=== PATIENT | female | born 1945 | race Caucasian/White ===

== ENCOUNTER 2017-01-08 16:20 | Emergency (ER) | payer OTHER ==
[~2017-01-08 16:20] MED LIST: ASPEC81 PO; ATOR-22 PO; CLOTLOT2 TD; LISI-461 PO; MECL1TAB40 PO; PANT1TAB48 PO; RGL5 PO; SERT-234 PO
[2017-01-08 16:23] VITALS: TEMP 37.3; Ht 162.6 cm
[2017-01-08] MEDS ORDERED: MoRPHine SULFATE 2 MG/ML CARP IV STA (17:30)
[2017-01-08] MEDS ORDERED: SODIUM CHLORIDE 0.9% 1000ML 1,000 ML IV STA (17:30)
[2017-01-08] MEDS ORDERED: ONDANSETRON INJ 2 MG/ML 2 ML VIAL IV STA (17:30)
[2017-01-08] MEDS ORDERED: SODIUM CHLORIDE 0.9% 500ML 500 ML IV STA (17:30)
--- NOTE | 2017-01-08 17:34 | EMERGENCY ROOM VISIT NOTE ---
History Report prepared by [place]: Mindy Rios Under the Supervision of: Dr. Loren Gomez M.D. First contact with patient: 17:26 Chief Complaint: FLU LIKE SX Stated Complaint: FLU, SENT BY DR PONCE History of Present Illness The patient is a 71 year old female who presents to the Emergency Room with complaints of persistent flu-like symptoms that began a couple days ago. The patient complains of a fever, body aches, cough, nausea, and vomiting. She had one episode of diarrhea yesterday. She has not eaten or drank much since then due to her nausea and vomiting. Per patient's family, the patient is weak compared to baseline. She had some tremors upon arrival to the ED. The patient was initially seen by her PCP earlier today and tested positive for influenza. Denies abdominal pain or other complaints. Source of History: patient Onset: a couple days ago Position: other (global) Quality: other (flu-like symptoms) Timing: other (persistent) Associated Symptoms: + cough, + diarrhea, + fevers, + nausea, + vomiting, + weakness, No abdominal pain Review of Systems See HPI for pertinent positives & negatives. A total of 10 systems reviewed and were otherwise negative. Past Medical & Surgical Medical Problems: (1) Asthma (2) Chronic peptic ulcer (3) Hyperlipidemia Family History No pertinent family history stated. Social History Smoking Status: Never Smoker Drug Use: none Marital Status: Occupation Status: employed Current/Historical Medications Scheduled Aspirin (Aspir-Low), 81 MG PO QAM Atorvastatin (Lipitor), 20 MG PO DAILY Bupropion (Wellbutrin Sr), 150 MG PO BID Lisinopril (Zestril), 10 MG PO DAILY Metoclopramide HCl (Metoclopramide HCl), 5 MG PO ACHS Ondasetron Odt (Zofran Odt), 4 MG SL Q6H Pantoprazole (Protonix), 40 MG PO DAILY Sertraline (Zoloft), 100 MG PO DAILY Scheduled PRN Hydrocodone W/ Homatropine (Hycodan 5/1.5MG 5 Ml), 5-10 ML PO Q4H PRN for Cough Allergies Coded Allergies: Simvastatin (Verified Allergy, Unknown, MUSCLE WEAKNESS, 01/08/17) Latex1 -Allergic Contact Dermititis (Verified Adverse Reaction, Intermediate, HIVES, 01/08/17) Physical Exam Vital Signs Date Time Temp Pulse Resp B/P Pulse Ox O2 Delivery O2 Flow Rate FiO2 01/08/17 19:18 81 18 138/69 95 Room Air 01/08/17 18:49 84 16 118/75 96 Room Air 01/08/17 17:57 85 20 132/52 96 Room Air 01/08/17 17:56 96 Room Air 01/08/17 17:52 85 01/08/17 16:23 37.3 98 16 109/74 94 Room Air Physical Exam Vital signs reviewed. General: Elderly, somewhat ill-appearing 71 year old female, obese, in no significant distress. HEENT: No scleral icterus, PERRLA, neck supple. Atraumatic. Dry mucous membranes. Cardiovascular: Regular rate and rhythm, no extra sounds. Pulmonary: Clear to auscultation bilaterally, normal work of breathing. Abdomen: Soft, nontender, nondistended, positive bowel sounds. Musculoskeletal: Atraumatic, no peripheral edema. Neurologic: Patient awake alert and oriented x 3, full strength in all 4 extremities. Cranial nerves 2 through 12 grossly intact. Skin: Warm, dry, no rash Medical Decision & Procedures ER Provider Diagnostic Interpretation: Radiology results as stated below per my review and radiologist interpretation: CHEST ONE VIEW PORTABLE CLINICAL HISTORY: Vomiting. Weakness. Flu. Fever. COMPARISON STUDY: Chest radiograph June 08, 2016. FINDINGS: Lung volumes are normal. There is no consolidation or evidence of pulmonary edema. No pneumothorax or pleural effusion is present. Mild to moderate cardiomegaly is unchanged. There is mild S-shaped scoliosis of the thoracolumbar spine. IMPRESSION: 1. No acute cardiopulmonary findings. 2. Stable cardiomegaly. 2. Mild bibasilar opacities which likely reflect atelectasis. Electronically signed by: Williams Izquierdo M.D. 01/08/2017 6:06 PM Dictated Date/Time: 01/08/2017 6:05 PM Laboratory Results 01/08/17 17:50 Red Blood Count 4.90, Mean Corpuscular Volume 93.3, Mean Corpuscular Hemoglobin 31.6, Mean Corpuscular Hemoglobin Concent 33.9, Mean Platelet Volume 10.3, Neutrophils (%) (Auto) 80.6, Lymphocytes (%) (Auto) 14.0, Monocytes (%) (Auto) 4.9, Eosinophils (%) (Auto) 0.0, Basophils (%) (Auto) 0.4, Neutrophils # (Auto) 6.28, Lymphocytes # (Auto) 1.09, Monocytes # (Auto) 0.38, Eosinophils # (Auto) 0.00, Basophils # (Auto) 0.03 01/08/17 17:50 Test 01/08/17 17:50 White Blood Count 7.79 K/uL (4.8-10.8) Red Blood Count 4.90 M/uL (4.2-5.4) Hemoglobin 15.5 g/dL (12.0-16.0) Hematocrit 45.7 % (37-47) Mean Corpuscular Volume 93.3 fL (80-100) Mean Corpuscular Hemoglobin 31.6 pg (25-34) Mean Corpuscular Hemoglobin Concent 33.9 g/dl (32-36) Platelet Count 179 K/uL (130-400) Mean Platelet Volume 10.3 fL (7.4-10.4) Neutrophils (%) (Auto) 80.6 % Lymphocytes (%) (Auto) 14.0 % Monocytes (%) (Auto) 4.9 % Eosinophils (%) (Auto) 0.0 % Basophils (%) (Auto) 0.4 % Neutrophils # (Auto) 6.28 K/uL (1.4-6.5) Lymphocytes # (Auto) 1.09 K/uL (1.2-3.4) Monocytes # (Auto) 0.38 K/uL (0.11-0.59) Eosinophils # (Auto) 0.00 K/uL (0-0.5) Basophils # (Auto) 0.03 K/uL (0-0.2) RDW Standard Deviation 47.7 fL (36.4-46.3) RDW Coefficient of Variation 13.9 % (11.5-14.5) Immature Granulocyte % (Auto) 0.1 % Immature Granulocyte # (Auto) 0.01 K/uL (0.00-0.02) Anion Gap 11.0 mmol/L (3-11) Estimated GFR () 66.6 Estimated GFR (Non- 57.4 BUN/Creatinine Ratio 12.6 (10-20) Calcium Level 9.4 mg/dl (8.5-10.1) Magnesium Level 2.0 mg/dl (1.8-2.4) Total Bilirubin 0.7 mg/dl (0.2-1) Direct Bilirubin 0.2 mg/dl (0-0.2) Aspartate Amino Transf (AST/SGOT) 23 U/L (15-37) Alanine Aminotransferase (ALT/SGPT) 27 U/L (12-78) Alkaline Phosphatase 67 U/L (45-117) Total Protein 8.0 gm/dl (6.4-8.2) Albumin 3.8 gm/dl (3.4-5.0) Lipase 73 U/L (73-393) Laboratory results per my review. Medications Administered Medications (Trade) Dose Ordered Sig/Felisha Route Start Time Stop Time Status Last Admin Dose Admin Sodium Chloride 1,000 ml @ 200 mls/hr Q5H STAT IV 01/08/17 17:30 01/08/17 19:48 DC 01/08/17 18:00 200 MLS/HR Sodium Chloride (Nss 500ml) 500 ml @ 999 mls/hr Q31M STAT IV 01/08/17 17:30 01/08/17 18:01 DC 01/08/17 18:00 999 MLS/HR Ondansetron HCl (Zofran Inj) 4 mg NOW STAT IV 01/08/17 17:30 01/08/17 17:32 DC 01/08/17 17:59 4 MG Morphine Sulfate (MoRPHine SULFATE INJ) 2 mg NOW STAT IV 01/08/17 17:30 01/08/17 17:32 DC 01/08/17 17:59 2 MG ED Course 1729: Past medical records reviewed. The patient was evaluated in room A2. A complete history and physical examination was performed. Ordered Morphine Sulfate 2 mg IV, Ondansetron HCl 4 mg IV, NSS 500 ml @ 999 mls/hr IV, NSS 1000 ml @ 200 mls/hr IV. 1846: Upon reevaluation, the patient appeared to have improvement of her symptoms. I discussed findings with the patient. She verbalized agreement of the treatment plan. The patient was discharged home. Medical Decision Differentials: Influenza, other viral illness, pneumonia, urinary tract infection, metabolic abnormality, medication effect, cellulitis, meningitis, intra-abdominal source. This patient was evaluated and appeared to be in no significant distress. IV access was obtained and laboratory work was drawn. The patient was hydrated with normal saline solution, given IV Zofran and morphine for her discomforts. Patient's laboratory work is fairly unrevealing. She is not profoundly dehydrated. Per the patient she tested positive for influenza earlier today. Patient's chest x-ray is clear. She was discharged to follow-up with her physician later this week for reevaluation. She will continue Tylenol as needed for pain or fever. Patient will return to the ER for worsening of symptoms or any medical concerns. Impression Primary Impression: Influenza Scribe Attestation The scribe's documentation has been prepared under my direction and personally reviewed by me in its entirety. I confirm that the note above accurately reflects all work, treatment, procedures, and medical decision making performed by me. Departure Information Dispostion Home / Self-Care Prescriptions Ondasetron Odt (ZOFRAN ODT) 4 Mg Tab 4 MG SL Q6H for Nausea, #15 TAB Prov: Loren Gomez M.D. 01/08/17 Hydrocodone W/ Homatropine (HYCODAN 5/1.5MG 5 ML) 1 Syp Syp 5-10 ML PO Q4H Y for Cough, #100 ML Prov: Loren Gomez M.D. 01/08/17 Referrals Kareem Ponce M.D. (PCP) Patient Instructions [facility] Additional Instructions Diagnosis: Influenza Drink plenty of clear fluids. Zofran 4 mg ODT every 6 hours as needed for nausea. Hycodan syrup 5-10 mL every 4 hours as needed for cough. Do not drive after taking this medication. Follow-up with your physician this week for reevaluation. Return to the ER for worsening of symptoms or any medical concerns.
[2017-01-08 17:56] VITALS: O2SAT 96
[2017-01-08 18:00] LABS: BASO % 0.4 %; BASO ABS # 0.03 K/uL (0-0.2); COMPLETE YES; HEMATOCRIT 45.7 % (37-47); IG% 0.1 %; LYMPH ABS # 1.09 K/uL (1.2-3.4); MEAN CELL VOLUME 93.3 fL (80-100); MEAN CORPUSCULAR HEMOGLOBIN 31.6 pg (25-34); MEAN CORPUSCULAR HGB CONC 33.9 g/dl (32-36); MEAN PLATELET VOLUME 10.3 fL (7.4-10.4); MONO % 4.9 %; NEUT % 80.6 %; PLATELET COUNT 179 K/uL (130-400); WHITE BLOOD COUNT 7.79 K/uL (4.8-10.8)
--- NOTE | 2017-01-08 18:08 | DIAGNOSTIC IMAGING REPORT ---
CHEST ONE VIEW PORTABLE CLINICAL HISTORY: Vomiting. Weakness. Flu. Fever. COMPARISON STUDY: Chest radiograph June 08, 2016. FINDINGS: Lung volumes are normal. There is no consolidation or evidence of pulmonary edema. No pneumothorax or pleural effusion is present. Mild to moderate cardiomegaly is unchanged. There is mild S-shaped scoliosis of the thoracolumbar spine. IMPRESSION: 1. No acute cardiopulmonary findings. 2. Stable cardiomegaly. 2. Mild bibasilar opacities which likely reflect atelectasis. Electronically signed by: Williams Izquierdo M.D. 01/08/2017 6:06 PM Dictated Date/Time: 01/08/2017 6:05 PM
[2017-01-08] MEDS ORDERED: BUPR-79 PO (18:16)
[2017-01-08 18:20] LABS: ALT/SGPT 27 U/L (12-78); BLOOD UREA NITROGEN 13 mg/dl (7-18); BUN/CREATININE RATIO 12.6 (10-20); CALCIUM 9.4 mg/dl (8.5-10.1); CARBON DIOXIDE 26 mmol/L (21-32); CHLORIDE 100 mmol/L (98-107); GLUCOSE 121 mg/dl (70-99); POTASSIUM 3.9 mmol/L (3.5-5.1); SODIUM 137 mmol/L (136-145)
[2017-01-08 18:22] LABS: ALKALINE PHOSPHATASE 67 U/L (45-117); AST/SGOT 23 U/L (15-37)
[2017-01-08] MEDS ORDERED: HYDR5SYP11 PO (19:13)
[2017-01-08] MEDS ORDERED: ONDA4TAB10 SL (19:15)
[2017-01-08 19:18] VITALS: BP 138/69; PULSE 81; O2SAT 95
[2017-03-22] MEDS ORDERED: LOSA1TAB PO (10:08)
[2017-03-22] MEDS ORDERED: METO5TAB2 PO (10:08)
[2017-03-22] MEDS ORDERED: SYMIN160 INH (10:08)
[2017-03-22] MEDS ORDERED: SENNTAB23 PO (10:08)
[2017-03-22] MEDS ORDERED: ACET-1256 PO (10:08)
[2017-03-22] MEDS ORDERED: ASPI81TA28 PO (10:08)
[2017-04-04] MEDS ORDERED: PROP10TA7 PO (14:32)
== END 2017-01-08 19:26 | disposition home or self-care (01) ==
LOC: C.EDB 16:22 → C.EDA 19:26
DX: J11.1 Influenza due to unidentified influenza virus with other respiratory manifestations (principal); J45.909 Unspecified asthma, uncomplicated; E78.5 Hyperlipidemia, unspecified; Z79.82 Long term (current) use of aspirin; Z79.899 Other long term (current) drug therapy

== ENCOUNTER → 2017-01-31 | Outpatient (CLI) | payer OTHER ==
[~2017-01-31] MED LIST changes: +ACET-1256 PO; +ASPI81TA28 PO; +BUPR-79 PO; -CLOTLOT2 TD; +LOSA1TAB PO; -MECL1TAB40 PO; +METO5TAB2 PO; +ONDA4TAB10 SL; +PROP10TA7 PO; +SENNTAB23 PO; +SYMIN160 INH
--- NOTE | 2017-01-31 17:54 | DIAGNOSTIC IMAGING REPORT ---
CHEST 2 VIEWS ROUTINE CLINICAL HISTORY: J45.901 Asthma with acute [id number] COMPARISON STUDY: 01/08/2017 FINDINGS: The heart is the upper limits of normal in size. There is persistent left basilar atelectasis/scarring. There is scoliosis. There is no failure. There is no lobar consolidation.[ IMPRESSION: No active disease in the chest. Electronically signed by: Jamison Murillo M.D. 01/31/2017 5:53 PM Dictated Date/Time: 01/31/2017 5:52 PM
== END | disposition home or self-care (01) ==
LOC: C.RAD 17:09
PROVIDERS: ATTEND Internal Medicine Geriatric Medicine
DX: J45.901 Unspecified asthma with (acute) exacerbation (principal)

== ENCOUNTER → 2017-03-28 | Outpatient (CLI) | payer OTHER ==
[~2017-03-28] MED LIST changes: -ASPEC81 PO; -LISI-461 PO; -ONDA4TAB10 SL; -RGL5 PO
--- NOTE | 2017-03-28 13:45 | DIAGNOSTIC IMAGING REPORT ---
CT OF THE CHEST WITHOUT IV CONTRAST CLINICAL HISTORY: J98.11 Atelectasis IS A BREATH, COUGH. COMPARISON STUDY: Chest x-ray dated 01/31/2017 CT DOSE: 496.63 mGycm TECHNIQUE: CT of the thorax was performed from the thoracic inlet to the lung bases. Images are reviewed in the axial, sagittal, and coronal planes. IV contrast was not administered for this examination. FINDINGS: Thyroid: Imaged portions of the thyroid gland are normal in appearance. Thoracic aorta: There is minimal ectasia of the adjacent thoracic aorta which measures 38 mm. Heart: The heart is normal in size and configuration, without pericardial effusion. Lungs and pleural spaces: No pleural effusions are visualized. There are bibasilar parenchymal opacities, most consistent with atelectasis. There are no suspicious pulmonary masses. Mediastinum: There is no mediastinal lymphadenopathy. Giovana: There is no evidence of pathologic hilar adenopathy given the limitations of a noncontrast study Axilla: Clear. Upper abdomen: There is a hiatal hernia. The gallbladder is surgically absent. Skeletal structures: There are no lytic or blastic osseous lesions. IMPRESSION: 1. Bilateral lower lobe parenchymal opacities, having a configuration most consistent with atelectasis 2. No suspicious pulmonary masses 3. No evidence of pathologic adenopathy 4. No pleural effusions. Electronically signed by: Jamison Murillo M.D. 03/28/2017 1:43 PM Dictated Date/Time: 03/28/2017 1:39 PM
== END | disposition home or self-care (01) ==
LOC: C.CTS 13:03
PROVIDERS: ATTEND Internal Medicine Pulmonary Disease
DX: G47.33 Obstructive sleep apnea (adult) (pediatric) (principal); J98.11 Atelectasis

== ENCOUNTER → 2017-03-29 | Outpatient (CLI) | payer OTHER ==
[2017-03-29 15:39] LABS: BASO % 0.9 %; BASO ABS # 0.05 K/uL (0-0.2); COMPLETE YES; EOS % 2.3 %; HEMATOCRIT 43.9 % (37-47); IG% 0.2 %; LYMPH % 35.5 %; LYMPH ABS # 2.01 K/uL (1.2-3.4); MEAN CELL VOLUME 95.9 fL (80-100); MEAN CORPUSCULAR HEMOGLOBIN 31.4 pg (25-34); MEAN CORPUSCULAR HGB CONC 32.8 g/dl (32-36); MEAN PLATELET VOLUME 10.4 fL (7.4-10.4); MONO % 8.1 %; PLATELET COUNT 261 K/uL (130-400); RED BLOOD COUNT 4.58 M/uL (4.2-5.4); WHITE BLOOD COUNT 5.66 K/uL (4.8-10.8)
[2017-03-29 16:01] LABS: ALT/SGPT 41 U/L (12-78); AST/SGOT 19 U/L (15-37); BLOOD UREA NITROGEN 10 mg/dl (7-18); BUN/CREATININE RATIO 11.3 (10-20); CALCIUM 8.8 mg/dl (8.5-10.1); CARBON DIOXIDE 28 mmol/L (21-32); CHLORIDE 108 mmol/L (98-107); CREATININE 0.88 mg/dl (0.60-1.20); GLUCOSE 82 mg/dl (70-99); POTASSIUM 4.1 mmol/L (3.5-5.1); SODIUM 142 mmol/L (136-145)
[2017-03-29 16:12] LABS: ALKALINE PHOSPHATASE 59 U/L (45-117); CHOLESTEROL 160 mg/dl (0-200); CHOLESTEROL/HDL RATIO 3.1; HDL CHOLESTEROL 52 mg/dl; LDL CHOLESTEROL CALCULATED 87 mg/dl; TRIGLYCERIDES 106 mg/dl (0-150); VERY LOW DENSITY LIPOPROT CALC 21 mg/dl
[2017-03-29 17:42] LABS: LYME DISEASE AB IGG NEG (NEG); LYME DISEASE AB IGM NEG (NEG)
[2017-03-30 07:35] LABS: ESTIMATED AVERAGE GLUCOSE 103 mg/dl; HA1C FLAG Normal (Normal)
[2017-04-01 15:51] LABS: ALBUMIN 3.7 G/DL (3.8-4.8); GAMMA GLOBULIN 0.8 G/DL (0.8-1.7); TOTAL PROTEIN 6.3 G/DL (6.2-8.3)
== END | disposition home or self-care (01) ==
LOC: C.LAB 14:16
PROVIDERS: ATTEND Internal Medicine
DX: J45.901 Unspecified asthma with (acute) exacerbation (principal); R51 Headache; G62.9 Polyneuropathy, unspecified; R41.3 Other amnesia; R73.9 Hyperglycemia, unspecified

== ENCOUNTER → 2017-04-04 | Day surgery (SDC) | payer OTHER ==
[2017-03-22 10:09] VITALS: BMI 34.0
[~2017-04-04] VITALS: Ht 162.6 cm; Wt 90.9 kg
[~2017-04-04] MED LIST changes: +LIDOCAINE HCL 2% 2 ML VIAL (20MG/ML) ONE; +MIDAZOLAM HCL 1 MG/ML 2ML VIAL ONE; +ONDANSETRON INJ 2 MG/ML 2 ML VIAL ONE; +PROPOFOL IV EMULSION 10 MG/ML 20 ML VIAL IV ONE
--- NOTE | 2017-04-04 13:54 | Endo History and Physical ---
History & Physical Date of Service: April 04, 2017. 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 Past Surgical History Hx Cardiac Surgery: Yes (HEART CATH, NO STENTS) Hx Internal Defibrillator: No Hx Pacemaker: No Hx Abdominal Surgery: Yes (CHLOE, ANDRY BSO) Hx of Implantable Prosthesis: No Hx Post-Op Nausea and Vomiting: No Hx Cancer Surgery: No Hx Thoracic Surgery: No Hx Orthopedic: Yes (LT/RT TKA) Hx Urinary Tract Surgery: No Family History None Social History Smoking Status: Never Smoker Hx Substance Use: No Hx Alcohol Use: No Allergies Coded Allergies: Simvastatin (Verified Allergy, Unknown, MUSCLE WEAKNESS, 03/22/17) Latex1 -Allergic Contact Dermititis (Verified Adverse Reaction, Intermediate, HIVES, 03/22/17) Current Medications Reported Home Medications Medications Dose Route/Sig Max Daily Dose Days Date Category Tylenol (Acetaminophen) 500 Mg Tab 1-2 Tabs PO Q6H PRN 03/22/17 Reported Stool Softener (Sennosides-Docusate Sodium) 1 Tab Tab 1 Tab PO DAILY PRN 03/22/17 Reported Symbicort 160/4.5 Inhaler (Budesonide/Formoterol Fumarate) Aero 2 Puffs INH BID PRN 03/22/17 Reported Aspirin Ec (Aspirin) 81 Mg Tab 81 Mg PO HS 03/22/17 Reported Cozaar (Losartan Potassium) 25 Mg Tab 25 Mg PO HS 03/22/17 Reported Metoclopramide Hcl 5 Mg Tab 1 Tab PO ACHS 03/22/17 Reported Wellbutrin Sr (Bupropion HCl) 150 Mg Ertab 150 Mg PO BID 01/08/17 Reported Protonix (Pantoprazole) 40 Mg Tab 40 Mg PO HS 02/13/14 Reported Lipitor (Atorvastatin Calcium) 20 Mg Tab 20 Mg PO HS 02/13/14 Reported Zoloft (Sertraline HCl) 100 Mg Tab 100 Mg PO HS 02/13/14 Reported Vital Signs Weight (Kilograms): 90.91 Height (Feet): 5 Height (Inches): 4 Physical Exam General Appearance: WD/WN, no apparent distress Respiratory/Chest: Auscultation: breath sounds normal Cardiovascular: Heart Auscultation: RRR Abdomen: Bowel Sounds: normal Inspection & Palpation: soft, non-distended, no tenderness, guarding & rebound Assessment and Plan Assessment: 71 yo CF who presents for EGD secondary to GERD and Nausea. Plan: Proceed with EGD.
[2017-04-04 13:56] VITALS: Ht 162.6 cm; Wt 90.9 kg
--- NOTE | 2017-04-04 15:25 | Discharge Instructions ---
Endoscopy Patient Instructions Date / Procedure(s) Performed April 04, 2017. EGD Allergy Information Coded Allergies: Simvastatin (Verified Allergy, Unknown, MUSCLE WEAKNESS, 03/22/17) Latex1 -Allergic Contact Dermititis (Verified Adverse Reaction, Intermediate, HIVES, 03/22/17) Discharge Date / Findings April 04, 2017. Gastritis s/p biopsies Hiatal hernia Retained gastric contents Medication Instructions OK to resume all medications today as prescribed Reported Home Medications Medications Dose Route/Sig Max Daily Dose Days Date Category Inderal (Propranolol HCl) 10 Mg Tab 10 Mg PO BID 04/04/17 Reported Tylenol (Acetaminophen) 500 Mg Tab 1-2 Tabs PO Q6H PRN 03/22/17 Reported Stool Softener (Sennosides-Docusate Sodium) 1 Tab Tab 1 Tab PO DAILY PRN 03/22/17 Reported Symbicort 160/4.5 Inhaler (Budesonide/Formoterol Fumarate) Aero 2 Puffs INH BID PRN 03/22/17 Reported Aspirin Ec (Aspirin) 81 Mg Tab 81 Mg PO HS 03/22/17 Reported Cozaar (Losartan Potassium) 25 Mg Tab 25 Mg PO HS 03/22/17 Reported Metoclopramide Hcl 5 Mg Tab 1 Tab PO ACHS 03/22/17 Reported Wellbutrin Sr (Bupropion HCl) 150 Mg Ertab 150 Mg PO BID 01/08/17 Reported Protonix (Pantoprazole) 40 Mg Tab 40 Mg PO HS 02/13/14 Reported Lipitor (Atorvastatin Calcium) 20 Mg Tab 20 Mg PO HS 02/13/14 Reported Zoloft (Sertraline HCl) 100 Mg Tab 100 Mg PO HS 02/13/14 Reported Provider Instructions Activity Restrictions - No exercising or heavy lifting for 24 hours. - Do not drink alcohol the day of the procedure. - Do not drive a car or operate machinery until the day after the procedure. - Do not make any important decisions or sign important papers in 24 hours after the procedure. Following Day: - Return to full activity which may include returning to work/school. Diet Start your diet with liquids and light foods (jello, soup, juice, toast). Then eat your usual diet if not nauseated. Treatment For Common After Affects For mild abdominal pain, bloating, or excessive gas: - Rest - Eat lightly - Lie on right side Follow-Up Information Follow-up with Dr Ponce as scheduled Anesthesia Information What You Should Know You have had a procedure that required some medicine to reduce anxiety and discomfort. This treatment is called moderate sedation. After receiving the treatment, you may be sleepy, but you will be able to breathe on your own. The effects of the treatment may last for several hours. Follow these instructions along with Activity/Diet recommendations noted above: * Do NOT do anything where dizziness or clumsiness would be dangerous. * Rest quietly at home today, then you can be up and about tomorrow. * Have a responsible person stay with you the rest of today. * You may have had an I.V. today. If so, you may take the dressing off later today. Recommendations Call your doctor if: * Trouble breathing * Continuous vomiting for more than 24 hours * Temperature above 101 degrees * Severe abdominal pain or bloating * Pain not relieved by pain medicine ordered * There is increased drainage or redness from any incision * A large amount of rectal bleeding greater than 2-3 tablespoons. (If you had a polyp/s removed or have hemorrhoids, a small amount of blood - from the rectum is to be expected.) * You have any unanswered questions or concerns. IN THE EVENT OF A SERIOUS EMERGENCY, GO TO THE NEAREST EMERGENCY ROOM Your discharge instructions were prepared by provider Baljinder Talamantes. Patient Instructions Signature Page Donita Kathleen Patient (or Guardian) Signature/Date: I have read and understand the instructions given to me by my caregivers. Caregiver/RN/Doctor Signature/Date: The above-named patient and/or guardian has received patient instructions on this date. + Original Patient Signature Page (only) stays with chart. Please make copy for patient.
--- NOTE | 2017-04-04 15:29 | GI REPORT ---
Procedure Date: 04/04/2017 2:54 PM Procedure: Upper GI endoscopy Indications: Gastro-esophageal reflux disease, Nausea Medicines: Monitored Anesthesia Care Complications: No immediate complications. Estimated Blood Loss: Estimated blood loss: none. Procedure: Pre-Anesthesia Assessment: - Prior to the procedure, a History and Physical was performed, and patient medications and allergies were reviewed. The patient's tolerance of previous anesthesia was also reviewed. The risks and benefits of the procedure and the sedation options and risks were discussed with the patient. All questions were answered, and informed consent was obtained. Prior Anticoagulants: The patient has taken aspirin, last dose was 10 days prior to procedure. ASA Grade Assessment: III - A patient with severe systemic disease. After reviewing the risks and benefits, the patient was deemed in satisfactory condition to undergo the procedure. After obtaining informed consent, the endoscope was passed under direct vision. Throughout the procedure, the patient's blood pressure, pulse, and oxygen saturations were monitored continuously. The Scope was introduced through the mouth, and advanced to the second part of duodenum. The upper GI endoscopy was accomplished without difficulty. The patient tolerated the procedure well. Findings: The esophagus was normal. A medium-sized hiatus hernia was present. A medium amount of food (residue) was found on the greater curvature of the stomach. Localized mild inflammation characterized by erythema was found in the gastric antrum. Biopsies were taken with a cold forceps for histology. Impression: - Normal esophagus. - Medium-sized hiatus hernia. - A medium amount of food (residue) in the stomach. - Gastritis. Biopsied. Recommendation: - Resume previous diet. - Continue present medications. - Await pathology results. - Return to GI clinic as previously scheduled. Baljinder Talamantes, 04/04/2017 3:28:54 PM This report has been signed electronically. Note Initiated On: 04/04/2017 2:54 PM I attest to the content of the Intraoperative Record and orders documented therein, exceptions below
--- NOTE | 2017-04-04 15:31 | Anesthesiology Progress Note ---
Anesthesia Post Op Note Date & Time April 04, 2017 at 15:31 Vital Signs Pain Intensity: 0 Vital Signs Past 12 Hours Date Time Temp Pulse Resp B/P Pulse Ox O2 Delivery O2 Flow Rate FiO2 04/04/17 15:18 62 16 125/68 97 Room Air 04/04/17 14:03 36.9 70 18 127/68 95 Room Air Notes Mental Status: alert / awake / arousable, participated in evaluation Pt Amnestic to Procedure: Yes Nausea / Vomiting: adequately controlled Pain: adequately controlled Airway Patency, RR, SpO2: stable & adequate BP & HR: stable & adequate Hydration State: stable & adequate Anesthetic Complications: no major complications apparent Pt doing well.
[2017-04-04 15:40] VITALS: BP 110/87; PULSE 61; O2SAT 95
== END | disposition home or self-care (01) ==
LOC: C.GI 13:15
PROVIDERS: ATTEND Internal Medicine
DX: K21.9 Gastro-esophageal reflux disease without esophagitis (principal); K44.9 Diaphragmatic hernia without obstruction or gangrene; K29.50 Unspecified chronic gastritis without bleeding; Z79.82 Long term (current) use of aspirin; Z79.899 Other long term (current) drug therapy

== ENCOUNTER → 2017-04-10 | Outpatient (CLI) | payer OTHER ==
[~2017-04-10] MED LIST changes: -LIDOCAINE HCL 2% 2 ML VIAL (20MG/ML) ONE; -MIDAZOLAM HCL 1 MG/ML 2ML VIAL ONE; -ONDANSETRON INJ 2 MG/ML 2 ML VIAL ONE; -PROPOFOL IV EMULSION 10 MG/ML 20 ML VIAL IV ONE
--- NOTE | 2017-04-10 09:09 | DIAGNOSTIC IMAGING REPORT ---
Brain MRI WITHOUT CONTRAST HISTORY: Headache NEW ONSET OF WEAVER AFTER AGE 52 TECHNIQUE: Multiplanar multisequence MRI of the brain was performed without the use of contrast. COMPARISON STUDY: None. FINDINGS: Diffusion-weighted images are negative for an acute ischemic insult. FLAIR images demonstrate several foci of increased signal including 1 within the left optic radiations. This suggestive chronic small vessel change of aging and/or history of chronic headache. A demyelinating disorder is considered a less likely possibility given this appearance. Ventricular system is midline. Structures the sella and parasellar region are unremarkable. IMPRESSION: Several small foci of increased signal throughout both cerebral hemispheres. This disc is most consistent with that of mild chronic small vessel change of aging. Otherwise negative study. Electronically signed by: Miguel Hills M.D. 04/10/2017 9:08 AM Dictated Date/Time: 04/10/2017 8:53 AM
== END | disposition home or self-care (01) ==
LOC: C.OPENMRI 07:37
PROVIDERS: ATTEND Psychiatry & Neurology Neurology
DX: R51 Headache (principal)

== ENCOUNTER → 2017-05-22 | Outpatient (CLI) | payer OTHER ==
--- NOTE | 2017-05-23 06:19 | PAP/PSG TECHNICIAN REPORT ---
[facility] Corporate Relations Director Polysomnogram Report Study name: None Report date: 05/23/2017 Study date: 05/22/2017 Referring Physician: MARQUES COELHO DO, DO Name: KEAGAN VILLASEÑOR Interpreting Physician: Marques Coelho D.O. Date of : 1945 Corporate Relations Director: Amie Ramires [facility]. Sex: Female Age: 71 Study Type: PSG Weight: 201 lbs Height: 71 years, Height 5' 5" BMI: 33.44 Medications: PANTOPRAZOLE 40 MG, BUPROPION 150 MG, SERTRALINE 100 MG, PROPRANOLOL 10 MG, ATORVASTATIN 20 MG, LOSARTAN 25 MG, ONDANSETRON 4 MG, SYMBICORT, ASPIRIN 81 MG, CETIRIZINE 10 MG, VIT B-12 1000 MCG, CLOTRIMAZOLE-BETAMETHASONE 1-0.05% EX CREAM Patient History 71 yr-old female here for a baseline/split study. She has had previous sleep testing. She was found to be positive for RISHI but discontinued CPAP use. She is back to assess her RISHI and start CPAP again. The test was started on room air. ETCO2 testing was not utilized during this study. Room 1 Parameters Monitored NPSG: E1-M2, E2-M1, Fp1-M2, Fp2-M1, F3-M2, F4-M2, F4-M1, C3-M2, C4-M2, C4-M1, O1-M2, O2-M2, O2-M1, T3-M2, T4-M1, P3-M2, P4-M1, CHIN1, CHIN2, HR, EKG, Legs, PFLOW, SNOR, FLOW, CFLOW, Tidal Volume, THOR, ABDO, SpO2, PLTH, CPRESS, ETCO2 Wave, ETCO2, pH Sleep Architecture Sleep Stages Time at Lights Off 10:38:03 PM STAGES Time (min.) TST (%) Time at Lights On 5:15:33 AM Wake 118.5 -- Total Recording Time (TRT) 397.50 min. N1 80.5 29 Total Sleep Period (TSP) 356.0 min. N2 198.5 71 Total Sleep Time (TST) 279.0min. N3 0.0 0 Awake Time 118.5 min. REM 0.0 0 Wake after Sleep Onset 77.0 min. Sleep Efficiency (SE) 70 % Sleep Onset Latency (DOROTHY) 41.5 min. Number of Stage 1 Shifts None Awakenings 37 Stage Changes 122 Number of REM periods N/A REM 0.0 0 REM Latency NONE min. NREM 279.0 100 Body Position Analysis Supine Right Left Side Prone Vertical Total Sleep Time (min.) 119.8 146.0 88.5 234.50 0.0 0.0 Total Sleep Time (%) 16% 52% 32% 84 0% N/A% Total Sleep Time REM (min.) 0.0 0.0 0.0 None 0.0 0.0 Total Sleep Time NREM (min.) 44.5 146.0 88.5 None 0.0 0.0 Intermittent Wake (min.) 75.3 27.4 15.8 None 0.0 0.0 Total Sleep Period (%) 22% None None None None None Arousals Myoclonus (PLM) * Events Count Index Events Count Index Spontaneous 42 9 Events Awake (PLMW) 53 26.8 Respiratory 32 7.5 Events Asleep w/ Arousal (PLMA) 9 1.9 PLM 9 2 Events Asleep w/o Arousal (PLMS) 152 32.7 Snoring 6 1 Total Asleep 161 34.6 Total 89 19 Total 214 32 Respiratory Analysis * CA OA MA CH H RERA Total Count 7 54 4 0 122 2 187 Index 1.5 11.6 0.9 0 26.2 0 40.6 Mean Duration 14.7 18.6 19.0 0.00 20.6 16.6 19.7 Longest Duration 19.2 29.5 24.1 0.00 24.1 16.9 45.3 Respiratory Event Summary Total Supine ~Supine Right Left Prone REM NREM Apneas Count 65 4 61 20 41 N/A N/A 65 Index 14.0 5 16 8.2 27.8 N/A N/A 14 Hypopneas (4% Desat) Count 122 32 90 38 52 N/A N/A 122 Index 26.2 43.1 23 15.6 35.3 N/A N/A 26.2 Apneas & All Hypopneas Count 187 36 151 58 93 N/A N/A 187 Index 40.2 49 39 24 63 N/A N/A 40.2 Respiratory Events (Door Repairer Bus+All Hyp+RERA) Count 187 38 151 58 93 N/A N/A 187 Index 40.6 51 39 23.8 63.1 N/A N/A 40.6 Respiratory Related Arousal Count 32 38 22 9 13 N/A N/A 35 Index 7.5 18 6 4 9 N/A N/A 8 Snoring Analysis Supine Right Left Prone REM NREM Total Snore duration 3.5 min Snores count 22 31 37 N/A N/A 90 90 Snore mean duration 2.3 Sec Snores index 30 13 25 N/A N/A 19.4 19.4 TST with snoring (%) 1.2% Desaturation Event Summary: Minimum %SpO2 Event Count Mean/Min/Max Duration(sec.) Desaturation Index % Time In Bed > 90 211 28.3 / 9.5 / 59.8 68.8 46.4 86 - 90 85 26.4 / 10.5 / 59.8 25.0 51.4 81 - 85 0 N/A 0.0 2.2 76 - 80 0 N/A 0.0 0.0 71 - 75 0 N/A 0.0 0.0 66 - 70 0 N/A 0.0 0.0 61 - 65 0 N/A 0.0 0.0 56 - 60 0 N/A 0.0 0.0 51 - 55 0 N/A 0.0 0.0 < 50 0 N/A 0.0 0.0 Total REM NREM Awake <50% 0.0 min. 0.0 min. 0.0 min. 0.0 min. 51 - 60% 0.0 min. 0.0 min. 0.0 min. 0.0 min. 61 - 70% 0.0 min. 0.0 min. 0.0 min. 0.0 min. 71 - 80% 0.0 min. 0.0 min. 0.0 min. 0.0 min. 81 - 90% 212.8 min. 0.0 min. 182.8 min. 30.1 min. 91 - 100% 183.9 min. 0.0 min. 96.2 min. 87.7 min. Average 90 0 90 92 Minimum SpO2 81 N/A 81 82 Desaturation Event Index 34.0 0.0 42.8 13.7 # Desat. Events below 89% 176 N/A 160 16 Time(%) with Saturation below 89% 22.8 0.0 20.2 2.6 Time(min.) with Saturation below 89% 90.6 0.0 80.1 10.4 Time (mins) REM (mins) NREM (mins) % of TST SpO2 Below 90% 195 N/A N195 46.8 SpO2 Below 88% 73 0 0 12 Heart Rate Analysis Min (bpm) Max (bpm) Average (bpm) Awake 54 127 62 NREM 54 67 61 REM N/A N/A N/A Overall 54 67 61 Supplemental O2 Values Minimum O2 level: None Value Start Time End Time Corporate Relations Director Comments Ms. Villaseñor slept in the right, left, and supine positions. No cardiac arrhythmias were noted. PLMs were noted. No bruxism noted. Snoring was noted and scored as a 2 on a scale of 1 through 5. (0=no snoring, 5=snoring loud enough to be heard through a closed door or down the hassan way) She did not meet specific Split-Night criteria during the diagnostic portion of this study in enough time to start CPAP. She did not wake up to use the restroom during the night. Ms. Villaseñor stated that she slept about the same as usual. The final report will be interpreted and signed by a sleep physician. The completed physician report will then be placed in the patient medical record. Therapy (cm H2O) 0 TIB (min.) 397.5 TST (min.) 279.0 Sleep Onset (min.) 41.5 REM Onset From Sleep (min.) NONE Sleep Efficiency % 70 Wakefulness (%) 30 Wakefulness (min.) 118.5 NREM 1 (%) 29 NREM 1 (min.) 80.5 NREM 2 (%) 71 NREM 2 (min.) 198.5 NREM 3 (%) 0 NREM 3 (min.) 0.0 REM (%) 0 REM (min.) 0.0 # Arousals 89 Arousal Index 19 # Snore 90 Snore Index 19.4 AHI 40.2 AHI Supine 49 AHI Non-Supine 39 NREM AHI 40.2 REM AHI N/A RDI 40.6 # Obstructive Apnea 54 # Central Apnea 7 # Mixed Apnea 4 # Hypopneas 122 RERAs 2 Total Respiratory Events 192 Time Below SpO2 89% (min.) 80.1 Mean NREM SpO2 (%) 90 Mean REM SpO2 (%) N/A Mean Sleep SpO2 (%) 90 Min NREM SpO2 (%) 81 Min REM SpO2 (%) N/A Position Supine (min.) 119.8 Position Non-supine (min.) 234.5 LM Index Sleep 34.6 LM Index NREM 34.6 LM Index REM N/A Mean Heart Rate (bpm) 61 Min Heart Rate (bpm) 54
--- NOTE | 2017-05-28 13:14 | Sleep Study ---
Sleep Study Report Date of Service: 05/22/2017 Sleep Study Report Clinical data: The patient is a 71-year-old female who has a BMI of 33.44. She was diagnosed with obstructive sleep apnea in 2006 and it was severe. She only wore CPAP for 2 months and never got comfortable. She has symptoms of snoring, disturbed nocturnal sleep, and excessive daytime somnolence. The patient comes for an in- lab sleep study. Sleep architecture: The total sleep period 356.0 minutes. The total sleep time was 279.0 minutes. The sleep efficiency was moderately reduced to 70 percent. The sleep onset latency was prolonged to 41.5 minutes. Wake after sleep onset was increased at 77.0 minutes. Sleep consisted of stage N1 29 percent and stage N2 71 percent. Arousal data: The patient had a total of 89 arousals including 42 spontaneous arousals, 32 respiratory arousals, 9 PLM arousals, and 6 snoring arousals. The arousal index was 19. PLM data: The patient had a total of 161 periodic limb movements of sleep for an index of 34.6. There were 9 arousals for a PLM arousal index of 1.9. Respiratory data: There were a total of 187 respiratory events including 7 central apneas, 54 obstructive apneas, 4 mixed apneas, and 122 hypopneas. Hypopneas were scored by the 4 percent desaturation rule. The longest apnea was 29.5 seconds. Mean duration of the hypopneas was 20.6 seconds. The apnea-hypopnea index was severely elevated at 40.2 events per hour. This would be compatible with severe obstructive sleep apnea. It is worthwhile knowing that the majority of the events occurred in the 2nd half of the night and thus a split study could not be done. Oximetry data: The oxygen saturation average was 90 percent. The minimum saturation was 81 percent. There was a total of 90.6 minutes with saturations less than 89 percent. EKG data: The patient had an underlying normal sinus rhythm. The cardiac rate ranged from 54 to 67 beats per minute. The average rate was 61 beats per minute. No significant cardiac arrhythmias noted. Clinical Aide comments: The patient slept on the right, left, and supine positions. PLMS were noted. No bruxism noted. Snoring was scored as a 2 on a scale of 1 through 5. Impressions: 1. Obstructive sleep apnea-severe 2. Periodic limb movement disorder Comments: The patient has severe sleep apnea with a severe elevation of body mass index. The sleep efficiency was reduced. His sleep was poorly consolidated. No REM sleep was present. The majority of respiratory events occurred in the 2nd half of the night and a split study could not be done. Oxygenation was somewhat lower than normal. The patient had a modest number of limb movements but with few arousals. There is no treatment necessary at present for the underlying limb movement disorder. Sleep disordered breathing should be treated 1st. Recommendations: 1. It is advised that the patient be given a trial of nasal CPAP. This could either be from a referral to the Sleep Lab or with auto CPAP. 2. No treatment is necessary for the limb movements 3. Weight loss is advised in light of the elevation of body mass index at 33.44 4. The patient should be advised the appropriate principles of sleep hygiene including having a regular sleep-wake schedule and allowing approximately 7.5 hours of sleep time per night. 5. Following nasal CPAP therapy she should be evaluated between day 31 day 90. Copies To 1: Marques Javed DO; Kareem Ponce M.D.
== END | disposition home or self-care (01) ==
LOC: C.NEUR 21:00
PROVIDERS: ATTEND Internal Medicine Pulmonary Disease
DX: G47.33 Obstructive sleep apnea (adult) (pediatric) (principal); G47.61 Periodic limb movement disorder

== ENCOUNTER → 2018-01-22 | Outpatient (CLI) | payer OTHER ==
[~2018-01-22] MED LIST changes: +PANT1TAB3 PO; -PANT1TAB48 PO
[2018-01-22 16:53] LABS: HEMATOCRIT 45.1 % (37-47); HEMOGLOBIN 14.8 g/dL (12.0-16.0); MEAN CELL VOLUME 93.8 fL (80-100); MEAN CORPUSCULAR HEMOGLOBIN 30.8 pg (25-34); MEAN CORPUSCULAR HGB CONC 32.8 g/dl (32-36); MEAN PLATELET VOLUME 10.2 fL (7.4-10.4); PLATELET COUNT 281 K/uL (130-400); RED CELL DISTRIBUTION WIDTH SD 48.1 fL (36.4-46.3); WHITE BLOOD COUNT 6.51 K/uL (4.8-10.8)
[2018-01-22 17:20] LABS: BASO % 0.9 %; BASO ABS # 0.06 K/uL (0-0.2); EOS % 2.6 %; EOS ABS # 0.17 K/uL (0-0.5); IG# 0.01 K/uL (0.00-0.02); LYMPH ABS # 3.45 K/uL (1.2-3.4); MONO % 6.1 %; NEUT % 37.2 %; NEUT ABS # 2.42 K/uL (1.4-6.5)
[2018-01-22 17:23] LABS: ALBUMIN 3.5 gm/dl (3.4-5.0); ALKALINE PHOSPHATASE 69 U/L (45-117); ALT/SGPT 26 U/L (12-78); AST/SGOT 22 U/L (15-37); BLOOD UREA NITROGEN 12 mg/dl (7-18); CALCIUM 9.1 mg/dl (8.5-10.1); CARBON DIOXIDE 25 mmol/L (21-32); CREATININE 1.08 mg/dl (0.60-1.20); GLUCOSE 97 mg/dl (70-99); POTASSIUM 3.8 mmol/L (3.5-5.1); SODIUM 137 mmol/L (136-145)
[2018-01-22 17:29] LABS: CHOLESTEROL 331 mg/dl (0-200); LDL CHOLESTEROL CALCULATED 244 mg/dl; TOTAL PROTEIN 7.4 gm/dl (6.4-8.2)
[2018-01-23 06:50] LABS: HEMOGLOBIN A1C 5.4 % (4.5-5.6)
== END | disposition home or self-care (01) ==
LOC: C.LABBC 12:22
PROVIDERS: ATTEND Internal Medicine
DX: I10 Essential (primary) hypertension (principal)

== ENCOUNTER → 2018-04-11 | Outpatient (CLI) | payer OTHER | END | disposition home or self-care (01) | LOC: C.LABBC 14:37 | PROVIDERS: ATTEND Physician Assistant Medical | DX: E78.5 Hyperlipidemia, unspecified (principal) ==

== ENCOUNTER 2018-07-09 19:32 | Observation (INO) | payer OTHER ==
[~2018-07-09] VITALS: Ht 160 cm; Wt 87.4 kg
[2018-07-09] MEDS ORDERED: ONDANSETRON INJ 2 MG/ML 2 ML VIAL IV STA (19:39)
[2018-07-09] MEDS ORDERED: PROMETHAZINE HCL INJ 12.5 MG in SODIUM CHLORIDE 0.9% 50ML 50 ML IV STA (19:59)
[2018-07-09 20:01] LABS: BASO % 0.4 %; BASO ABS # 0.03 K/uL (0-0.2); EOS % 0.7 %; EOS ABS # 0.05 K/uL (0-0.5); HEMATOCRIT 47.6 % (37-47); HEMOGLOBIN 16.1 g/dL (12.0-16.0); IG# 0.01 K/uL (0.00-0.02); LYMPH % 42.8 %; LYMPH ABS # 2.99 K/uL (1.2-3.4); MEAN CELL VOLUME 92.8 fL (80-100); MEAN CORPUSCULAR HEMOGLOBIN 31.4 pg (25-34); MEAN CORPUSCULAR HGB CONC 33.8 g/dl (32-36); MEAN PLATELET VOLUME 10.9 fL (7.4-10.4); MONO % 6.3 %; MONO ABS # 0.44 K/uL (0.11-0.59); NEUT % 49.7 %; NEUT ABS # 3.47 K/uL (1.4-6.5); PLATELET COUNT 263 K/uL (130-400); RED CELL DISTRIBUTION WIDTH CV 14.5 % (11.5-14.5); RED CELL DISTRIBUTION WIDTH SD 49.5 fL (36.4-46.3); WHITE BLOOD COUNT 6.99 K/uL (4.8-10.8)
[2018-07-09 20:30] LABS: ALKALINE PHOSPHATASE 66 U/L (45-117); ALT/SGPT 32 U/L (12-78); AST/SGOT 26 U/L (15-37); BLOOD UREA NITROGEN 12 mg/dl (7-18); CALCIUM 9.9 mg/dl (8.5-10.1); CARBON DIOXIDE 22 mmol/L (21-32); CREATININE 1.03 mg/dl (0.60-1.20); GLUCOSE 116 mg/dl (70-99); LIPASE 59 U/L (73-393); POTASSIUM 3.4 mmol/L (3.5-5.1); SODIUM 137 mmol/L (136-145); TOTAL PROTEIN 7.8 gm/dl (6.4-8.2)
--- NOTE | 2018-07-09 21:33 | DIAGNOSTIC IMAGING REPORT ---
CT OF THE ABDOMEN AND PELVIS WITHOUT CONTRAST CLINICAL HISTORY: Vomiting. Evaluate for bowel obstruction. COMPARISON STUDY: CT of the abdomen and pelvis June 10, 2009. TECHNIQUE: Axial images of the abdomen and pelvis were obtained without IV contrast. Images were reviewed in the axial, sagittal, and coronal planes. A dose lowering technique was utilized adhering to the principles of ALARA. FINDINGS: Visualized portions of the lower chest demonstrate a moderate sized hiatal hernia. A suspected ingested tablet is noted within the intrathoracic portion of the stomach. There is no biliary ductal dilatation status post cholecystectomy. No pneumatosis, free air or portal venous gas is present. A splenule is noted. The spleen, adrenal glands, kidneys and pancreas are unremarkable. There is no peripancreatic infiltration. No hydronephrosis or hydroureter is present. No enlarged abdominal or pelvic lymph nodes are noted. Tiny fat-containing umbilical hernia is present. There is no evidence for a bowel obstruction. There is colonic diverticulosis without evidence for acute diverticulitis. Submucosal fat deposition within the colon is noted. The appendix is normal. There is mild colonic wall thickening which appears diffuse. There is no significant pericolonic infiltration. There is no free air or abscess. No suspicious osseous lesion is present. There is no ascites. IMPRESSION: 1. No evidence for a bowel obstruction. Normal appendix. 2. Submucosal fat deposition within the colon which is chronic. Apparent mild colonic wall thickening which is likely due to underdistention however a nonspecific colitis could appear similar. No free air or abscess. 3. Colonic diverticulosis without evidence for acute diverticulitis. 4. Moderate sized hiatal hernia with suspected ingested tablet within the intrathoracic portion of the stomach. Electronically signed by: Williams Izquierdo M.D. 07/09/2018 9:32 PM Dictated Date/Time: 07/09/2018 9:22 PM
[2018-07-09] MEDS ORDERED: SODIUM CHLORIDE 0.9% 500ML 500 ML IV STA (21:50)
--- NOTE | 2018-07-09 22:31 | EMERGENCY ROOM VISIT NOTE ---
History Report prepared by Glenibtaz: Cici Salomon Under the Supervision of: Dr. Eyal Vo M.D. First contact with patient: 19:34 Chief Complaint: NAUSEA Stated Complaint: Nausea History of Present Illness The patient is a 72 year old female who presents to the Emergency Room with complaints of worsening nausea. She was brought to the ED via EMS. EMS states the patient has been nauseous and constipated for the past 5 days. Her nausea has worsened and she is vomiting on arrival to the ED. Zofran given in the field has provided minimal relief. She has also complained of chest pain or abdominal pain. Her BSG was 107 in the field and she was hypertensive in the 160 's. HPI is limited secondary to the patients condition. She is actively vomiting. Source of History: patient History Limited By: other (Condition of the patient; vomiting) Onset: 5 days CYTOGENETICIST Position: abdomen Quality: other (vomiting) Timing: worsening Modifying Factors (Relieving): anti-emetics (Zofran) Associated Symptoms: + chest pain, + vomiting Review of Systems Limited due to the patient's condition. She is actively vomiting. Past Medical & Surgical Medical Problems: (1) Asthma (2) Chronic peptic ulcer (3) Hyperlipidemia Social History Smoking Status: Never Smoker Alcohol Use: none Drug Use: none Marital Status: Housing Status: lives with family Occupation Status: employed Current/Historical Medications Scheduled Aspirin (Aspirin Ec), 81 MG PO HS Atorvastatin (Lipitor), 20 MG PO HS Bupropion (Wellbutrin Sr), 150 MG PO BID Losartan Potassium (Cozaar), 25 MG PO HS Metoclopramide Hcl (Metoclopramide Hcl), 1 TAB PO ACHS Pantoprazole (Protonix), 40 MG PO HS Propranolol (Inderal), 10 MG PO BID Sertraline (Zoloft), 100 MG PO HS Scheduled PRN Acetaminophen (Tylenol), 1-2 TABS PO Q6H PRN for Pain Budesonide/Formoterol Fumarate (Symbicort 160/4.5 Inhaler ), 2 PUFFS INH BID PRN for Shortness of Breath Sennosides-Docusate Sodium (Stool Softener), 1 TAB PO DAILY PRN for Constipation Allergies Coded Allergies: Simvastatin (Verified Allergy, Unknown, MUSCLE WEAKNESS, 03/22/17) Latex1 -Allergic Contact Dermititis (Verified Adverse Reaction, Intermediate, HIVES, 4/28/17) Physical Exam Vital Signs Date Time Temp Pulse Resp B/P (MAP) Pulse Ox O2 Delivery O2 Flow Rate FiO2 07/09/18 20:59 134/68 07/09/18 20:32 73 14 100 07/09/18 19:39 134/93 07/09/18 19:39 36.6 75 20 134/93 100 Room Air Physical Exam Constitutional: Vital signs reviewed. Patient is actively vomiting on exam. Eyes: Pupils are equal round reactive to light. Conjunctiva are noninjected. ENT: Pharynx is clear without erythema or exudate. Mucous membranes are moist. Neck supple without meningeal signs. Respiratory: Clear to auscultation bilaterally. Breath sounds are equal bilaterally. Cardiovascular: Regular rate and rhythm. No rubs or gallops. GI: Soft, nondistended and nontender. Bowel sounds are present. Musculoskeletal: No peripheral edema. No lower extremity tenderness. Integumentary: No cyanosis. Neurological: The patient is awake and alert. No focal deficits. Psychiatric: Unable to assess. Medical Decision & Procedures ER Provider Diagnostic Interpretation: Radiology results as stated below per my review and the radiologist's interpretation: CT OF THE ABDOMEN AND PELVIS WITHOUT CONTRAST CLINICAL HISTORY: Vomiting. Evaluate for bowel obstruction. COMPARISON STUDY: CT of the abdomen and pelvis June 10, 2009. TECHNIQUE: Axial images of the abdomen and pelvis were obtained without IV contrast. Images were reviewed in the axial, sagittal, and coronal planes. A dose lowering technique was utilized adhering to the principles of ALARA. FINDINGS: Visualized portions of the lower chest demonstrate a moderate sized hiatal hernia. A suspected ingested tablet is noted within the intrathoracic portion of the stomach. There is no biliary ductal dilatation status post cholecystectomy. No pneumatosis, free air or portal venous gas is present. A splenule is noted. The spleen, adrenal glands, kidneys and pancreas are unremarkable. There is no peripancreatic infiltration. No hydronephrosis or hydroureter is present. No enlarged abdominal or pelvic lymph nodes are noted. Tiny fat-containing umbilical hernia is present. There is no evidence for a bowel obstruction. There is colonic diverticulosis without evidence for acute diverticulitis. Submucosal fat deposition within the colon is noted. The appendix is normal. There is mild colonic wall thickening which appears diffuse. There is no significant pericolonic infiltration. There is no free air or abscess. No suspicious osseous lesion is present. There is no ascites. IMPRESSION: 1. No evidence for a bowel obstruction. Normal appendix. 2. Submucosal fat deposition within the colon which is chronic. Apparent mild colonic wall thickening which is likely due to underdistention however a nonspecific colitis could appear similar. No free air or abscess. 3. Colonic diverticulosis without evidence for acute diverticulitis. 4. Moderate sized hiatal hernia with suspected ingested tablet within the intrathoracic portion of the stomach. Electronically signed by: Williams Izquierdo M.D. 07/09/2018 9:32 PM Laboratory Results 07/09/18 19:25 Red Blood Count 5.13, Mean Corpuscular Volume 92.8, Mean Corpuscular Hemoglobin 31.4, Mean Corpuscular Hemoglobin Concent 33.8, Mean Platelet Volume 10.9, Neutrophils (%) (Auto) 49.7, Lymphocytes (%) (Auto) 42.8, Monocytes (%) (Auto) 6.3, Eosinophils (%) (Auto) 0.7, Basophils (%) (Auto) 0.4, Neutrophils # (Auto) 3.47, Lymphocytes # (Auto) 2.99, Monocytes # (Auto) 0.44, Eosinophils # (Auto) 0.05, Basophils # (Auto) 0.03 07/09/18 19:25 Test 07/09/18 19:25 White Blood Count 6.99 K/uL (4.8-10.8) Red Blood Count 5.13 M/uL (4.2-5.4) Hemoglobin 16.1 g/dL (12.0-16.0) Hematocrit 47.6 % (37-47) Mean Corpuscular Volume 92.8 fL (80-100) Mean Corpuscular Hemoglobin 31.4 pg (25-34) Mean Corpuscular Hemoglobin Concent 33.8 g/dl (32-36) Platelet Count 263 K/uL (130-400) Mean Platelet Volume 10.9 fL (7.4-10.4) Neutrophils (%) (Auto) 49.7 % Lymphocytes (%) (Auto) 42.8 % Monocytes (%) (Auto) 6.3 % Eosinophils (%) (Auto) 0.7 % Basophils (%) (Auto) 0.4 % Neutrophils # (Auto) 3.47 K/uL (1.4-6.5) Lymphocytes # (Auto) 2.99 K/uL (1.2-3.4) Monocytes # (Auto) 0.44 K/uL (0.11-0.59) Eosinophils # (Auto) 0.05 K/uL (0-0.5) Basophils # (Auto) 0.03 K/uL (0-0.2) RDW Standard Deviation 49.5 fL (36.4-46.3) RDW Coefficient of Variation 14.5 % (11.5-14.5) Immature Granulocyte % (Auto) 0.1 % Immature Granulocyte # (Auto) 0.01 K/uL (0.00-0.02) Anion Gap 14.0 mmol/L (3-11) Estimated GFR () 63.8 Estimated GFR (Non- 55.0 BUN/Creatinine Ratio 11.4 (10-20) Calcium Level 9.9 mg/dl (8.5-10.1) Total Bilirubin 1.3 mg/dl (0.2-1) Direct Bilirubin 0.3 mg/dl (0-0.2) Aspartate Amino Transf (AST/SGOT) 26 U/L (15-37) Alanine Aminotransferase (ALT/SGPT) 32 U/L (12-78) Alkaline Phosphatase 66 U/L (45-117) Troponin I < 0.015 ng/ml (0-0.045) Total Protein 7.8 gm/dl (6.4-8.2) Albumin 4.0 gm/dl (3.4-5.0) Lipase 59 U/L (73-393) Laboratory results as reviewed by me. Medications Administered Medications (Trade) Dose Ordered Sig/Felisha Route Start Time Stop Time Status Last Admin Dose Admin Ondansetron HCl (Zofran Inj) 4 mg NOW STAT IV 07/09/18 19:39 07/09/18 19:41 DC 07/09/18 19:53 4 MG Promethazine HCl 12.5 mg/Sodium Chloride 50.5 ml @ 204 mls/hr NOW STAT IV 07/09/18 19:59 07/09/18 20:13 DC 07/09/18 20:41 204 MLS/HR Sodium Chloride 500 ml @ 999 mls/hr Q31M STAT IV 07/09/18 21:50 07/09/18 22:20 DC 07/09/18 22:17 999 MLS/HR ECG Per My Interpretation Indication: chest pain Rate (beats per minute): 73 Rhythm: normal sinus Findings: other (Baseline artifact limiting interpretation, no ST elevations) Change: no significant change (No change from January 2014) ED Course 1935: The patient was evaluated in room A12. A complete history and physical exam was performed. 1938: Zofran 4 mg IV. 1958: Promethazine HCl 12.5 mg/Sodium Chloride 50.5 ml @ 204 mls/hr IV. 1999: Nursing informed me the patient is refusing CT scan until she feels less nauseated. 2039: I reevaluated the patient. She is still nauseous and states she cannot lay down for CT scan. She complains of pain from her belly all the way up to her throat. 2139: I discussed the patient with Dr. Garland, [facility] Hospitalist. The patient will be further evaluated. 2144: I reevaluated the patient. She is still nauseated but no longer vomiting. I discussed her test results with her and my recommendation she remain in the hospital for further evaluation and management and she verbalized complete understanding and agreement. 2149: NSS 500 ml @ 999 mls/hr IV. Medical Decision This is a 72-year-old female presents with vomiting. Differential diagnosis includes gastroenteritis, bowel obstruction, partial obstruction, mass, infection, cardiac, metabolic derangement. I did perform a limited focused review of portions of the patient's old chart on the electronic medical record. The patient has had no recent pertinent visits to this hospital. I did evaluate the patient as noted above. History is difficult to obtain as the patient was vomiting and unable to speak very much. The patient was placed on a continuous cancer center director. I did treat her with Zofran IV. She did receive Zofran prior to arrival from the paramedics. She had persistent vomiting was given Phenergan IV. She was also given normal saline IV. I did order and personally review the patient's 12-lead EKG as described above. I did order and review the patient's blood work as noted in the electronic medical record. I did order a CT of the abdomen and pelvis. I did review the images myself as well as the radiology report as described above. There is no evidence of obstruction. I did reassess the patient. She continues to be extremely nauseated. The cause of her symptoms is unclear. The patient is still symptomatic and will be hospitalized for further evaluation. I did discuss the case with the hospitalist service and the child welfare caseworker. Medication Reconcilliation Current Medication List: was personally reviewed by me Blood Pressure Screening Patient's blood pressure: Elevated blood pressure Blood pressure disposition: Referred to PCP Consults Time Called: 2134 [facility] Call: 2139 I discussed the patient with Dr[facility] The patient will be further evaluated. Impression Primary Impression: Intractable vomiting Additional Impressions: Dehydration Hypokalemia Scribe Attestation The scribe's documentation has been prepared under my direct and personally reviewed by me in its entirety. I confirm that the note above accurately reflects all work, treatment, procedures, and medical decision making performed by me. Departure Information Dispostion Being Evaluated By Hospitalist Referrals Kareem Ponce M.D. (PCP) Patient Instructions My [facility] Health Problem Qualifiers Primary Impression: Intractable vomiting Vomiting type: unspecified Nausea presence: with nausea Qualified Codes: R11.2 - Nausea with vomiting, unspecified
[2018-07-09] MEDS ORDERED: METOCLOPRAMIDE HCL INJ 5 MG/ML 2 ML VIAL IV STA (22:54)
[2018-07-09] MEDS ORDERED: ATOR-24 PO (22:57)
[2018-07-09] MEDS ORDERED: CYAN100020 PO (22:57)
[2018-07-09] MEDS ORDERED: RANI150T85 PO (22:57)
[2018-07-09] MEDS ORDERED: CLOTCRE33 TOP (22:57)
[2018-07-09] MEDS ORDERED: ADVIN25/60 INH (22:57)
[2018-07-09] MEDS ORDERED: ONDA4TAB46 PO (22:57)
[2018-07-09] MEDS ORDERED: PROP1TAB PO (22:57)
[2018-07-09] MEDS ORDERED: RANITIDINE HCL 150 MG TAB PO PRN (23:15)
[2018-07-09] MEDS ORDERED: SODIUM CHLORIDE 0.9% 1000ML 1,000 ML IV SCH (23:15)
[2018-07-09] MEDS ORDERED: DOCUSATE SODIUM/SENNA 50/8.6MG TAB PO PRN (23:15)
[2018-07-09] MEDS ORDERED: CLOTRIMAZOLE/BETAMETHASONE CR 15 GM TUBE EXT PRN (23:15)
--- NOTE | 2018-07-09 23:45 | History and Physical ---
History & Physical Date & Time of Service: Jul 09, 2018 at 23:24 Chief Complaint: Nausea Primary Care Physician: Kareem Ponce M.D. History of Present Illness Source: patient Patient is a 72 year old female with a history of chronic nausea, HTN, asthma, Severe RISHI not tolerating CPAP, Hiatal hernia with history of pyloric stenosis, gastroparesis, essential tremor, HLD, and depression that presents with nausea and vomiting. The patient began to have severe nausea suddenly with eating and subsequently vomited multiple times over the ensuing hour prompting her to come to the emergency department. She states she normally experiencing nausea on a regular basis (baseline severity of 5-6/10) but states that on this occasion the severity of her nausea was 10/10. She states that her nausea was associated with the sensation of the room spinning and lightheadedness. She also appreciates that she had a headache earlier in the day that resolved shortly thereafter. She denies any headache, vision changes, photophobia, weakness, shortness of breath, chest pain, imbalance, or any other acute complaints. Past Medical/Surgical History Medical Problems: (1) Acute urinary tract infection (2) Angina (3) Asthma (4) Chest pain (5) Chest pain (6) Chronic peptic ulcer (7) Hyperlipidemia (8) Influenza (9) Influenza (10) Weakness (11) Weakness Social History Smoking Status: Never Smoker Drug Use: none Marital Status: Occupational Status: employed Immunizations History of Influenza Vaccine: No Influenza Vaccine Date: Sep 05, 2010 History of Tetanus Vaccine?: Unknown History of Pneumococcal: Unknown History of Hepatitis B Vaccine: Yes Hepatitis Immunization Date: Jun 05, 1996 Allergies Coded Allergies: Simvastatin (Verified Allergy, Unknown, MUSCLE WEAKNESS, 03/22/17) Latex1 -Allergic Contact Dermititis (Verified Adverse Reaction, Intermediate, HIVES, 03/22/17) Home Medications Scheduled Aspirin (Aspirin Ec), 81 MG PO DAILY Atorvastatin (Lipitor), 40 MG PO DAILY Bupropion (Wellbutrin Sr), 150 MG PO BID Cyanocobalamin (Vitamin B12), 1 TAB PO DAILY Fluticasone Prop/Salmeterol (Advair Diskus 250/50 60 Dose), 1 PUFF INH BID Pantoprazole (Protonix), 40 MG PO HS Propranolol (Inderal), 60 MG PO DAILY Sertraline (Zoloft), 150 MG PO DAILY Scheduled PRN Clotrimazole W/ Betamethasone (Lotrisone), 1 APPLN TOP TID PRN for AFFECTED AREA Ondansetron Hcl (Zofran), 4 MG PO Q8 PRN for Nausea Ranitidine (Zantac), 150 MG PO BID PRN for REFLUX Sennosides-Docusate Sodium (Stool Softener), 1 TAB PO DAILY PRN for Constipation Review of Systems Constitutional: + fatigue, No fever, No chills Respiratory: No cough, No sputum, No wheezing, No shortness of breath Cardiovascular: No chest pain, No palpitations Abdomen: + nausea, + vomiting, No pain, No diarrhea, No constipation, No GI bleeding Musculoskeletal: No joint pain, No swelling Genitourinary - Female: No dysuria Neurologic: No paralysis, No numbness/tingling, No vertigo, No balance problems Physical Exam Vital Signs Date Time Temp Pulse Resp B/P (MAP) Pulse Ox O2 Delivery O2 Flow Rate FiO2 07/09/18 22:55 66 07/09/18 22:33 68 20 134/68 98 Room Air 07/09/18 20:59 134/68 07/09/18 20:32 73 14 100 07/09/18 19:39 134/93 07/09/18 19:39 36.6 75 20 134/93 100 Room Air General Appearance: WD/WN, no apparent distress, + obese Head: normocephalic, atraumatic Eyes: normal inspection, PERRL, EOMI, sclerae normal Neck: supple, no carotid bruits Respiratory/Chest: chest non-tender, lungs clear, normal breath sounds, no respiratory distress, no accessory muscle use Cardiovascular: regular rate, rhythm, no edema, no gallop, no murmur Abdomen/GI: normal bowel sounds, non tender, soft Back: normal inspection, no CVA tenderness Extremities/Musculoskelatal: no calf tenderness, no pedal edema Neurologic/Psych: entrance guard II-XII nml as tested, no motor/sensory deficits, alert, oriented x 3, + depressed affect Diagnostics Laboratory Results Results Past 24 Hours Test 07/09/18 19:25 Range/Units White Blood Count 6.99 4.8-10.8 K/uL Red Blood Count 5.13 4.2-5.4 M/uL Hemoglobin 16.1 12.0-16.0 g/dL Hematocrit 47.6 37-47 % Mean Corpuscular Volume 92.8 80-100 fL Mean Corpuscular Hemoglobin 31.4 25-34 pg Mean Corpuscular Hemoglobin Concent 33.8 32-36 g/dl Platelet Count 263 130-400 K/uL Mean Platelet Volume 10.9 7.4-10.4 fL Neutrophils (%) (Auto) 49.7 % Lymphocytes (%) (Auto) 42.8 % Monocytes (%) (Auto) 6.3 % Eosinophils (%) (Auto) 0.7 % Basophils (%) (Auto) 0.4 % Neutrophils # (Auto) 3.47 1.4-6.5 K/uL Lymphocytes # (Auto) 2.99 1.2-3.4 K/uL Monocytes # (Auto) 0.44 0.11-0.59 K/uL Eosinophils # (Auto) 0.05 0-0.5 K/uL Basophils # (Auto) 0.03 0-0.2 K/uL RDW Standard Deviation 49.5 36.4-46.3 fL RDW Coefficient of Variation 14.5 11.5-14.5 % Immature Granulocyte % (Auto) 0.1 % Immature Granulocyte # (Auto) 0.01 0.00-0.02 K/uL Sodium Level 137 136-145 mmol/L Potassium Level 3.4 3.5-5.1 mmol/L Chloride Level 101 98-107 mmol/L Carbon Dioxide Level 22 21-32 mmol/L Anion Gap 14.0 3-11 mmol/L Blood Urea Nitrogen 12 7-18 mg/dl Creatinine 1.03 0.60-1.20 mg/dl Estimated GFR () 63.8 Estimated GFR (Non- 55.0 BUN/Creatinine Ratio 11.4 10-20 Random Glucose 116 70-99 mg/dl Calcium Level 9.9 8.5-10.1 mg/dl Total Bilirubin 1.3 0.2-1 mg/dl Direct Bilirubin 0.3 0-0.2 mg/dl Aspartate Amino Transf (AST/SGOT) 26 15-37 U/L Alanine Aminotransferase (ALT/SGPT) 32 12-78 U/L Alkaline Phosphatase 66 45-117 U/L Troponin I < 0.015 0-0.045 ng/ml Total Protein 7.8 6.4-8.2 gm/dl Albumin 4.0 3.4-5.0 gm/dl Lipase 59 73-393 U/L Impression Assessment and Plan Patient is a 72 year old female with a history of chronic nausea, HTN, asthma, Severe RISHI not tolerating CPAP, Hiatal hernia with history of pyloric stenosis, gastroparesis, essential tremor, HLD, and depression that presents with nausea and vomiting Intractable Vomiting - history of chronic nausea, gastroparesis - CT Abdomen: 1. No evidence for a bowel obstruction. Normal appendix. 2. Submucosal fat deposition within the colon which is chronic. Apparent mild colonic wall thickening which is likely due to underdistention however a nonspecific colitis could appear similar. No free air or abscess. 3. Colonic diverticulosis without evidence for acute diverticulitis. 4. Moderate sized hiatal hernia with suspected ingested tablet within the intrathoracic portion of the stomach. - Mildly elevated bilirubin --> History of cholecystectomy, no evident liver pathology on CT - Zofran, Phenergan, and 1L NS given in the ED - Reglan 10mg IV ordered now - Zofran 4mg IV q4h - CT Head ordered - IV LR @ 125mls/hr - Admit to Med/Surg Hypokalemia - 3.4 - 20 meq PO Potassium Chloride - CMP tomorrow AM HTN - Continue home Antihypertensives Asthma - Continue home Advair Essential Tremor - Continue home Propranolol HLD - Continue home Lipitor Depression - Continue home antidepressants DVT - SCDs Code Status - Full Resuscitation Resuscitation Status Full Code VTE Prophylaxis Will order VTE Prophylaxis: Yes Resident Tracking Resident Involvement: Resident Care Provided Care Provided: Adult Hospital Medicine History Patient seen and examined, chart reviewed, case discussed with and I agree with the assessment and plan as documented above. Briefly, patient is a 72yo female with history of HTN, Asthma, HLP, Depression, chronic nausea, hiatal hernia/pyloric stenosis and gastroparesis presenting with acute worsening of her chronic nausea. Patient is a poor historian and was frustrated by repeating her history. Presently rates her nausea discomfort at a 10/10, poor po intake and constipation as well. On physical exam she is afebrile, hemodynamically stable NAD, resting comfortably in bed Skin - intact, no rashes/lesions HEENT - NC/AT, PERRL, dry mucus membranes, neck supple Heart - +S1/S2, regular, no m/r/g Lungs - CTA Abd - +BS diminished, soft, NT/ND, no masses/organomegaly Ext - warm, 2+ pulses Labs and images reviewed. Mildly elevated T-bili at 1.3, Dbili at 0.3. Troponin <0.015, K-3.4 Assessment/Plan - -Observation to med-surge -Nausea control with Zofran, Phenergan, Reglan -May consider use of compazine and haldol as well if additional medications are needed -CT Head -IVF with LR at 125mL/hr -K repletion -Remainder of plan as above
[2018-07-10 00:28] LABS: PHOSPHORUS 2.8 mg/dl (2.5-4.9)
[2018-07-10 01:11] VITALS: BP 142/71; PULSE 117; TEMP 36.7; O2SAT 97; Ht 160 cm; Wt 87.4 kg
[2018-07-10] MEDS: LACTATED RINGER'S 1000ML 1,000 ML IV SCH ×3 (01:39→20:28)
[2018-07-10] MEDS ORDERED: PROMETHAZINE HCL INJ 12.5 MG in SODIUM CHLORIDE 0.9% 50ML 50 ML IV PRN (02:30)
[2018-07-10] MEDS ORDERED: IV FLUIDS COMPLETED PRN (04:00)
--- NOTE | 2018-07-10 06:43 | Family Medicine Progress Note ---
Progress Note Date of Service Jul 10, 2018. Subjective Pain: Mild PO Intake: NPO Lillie Harmon is a 72yo F with a PMHx of HTN, RISHI, asthma, hiatal hernia, essential tremor, HLD, depression, gastroparesis, pyloric stenosis, and persisent nausea who presented with increase nausea and vomiting. She reports she normally has 5-6/10 nausea nearly daily for several years but the day of her admission she had 10/10 nausea and several episodes of non-bilious, non- bloody vomiting after eating. Her emesis was not preceded by cough. She experienced some vertigo and room spinning, mild lightheadedness. She had a headache earlier in the day but not at the time of emesis. On admission she received several anti-emetics, she reports the '3rd one, the stronger one' helped a little bit, but the first two did not. She endorses ~10lb weight loss over a few weeks due to increased nausea and decrease PO intake. She is followed by Eva Shine PA-C and Kareem Ponce her PCP. [facility] She has had several endoscopes to look at her hiatal hernia. EGD in 2012 showed dilated pyloric stenosis. EGD in 2017 showed gastroparesis. She is very tired today. She tried to eat some breakfast but was too nauseas to eat any. She is having a hard time sipping water without increasing her nausea. She was able to take her pills this morning with difficulty. She has not vomited this morning. She denies fever, chills, shortness of breath, abdominal pain, diarrhea, melena, and BRBPR. SHe has no reflux at time of exam. She is unsure of what to do, but has no questions at this time. Constitutional: + weight loss, + weakness, + fatigue, No fever, No chills, No sweats Eyes: + worsening of vision ENT: + trouble swallowing, No unusual epistaxis, No nasal symptoms, No sore throat Respiratory: No cough, No sputum, No wheezing, No shortness of breath, No dyspnea at rest Cardiovascular: No chest pain Abdomen: + nausea, + vomiting, No pain, No diarrhea, No constipation, No GI bleeding Female : No dysuria Skin: No rash Medications Current Inpatient Medications Medications (Trade) Dose Ordered Sig/Felisha Route Start Time Stop Time Status Last Admin Dose Admin Ondansetron HCl (Zofran Inj) 4 mg Q6H PRN IV 07/09/18 23:15 08/08/18 23:14 07/10/18 08:01 4 MG Aspirin (Ecotrin Tab) 81 mg DAILY PO 07/10/18 09:00 08/09/18 08:59 07/10/18 08:00 81 MG Atorvastatin Calcium (Lipitor Tab) 40 mg DAILY PO 07/10/18 09:00 08/09/18 08:59 07/10/18 08:01 40 MG Bupropion HCl (Wellbutrin-Sr Tab) 150 mg BID PO 07/10/18 09:00 08/09/18 08:59 07/10/18 08:01 150 MG Betamethasone/ Clotrimazole (Lotrisone Crm) 1 appln TID PRN EXT 07/09/18 23:15 08/08/18 23:14 Salmeterol Xinafoate/ Fluticasone (Advair Diskus 250/50 Inh) 1 puff BID INH 07/10/18 09:00 08/09/18 08:59 07/10/18 08:00 1 PUFF Pantoprazole Sodium (Protonix Tab) 40 mg HS PO 07/10/18 21:00 08/09/18 20:59 Propranolol HCl (Inderal Tab) 60 mg DAILY PO 07/10/18 09:00 08/09/18 08:59 07/10/18 08:01 60 MG Ranitidine HCl (zANTac TAB) 150 mg BID PRN PO 07/09/18 23:15 08/08/18 23:14 Senna/Docusate Sodium (Senokot S Tab) 1 tab DAILY PRN PO 07/09/18 23:15 08/08/18 23:14 Sertraline HCl (Zoloft Tab) 150 mg DAILY PO 07/10/18 09:00 08/09/18 08:59 07/10/18 08:01 150 MG Lactated Ringer's 1,000 ml @ 125 mls/hr Q8H IV 07/09/18 23:45 08/08/18 23:44 07/10/18 08:00 125 MLS/HR Promethazine HCl 12.5 mg/Sodium Chloride 50.5 ml @ 204 mls/hr Q6H PRN IV 07/10/18 02:30 08/09/18 02:29 07/10/18 03:22 204 MLS/HR Miscellaneous (Iv Fluids Completed) 1 ea PRN PRN N/A 07/10/18 04:00 07/10/19 03:59 Objective Vital Signs Date Time Temp Pulse Resp B/P (MAP) Pulse Ox O2 Delivery O2 Flow Rate FiO2 07/10/18 15:04 36.9 60 20 120/62 (81) 98 Room Air 07/10/18 14:52 36.9 60 18 119/76 (90) 94 Room Air 07/10/18 08:00 Room Air 07/10/18 07:18 37.0 67 18 134/84 (101) 95 Room Air 07/10/18 01:11 36.7 117 20 142/71 97 Room Air 07/10/18 00:11 75 18 116/79 98 07/09/18 22:55 66 07/09/18 22:33 68 20 134/68 98 Room Air 07/09/18 20:59 134/68 07/09/18 20:32 73 14 100 07/09/18 19:39 134/93 07/09/18 19:39 36.6 75 20 134/93 100 Room Air Physical Exam General Appearance: + mild distress Eyes: normal inspection, PERRL, EOMI (she becomes nauseus with EoM exam), sclerae normal ENT: hearing grossly normal Neck: supple, no adenopathy, no carotid bruits, trachea midline Respiratory/Chest: chest non-tender, lungs clear, normal breath sounds Cardiovascular: regular rate, rhythm, no edema, no gallop, no JVD, no murmur Abdomen: normal bowel sounds, non tender (Light and deep palpation does not increase her nausea), soft, no organomegaly, no pulsatile mass, + abnormal bowel sounds Extremities: non-tender, normal inspection Neurologic/Psychiatric: alert, oriented x 3 Skin: normal color, warm/dry, no rash Lymphatic: no adenopathy Laboratory Results 07/09/18 19:25 Red Blood Count 5.13, Mean Corpuscular Volume 92.8, Mean Corpuscular Hemoglobin 31.4, Mean Corpuscular Hemoglobin Concent 33.8, Mean Platelet Volume 10.9, Neutrophils (%) (Auto) 49.7, Lymphocytes (%) (Auto) 42.8, Monocytes (%) (Auto) 6.3, Eosinophils (%) (Auto) 0.7, Basophils (%) (Auto) 0.4, Neutrophils # (Auto) 3.47, Lymphocytes # (Auto) 2.99, Monocytes # (Auto) 0.44, Eosinophils # (Auto) 0.05, Basophils # (Auto) 0.03 07/10/18 06:13 Test 07/09/18 19:25 07/10/18 01:14 07/10/18 06:13 White Blood Count 6.99 K/uL (4.8-10.8) Red Blood Count 5.13 M/uL (4.2-5.4) Hemoglobin 16.1 g/dL (12.0-16.0) Hematocrit 47.6 % (37-47) Mean Corpuscular Volume 92.8 fL (80-100) Mean Corpuscular Hemoglobin 31.4 pg (25-34) Mean Corpuscular Hemoglobin Concent 33.8 g/dl (32-36) Platelet Count 263 K/uL (130-400) Mean Platelet Volume 10.9 fL (7.4-10.4) Neutrophils (%) (Auto) 49.7 % Lymphocytes (%) (Auto) 42.8 % Monocytes (%) (Auto) 6.3 % Eosinophils (%) (Auto) 0.7 % Basophils (%) (Auto) 0.4 % Neutrophils # (Auto) 3.47 K/uL (1.4-6.5) Lymphocytes # (Auto) 2.99 K/uL (1.2-3.4) Monocytes # (Auto) 0.44 K/uL (0.11-0.59) Eosinophils # (Auto) 0.05 K/uL (0-0.5) Basophils # (Auto) 0.03 K/uL (0-0.2) RDW Standard Deviation 49.5 fL (36.4-46.3) RDW Coefficient of Variation 14.5 % (11.5-14.5) Immature Granulocyte % (Auto) 0.1 % Immature Granulocyte # (Auto) 0.01 K/uL (0.00-0.02) Phosphorus Level 2.8 mg/dl (2.5-4.9) Magnesium Level 2.1 mg/dl (1.8-2.4) Direct Bilirubin 0.3 mg/dl (0-0.2) Lipase 59 U/L (73-393) Troponin I < 0.015 ng/ml (0-0.045) Anion Gap 12.0 mmol/L (3-11) Est Creatinine Clear Calc Drug Dose 56.6 ml/min Estimated GFR () 68.6 Estimated GFR (Non- 59.2 BUN/Creatinine Ratio 14.3 (10-20) Calcium Level 8.9 mg/dl (8.5-10.1) Total Bilirubin 1.2 mg/dl (0.2-1) Aspartate Amino Transf (AST/SGOT) 26 U/L (15-37) Alanine Aminotransferase (ALT/SGPT) 31 U/L (12-78) Alkaline Phosphatase 54 U/L (45-117) Total Protein 6.8 gm/dl (6.4-8.2) Albumin 3.4 gm/dl (3.4-5.0) Globulin 3.4 gm/dl (2.5-4.0) Albumin/Globulin Ratio 1.0 (0.9-2) Assessment and Plan Intractable Nausea - No evidence of SBO. Some colonic wall thickening seen on CT-A. No free air/ abscess. Colonic diverticulosis without acute pathology. - Hx of longstanding Hiatal hernia - EGD today per GI. Metoclopramide 10mg IV prior to procedure. Appreciate recs - NPO pending EGD. - Futher workup pending results. - IVFM, LR 125ml/hr - Metoclopramide 10mg IV PRN Q4-6HPRN for nausea. - Further recs EGD results and GI consult. Appreciate consult/recs. Hypokalemia - 3.4 on admit - 3.5 today. - +20mEQ KCl in IVF as needed if drifts low - CMP qAM Prophylaxis - Pantoprazole 40mg BID HTN - [employer] propanolol 60mg daily Asthma - [employer] Advair 250/50 1 puff BID Essential Tremor - [employer] Propanolol 60mg daily HLD - [employer] Atorvastatin 40mg daily Depression - [employer] sertraline 150mg daily - [employer] bupropion 150mg BID DVT - SCDs Code Status - Full Resuscitation Resident Physician Supervision Note: I was present with the resident during the history and exam. I discussed the case with the resident and agree with the findings and plan as documented in the note. Given the patient's acute on chronic presentation - although today's presentation of greater severity than her usual - agree with GI consultation for consideration for EGD. Will keep NPO until seen by GI. Documented By: Patricio Mackenzie Continued [facility] stay due to: inadequate po fluid intake Discharge planning: uncertain Resident Tracking Resident Involvement: Resident Care Provided Care Provided: Adult Hospital Medicine
--- NOTE | 2018-07-10 07:01 | DIAGNOSTIC IMAGING REPORT ---
HEAD WITHOUT CONTRAST (CT) CLINICAL HISTORY: 72 years-old Female presenting with Nausea, vomiting. TECHNIQUE: Multidetector CT imaging of the head was performed without the use of intravenous contrast. IV contrast: None. A dose lowering technique was used consistent with the principles of ALARA (as low as reasonably achievable). COMPARISON: 10/19/2012 and brain MR from 04/10/2017. CT DOSE (mGy.cm): The estimated cumulative dose is 691.05 mGy.cm. FINDINGS: [employer] topogram: Unremarkable. Ventricles and sulci normal in size. Brain parenchyma normal in appearance with preserved terrell-white differentiation. No mass effect or midline shift. No hemorrhage or acute territorial infarct. No extra-axial fluid collection. Paranasal sinuses and mastoid air cells clear. Calvarium intact. IMPRESSION: 1. No acute intracranial abnormality. Electronically signed by: Kareem Marquez M.D. 07/10/2018 7:00 AM Dictated Date/Time: 07/10/2018 6:56 AM
[2018-07-10 07:18] VITALS: BP 134/84; PULSE 67; TEMP 37; O2SAT 95
[2018-07-10 07:19] LABS: ALBUMIN 3.4 gm/dl (3.4-5.0); CALCIUM 8.9 mg/dl (8.5-10.1); CREATININE 0.97 mg/dl (0.60-1.20); POTASSIUM 3.5 mmol/L (3.5-5.1); TOTAL PROTEIN 6.8 gm/dl (6.4-8.2)
[2018-07-10] MEDS: FLUTICASONE/SALMETEROL 250/50 (ADVAIR) 14 PUFF/1 INHALER INH SCH ×2 (08:00→20:29)
[2018-07-10] MEDS: ASPIRIN 81 MG ECTAB PO SCH (08:00)
[2018-07-10] MEDS: ATORVASTATIN 40 MG TAB PO SCH (08:01)
[2018-07-10] MEDS: SERTRALINE HCL 100 MG TAB PO SCH (08:01)
[2018-07-10] MEDS: BuPROPion SR 150 MG TABCR PO SCH ×2 (08:01→20:28)
[2018-07-10] MEDS: PROPRANOLOL HCL 20 MG TAB PO SCH (08:01)
[2018-07-10] MEDS: ONDANSETRON INJ 2 MG/ML 2 ML VIAL IV PRN (08:01)
[2018-07-10] MEDS ORDERED: METOCLOPRAMIDE HCL INJ 5 MG/ML 2 ML VIAL IV. STA (12:38)
--- NOTE | 2018-07-10 14:44 | Gastrointestinal Consultation ---
Gastrointestinal Consultation Date of Consultation: Jul 10, 2018 Attending Physician: Dr. Paz Consulting Physician: Kira Patel PA-C Reason for Consultation: Intractable nausea & vomiting History of Present Illness Patient is a 72 year old female with a past medical history of HTN, asthma, RISHI , hiatal hernia, essential tremor, HLD, depression, gastroparesis & pyloric stenosis who presented to the emergency department with nausea and vomiting. She reports that she occasionally struggles with vomiting and acid reflux, but noted that her symptoms worsened abruptly. She reports that her nausea has not improved with the Zofran & Phenergan she has been given here, but the vomiting has subsided. She underwent an EGD in 2011 that indicated pyloric stenosis that was dilated. In 2013, she underwent another EGD for similar symptoms. She was found to have a large amount of food in the stomach and the procedure was aborted. She had another EGD in 2016 that indicated retained food in the stomach after a 2 day clear liquid diet. She denies constipation, heartburn, diarrhea, melena, or hematochezia at present. She reports she takes daily acid reflux medications at home. She denies a significant family history of GI malignancy. Her K was slightly decreased at 3.4 on admission. Her labs were fairly unremarkable otherwise. She had a CT scan that was not enhanced with oral contrast that indicated a possibility of mild colon wall thickening which was thought to be a result of underdistention. The patient has no lower GI symptoms at present. Past Medical/Surgical History Medical Problems: (1) Dehydration Status: Acute (2) Hypokalemia Status: Acute (3) Influenza Status: Acute (4) Intractable vomiting Status: Acute Past Medical History: HTN, asthma, RISHI, hiatal hernia, essential tremor, HLD, depression, gastroparesis, & pyloric stenosis Past Surgical History: EGD & colonoscopy Social History Smoking Status: Never Smoker Alcohol Use: none Drug Use: none Marital Status: Housing Status: lives with family Occupation Status: employed Allergies Coded Allergies: Simvastatin (Verified Allergy, Unknown, MUSCLE WEAKNESS, 03/22/17) Latex1 -Allergic Contact Dermititis (Verified Adverse Reaction, Intermediate, HIVES, 03/22/17) Current Medications Home Meds and Scripts Medications Dose Route/Sig Max Daily Dose Days Date Category Dose Instructions Zantac (Ranitidine HCl) 150 Mg Tab 150 Mg PO BID PRN 8/15/18 Reported Inderal (Propranolol HCl) 60 Mg Tab 60 Mg PO DAILY 07/09/18 Reported EXTENDED RELEASED Zofran (Ondansetron HCl) 4 Mg Tab 4 Mg PO Q8 PRN 07/09/18 Reported Vitamin B12 (Cyanocobalamin) 1,000 Mcg Tab 1 Tab PO DAILY 07/09/18 Reported Lotrisone (Clotrimazole W/ Betamethasone) 1 Cre Cre 1 Appln TOP TID PRN 7 07/09/18 Reported Lipitor (Atorvastatin Calcium) 40 Mg Tab 40 Mg PO DAILY 07/09/18 Reported Advair Diskus 250/50 60 Dose (Fluticasone Prop/Salmeterol) 1 Ea Aerp 1 Puff INH BID 07/09/18 Reported Stool Softener (Sennosides-Docusate Sodium) 1 Tab Tab 1 Tab PO DAILY PRN 03/22/17 Reported Aspirin Ec (Aspirin) 81 Mg Tab 81 Mg PO DAILY 03/22/17 Reported Wellbutrin Sr (Bupropion HCl) 150 Mg Ertab 150 Mg PO BID 01/08/17 Reported Protonix (Pantoprazole) 40 Mg Tab 40 Mg PO HS 02/13/14 Reported Zoloft (Sertraline HCl) 100 Mg Tab 150 Mg PO DAILY 02/13/14 Reported Review of Systems Constitutional: No fever, No chills Eyes: No problem reported Respiratory: No cough, No shortness of breath Cardiac: No chest pain Abdomen: + nausea, + vomiting, No pain, No diarrhea Musculoskeletal: No problem reported Neuro: No problem reported Endo: No problem reported Skin: No problem reported Physical Exam Date Time Temp Pulse Resp B/P (MAP) Pulse Ox O2 Delivery O2 Flow Rate FiO2 07/10/18 08:00 Room Air 07/10/18 07:18 37.0 67 18 134/84 (101) 95 Room Air 07/10/18 01:11 36.7 117 20 142/71 97 Room Air 07/10/18 00:11 75 18 116/79 98 07/09/18 22:55 66 07/09/18 22:33 68 20 134/68 98 Room Air 07/09/18 20:59 134/68 07/09/18 20:32 73 14 100 07/09/18 19:39 134/93 07/09/18 19:39 36.6 75 20 134/93 100 Room Air General Appearance: WD/WN, no apparent distress Eyes: normal inspection, PERRL Respiratory/Chest: lungs clear Cardiovascular: regular rate, rhythm Abdomen: normal bowel sounds, non tender, soft Extremities: non-tender Neurologic/Psych: alert, oriented x 3 Skin: normal color Laboratory Results Last 24 Hours Test 07/09/18 19:25 07/10/18 01:14 07/10/18 06:13 White Blood Count 6.99 K/uL Red Blood Count 5.13 M/uL Hemoglobin 16.1 g/dL Hematocrit 47.6 % Mean Corpuscular Volume 92.8 fL Mean Corpuscular Hemoglobin 31.4 pg Mean Corpuscular Hemoglobin Concent 33.8 g/dl Platelet Count 263 K/uL Mean Platelet Volume 10.9 fL Neutrophils (%) (Auto) 49.7 % Lymphocytes (%) (Auto) 42.8 % Monocytes (%) (Auto) 6.3 % Eosinophils (%) (Auto) 0.7 % Basophils (%) (Auto) 0.4 % Neutrophils # (Auto) 3.47 K/uL Lymphocytes # (Auto) 2.99 K/uL Monocytes # (Auto) 0.44 K/uL Eosinophils # (Auto) 0.05 K/uL Basophils # (Auto) 0.03 K/uL RDW Standard Deviation 49.5 fL RDW Coefficient of Variation 14.5 % Immature Granulocyte % (Auto) 0.1 % Immature Granulocyte # (Auto) 0.01 K/uL Sodium Level 137 mmol/L 137 mmol/L Potassium Level 3.4 mmol/L 3.5 mmol/L Chloride Level 101 mmol/L 103 mmol/L Carbon Dioxide Level 22 mmol/L 22 mmol/L Anion Gap 14.0 mmol/L 12.0 mmol/L Blood Urea Nitrogen 12 mg/dl 14 mg/dl Creatinine 1.03 mg/dl 0.97 mg/dl Estimated GFR () 63.8 68.6 Estimated GFR (Non- 55.0 59.2 BUN/Creatinine Ratio 11.4 14.3 Random Glucose 116 mg/dl 134 mg/dl Calcium Level 9.9 mg/dl 8.9 mg/dl Phosphorus Level 2.8 mg/dl Magnesium Level 2.1 mg/dl Total Bilirubin 1.3 mg/dl 1.2 mg/dl Direct Bilirubin 0.3 mg/dl Aspartate Amino Transf (AST/SGOT) 26 U/L 26 U/L Alanine Aminotransferase (ALT/SGPT) 32 U/L 31 U/L Alkaline Phosphatase 66 U/L 54 U/L Troponin I < 0.015 ng/ml < 0.015 ng/ml Total Protein 7.8 gm/dl 6.8 gm/dl Albumin 4.0 gm/dl 3.4 gm/dl Lipase 59 U/L Est Creatinine Clear Calc Drug Dose 56.6 ml/min Globulin 3.4 gm/dl Albumin/Globulin Ratio 1.0 Impression Patient is a 72 year old female with nausea & vomiting and a history of pyloric stenosis. Plan 1) Keep NPO. 2) Protonix 40 mg BID while admitted. 3) EGD today for further evaluation. 4) Given 10 mg IV Reglan prior to procedure. 5) Further recommendations pending results of EGD. Thank you for allowing us to participate in the care of this patient. If you should have any further questions or concerns, do not hesitate to contact us. Agree with JOANNE Cisse as above Abd: Soft, NT, ND, +BS EGD today for further evaluation Continue current therapy
[2018-07-10 14:52] VITALS: BP 119/76; PULSE 60; TEMP 36.9; O2SAT 94
[2018-07-10] MEDS ORDERED: ONDANSETRON INJ 2 MG/ML 2 ML VIAL ONE (16:01)
[2018-07-10] MEDS ORDERED: PROPOFOL IV EMULSION 10 MG/ML 20 ML VIAL ONE (16:01)
[2018-07-10] MEDS ORDERED: LIDOCAINE HCL 2% 2 ML VIAL (20MG/ML) ONE (16:01)
--- NOTE | 2018-07-10 16:48 | GI REPORT ---
Patient Name: Donita Kathleen Procedure Date: 07/10/2018 4:09 PM Date of : 1945 Admit Type: Inpatient Age: 72 Gender: Female Attending MD: Baljinder Talamantes DO Procedure: Upper GI endoscopy Providers: Baljinder Talamantes DO Referring MD: Cinthia Hanna Indications: Follow-up of pyloric stenosis, Nausea with vomiting Medicines: Monitored Anesthesia Care Complications: No immediate complications. Estimated Blood Loss: Estimated blood loss: none. Procedure: Pre-Anesthesia Assessment: - Prior to the procedure, a History and Physical was performed, and patient medications and allergies were reviewed. The patient's tolerance of previous anesthesia was also reviewed. The risks and benefits of the procedure and the sedation options and risks were discussed with the patient. All questions were answered, and informed consent was obtained. Prior Anticoagulants: The patient has taken aspirin, last dose was 1 day prior to procedure. ASA Grade Assessment: III - A patient with severe systemic disease. After reviewing the risks and benefits, the patient was deemed in satisfactory condition to undergo the procedure. After obtaining informed consent, the endoscope was passed under direct vision. Throughout the procedure, the patient's blood pressure, pulse, and oxygen saturations were monitored continuously. The Scope was introduced through the mouth, and advanced to the second part of duodenum. The upper GI endoscopy was accomplished without difficulty. The patient tolerated the procedure well. Findings: The esophagus was normal. A medium-sized hiatal hernia was present. There were retained pills and a small amount of food in the hernia sac. Localized moderate inflammation characterized by erythema was found in the gastric antrum. Biopsies were taken with a cold forceps for histology. There was no evidence of pyloric stenosis. The examined duodenum was normal. Impression: - Normal esophagus. - Medium-sized hiatal hernia. - Gastritis. Biopsied. - Normal examined duodenum. Recommendation: - Return patient to [facility] for [facility] care. - Advance diet as tolerated. - Continue present medications. - Await pathology results. Baljinder Talamantes DO 07/10/2018 4:47:20 PM This report has been signed electronically. Note Initiated On: 07/10/2018 4:09 PM Number of Addenda: 0 I attest to the content of the Intraoperative Record and orders documented therein, exceptions below {[id number]}
--- NOTE | 2018-07-10 17:09 | Anesthesiology Progress Note ---
Anesthesia Post Op Note Date & Time Jul 10, 2018 at 17:08 Vital Signs Pain Intensity: 0.0 Vital Signs Past 12 Hours Date Time Temp Pulse Resp B/P (MAP) Pulse Ox O2 Delivery O2 Flow Rate FiO2 07/10/18 15:04 36.9 60 20 120/62 (81) 98 Room Air 07/10/18 14:52 36.9 60 18 119/76 (90) 94 Room Air 07/10/18 08:00 Room Air 07/10/18 07:18 37.0 67 18 134/84 (101) 95 Room Air Notes Mental Status: alert / awake / arousable, participated in evaluation Pt Amnestic to Procedure: Yes Nausea / Vomiting: adequately controlled Pain: adequately controlled Airway Patency, RR, SpO2: stable & adequate BP & HR: stable & adequate Hydration State: stable & adequate Anesthetic Complications: no major complications apparent
[2018-07-10 17:49] VITALS: BP 127/81; PULSE 58; TEMP 36.9; O2SAT 98
[2018-07-10] MEDS: PANTOprazole SOD 40 MG TAB PO SCH (20:28)
[2018-07-10] MEDS ORDERED: NURSING VERBAL MED ORDER ONE (20:45)
[2018-07-10 23:10] VITALS: BP 110/71; PULSE 64; TEMP 36.6; O2SAT 97
[2018-07-11] MEDS: LACTATED RINGER'S 1000ML 1,000 ML IV SCH ×3 (04:46→20:22)
[2018-07-11 06:48] VITALS: BP 156/80; PULSE 61; TEMP 36.6; O2SAT 95
[2018-07-11] MEDS: ATORVASTATIN 40 MG TAB PO SCH (07:51)
[2018-07-11] MEDS: FLUTICASONE/SALMETEROL 250/50 (ADVAIR) 14 PUFF/1 INHALER INH SCH ×2 (07:51→20:22)
[2018-07-11] MEDS: SERTRALINE HCL 100 MG TAB PO SCH (07:52)
[2018-07-11] MEDS: PROPRANOLOL HCL 20 MG TAB PO SCH (07:52)
[2018-07-11] MEDS: BuPROPion SR 150 MG TABCR PO SCH ×2 (07:52→20:22)
[2018-07-11] MEDS: ASPIRIN 81 MG ECTAB PO SCH (07:53)
[2018-07-11 07:55] VITALS: BP 144/88; PULSE 60
[2018-07-11 08:11] LABS: HEMATOCRIT 42.9 % (37-47); HEMOGLOBIN 14.3 g/dL (12.0-16.0); MEAN CELL VOLUME 94.3 fL (80-100); MEAN CORPUSCULAR HEMOGLOBIN 31.4 pg (25-34); MEAN CORPUSCULAR HGB CONC 33.3 g/dl (32-36); MEAN PLATELET VOLUME 10.6 fL (7.4-10.4); PLATELET COUNT 230 K/uL (130-400); RED CELL DISTRIBUTION WIDTH CV 15.1 % (11.5-14.5); RED CELL DISTRIBUTION WIDTH SD 51.9 fL (36.4-46.3); WHITE BLOOD COUNT 6.67 K/uL (4.8-10.8)
[2018-07-11 08:28] LABS: CALCIUM 8.7 mg/dl (8.5-10.1); CREATININE 0.92 mg/dl (0.60-1.20); POTASSIUM 3.4 mmol/L (3.5-5.1)
--- NOTE | 2018-07-11 09:35 | Gastroenterology Progress Note ---
Progress Note Date of Service: Jul 11, 2018 Subjective Pt evaluation today including: conversation w/ patient, physical exam, chart review, lab review, review of studies, review of inpatient medication list Patient reports improved symptoms from admission. She did tolerate a solid food breakfast with only minimal nausea. No further vomiting. EGD yesterday with findings of medium-sized hiatus hernia and gastritis. She continues Protonix 40 mg daily as well as Ranitidine 150 mg BID and antiemetics PRN. No melena, hematochezia, abdominal pain or other GI complaints. H&H is stable. Review of Systems Constitutional: No fever, No chills Respiratory: No shortness of breath Cardiac: No chest pain Abdomen: + see HPI Medications Current Inpatient Medications Medications (Trade) Dose Ordered Sig/Felisha Route Start Time Stop Time Status Last Admin Dose Admin Ondansetron HCl (Zofran Inj) 4 mg Q6H PRN IV 07/09/18 23:15 08/08/18 23:14 07/10/18 08:01 4 MG Aspirin (Ecotrin Tab) 81 mg DAILY PO 07/10/18 09:00 08/09/18 08:59 07/11/18 07:53 81 MG Atorvastatin Calcium (Lipitor Tab) 40 mg DAILY PO 07/10/18 09:00 08/09/18 08:59 07/11/18 07:51 40 MG Bupropion HCl (Wellbutrin-Sr Tab) 150 mg BID PO 07/10/18 09:00 08/09/18 08:59 07/11/18 07:52 150 MG Betamethasone/ Clotrimazole (Lotrisone Crm) 1 appln TID PRN EXT 07/09/18 23:15 08/08/18 23:14 Salmeterol Xinafoate/ Fluticasone (Advair Diskus 250/50 Inh) 1 puff BID INH 07/10/18 09:00 08/09/18 08:59 07/11/18 07:51 1 PUFF Pantoprazole Sodium (Protonix Tab) 40 mg HS PO 07/10/18 21:00 08/09/18 20:59 07/10/18 20:28 40 MG Propranolol HCl (Inderal Tab) 60 mg DAILY PO 07/10/18 09:00 08/09/18 08:59 8/17/18 07:52 60 MG Ranitidine HCl (zANTac TAB) 150 mg BID PRN PO 07/09/18 23:15 08/08/18 23:14 07/11/18 09:05 150 MG Senna/Docusate Sodium (Senokot S Tab) 1 tab DAILY PRN PO 07/09/18 23:15 08/08/18 23:14 Sertraline HCl (Zoloft Tab) 150 mg DAILY PO 07/10/18 09:00 08/09/18 08:59 07/11/18 07:52 150 MG Lactated Ringer's 1,000 ml @ 125 mls/hr Q8H IV 07/09/18 23:45 08/08/18 23:44 07/11/18 04:46 125 MLS/HR Promethazine HCl 12.5 mg/Sodium Chloride 50.5 ml @ 204 mls/hr Q6H PRN IV 07/10/18 02:30 08/09/18 02:29 07/10/18 03:22 204 MLS/HR Miscellaneous (Iv Fluids Completed) 1 ea PRN PRN N/A 07/10/18 04:00 07/10/19 03:59 Objective Vital Signs Date Time Temp Pulse Resp B/P (MAP) Pulse Ox O2 Delivery O2 Flow Rate FiO2 07/11/18 07:55 60 144/88 (106) 07/11/18 06:48 36.6 61 18 156/80 (105) 95 Room Air 07/11/18 00:00 Room Air 07/10/18 23:10 36.6 64 16 110/71 (84) 97 Room Air 07/10/18 18:00 Room Air 07/10/18 17:49 36.9 58 18 127/81 (96) 98 Room Air 07/10/18 17:17 56 18 129/72 (91) 96 Room Air 07/10/18 17:02 56 18 120/85 (97) 97 Room Air 07/10/18 16:47 36.7 50 16 120/65 (83) 98 Room Air 07/10/18 15:04 36.9 60 20 120/62 (81) 98 Room Air 07/10/18 14:52 36.9 60 18 119/76 (90) 94 Room Air Physical Exam General Appearance: no apparent distress Respiratory/Chest: lungs clear, normal breath sounds, no respiratory distress Cardiovascular: regular rate, rhythm Abdomen: normal bowel sounds, non tender, soft Extremities: no pedal edema Neurologic/Psych: alert, normal mood/affect, oriented x 3 Laboratory Results Last 24 Hours Test 07/11/18 07:46 White Blood Count 6.67 K/uL Red Blood Count 4.55 M/uL Hemoglobin 14.3 g/dL Hematocrit 42.9 % Mean Corpuscular Volume 94.3 fL Mean Corpuscular Hemoglobin 31.4 pg Mean Corpuscular Hemoglobin Concent 33.3 g/dl RDW Standard Deviation 51.9 fL RDW Coefficient of Variation 15.1 % Platelet Count 230 K/uL Mean Platelet Volume 10.6 fL Sodium Level 137 mmol/L Potassium Level 3.4 mmol/L Chloride Level 102 mmol/L Carbon Dioxide Level 27 mmol/L Anion Gap 8.0 mmol/L Blood Urea Nitrogen 11 mg/dl Creatinine 0.92 mg/dl Est Creatinine Clear Calc Drug Dose 59.6 ml/min Estimated GFR () 73.1 Estimated GFR (Non- 63.1 BUN/Creatinine Ratio 12.3 Random Glucose 67 mg/dl Calcium Level 8.7 mg/dl Assessment and Plan Patient is a 72 year old female with nausea & vomiting and a history of pyloric stenosis, hiatus hernia and gastroparesis with findings of gastritis on EGD. 1. Recommend diet content to be low fat and low fiber due to known gastroparesis. 2. Continue PPI and H2RA therapy as prescribed. 3. Supportive measures with antiemetics as prescribed. 4. Would not use Reglan for maintenance therapy due to previous side effect of tremors with use. Agree with JENNA Dias as above Abd: Soft, NT, ND, +BS Continue current therapy
[2018-07-11] MEDS: ONDANSETRON INJ 2 MG/ML 2 ML VIAL IV PRN ×2 (12:16→18:30)
[2018-07-11 15:04] VITALS: BP 121/73; PULSE 65; TEMP 36.7; O2SAT 96
--- NOTE | 2018-07-11 16:31 | Family Medicine Progress Note ---
Progress Note Date of Service Jul 11, 2018. Subjective Lillie Harmon is a 72yo F with a PMHx of HTN, RISHI, asthma, hiatal hernia, essential tremor, HLD, depression, gastroparesis, pyloric stenosis, and persisent nausea who presented with increase nausea and vomiting. She reports she normally has 5-6/10 nausea nearly daily for several years but the day of her admission she had 10/10 nausea and several episodes of non-bilious, non- bloody vomiting after eating. Her emesis was not preceded by cough. She experienced some vertigo and room spinning, mild lightheadedness. She had a headache earlier in the day but not at the time of emesis. On admission she received several anti-emetics, she reports the '3rd one, the stronger one' helped a little bit, but the first two did not. She endorses ~10lb weight loss over a few weeks due to increased nausea and decrease PO intake. She is followed by Eva Shine PA-C and Kareem Ponce her PCP. She is also seen by [facility]. She has had several endoscopes to look at her hiatal hernia. EGD in 2011 showed dilated pyloric stenosis. EGD in 2017 showed gastroparesis. She feels better today. She was able to eat breakfast without emesis. She feels the reglan is helping and she is closer to her baseline nausea. She is able to sip water comfortably this morning. She has a bowel movement today after being backed up for 3 days, no blood/melena. She denies fever, chills, SoB, and abdominal pain. She is having some reflux after breakfast this morning. Her EGD went well, she is aware that it shows some gastritis and that a biopsy was taken. No other questions or concerns today. Addendum: She became nauseus with lunch and vomited shortly after. Constitutional: + fatigue, No fever, No chills, No sweats ENT: No nasal symptoms, No sore throat Respiratory: No cough, No wheezing, No shortness of breath, No dyspnea at rest Cardiovascular: No chest pain, No palpitations Abdomen: + nausea, + vomiting, + constipation, No pain, No diarrhea, No GI bleeding Musculoskeletal: No joint pain, No muscle pain Neurologic: + weakness, No numbness/tingling, No vertigo Endo: + fatigue Skin: No rash Medications Current Inpatient Medications Medications (Trade) Dose Ordered Sig/Felisha Route Start Time Stop Time Status Last Admin Dose Admin Ondansetron HCl (Zofran Inj) 4 mg Q6H PRN IV 07/09/18 23:15 08/08/18 23:14 07/11/18 18:30 4 MG Aspirin (Ecotrin Tab) 81 mg DAILY PO 07/10/18 09:00 08/09/18 08:59 07/11/18 07:53 81 MG Atorvastatin Calcium (Lipitor Tab) 40 mg DAILY PO 07/10/18 09:00 08/09/18 08:59 07/11/18 07:51 40 MG Bupropion HCl (Wellbutrin-Sr Tab) 150 mg BID PO 07/10/18 09:00 08/09/18 08:59 07/11/18 07:52 150 MG Betamethasone/ Clotrimazole (Lotrisone Crm) 1 appln TID PRN EXT 07/09/18 23:15 08/08/18 23:14 Salmeterol Xinafoate/ Fluticasone (Advair Diskus 250/50 Inh) 1 puff BID INH 07/10/18 09:00 08/09/18 08:59 07/11/18 07:51 1 PUFF Pantoprazole Sodium (Protonix Tab) 40 mg HS PO 07/10/18 21:00 08/09/18 20:59 07/10/18 20:28 40 MG Propranolol HCl (Inderal Tab) 60 mg DAILY PO 07/10/18 09:00 08/09/18 08:59 07/11/18 07:52 60 MG Ranitidine HCl (zANTac TAB) 150 mg BID PRN PO 07/09/18 23:15 08/08/18 23:14 07/11/18 09:05 150 MG Senna/Docusate Sodium (Senokot S Tab) 1 tab DAILY PRN PO 07/09/18 23:15 08/08/18 23:14 Sertraline HCl (Zoloft Tab) 150 mg DAILY PO 07/10/18 09:00 08/09/18 08:59 07/11/18 07:52 150 MG Lactated Ringer's 1,000 ml @ 125 mls/hr Q8H IV 07/09/18 23:45 08/08/18 23:44 07/11/18 12:24 125 MLS/HR Promethazine HCl 12.5 mg/Sodium Chloride 50.5 ml @ 204 mls/hr Q6H PRN IV 07/10/18 02:30 08/09/18 02:29 07/10/18 03:22 204 MLS/HR Miscellaneous (Iv Fluids Completed) 1 ea PRN PRN N/A 07/10/18 04:00 07/10/19 03:59 Objective Vital Signs Date Time Temp Pulse Resp B/P (MAP) Pulse Ox O2 Delivery O2 Flow Rate FiO2 07/11/18 16:00 Room Air 07/11/18 15:04 36.7 65 20 121/73 (89) 96 Room Air 07/11/18 07:55 60 144/88 (106) 07/11/18 07:45 Room Air 07/11/18 06:48 36.6 61 18 156/80 (105) 95 Room Air 07/11/18 00:00 Room Air 07/10/18 23:10 36.6 64 16 110/71 (84) 97 Room Air Physical Exam General Appearance: WD/WN, no apparent distress Eyes: EOMI, sclerae normal ENT: hearing grossly normal Neck: supple, trachea midline Respiratory/Chest: chest non-tender, lungs clear, normal breath sounds, no respiratory distress, no accessory muscle use Cardiovascular: regular rate, rhythm, no JVD, no murmur Abdomen: normal bowel sounds, non tender, soft, no organomegaly, no pulsatile mass Extremities: non-tender Neurologic/Psychiatric: alert, normal mood/affect, oriented x 3 Skin: normal color, warm/dry, no rash Lymphatic: no adenopathy Laboratory Results 07/11/18 07:46 07/11/18 07:46 Test 07/11/18 07:46 Red Blood Count 4.55 M/uL (4.2-5.4) Mean Corpuscular Volume 94.3 fL (80-100) Mean Corpuscular Hemoglobin 31.4 pg (25-34) Mean Corpuscular Hemoglobin Concent 33.3 g/dl (32-36) RDW Standard Deviation 51.9 fL (36.4-46.3) RDW Coefficient of Variation 15.1 % (11.5-14.5) Mean Platelet Volume 10.6 fL (7.4-10.4) Anion Gap 8.0 mmol/L (3-11) Est Creatinine Clear Calc Drug Dose 59.6 ml/min Estimated GFR () 73.1 Estimated GFR (Non- 63.1 BUN/Creatinine Ratio 12.3 (10-20) Calcium Level 8.7 mg/dl (8.5-10.1) Assessment and Plan Intractable Nausea - No evidence of SBO. Some colonic wall thickening seen on CT-A. No free air/ abscess. Colonic diverticulosis without acute pathology. - Hx of longstanding Hiatal hernia - EGD showed gastritis and some fundal inflammation. Biopsy taken, results pending. - Tolerated breakfast, vomited with lunch. Normal diet for now. - Futher workup pending biopsy results. - IVFM, LR 125ml/hr - Ondansetron 4mg PRN for nausea for now. She seemed to have better relief with Reglan, but concerns over its affect given her tremor. - Further recs EGD results and GI consult. Appreciate consult/recs. Hypokalemia - 3.4 on admit - 3.4 today. 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 Emanuel during the history and exam. I discussed the case with the resident and agree with the findings and plan as documented in the note. Any exceptions or clarifications are listed here: Pt seen and examined at bedside. Nausea controlled with Reglan but with minor tremor which has been a previous HEIDI for her. Minimal epigastric discomfort and some fullness/belching. Tolerating POI (breakfast) without complaint. On examination, S1/S2 nl RRR no MCG. CTAB. Abd minimally TTP epigastrium w/ good BS. Intractable nausea/vomiting in the setting of moderate hiatal hernia - GI consultation appreciated - transition to non Reglan antiemetic, continue H2/PPI and monitor dietary tolerance. Pathology from EGD pending HTN - continue propranolol F/E/N - continue LR, likely d/c in AM. Monitor BMP, repleted K+ today
[2018-07-11] MEDS: PANTOprazole SOD 40 MG TAB PO SCH (20:22)
[2018-07-11 22:31] VITALS: BP 121/66; PULSE 61; TEMP 37; O2SAT 94
[2018-07-12] MEDS: LACTATED RINGER'S 1000ML 1,000 ML IV SCH ×2 (04:36→12:35)
[2018-07-12 07:41] VITALS: BP 117/63; PULSE 77; TEMP 36.8; O2SAT 97
[2018-07-12] MEDS: PROPRANOLOL HCL 20 MG TAB PO SCH (07:53)
[2018-07-12] MEDS: SERTRALINE HCL 100 MG TAB PO SCH (07:53)
[2018-07-12] MEDS: BuPROPion SR 150 MG TABCR PO SCH (07:53)
[2018-07-12] MEDS: ASPIRIN 81 MG ECTAB PO SCH (07:53)
[2018-07-12] MEDS: ATORVASTATIN 40 MG TAB PO SCH (07:53)
[2018-07-12] MEDS: FLUTICASONE/SALMETEROL 250/50 (ADVAIR) 14 PUFF/1 INHALER INH SCH (07:54)
[2018-07-12 08:25] LABS: CALCIUM 8.3 mg/dl (8.5-10.1); CREATININE 0.82 mg/dl (0.60-1.20); POTASSIUM 3.4 mmol/L (3.5-5.1)
[2018-07-12] MEDS ORDERED: PROM12.57 PO (14:37)
--- NOTE | 2018-07-12 14:44 | Discharge Instructions ---
Discharge Instructions Date of Service Jul 12, 2018. Admission Reason for Admission: Intractable Vomiting Discharge Discharge Diagnosis / Problem: Vomiting Discharge Goals Goal(s): Decrease discomfort, Improve function, Improve disease control Activity Recommendations Activity Limitations: resume your previous activity . Instructions / Follow-Up Instructions / Follow-Up Ms Kathleen, Sunny are being discharged from your hospital stay for intractable nausea and vomiting. You received an upper endoscopy which showed evidence of gastritis, or inflammation of your stomach lining, but no other major abnormalities. Information on gastritis and the upper endoscopy procedure will be provided. You are going to be discharged on your previous zofran dose and also a new prescription of phenergan. Information on this new medication will be provided to you on discharge. Take the zofran as you did before, but feel free to also take Phenergan for nausea 12.5 mg every six hours when needed for nausea. We advise you to follow up with your primary care physician within the next week to follow up from your hospital stay. It was a pleasure to contribute to your care. Current Hospital Diet Patient's current hospital diet: AHA Diet (Heart Healthy) Discharge Diet Recommended Diet: Regular Diet Procedures Procedures Performed: EGD with biopsy Pending Studies Studies pending at discharge: no Laboratory Results Lipid Panel Test 04/11/18 14:57 Range/Units Triglycerides Level 121 0-150 mg/dl Cholesterol Level 179 0-200 mg/dl HDL Cholesterol 43 mg/dl Cholesterol/HDL Ratio 4.2 LDL Cholesterol, Calculated 112 mg/dl Medical Emergencies . Who to Call and When: Medical Emergencies: If at any time you feel your situation is an emergency, please call 911 immediately. . Non-Emergent Contact Non-Emergency issues call your: Primary Care Provider . . "Provider Documentation" section prepared by Ephraim Rivera. . Resident Tracking Resident Involvement: Resident Care Provided Care Provided: Adult Hospital Medicine
--- NOTE | 2018-07-12 15:10 | Discharge Summary ---
Discharge Summary Date of Service Jul 12, 2018. Discharge Summary Admission Date: Jul 09, 2018 at 23:41 Discharge Date: Jul 12, 2018 Discharge Disposition: Home Principal Diagnosis: intractable Vomiting Immunizations: Have You Had Influenza Vaccine: No Influenza Vaccine Date: Sep 05, 2010 History of Tetanus Vaccine?: Unknown History of Pneumococcal: Unknown History of Hepatitis B Vaccine: Yes Hepatitis Immunization Date: Jun 05, 1996 Procedures: EGD: Evidence of gastritis Consultations: GI consulted: Patient is a 72 year old female with nausea & vomiting and a history of pyloric stenosis, hiatus hernia and gastroparesis with findings of gastritis on EGD. 1. Recommend diet content to be low fat and low fiber due to known gastroparesis. 2. Continue PPI and H2RA therapy as prescribed. 3. Supportive measures with antiemetics as prescribed. 4. Would not use Reglan for maintenance therapy due to previous side effect of tremors with use. Medication Reconciliation New Medications: Promethazine (Phenergan ) 12.5 Mg Tab 12.5 MG PO Q6H PRN for Nausea or Vomiting for 30 Days, #120 TAB Continued Medications: Aspirin (Aspirin Ec) 81 Mg Tab 81 MG PO DAILY Atorvastatin (Lipitor) 40 Mg Tab 40 MG PO DAILY, TAB Bupropion (Wellbutrin Sr) 150 Mg Ertab 150 MG PO BID, TAB Clotrimazole W/ Betamethasone (Lotrisone) 1 Cre Cre 1 APPLN TOP TID PRN for AFFECTED AREA for 7 Days, #15 GM Cyanocobalamin (Vitamin B12) 1,000 Mcg Tab 1 TAB PO DAILY Fluticasone Prop/Salmeterol (Advair Diskus 250/50 60 Dose) 1 Ea Aerp 1 PUFF INH BID, INHALER Ondansetron Hcl (Zofran) 4 Mg Tab 4 MG PO Q8 PRN for Nausea, TAB Pantoprazole (Protonix) 40 Mg Tab 40 MG PO HS Propranolol (Inderal) 60 Mg Tab 60 MG PO DAILY, TAB EXTENDED RELEASED Ranitidine (Zantac) 150 Mg Tab 150 MG PO BID PRN for REFLUX, TAB Sennosides-Docusate Sodium (Stool Softener) 1 Tab Tab 1 TAB PO DAILY PRN for Constipation Sertraline (Zoloft) 100 Mg Tab 150 MG PO DAILY Discharge Exam Constitutional: + fatigue, No fever, No chills, No sweats ENT: No nasal symptoms, No sore throat Respiratory: No cough, No wheezing, No shortness of breath, No dyspnea at rest Cardiovascular: No chest pain, No palpitations Abdomen: + nausea, + vomiting, + constipation, No pain, No diarrhea, No GI bleeding Musculoskeletal: No joint pain, No muscle pain Neurologic: + weakness, No numbness/tingling, No vertigo Endo: + fatigue Skin: No rash General Appearance: WD/WN, no apparent distress Eyes: EOMI, sclerae normal ENT: hearing grossly normal Neck: supple, trachea midline Respiratory/Chest: chest non-tender, lungs clear, normal breath sounds, no respiratory distress, no accessory muscle use Cardiovascular: regular rate, rhythm, no JVD, no murmur Abdomen: normal bowel sounds, non tender, soft, no organomegaly, no pulsatile mass Extremities: non-tender Neurologic/Psychiatric: alert, normal mood/affect, oriented x 3 Tremulous Skin: normal color, warm/dry, no rash Lymphatic: no adenopathy Hospital Course Intractable Nausea - No evidence of SBO. Some colonic wall thickening seen on CT-A. No free air/ abscess. Colonic diverticulosis without acute pathology. - Hx of longstanding Hiatal hernia - EGD showed gastritis and some fundal inflammation. Biopsy taken, results pending. - Home with 12.5 mg Phenergan Prophylaxis - Pantoprazole 40mg BID HTN - Continued propanolol 60mg daily Asthma - Continued Advair 250/50 1 puff BID Essential Tremor - Continued Propanolol 60mg daily HLD - Continued Atorvastatin 40mg daily Depression - Continued sertraline 150mg daily - Continued bupropion 150mg BID Total Time Spent: Greater than 30 minutes This includes examination of the patient, discharge planning, medication reconciliation, and communication with other providers. Discharge Instructions Please refer to the electronic Patient Visit Report (Discharge Instructions) for additional information. Additional Copies To Kareem Ponce M.D. Resident Tracking Resident Involvement: Resident Care Provided Care Provided: Adult Hospital Medicine Assessment/Plan Resident Physician Supervision Note: I was present with Dr. Rivera during the history and exam. I discussed the case with the resident and agree with the findings and plan as documented in the note. Any exceptions or clarifications are listed here: Pt seen and examined at bedside. Reports some bloating of the abdomen following lunch which she states is normal for her. Nausea controlled with present regimen and tolerating baseline POI. On examination, S1/S2 nl RRR no MCG. CTAB. Abd minimally TTP w/ +ve BS. Gastritis with intractable nausea/vomiting in the setting of moderate hiatal hernia - GI consultation - transition to outpt PO antiemetic regimen and H2/ PPI. Pathology from EGD pending HTN - resume home regimen
[2018-07-12 15:17] VITALS: BP 117/63; PULSE 77; TEMP 36.8; O2SAT 97
== END 2018-07-12 16:15 | disposition home or self-care (01) ==
LOC: EDBD 19:32 → C.EDA 19:33 → C.MS2W 23:41 → ENRESERV 23:41
PROVIDERS: ADMIT Student in an Organized Health Care Education/Training Program; ATTEND Family Medicine
DX: R11.2 Nausea with vomiting, unspecified (principal); E87.6 Hypokalemia; K29.70 Gastritis, unspecified, without bleeding; K31.84 Gastroparesis; E86.0 Dehydration; K44.9 Diaphragmatic hernia without obstruction or gangrene; I10 Essential (primary) hypertension; J45.909 Unspecified asthma, uncomplicated; G25.0 Essential tremor; E78.5 Hyperlipidemia, unspecified; F32.9 Major depressive disorder, single episode, unspecified; G47.33 Obstructive sleep apnea (adult) (pediatric); K31.1 Adult hypertrophic pyloric stenosis; E66.9 Obesity, unspecified; Z68.34 Body mass index [BMI] 34.0-34.9, adult; Z88.8 Allergy status to other drugs, medicaments and biological substances; Z91.040 Latex allergy status; Z79.82 Long term (current) use of aspirin

== ENCOUNTER 2018-12-19 22:58 | Inpatient (IN) ==
[2018-12-20] MEDS ORDERED: ONDANSETRON INJ 2 MG/ML 2 ML VIAL IV STA (00:23)
[2018-12-20] MEDS ORDERED: SODIUM CHLORIDE 0.9% 1000ML 1,000 ML IV SCH (00:30)
[2018-12-20 00:41] LABS: Basophils # (auto) 0.03 K/uL (0-0.2); Basophils % (auto) 0.5 %; Eosinophils # (auto) 0.05 K/uL (0-0.5); Eosinophils % (auto) 0.8 %; Hematocrit (blood only) 47.1 % (37-47); Hemoglobin 15.7 g/dL (12.0-16.0); Immature Granulocytes # (auto) 0.01 K/uL (0.00-0.02); Immature Granulocytes % (auto) 0.2 %; Lymphocytes # (auto) 2.43 K/uL (1.2-3.4); Lymphocytes % (auto) 40.9 %; Mean Corpuscular Hgb Conc 33.3 g/dL (32-36); Mean Corpuscular Volume 95.5 fL (80-100); Mean Platelet Volume 11.6 fL (7.4-10.4); Monocytes # (auto) 0.41 K/uL (0.11-0.59); Monocytes % (auto) 6.9 %; Neutrophils # (auto) 3.01 K/uL (1.4-6.5); Neutrophils % (auto) 50.7 %; Platelet Count 271 K/uL (130-400); RDW Coefficient of Variation 13.4 % (11.5-14.5); RDW Standard Deviation 47.3 fL (36.4-46.3); Red Blood Count 4.93 M/uL (4.2-5.4); White Blood Count 5.94 K/uL (4.8-10.8)
[2018-12-20 00:47] LABS: Alanine Aminotransferase 39 U/L (12-78); Albumin Level 3.5 gm/dl (3.4-5.0); Aspartate Aminotransferase 25 U/L (15-37); BUN Creatinine Ratio 13.5 (10-20); Blood Urea Nitrogen 17 mg/dl (7-18); Calcium 9.3 mg/dl (8.5-10.1); Carbon Dioxide 25 mmol/L (21-32); Chloride 103 mmol/L (98-107); Creatinine Clr Calc Pharmacy 42.4 ml/min; Est GFR (African American) 50.6; Est GFR (Non-African American) 43.7; Glucose 111 mg/dl (70-99); Potassium 3.5 mmol/L (3.5-5.1); Sodium 137 mmol/L (136-145)
[2018-12-20 00:50] LABS: Albumin Globulin Ratio 0.9 (0.9-2); Alkaline Phosphatase 73 U/L (45-117); Bilirubin,Total 0.8 mg/dl (0.2-1); Globulin 3.9 gm/dl (2.5-4.0); Total Protein 7.4 gm/dl (6.4-8.2)
[2018-12-20 02:24] LABS: Troponin I < 0.015 ng/ml (0-0.045)
--- NOTE | 2018-12-20 03:40 | History & Physical Report ---
Date of Service December 20, 2018 Assessment & Plan (1) Abnormal EKG: The patient had noted intermittent precordial substernal chest discomfort , and EKG upon arrival noted with ST depressions in V2 through V6, with follow- up EKG showing improvement. The patient will be admitted to telemetry for serial cardiac enzymes, serial EKG's, cardiac rhythm monitoring and a 2-D echocardiogram with Dopplers. Aspirin 81 mg daily. Present on Admission?: Yes (2) Substernal precordial chest pain: As above. Present on Admission?: Yes (3) Anxiety and depression: Continue bupropion, and fluoxetine. She had been going to counseling but her insurance did not cover the co-pay and became too expensive. We will consult psychiatry to see this admission. Present on Admission?: Yes (4) Hyperlipidemia: Continue atorvastatin 40 mg daily. Check a fasting lipid panel Present on Admission?: Yes (5) Asthma: Continue Advair Diskus Present on Admission?: Yes (6) GERD (gastroesophageal reflux disease): Continue pantoprazole Present on Admission?: Yes (7) Vitamin B12 deficiency: Continue vitamin B12 1000 mcg p.o. daily supplement Present on Admission?: Yes (8) Constipation: Continue MiraLAX as needed Present on Admission?: Yes History of Present Illness Chief Complaint: The patient presents to the emergency department with complaints of progressively worsening generalized fatigue, and intermittent shortness of breath with midsternal chest tightness sensation. Primary Care Provider: Kareem Ponce MD The patient is a 73-year-old female who presents to the emergency department with generalized fatigue, intermittent shortness of breath with substernal chest discomfort that is self-limited, and decreased physical activity associated with depressed mood. Allergies Allergy/AdvReac Type Severity Reaction Status Date / Time simvastatin Allergy Unknown MUSCLE Verified 12/20/18 02:55 WEAKNESS latex AdvReac Intermediate HIVES Verified 12/20/18 02:55 Home Medications Home Medications Medication Instructions Recorded Confirmed Type acetaminophen 325 - 650 mg PO Q6H PRN 12/20/18 12/20/18 History aspirin [Aspir-81] 81 mg PO DAILY 12/20/18 12/20/18 History atorvastatin 40 mg PO DAILY 12/20/18 12/20/18 History bupropion HCl 150 mg PO BID 12/20/18 12/20/18 History cyanocobalamin (vitamin B-12) 1,000 mcg PO DAILY 12/20/18 12/20/18 History [Vitamin B-12] docusate sodium [Stool Softener] 100 mg PO DAILY PRN 12/20/18 12/20/18 History fluoxetine 40 mg PO DAILY 12/20/18 12/20/18 History fluticasone-salmeterol [Advair 1 inh INHALATION Q12H 12/20/18 12/20/18 History Diskus] metoclopramide HCl 5 mg PO ACHS 12/20/18 12/20/18 History pantoprazole 40 mg PO DAILY 12/20/18 12/20/18 History polyethylene glycol 3350 [Miralax] 17 g PO DAILY PRN 12/20/18 12/20/18 History promethazine 12.5 mg PO Q6H PRN 12/20/18 12/20/18 History propranolol 60 mg PO DAILY 12/20/18 12/20/18 History ranitidine HCl 150 mg PO Q12 PRN 12/20/18 12/20/18 History Past Med/Surg History Medical History Constipation Depression Nausea & vomiting Family History Other Family history non-contributory Social History Feels Safe at Home: Yes Smoking Status: Never smoker Review of Systems The patient denies palpitations, cough, lower extremity swelling, sore throat, fevers, chills, sweats, weight change, nausea, vomiting, diarrhea , constipation , abdominal pain, pelvic pain, blood in urine or stool, dysuria, urinary frequency or urgency, lightheadedness, dizziness, headache, memory loss, loss of consciousness, rash, abnormal bruising or bleeding, imbalance, focal weakness, numbness or tingling in arms or legs, generalized arthralgias or myalgias, back or neck pain, or night sweats. The review of systems is otherwise negative other than for that already noted above, and at least 10 systems have been reviewed. Physical Exam 2 Vital Signs (Past 24 Hours): Last Vital Signs Temp 36.7 C 12/19/18 22:51 Pulse 71 12/20/18 02:15 Resp 18 12/20/18 02:15 BP 128/74 12/20/18 02:15 Pulse Ox 97 12/20/18 02:15 Physical Exam: The patient is awake, alert and oriented 3, well developed and well nourished, normocephalic and atraumatic, lying in bed and in no acute distress. HEENT--PERRL, EOMI, mucous membranes and oropharynx dry. Neck--supple. No JVD. No bruits. Thyroid normal, trachea midline, no adenopathy. Heart--normal S1 and S2. No murmurs, rubs or gallops. Lungs--clear bilaterally, no respiratory distress, no accessory muscle use. Abdomen--normal bowel sounds and soft. Nontender. Nondistended, no hernias or masses, no organomegaly. Extremities--no cyanosis or clubbing. No edema. There are good distal pulses b/ l. Dermatologic--normal skin turgor, normal color, no abnormal lymph nodes, no rash. Neurologic--cranial nerves II through XII grossly intact. Rheumatologic--normal range of motion. Psychiatric--normal affect. Results & Data Laboratory Results Laboratory Results WBC 5.94 K/uL (4.8-10.8) 12/19/18 22:40 RBC 4.93 M/uL (4.2-5.4) 12/19/18 22:40 Hgb 15.7 g/dL (12.0-16.0) 12/19/18 22:40 Hct 47.1 % (37-47) H 12/19/18 22:40 MCV 95.5 fL (80-100) 12/19/18 22:40 MCH 31.8 pg (25-34) 12/19/18 22:40 MCHC 33.3 g/dL (32-36) 12/19/18 22:40 RDW Std Deviation 47.3 fL (36.4-46.3) H 12/19/18 22:40 RDW Coeff of Yani 13.4 % (11.5-14.5) 12/19/18 22:40 Plt Count 271 K/uL (130-400) 12/19/18 22:40 MPV 11.6 fL (7.4-10.4) H 12/19/18 22:40 Immature Gran % (Auto) 0.2 % 12/19/18 22:40 Neut % (Auto) 50.7 % 12/19/18 22:40 Lymph % (Auto) 40.9 % 12/19/18 22:40 Mccracken % (Auto) 6.9 % 01/25/19 22:40 Eos % (Auto) 0.8 % 12/19/18 22:40 Baso % (Auto) 0.5 % 12/19/18 22:40 Immature Gran # (Auto) 0.01 K/uL (0.00-0.02) 12/19/18 22:40 Neut # (Auto) 3.01 K/uL (1.4-6.5) 12/19/18 22:40 Lymph # (Auto) 2.43 K/uL (1.2-3.4) 12/19/18 22:40 Mccracken # (Auto) 0.41 K/uL (0.11-0.59) 12/19/18 22:40 Eos # (Auto) 0.05 K/uL (0-0.5) 12/19/18 22:40 Baso # (Auto) 0.03 K/uL (0-0.2) 12/19/18 22:40 Sodium 137 mmol/L (136-145) 12/19/18 22:40 Potassium 3.5 mmol/L (3.5-5.1) 12/19/18 22:40 Chloride 103 mmol/L (98-107) 12/19/18 22:40 Carbon Dioxide 25 mmol/L (21-32) 12/19/18 22:40 Anion Gap 9.0 (3-11) 12/19/18 22:40 BUN 17 mg/dl (7-18) 12/19/18 22:40 Creatinine 1.24 mg/dl (0.6-1.2) H 12/19/18 22:40 Est Cr Clr Drug Dosing 42.4 ml/min 12/19/18 22:40 Est GFR ( Amer) 50.6 12/19/18 22:40 Est GFR (Non-Af Amer) 43.7 12/19/18 22:40 BUN/Creatinine Ratio 13.5 (10-20) 12/19/18 22:40 Glucose 111 mg/dl (70-99) H 12/19/18 22:40 Calcium 9.3 mg/dl (8.5-10.1) 12/19/18 22:40 Total Bilirubin 0.8 mg/dl (0.2-1) 12/19/18 22:40 AST 25 U/L (15-37) 12/19/18 22:40 ALT 39 U/L (12-78) 12/19/18 22:40 Alkaline Phosphatase 73 U/L (45-117) 12/19/18 22:40 Troponin I < 0.015 ng/ml (0-0.045) 12/19/18 22:40 Total Protein 7.4 gm/dl (6.4-8.2) 12/19/18 22:40 Albumin 3.5 gm/dl (3.4-5.0) 12/19/18 22:40 Globulin 3.9 gm/dl (2.5-4.0) 12/19/18 22:40 Albumin/Globulin Ratio 0.9 (0.9-2) 12/19/18 22:40 Lipase 70 U/L (73-393) L 12/19/18 22:40 Medications Administered Home Medications Medication Instructions Recorded Confirmed acetaminophen 325 - 650 mg PO Q6H PRN 12/20/18 12/20/18 aspirin [Aspir-81] 81 mg PO DAILY 12/20/18 12/20/18 atorvastatin 40 mg PO DAILY 12/20/18 12/20/18 bupropion HCl 150 mg PO BID 12/20/18 12/20/18 cyanocobalamin (vitamin B-12) 1,000 mcg PO DAILY 12/20/18 12/20/18 [Vitamin B-12] docusate sodium [Stool Softener] 100 mg PO DAILY PRN 12/20/18 12/20/18 fluoxetine 40 mg PO DAILY 12/20/18 12/20/18 fluticasone-salmeterol [Advair 1 inh INHALATION Q12H 12/20/18 12/20/18 Diskus] metoclopramide HCl 5 mg PO ACHS 12/20/18 12/20/18 pantoprazole 40 mg PO DAILY 12/20/18 12/20/18 polyethylene glycol 3350 [Miralax] 17 g PO DAILY PRN 12/20/18 12/20/18 promethazine 12.5 mg PO Q6H PRN 12/20/18 12/20/18 propranolol 60 mg PO DAILY 12/20/18 12/20/18 ranitidine HCl 150 mg PO Q12 PRN 12/20/18 12/20/18 Code Status & VTE Plan Code Status Full code VTE Prophylaxis Plan VTE Prophylaxis will be ordered: Yes _ (1) Constipation Constipation type: unspecified constipation type Qualified Code(s): K59.00 - Constipation, unspecified
[2018-12-20] MEDS ORDERED: ACETAMINOPHEN 325 MG TAB PO PRN (05:17)
[2018-12-20] MEDS ORDERED: POLYETHYLENE (MIRALAX) 17 GM PACK PO PRN (05:17)
[2018-12-20] MEDS ORDERED: MAGNESIUM HYDROXIDE SUSP 30 ML UDC PO PRN (05:17)
[2018-12-20] MEDS ORDERED: ALBUT/IPRATROP 3MG/0.5MG NEB 3 ML VIAL NEB PRN (05:17)
[2018-12-20] MEDS ORDERED: ACETAMINOPHEN 1000 MG/100 ML IV IV PRN (05:17)
[2018-12-20] MEDS ORDERED: ONDANSETRON INJ 2 MG/ML 2 ML VIAL IV PRN (05:17)
[2018-12-20] MEDS ORDERED: DOCUSATE SODIUM 100 MG CAP PO PRN (05:17)
[2018-12-20] MEDS ORDERED: NITROGLYCERIN SL 0.4 MG/TAB TAB SL PRN (05:17)
[2018-12-20] MEDS ORDERED: PROMETHAZINE HCL 25 MG TAB PO PRN (05:17)
[2018-12-20] MEDS ORDERED: ALUMINUM/MAGNESIUM SUSP 30 ML UDC PO PRN (05:17)
--- NOTE | 2018-12-20 05:55 | XRay Report ---
XR abdomen 2V w PA chest HISTORY: 73 years-old Female eval for sbo acute generalized abdominal pain with nausea, vomiting and weakness COMPARISON: CT abdomen and pelvis 07/09/2018, CT chest 03/28/2017. TECHNIQUE: PA view of the chest with left lateral decubitus and supine views of the abdomen FINDINGS: Cardiac silhouette is mildly enlarged, unchanged. Linear subsegmental left greater than right bibasil ar opacities redemonstrated suggestive of atelectasis/scarring. Calcification the thoracic aortic arc h. Mild right hemidiaphragmatic elevation. No pneumothorax, pleural effusion or overt pulmonary edema . Healed remote appearing fracture of the lateral left sixth rib. Degenerative changes of the shoulde rs and spine. Small hiatal hernia. Cholecystectomy. No pneumatosis or pneumoperitoneum identified. Bowel gas pattern appears nonobstruct madhav. Calcifications project of the left lower quadrant abdomen and pelvis suggestive of vascular calc ifications. No definite urolith identified. Degenerative changes of the spine, pelvis and hips. Moder ate volume of formed stool noted about the distal sigmoid and rectum. IMPRESSION: 1. No acute process of the chest. 2. Cardiomegaly. 3. Small hiatal hernia. 4. Nonobstructive bowel gas pattern without pneumoperitoneum. 5. Moderate formed stool about the rectosigmoid. The above report was generated using voice recognition software. It may contain grammatical, syntax o r spelling errors. Electronically signed by: Daniel Saenz M.D. 12/20/2018 5:54 AM
[2018-12-20] MEDS ORDERED: PERFLUTREN LIPID MICROSPHERE (DEFINITY) IV ONE (06:41)
[2018-12-20] MEDS: METOCLOPRAMIDE HCL 5 MG TABLET PO SCH ×4 (07:40→20:40)
[2018-12-20] MEDS ORDERED: ASPIRIN 81 MG ECTAB PO SCH (09:00)
[2018-12-20] MEDS ORDERED: FLUOXETINE HCL 20 MG CAP PO SCH (09:00)
[2018-12-20] MEDS: BuPROPion SR 150 MG TABCR PO SCH ×2 (10:37→20:40)
[2018-12-20] MEDS: FLUTICASONE/SALMETEROL 250/50 (ADVAIR) 14 PUFF/1 INHALER INH SCH ×2 (10:37→20:39)
[2018-12-20] MEDS: ATORVASTATIN 40 MG TAB PO SCH (10:38)
[2018-12-20] MEDS: PANTOprazole 40 MG TAB PO SCH (10:38)
[2018-12-20] MEDS: ASPIRIN 81 MG ECTAB PO SCH (10:38)
[2018-12-20] MEDS: CYANOCOBALAMIN 500 MCG TABLET (VITAMIN B-12) PO SCH (10:38)
[2018-12-20] MEDS: PROPRANOLOL HCL 60 MG LA CAP PO SCH (10:38)
[2018-12-20 11:03] LABS: INR 1.1 (0.9-1.1); Prothrombin Time 10.9 Seconds (9.0-12.0)
[2018-12-20 11:27] LABS: BUN Creatinine Ratio 15.3 (10-20); Calcium 8.6 mg/dl (8.5-10.1); Est GFR (African American) 76.6; Est GFR (Non-African American) 66.1; Potassium 3.3 mmol/L (3.5-5.1)
[2018-12-20] MEDS: HEPARIN SOD 5,000 UNIT/0.5 ML VIAL SQ SCH ×2 (12:06→20:39)
--- NOTE | 2018-12-20 13:27 | Psychiatric Consultation ---
Date of Consultation December 20, 2018 Impression / Recommendations Impression 73-year-old white female who lives alone in [place], has a history of depression and anxiety, and is admitted medically for cardiac workup. She endorses depressive and anxiety symptoms, and is agreeable to a trial of a different antidepressant. She would also benefit from return to individual psychotherapy. She is not at acute risk of harm to herself and does not meet criteria for inpatient psychiatric hospitalization. (1) Depression: 12/20 -reviewed outpatient records; patient was switched to fluoxetine 6 months ago, and continues to have moderate depressive and anxiety symptoms. She is agreeable to a trial of an SNRI antidepressant, so will switch from fluoxetine to venlafaxine XR. -Recommend return to individual therapy with Jessica Anguiano at [facility]. Patient is concerned about finances, but encouraged her to resume therapy, even if it is less frequent than weekly. -Patient missed her last appointment with ROSA Michael, at [facility], and this will need to be rescheduled on Saturday. Care coordinated with her PA regarding medication changes. Active/Remission status: Depression Type: unspecified Major depression episode severity: Major depression recurrence: Psychotic features : Trimester: Qualified Code(s): F32.9 - Major depressive disorder, single episode, unspecified Present on Admission?: Yes Risk Factors Assessment Male: No : Yes Do You Have Access To A Gun?: No Health Problems: Yes Mental Health Diagnoses: Yes Substance Use Disorders: No Previous Attempt: No Family History of Suicide: No Previous Psychiatric Hospitalization: No Hopelessness: No Smoker: No Protective Factors Assessment : No Responsible for Young Children: No Employed: No Stable Relationships: Yes Supportive Family: Yes Psych History Identifying Data 73-year-old white female with recurrent depression and generalized anxiety disorder who was admitted medically for fatigue. Psychiatry is consulted for depression. Chief Complaint "I don't have any motivation". History of Present Illness The patient is a 73-year-old female who presented to the emergency department with fatigue, shortness of breath, chest discomfort, decreased physical activity , and depressed mood. She had an abnormal EKG, so was admitted to telemetry. She was continued on her home doses of fluoxetine 40 mg daily and bupropion SR 150 mg twice daily. On my assessment, she reports worsening mood over the past couple of months, with poor energy and motivation, just regulated sleep, and social isolation. She reports sitting all day in a recliner, not even getting up to eat or drink, and often stays up late and sleeps through the day. Appetite varies between poor and eating junk food, and she denies weight changes. She wishes her daughters would check on her more, and admits she has not been going to spiritism as she has been sleeping during the day. She endorses fleeting, passive suicidal thoughts but denies plan or intent. She endorses generalized worry, which is excessive and difficult to control, and interferes with sleep. She denies symptoms of gisela and psychosis. She states she stopped therapy several months ago as she is on a fixed income and there is a $ 25 co-pay. She sees ROSA Michael, at [facility] for medication management, but missed her last appointment. When she was last seen in September , she reported mood was slightly improved on fluoxetine 40 mg daily and her medications were continued. Past Psychiatric History Previous Psych History: PCP had been prescribing psychiatric medications, until she initiated care at [facility] in March 2018. She saw Deborah Anguiano for therapy from March through August, but then discontinued care due to financial concerns. She reported low mood for the past 10 years, worsened after her second was placed in a usp in 2011, and again after he in 2016. She began treatment for antidepressant with medications 4-5 years ago. When she initiated care at [facility], she was on sertraline 200 mg daily and bupropion SR 150 mg twice daily from her PCP. Current Psychiatric Diagnosis: Recurrent depression, generalized anxiety disorder Outpatient Services: ROSA Michael at [facility] Not in therapy currently Previous Psych Admissions: None Do You Have Access To A Gun?: No History of Previous Suicide Attempt: No Past Medication Trials: Sertraline -prescribed for years by PCP Allergies Allergy/AdvReac Type Severity Reaction Status Date / Time simvastatin Allergy Unknown MUSCLE Verified 12/20/18 02:55 WEAKNESS latex AdvReac Intermediate HIVES Verified 12/20/18 02:55 Home Medications Home Medications Medication Instructions Recorded Confirmed Type acetaminophen 325 - 650 mg PO Q6H PRN 12/20/18 12/20/18 History aspirin [Aspir-81] 81 mg PO DAILY 12/20/18 12/20/18 History atorvastatin 40 mg PO DAILY 12/20/18 12/20/18 History bupropion HCl 150 mg PO BID 12/20/18 12/20/18 History cyanocobalamin (vitamin B-12) 1,000 mcg PO DAILY 12/20/18 12/20/18 History [Vitamin B-12] docusate sodium [Stool Softener] 100 mg PO DAILY PRN 12/20/18 12/20/18 History fluoxetine 40 mg PO DAILY 12/20/18 12/20/18 History fluticasone-salmeterol [Advair 1 inh INHALATION Q12H 12/20/18 12/20/18 History Diskus] metoclopramide HCl 5 mg PO ACHS 12/20/18 12/20/18 History pantoprazole 40 mg PO DAILY 12/20/18 12/20/18 History polyethylene glycol 3350 [Miralax] 17 g PO DAILY PRN 12/20/18 12/20/18 History promethazine 12.5 mg PO Q6H PRN 12/20/18 12/20/18 History propranolol 60 mg PO DAILY 12/20/18 12/20/18 History ranitidine HCl 150 mg PO Q12 PRN 12/20/18 12/20/18 History Family History Mother with depression and anxiety, daughter with bipolar disorder. Substance Abuse History 1 alcoholic beverage every few months. Rare caffeine use. No drug use. 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) Marital Status: (Patient was twice; first in a motor vehicle accident, to second for 33 years until his .) Number Of Children: 2 daughters from first marriage who live locally, and 3 stepchildren Beliefs That Will Affect Care: None History of Legal Problems: Denies Psychological Trauma History Comment: Denies Patient History Medical History Constipation Depression Nausea & vomiting Family History Other Family history non-contributory Social History Current Living Situation: Alone Other Information That Helps Us Care for You: No Feels Safe at Home: No Is there a partner from a previous relationship who is making you feel unsafe now?: No Any Concerns about Your Family Situation: No Would You Like to Speak to Someone About Your Situation: No Smoking Status: Never smoker Do You Dip or Chew Tobacco: No Second Hand Exposure: No Tobacco Cessation Education Requested by Patient: No Hx Alcohol Use: No Hx Substance Use: No Beliefs That Will Affect Care: None Preferred Language: Azeri Communication Ability: Effective Railroad Baggage 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 Lying in bed in no acute distress , dozing. Dressed in a hospital gown, with multiple rings on her fingers. Calm and cooperative with the assessment. Limited eye contact, no abnormal movements. Mood is "okay," affect is restricted to sleepy. Speech is minimal, slightly slowed. Thoughts are goal-directed. Denies SI, HI, hallucinations, and paranoia. Intelligence estimated to be average. Insight and judgment are fair. Vital Signs (Past 24 Hours) Last Vital Signs Temp 36.7 C 12/20/18 11:30 Pulse 67 12/20/18 11:30 Resp 14 12/20/18 11:30 BP 110/61 12/20/18 11:30 Pulse Ox 95 12/20/18 11:30 Results & Data Medications Administered Aspirin (Ecotrin Ectab) 81 mg PO QAM RODRIGO Stop: 01/19/19 08:59 Last Admin: 12/20/18 10:38 Dose: 81 mg Atorvastatin Calcium (Lipitor) 40 mg PO DAILY RODRIGO Stop: 01/19/19 08:59 Last Admin: 12/20/18 10:38 Dose: 40 mg Bupropion HCl (Wellbutrin-Sr) 150 mg PO BID RODRIGO Stop: 01/19/19 08:59 Last Admin: 12/20/18 10:37 Dose: 150 mg Cyanocobalamin (Vitamin B-12) 1,000 mcg PO DAILY RODRIGO Stop: 01/19/19 08:59 Last Admin: 12/20/18 10:38 Dose: 1,000 mcg Fluoxetine HCl (Prozac) 40 mg PO DAILY RODRIGO Stop: 01/19/19 08:59 Last Admin: 12/20/18 10:37 Dose: 40 mg Heparin Sodium (Porcine) (Heparin Sodium (Porcine)) 5,000 units SQ Q12 RODRIGO Stop: 01/19/19 11:29 Last Admin: 12/20/18 12:06 Dose: 5,000 units Metoclopramide HCl (Reglan) 5 mg PO ACHS RODRIGO Stop: 01/19/19 07:29 Last Admin: 12/20/18 12:04 Dose: 5 mg Admin: 12/20/18 07:40 Dose: 5 mg Pantoprazole Sodium (Protonix) 40 mg PO DAILY RODRIGO Stop: 01/19/19 08:59 Last Admin: 12/20/18 10:38 Dose: 40 mg Promethazine HCl (Phenergan) 12.5 mg PO Q6H PRN PRN Reason: Nausea Stop: 01/19/19 05:16 Last Admin: 12/20/18 07:35 Dose: 12.5 mg Propranolol HCl (Inderal La) 60 mg PO DAILY RODRIGO Stop: 01/19/19 08:59 Last Admin: 12/20/18 10:38 Dose: 60 mg Ranitidine HCl (Zantac) 150 mg PO Q12 PRN PRN Reason: reflux Stop: 01/19/19 05:16 Last Admin: 12/20/18 10:38 Dose: 150 mg Fluticasone/Salmeterol (Advair Diskus 250/50) 1 puffs INH Q12H RODRIGO Stop: 01/19/19 08:59 Last Admin: 12/20/18 10:37 Dose: 1 puffs
--- NOTE | 2018-12-20 16:05 | Family Medicine Progress Note ---
Date of Service December 20, 2018 Assessment & Plan (1) Substernal precordial chest pain: Chest discomfort + EKG changes EKG unchanged from 06/2018, serial troponin negative. Cardiology input appreciated. Symptoms likely non cardiac, and attributable to other etiologies (see below) - Transfer from telemetry to med/surg - EKG + nitro PRN chest pain Anxiety & depression Psych input appreciated. - Continue buproprion and propranolol. Switch fluoxetine to venlafaxine. - For outpatient follow up at [facility] Weakness Related to deconditioning vs depression - PT/OT evals ordered and case management consulted Constipation - Continue docusate. Miralax PRN. GERD, h/o hiatal hernia - Continue home regimen: pantoprazole, ranitidine, promethazine, metaclopramide Asthma No evidence of acute exacerbation - Continue albuterol and Advair CAD - Continue aspirin, atorvastatin VTE ppx: Heparin SC Diet: Heart Healthy Code: FULL Anticipate d/c home in am (2) Abnormal EKG: (3) Anxiety and depression: (4) Weakness: (5) Constipation: (6) GERD (gastroesophageal reflux disease): (7) Asthma: (8) Hyperlipidemia: (9) Vitamin B12 deficiency: Supervising Physician Co-Signing Physician Notes Resident Physician Supervision Note: I independently interviewed and examined the patient and verified the baxter history and physical, reviewed labs and image studies, discussed the case with the resident Dr. Bonilla and agree with the findings and care plan. Subjective Patient states she feels the same this morning, she still has ongoing feelings of chest tightness as well as some abdominal discomfort from being constipated over the last few days. She states her chest tightness does not feel the same as her acid reflux symptoms. She admits that she lives at home alone and is afraid to go home, especially as she does not feel motivated to do anything. She agrees she needs help at home. She also understands that her depression has worsened over the last 2 years since her , although she denies symptoms of anxiety. She otherwise denies fevers/chills/night sweats, headaches , dizziness/lightheadedness, URI sx, palpitations, dyspnea, N/V, or urinary sx. He denies ambulatory dysfunction, but admits to generalized weakness, especially as she does not get around to eating much at home. She denies any recent falls. Review of Systems All systems reviewed & are unremarkable except as noted in HPI & below Physical Exam 2 Vital Signs (Past 24 Hours): Last Vital Signs Temp 36.7 C 12/20/18 15:32 Pulse 57 L 12/20/18 15:32 Resp 28 H 12/20/18 15:32 BP 102/62 12/20/18 15:32 Pulse Ox 97 12/20/18 15:32 Constitutional: WD/WN, vitals as above well developed and + obese; no acute distress Eyes: + anicteric sclerae; no scleral abnormality ENMT: external ear and nose normal, oropharynx normal Mouth: no oral mucosal abnormality Neck: normal visual inspection Respiratory: normal respiratory effort, lungs clear to auscultation Cardiovascular: Rate/Rhythm: regular rate and regular rhythm Extremities: no calf tenderness and no edema Gastrointestinal (Abdomen): normal bowel sounds, soft, nontender, no hepatosplenomegaly Inspection/Auscultation: abdomen not distended Percussion/Palpation: no guarding Musculoskeletal: Head/Neck/Chest: normocephalic, head atraumatic and neck supple Skin: no rashes, warm and dry Neurologic: normal touch/pain/proprioception and moves all extremities; no focal motor deficits Motor/Sensory: + tremor (Intermittent resting tremors in hands bilaterally) Psychiatric: Orientation: alert and oriented x 3 Affect: + anxious affect Results & Data Laboratory Results Laboratory Results - last 24 hr 12/19/18 12/19/18 12/20/18 22:40 22:40 06:13 WBC 5.94 RBC 4.93 Hgb 15.7 Hct 47.1 H MCV 95.5 MCH 31.8 MCHC 33.3 RDW Std Deviation 47.3 H RDW Coeff of Yani 13.4 Plt Count 271 MPV 11.6 H Immature Gran % (Auto) 0.2 Neut % (Auto) 50.7 Lymph % (Auto) 40.9 [place] % (Auto) 6.9 Eos % (Auto) 0.8 Baso % (Auto) 0.5 Immature Gran # (Auto) 0.01 Neut # (Auto) 3.01 Lymph # (Auto) 2.43 [place] # (Auto) 0.41 Eos # (Auto) 0.05 Baso # (Auto) 0.03 PT INR Sodium 137 Potassium 3.5 Chloride 103 Carbon Dioxide 25 Anion Gap 9.0 BUN 17 Creatinine 1.24 H Est Cr Clr Drug Dosing 42.4 Est GFR ( Amer) 50.6 Est GFR (Non-Af Amer) 43.7 BUN/Creatinine Ratio 13.5 Glucose 111 H Calcium 9.3 Total Bilirubin 0.8 AST 25 ALT 39 Alkaline Phosphatase 73 Troponin I < 0.015 < 0.015 Total Protein 7.4 Albumin 3.5 Globulin 3.9 Albumin/Globulin Ratio 0.9 Lipase 70 L Hepatitis C Ab Screen 12/20/18 12/20/18 12/20/18 06:13 10:01 10:01 WBC RBC Hgb Hct MCV MCH MCHC RDW Std Deviation RDW Coeff of Yani Plt Count MPV Immature Gran % (Auto) Neut % (Auto) Lymph % (Auto) [place] % (Auto) Eos % (Auto) Baso % (Auto) Immature Gran # (Auto) Neut # (Auto) Lymph # (Auto) [place] # (Auto) Eos # (Auto) Baso # (Auto) PT 10.9 INR 1.1 Sodium 137 Potassium 3.3 L Chloride 108 H Carbon Dioxide 23 Anion Gap 6.0 BUN 13 Creatinine 0.88 D Est Cr Clr Drug Dosing 62.0 Est GFR ( Amer) 76.6 Est GFR (Non-Af Amer) 66.1 BUN/Creatinine Ratio 15.3 Glucose 110 H Calcium 8.6 Total Bilirubin AST ALT Alkaline Phosphatase Troponin I Total Protein Albumin Globulin Albumin/Globulin Ratio Lipase Hepatitis C Ab Screen Neg Resident Activity Tracking Resident Involvement: Resident Care Provided Care Provided: [facility] Medicine _ (1) Constipation Constipation type: unspecified constipation type Qualified Code(s): K59.00 - Constipation, unspecified
--- NOTE | 2018-12-20 16:43 | Emergency Department Note ---
Entered by Edgar Rust acting as a scribe for Zina French DO History of Present Illness General Chief complaint: GI Assessment Time Seen by Provider: 12/19/18 23:43 Source: patient Limitations: no limitations History of Present Illness Onset (ago): day(s) (couple of days) Location: abdomen Pain Consistency: + constant Maximum Pain Intensity: 4 Quality: + other (tightness in chest) Associated symptoms: + headaches, + nausea/vomiting and + other (shaking, lightheadedness) The patient is a 73 year old female who presents to the Emergency Room with complaints of constant constipation for the past couple of days. The patient states she has tried to produce a bowel movement for the past couple of days but when she tries she pushes on her abdominal muscles and feels tightness in her chest. The patient states she has a hiatal hernia. She notes she is afraid she is going to get more sick. She states she has been vomiting, shaking, feeling dizzy and lightheaded. The patient notes she has been taking medication for her digestion, but missed a dose earlier this week because she was unable to get the medicine because of the weather. She states she was in the ED a month ago and was given 3 shots for nausea. She states her last visit was not related to constipation. She notes she has never had a bowel obstruction but states she has had enemas here before. She notes she is depressed and has been worse than usual. The patient states she thinks she should get up and do things but does not have the motivation. Her daughter states the patient's has 2 years ago and the patient does not really taking care for herself. She has been much more depressed and has had therapy but can no longer afford it. Home Medications Home Medications Medication Instructions Recorded Confirmed Type acetaminophen 325 - 650 mg PO Q6H PRN 12/20/18 12/20/18 History aspirin [Aspir-81] 81 mg PO DAILY 12/20/18 12/20/18 History atorvastatin 40 mg PO DAILY 12/20/18 12/20/18 History bupropion HCl 150 mg PO BID 12/20/18 12/20/18 History cyanocobalamin (vitamin B-12) 1,000 mcg PO DAILY 12/20/18 12/20/18 History [Vitamin B-12] docusate sodium [Stool Softener] 100 mg PO DAILY PRN 12/20/18 12/20/18 History fluoxetine 40 mg PO DAILY 12/20/18 12/20/18 History fluticasone-salmeterol [Advair 1 inh INHALATION Q12H 12/20/18 12/20/18 History Diskus] metoclopramide HCl 5 mg PO ACHS 12/20/18 12/20/18 History pantoprazole 40 mg PO DAILY 12/20/18 12/20/18 History polyethylene glycol 3350 [Miralax] 17 g PO DAILY PRN 12/20/18 12/20/18 History promethazine 12.5 mg PO Q6H PRN 12/20/18 12/20/18 History propranolol 60 mg PO DAILY 12/20/18 12/20/18 History ranitidine HCl 150 mg PO Q12 PRN 12/20/18 12/20/18 History Allergies Allergy/AdvReac Type Severity Reaction Status Date / Time simvastatin Allergy Unknown MUSCLE Verified 12/20/18 02:55 WEAKNESS latex AdvReac Intermediate HIVES Verified 12/20/18 02:55 Past Med/Surg History Medical History Constipation Depression Nausea & vomiting Family History Other Family history non-contributory Social History Current Living Situation: Alone Other Information That Helps Us Care for You: No Feels Safe at Home: No Is there a partner from a previous relationship who is making you feel unsafe now?: No Any Concerns about Your Family Situation: No Would You Like to Speak to Someone About Your Situation: No Smoking Status: Never smoker Do You Dip or Chew Tobacco: No Second Hand Exposure: No Tobacco Cessation Education Requested by Patient: No Hx Alcohol Use: No Hx Substance Use: No Beliefs That Will Affect Care: None Communication Ability: Effective Physical Exam Vital Signs Vital Signs - 24 hr 12/19/18 22:51 12/20/18 00:39 12/20/18 02:15 Temperature 36.7 C Temperature Source Oral Sepsis Recent Fever Within 48 Hours No Sepsis Action Taken by Nursing No Action Required Pulse Rate 75 Pulse Rate [Apical] 68 71 Pulse Rate [Finger] Pulse Rhythm [Finger] Pulse Strength [Finger] Respiratory Rate 18 18 18 Respiratory Effort / Characteristics Non-Labored Non-Labored Respiratory Depth Normal Normal Normal Respiratory Pattern Blood Pressure 116/64 Blood Pressure [Left Arm] Blood Pressure [Right Arm] 128/74 Blood Pressure Mean 81 Blood Pressure Mean [Left Arm] Blood Pressure Mean [Right Arm] 92 Blood Pressure Position [Left Arm] Blood Pressure Position [Right Arm] Pulse Oximetry 97 99 97 Oxygen Delivery Method Room Air Room Air 12/20/18 04:27 12/20/18 04:45 12/20/18 06:59 Temperature 36.3 C L 36.8 C Temperature Source Oral Oral Sepsis Recent Fever Within 48 Hours Sepsis Action Taken by Nursing Pulse Rate 71 Pulse Rate [Apical] 88 63 Pulse Rate [Finger] Pulse Rhythm [Finger] Pulse Strength [Finger] Respiratory Rate 18 22 15 Respiratory Effort / Characteristics Non-Labored Spontaneous Respiratory Depth Normal Respiratory Pattern Regular Blood Pressure 117/71 Blood Pressure [Left Arm] 123/64 Blood Pressure [Right Arm] 125/67 Blood Pressure Mean Blood Pressure Mean [Left Arm] 83 Blood Pressure Mean [Right Arm] 86 Blood Pressure Position [Left Arm] Lying Blood Pressure Position [Right Arm] Lying Pulse Oximetry 97 95 97 Oxygen Delivery Method Room Air Room Air Room Air 12/20/18 08:00 12/20/18 11:30 12/20/18 15:32 Temperature 36.7 C 36.7 C Temperature Source Oral Oral Sepsis Recent Fever Within 48 Hours Sepsis Action Taken by Nursing Pulse Rate 62 Pulse Rate [Apical] 67 Pulse Rate [Finger] 57 L Pulse Rhythm [Finger] Regular Pulse Strength [Finger] Normal Respiratory Rate 14 28 H Respiratory Effort / Characteristics Non-Labored Spontaneous Non-Labored Respiratory Depth Normal Normal Respiratory Pattern Regular Blood Pressure Blood Pressure [Left Arm] 110/61 102/62 Blood Pressure [Right Arm] Blood Pressure Mean Blood Pressure Mean [Left Arm] 77 75 Blood Pressure Mean [Right Arm] Blood Pressure Position [Left Arm] Lying Lying Blood Pressure Position [Right Arm] Pulse Oximetry 95 97 Oxygen Delivery Method Room Air Room Air Room Air HEENT: Head - normocephalic and atraumatic Pupils are equal, round, and reactive to light. Extraocular eye muscles are intact, and sclera are anicteric. Nose - moist nasal mucosa without discharge. Mouth - moist buccal mucosa. Oropharynx is nonerythematous and there is no tonsillar exudate or edema noted. Dry mucous membranes. Neck: Supple; no JVD, nuchal rigidity, cervical lymphadenopathy. Heart: Regular rate and rhythm. There is a normal S1 and S2 with no murmurs, clicks, or gallops appreciated. Lungs: Clear to auscultation bilaterally with no wheezes, rales, or rhonchi. Abdomen: Soft with good bowel sounds. There are no palpable pulsatile masses or hepatosplenomegaly. There is no guarding or rebound noted. Moderate abdomen fullness with diffuse tenderness. Extremities: No evidence of cyanosis, clubbing, or edema. There are easily palpable peripheral pulses. Skin: warm and dry with poor turgor and no rashes. Course 0014: Past medical records reviewed. The patient was evaluated in room B5, and a complete history and physical examination were performed. Laboratory studies were drawn as above. A 12-lead EKG was obtained. 0024: Zofran 4 mg IV NOW STA 0130: Sodium Chloride 1000 ml @ 999 mls/hr IV 0156: I reevaluated the patient and discussed her lab results with her. I told the patient about the soap suds enema. She states she was so weak before getting the X-Ray that she was unable to sit up to get the X-Ray. I reviewed the patient's case with Dr. Carter - [place] [facility]. He will evaluate the patient for further management. Administered Medications Aspirin (Ecotrin Ectab) 81 mg PO QAM RODRIGO Stop: 01/19/19 08:59 Last Admin: 12/20/18 10:38 Dose: 81 mg Atorvastatin Calcium (Lipitor) 40 mg PO DAILY RODRIGO Stop: 01/19/19 08:59 Last Admin: 12/20/18 10:38 Dose: 40 mg Bupropion HCl (Wellbutrin-Sr) 150 mg PO BID RODRIGO Stop: 01/19/19 08:59 Last Admin: 12/20/18 10:37 Dose: 150 mg Cyanocobalamin (Vitamin B-12) 1,000 mcg PO DAILY RODRIGO Stop: 01/19/19 08:59 Last Admin: 12/20/18 10:38 Dose: 1,000 mcg Heparin Sodium (Porcine) (Heparin Sodium (Porcine)) 5,000 units SQ Q12 RODRIGO Stop: 01/19/19 11:29 Last Admin: 12/20/18 12:06 Dose: 5,000 units Metoclopramide HCl (Reglan) 5 mg PO ACHS RODRIGO Stop: 01/19/19 07:29 Last Admin: 12/20/18 12:04 Dose: 5 mg Admin: 12/20/18 07:40 Dose: 5 mg Pantoprazole Sodium (Protonix) 40 mg PO DAILY RODRIGO Stop: 01/19/19 08:59 Last Admin: 12/20/18 10:38 Dose: 40 mg Promethazine HCl (Phenergan) 12.5 mg PO Q6H PRN PRN Reason: Nausea Stop: 01/19/19 05:16 Last Admin: 12/20/18 07:35 Dose: 12.5 mg Propranolol HCl (Inderal La) 60 mg PO DAILY RODRIGO Stop: 01/19/19 08:59 Last Admin: 12/20/18 10:38 Dose: 60 mg Ranitidine HCl (Zantac) 150 mg PO Q12 PRN PRN Reason: reflux Stop: 01/19/19 05:16 Last Admin: 12/20/18 10:38 Dose: 150 mg Fluticasone/Salmeterol (Advair Diskus 250/50) 1 puffs INH Q12H RODRIGO Stop: 01/19/19 08:59 Last Admin: 12/20/18 10:37 Dose: 1 puffs Discontinued Medications Fluoxetine HCl (Prozac) 40 mg PO DAILY RODRIGO Stop: 01/19/19 08:59 Last Admin: 12/20/18 10:37 Dose: 40 mg Sodium Chloride (Nss 1000ml) 1,000 mls @ 999 mls/hr IV .Q1H1M RODRIGO Stop: 12/20/18 01:30 Last Infusion: 12/20/18 01:21 Dose: 0 mls/hr Admin: 12/20/18 00:29 Dose: 999 mls/hr Ondansetron HCl (Zofran) 4 mg IV NOW STA Stop: 12/20/18 00:24 Last Admin: 12/20/18 00:29 Dose: 4 mg Perflutren Lipid Microsphere (Definity) 2 ml IV ONCE ONE Stop: 12/20/18 06:42 Last Admin: 12/20/18 06:42 Dose: 2 ml Medical Decision Making Differential Diagnosis The patient is a 73 year old female who presents to the Emergency Room with complaints of constant constipation for the past couple of days. Differential Diagnosis includes: dehydration, constipation, depression, stool impaction, and bowel obstruction. Medical Records Attestation: I reviewed the patient's medical records. Home Medications Current Medication List: was personally reviewed by me Laboratory Data Attestation: I reviewed the patient's lab results. Result diagrams: 12/19/18 22:40 12/20/18 10:01 Lab Results 12/19/18 12/19/18 12/20/18 Range/Units 22:40 22:40 06:13 WBC 5.94 (4.8-10.8) K/uL RBC 4.93 (4.2-5.4) M/uL Hgb 15.7 (12.0-16.0) g/dL Hct 47.1 H (37-47) % MCV 95.5 (80-100) fL MCH 31.8 (25-34) pg MCHC 33.3 (32-36) g/dL RDW Std Deviation 47.3 H (36.4-46.3) fL RDW Coeff of Yani 13.4 (11.5-14.5) % Plt Count 271 (130-400) K/uL MPV 11.6 H (7.4-10.4) fL Immature Gran % (Auto) 0.2 % Neut % (Auto) 50.7 % Lymph % (Auto) 40.9 % [place] % (Auto) 6.9 % Eos % (Auto) 0.8 % Baso % (Auto) 0.5 % Immature Gran # (Auto) 0.01 (0.00-0.02) K/uL Neut # (Auto) 3.01 (1.4-6.5) K/uL Lymph # (Auto) 2.43 (1.2-3.4) K/uL [place] # (Auto) 0.41 (0.11-0.59) K/uL Eos # (Auto) 0.05 (0-0.5) K/uL Baso # (Auto) 0.03 (0-0.2) K/uL PT (9.0-12.0) Seconds INR (0.9-1.1) Sodium 137 (136-145) mmol/L Potassium 3.5 (3.5-5.1) mmol/L Chloride 103 (98-107) mmol/L Carbon Dioxide 25 (21-32) mmol/L Anion Gap 9.0 (3-11) BUN 17 (7-18) mg/dl Creatinine 1.24 H (0.6-1.2) mg/dl Est Cr Clr Drug Dosing 42.4 ml/min Est GFR ( Amer) 50.6 Est GFR (Non-Af Amer) 43.7 BUN/Creatinine Ratio 13.5 (10-20) Glucose 111 H (70-99) mg/dl Calcium 9.3 (8.5-10.1) mg/dl Total Bilirubin 0.8 (0.2-1) mg/dl AST 25 (15-37) U/L ALT 39 (12-78) U/L Alkaline Phosphatase 73 (45-117) U/L Troponin I < 0.015 < 0.015 (0-0.045) ng/ml Total Protein 7.4 (6.4-8.2) gm/dl Albumin 3.5 (3.4-5.0) gm/dl Globulin 3.9 (2.5-4.0) gm/dl Albumin/Globulin Ratio 0.9 (0.9-2) Lipase 70 L (73-393) U/L Hepatitis C Ab Screen (Neg) 12/20/18 12/20/18 12/20/18 Range/Units 06:13 10:01 10:01 WBC (4.8-10.8) K/uL RBC (4.2-5.4) M/uL Hgb (12.0-16.0) g/dL Hct (37-47) % MCV (80-100) fL MCH (25-34) pg MCHC (32-36) g/dL RDW Std Deviation (36.4-46.3) fL RDW Coeff of Yani (11.5-14.5) % Plt Count (130-400) K/uL MPV (7.4-10.4) fL Immature Gran % (Auto) % Neut % (Auto) % Lymph % (Auto) % [place] % (Auto) % Eos % (Auto) % Baso % (Auto) % Immature Gran # (Auto) (0.00-0.02) K/uL Neut # (Auto) (1.4-6.5) K/uL Lymph # (Auto) (1.2-3.4) K/uL [place] # (Auto) (0.11-0.59) K/uL Eos # (Auto) (0-0.5) K/uL Baso # (Auto) (0-0.2) K/uL PT 10.9 (9.0-12.0) Seconds INR 1.1 (0.9-1.1) Sodium 137 (136-145) mmol/L Potassium 3.3 L (3.5-5.1) mmol/L Chloride 108 H (98-107) mmol/L Carbon Dioxide 23 (21-32) mmol/L Anion Gap 6.0 (3-11) BUN 13 (7-18) mg/dl Creatinine 0.88 D (0.6-1.2) mg/dl Est Cr Clr Drug Dosing 62.0 ml/min Est GFR ( Amer) 76.6 Est GFR (Non-Af Amer) 66.1 BUN/Creatinine Ratio 15.3 (10-20) Glucose 110 H (70-99) mg/dl Calcium 8.6 (8.5-10.1) mg/dl Total Bilirubin (0.2-1) mg/dl AST (15-37) U/L ALT (12-78) U/L Alkaline Phosphatase (45-117) U/L Troponin I (0-0.045) ng/ml Total Protein (6.4-8.2) gm/dl Albumin (3.4-5.0) gm/dl Globulin (2.5-4.0) gm/dl Albumin/Globulin Ratio (0.9-2) Lipase (73-393) U/L Hepatitis C Ab Screen Neg (Neg) Imaging Data Radiologist's Impression: Radiology results as stated below per my review and the radiologist's interpretation: XR abdomen 2V w PA chest HISTORY: 73 years-old Female eval for sbo acute generalized abdominal pain with nausea, vomiting and weakness COMPARISON: CT abdomen and pelvis 07/09/2018, CT chest 03/28/2017. TECHNIQUE: PA view of the chest with left lateral decubitus and supine views of the abdomen FINDINGS: Cardiac silhouette is mildly enlarged, unchanged. Linear subsegmental left greater than right bibasilar opacities redemonstrated suggestive of atelectasis/ scarring. Calcification the thoracic aortic arch. Mild right hemidiaphragmatic elevation. No pneumothorax, pleural effusion or overt pulmonary edema. Healed remote appearing fracture of the lateral left sixth rib. Degenerative changes of the shoulders and spine. Small hiatal hernia. Cholecystectomy. No pneumatosis or pneumoperitoneum identified. Bowel gas pattern appears nonobstructive. Calcifications project of the left lower quadrant abdomen and pelvis suggestive of vascular calcifications. No definite urolith identified. Degenerative changes of the spine, pelvis and hips. Moderate volume of formed stool noted about the distal sigmoid and rectum. IMPRESSION: 1. No acute process of the chest. 2. Cardiomegaly. 3. Small hiatal hernia. 4. Nonobstructive bowel gas pattern without pneumoperitoneum. 5. Moderate formed stool about the rectosigmoid. The above report was generated using voice recognition software. It may contain grammatical, syntax or spelling errors. Electronically signed by: Daniel Saenz M.D. 12/20/2018 5:54 AM ECG Data Attestation: I personally reviewed and interpreted this ECG as follows: Indication: chest pain (tightness) Rate (beats per minute): 68 Rhythm: sinus rhythm Findings: + ST depression (in lateral leads) Comparison ECG Date: from (02/13/14) Change: the following changes noted (st segment depression in lateral leads now present) Blood Pressure Blood Pressure Findings: Normal blood pressure Blood Pressure Disposition: did not require urgent referral MDM Narrative The patient is a 73 year old female who presents to the Emergency Room with complaints of constant constipation for the past couple of days. The patient describes a history of this. She usually takes medication for digestion but has unable to get the prescription filled. The patient describes increasing weakness while here in the emergency department. She had a twelve-lead EKG which showed some evidence of ST segment depression in the lateral leads. Cardiac enzymes were performed and were negative. The patient denies any chest discomfort. This is a new EKG finding compared to an EKG from June 2017. X- ray shows evidence of moderate colonic fecal retention. The patient had a soapsuds enema. Because of the EKG changes and generalized weakness, I felt the patient will require inpatient care. I was also quite concerned about the patient's increasing depression. She will require evaluation by psychiatry. Impression & Plan Weakness, Depression, Constipation Discharge Plan Visit Data *Final* Discharge Date/Time: 12/20/18 04:27 Chief Complaint: GI Assessment ED Provider: Zina French Discharge Problem: Weakness, Depression, Constipation Patient Disposition: Admitted As Inpatient Discharge Instructions Interventions: ED Discharge Assessment Last Done: 12/20/18 04:27 The scribe's documentation has been prepared under my direction and personally reviewed by me in its entirety. I confirm that the note above accurately reflects all work, treatment, procedures, and medical decision making performed by me.
--- NOTE | 2018-12-20 17:19 | Cardiology Consultation ---
Date of Consultation December 20, 2018 Assessment & Plan (1) Abnormal EKG: The patient's EKG is abnormal. The ST segment changes are concerning for ischemic heart disease. However, the EKG does not appear to differ from those obtained in June 2018. Her presentation did involve a sense of chest discomfort at times. However, her main concern was constipation and abdominal complaints. This is in association with nausea and vomiting. I think these complaints are quite similar to those she experienced in June of last year. She has previously undergone dobutamine echocardiography without evidence of inducible ischemia. I do not think her symptoms are that characteristic for ischemic pain. Despite extended episodes by report she has normal biomarkers. I think this most likely represents a gastrointestinal complaint. In the absence of more characteristic cardiac symptoms I do not think she requires an additional evaluation as an inpatient. Present on Admission?: Yes History of Present Illness Reason for Consultation: CHest pain, abnormal EKG Requesting Physician: Bernie Attending Physician: Sonia Maya History of Present Illness The patient is a 73-year-old woman without a known history of coronary disease who was admitted to [facility] last evening when she presented to the emergency room for symptoms of constipation. The patient lives independently and recently has been having some abdominal complaints. She describes these episodes as pain in the abdomen which later generalizes to include the epigastric area and precordium. These episodes appear to happen fairly randomly but can occur with activity. She has had similar symptoms in the past and was actually admitted to [facility] in June 2018 with a similar presentation. In addition to the symptoms she does report significant nausea and vomiting. The patient's symptoms can last for 30 minutes or all day. She has had some extended episodes over the past few weeks. She did not report any melena or bright red blood per rectum. The patient appears to be very sedentary. There was some difficulty assessing her overall activity level. She states that she spends a great deal of time in bed. She is tired most of the time and sleeps for a good portion of the day. She does apparently have some arthritis in her knees which limits her to some degree. She did not appear to limit her activity due to significant dyspnea on exertion. She does not reliably have exertional chest discomfort. She did not report orthopnea or paroxysmal nocturnal dyspnea. Is not been aware of any palpitations. Allergies Allergy/AdvReac Type Severity Reaction Status Date / Time simvastatin Allergy Unknown MUSCLE Verified 12/20/18 02:55 WEAKNESS latex AdvReac Intermediate HIVES Verified 12/20/18 02:55 Home Medications Home Medications Medication Instructions Recorded Confirmed Type acetaminophen 325 - 650 mg PO Q6H PRN 12/20/18 12/20/18 History aspirin [Aspir-81] 81 mg PO DAILY 12/20/18 12/20/18 History atorvastatin 40 mg PO DAILY 12/20/18 12/20/18 History bupropion HCl 150 mg PO BID 12/20/18 12/20/18 History cyanocobalamin (vitamin B-12) 1,000 mcg PO DAILY 12/20/18 12/20/18 History [Vitamin B-12] docusate sodium [Stool Softener] 100 mg PO DAILY PRN 12/20/18 12/20/18 History fluoxetine 40 mg PO DAILY 12/20/18 12/20/18 History fluticasone-salmeterol [Advair 1 inh INHALATION Q12H 12/20/18 12/20/18 History Diskus] metoclopramide HCl 5 mg PO ACHS 12/20/18 12/20/18 History pantoprazole 40 mg PO DAILY 12/20/18 12/20/18 History polyethylene glycol 3350 [Miralax] 17 g PO DAILY PRN 12/20/18 12/20/18 History promethazine 12.5 mg PO Q6H PRN 12/20/18 12/20/18 History propranolol 60 mg PO DAILY 12/20/18 12/20/18 History ranitidine HCl 150 mg PO Q12 PRN 12/20/18 12/20/18 History Patient History Medical History Constipation Depression Nausea & vomiting Family History Other Family history non-contributory Social History Current Living Situation: Alone Other Information That Helps Us Care for You: No Feels Safe at Home: No Is there a partner from a previous relationship who is making you feel unsafe now?: No Any Concerns about Your Family Situation: No Would You Like to Speak to Someone About Your Situation: No Smoking Status: Never smoker Do You Dip or Chew Tobacco: No Second Hand Exposure: No Tobacco Cessation Education Requested by Patient: No Hx Alcohol Use: No Hx Substance Use: No Beliefs That Will Affect Care: None Communication Ability: Effective Review of Systems Compete. Pertinent positives noted in the HPI. Physical Exam 2 Vital Signs (Past 24 Hours): Last Vital Signs Temp 36.7 C 12/20/18 15:32 Pulse 57 L 12/20/18 15:32 Resp 28 H 12/20/18 15:32 BP 102/62 12/20/18 15:32 Pulse Ox 97 12/20/18 15:32 Physical Exam: She is alert and oriented x3. Mood affect appear normal. She answered all questions appropriately. HEENT: Sclerae are anicteric. Pupils are equal and reactive to light and accommodation. Extraocular movements were intact. Neuro: Cranial nerves intact Neck: Examination of the submandibular region did not reveal any significant lymphadenopathy. Carotids are palpable bilaterally and free of bruits on auscultation. There was no evidence of jugular venous distention. The thyroid was not enlarged. Lungs: Lungs are clear to auscultation bilaterally. There are no rales wheezes or rhonchi. She has normal respiratory effort without use of accessory muscles. There is normal pulmonary excursion. Cardiac: The rhythm was regular. S1 and S2 were normal. There are no murmurs on examination. The PMI was not markedly displaced on palpation. Abdomen: The abdomen was soft and mildly tender to palpation Extremities: Patient has bilateral radial pulses that are equal in intensity. There is no evidence cyanosis or clubbing. There was no evidence of significant peripheral edema bilaterally. Skin: There are no rashes noted on examination today. Results & Data Laboratory Results Abnormal Lab Results 12/19/18 12/19/18 12/20/18 22:40 22:40 06:13 WBC 5.94 RBC 4.93 Hgb 15.7 Hct 47.1 H MCV 95.5 MCH 31.8 MCHC 33.3 RDW Std Deviation 47.3 H RDW Coeff of Yani 13.4 Plt Count 271 MPV 11.6 H Immature Gran % (Auto) 0.2 Neut % (Auto) 50.7 Lymph % (Auto) 40.9 [place]ell % (Auto) 6.9 Eos % (Auto) 0.8 Baso % (Auto) 0.5 Immature Gran # (Auto) 0.01 Neut # (Auto) 3.01 Lymph # (Auto) 2.43 Cabell # (Auto) 0.41 Eos # (Auto) 0.05 Baso # (Auto) 0.03 PT INR Sodium 137 Potassium 3.5 Chloride 103 Carbon Dioxide 25 Anion Gap 9.0 BUN 17 Creatinine 1.24 H Est Cr Clr Drug Dosing 42.4 Est GFR ( Amer) 50.6 Est GFR (Non-Af Amer) 43.7 BUN/Creatinine Ratio 13.5 Glucose 111 H Calcium 9.3 Total Bilirubin 0.8 AST 25 ALT 39 Alkaline Phosphatase 73 Troponin I < 0.015 < 0.015 Total Protein 7.4 Albumin 3.5 Globulin 3.9 Albumin/Globulin Ratio 0.9 Lipase 70 L Hepatitis C Ab Screen 12/20/18 12/20/18 12/20/18 06:13 10:01 10:01 WBC RBC Hgb Hct MCV MCH MCHC RDW Std Deviation RDW Coeff of Yani Plt Count MPV Immature Gran % (Auto) Neut % (Auto) Lymph % (Auto) Cabell % (Auto) Eos % (Auto) Baso % (Auto) Immature Gran # (Auto) Neut # (Auto) Lymph # (Auto) Cabell # (Auto) Eos # (Auto) Baso # (Auto) PT 10.9 INR 1.1 Sodium 137 Potassium 3.3 L Chloride 108 H Carbon Dioxide 23 Anion Gap 6.0 BUN 13 Creatinine 0.88 D Est Cr Clr Drug Dosing 62.0 Est GFR ( Amer) 76.6 Est GFR (Non-Af Amer) 66.1 BUN/Creatinine Ratio 15.3 Glucose 110 H Calcium 8.6 Total Bilirubin AST ALT Alkaline Phosphatase Troponin I Total Protein Albumin Globulin Albumin/Globulin Ratio Lipase Hepatitis C Ab Screen Neg Diagnostic Findings Echocardiogram performed today revealed preserved LV systolic function with age- appropriate diastolic dysfunction. No significant valvular heart disease. Enlargement of the right ventricle was noted. Patient did undergo dobutamine echocardiography in May 2018. While she did not achieve target heart rate there was no evidence of inducible ischemia. ECG Additional Comments: Serial EKGs were obtained at the time of admission. These revealed normal sinus rhythm with ST and T wave changes concerning for ischemia. No change from EKG obtained in June 2018.
[2018-12-20] MEDS ORDERED: MICONAZOLE NITRATE POWDER 43 GM EXT PRN (20:36)
[2018-12-21] MEDS: ATORVASTATIN 40 MG TAB PO SCH (07:51)
[2018-12-21] MEDS: FLUTICASONE/SALMETEROL 250/50 (ADVAIR) 14 PUFF/1 INHALER INH SCH (07:51)
[2018-12-21] MEDS: CYANOCOBALAMIN 500 MCG TABLET (VITAMIN B-12) PO SCH (07:51)
[2018-12-21] MEDS: PROPRANOLOL HCL 60 MG LA CAP PO SCH (07:51)
[2018-12-21] MEDS: METOCLOPRAMIDE HCL 5 MG TABLET PO SCH ×2 (07:52→11:16)
[2018-12-21] MEDS: HEPARIN SOD 5,000 UNIT/0.5 ML VIAL SQ SCH (07:52)
[2018-12-21] MEDS: BuPROPion SR 150 MG TABCR PO SCH (07:52)
[2018-12-21] MEDS: PANTOprazole 40 MG TAB PO SCH (07:52)
[2018-12-21] MEDS: ASPIRIN 81 MG ECTAB PO SCH (07:52)
--- NOTE | 2018-12-21 07:52 | Discharge Summary ---
Date of Service December 21, 2018 Admission HPI Per Admitting Provider The patient is a 73-year-old female who presented to the emergency department with fatigue, shortness of breath, chest discomfort, decreased physical activity , and depressed mood. She had an abnormal EKG, so was admitted to telemetry. She was continued on her home doses of fluoxetine 40 mg daily and bupropion SR 150 mg twice daily. On my assessment, she reports worsening mood over the past couple of months, with poor energy and motivation, just regulated sleep, and social isolation. She reports sitting all day in a recliner, not even getting up to eat or drink, and often stays up late and sleeps through the day. Appetite varies between poor and eating junk food, and she denies weight changes. She wishes her daughters would check on her more, and admits she has not been going to druze as she has been sleeping during the day. She endorses fleeting, passive suicidal thoughts but denies plan or intent. She endorses generalized worry, which is excessive and difficult to control, and interferes with sleep. She denies symptoms of gisela and psychosis. She states she stopped therapy several months ago as she is on a fixed income and there is a $ 25 co-pay. She sees ROSA Michael, at [facility] for medication management, but missed her last appointment. When she was last seen in September , she reported mood was slightly improved on fluoxetine 40 mg daily and her medications were continued. Principal Diagnosis Anxiety Discharge Exam Constitutional WD/WN, vitals as above well developed and + obese; no acute distress Eyes + anicteric sclerae; no scleral abnormality ENMT external ear and nose normal, oropharynx normal Mouth: no oral mucosal abnormality Neck normal visual inspection Respiratory normal respiratory effort, lungs clear to auscultation Cardiovascular Rate/Rhythm: regular rate and regular rhythm Extremities: no calf tenderness and no edema Gastrointestinal (Abdomen) normal bowel sounds, soft, nontender, no hepatosplenomegaly Inspection/Auscultation: abdomen not distended Percussion/Palpation: no guarding Musculoskeletal Head/Neck/Chest: normocephalic, head atraumatic and neck supple Skin no rashes, warm and dry Neurologic normal touch/pain/proprioception and moves all extremities; no focal motor deficits Motor/Sensory: + tremor (Intermittent resting tremors in hands bilaterally) Psychiatric Orientation: alert and oriented x 3 Affect: + anxious affect Discharge Data Allergies Allergy/AdvReac Type Severity Reaction Status Date / Time simvastatin Allergy Unknown MUSCLE Verified 12/20/18 02:55 WEAKNESS latex AdvReac Intermediate HIVES Verified 12/20/18 02:55 Consultations 12/20/18 02:31 ED Decision to Admit Stat 12/20/18 05:17 Consult Cardiology Routine Consult Case Management - Discharge Planning Routine Consult Psychiatry Routine 12/20/18 11:01 Consult Case Management - Discharge Planning Routine Hospital Course (1) Substernal precordial chest pain: Chest discomfort + EKG changes EKG unchanged from 06/2018, serial troponin negative. Stress echo in 2018 was also within normal limits. Cardiology input appreciated. Symptoms likely non cardiac, and attributable to other etiologies. Anxiety & depression Psych input apprecieted. -On discharge patient will continue bupropion and propanolol. Fluoxetine has been being discontinued and venlafaxine was started on 12/21. -Patient is advised for outpatient follow up at [facility] Weakness Likely related to deconditioning vs depression -Case management has set up home health. -Case management has also started the paperwork for caregiver help. Patient will follow up with [facility] further in this regard. Intertrigo -Patient discharged with prescription for miconazole powder to be applied under the breast folds BID x 4 weeks, and in the groin region BID x 2 weeks. -Recommend follow-up with PCP for ongoing skin irritation as warranted Constipation - Continue home regimen: docusate GERD, h/o hiatal hernia - Continue home regimen: pantoprazole, ranitidine, promethazine, metaclopramide Asthma No evidence of acute exacerbation - Continue albuterol and Advair CAD - Continue aspirin, atorvastatin Code: FULL (2) Abnormal EKG: (3) Anxiety and depression: (4) Weakness: (5) Constipation: (6) GERD (gastroesophageal reflux disease): (7) Asthma: (8) Hyperlipidemia: (9) Vitamin B12 deficiency: Total Time Total Time Spent Total Time Spent (In Minutes): 20 Total Time Includes: Examination of the Patient, Discharge Planning and Medication Reconciliation Discharge Plan Discharge Items Patient Disposition: Home - Home Health Services Reason For Visit: ABNORMAL EKG, FATIGUE Discharge Diagnosis: Anxiety Condition: Good Discharge Goals: Improve function, Increase independence and Therapeutic intervention Activity: Resume your previous activity Non-emergency contact: Primary Care Provider and Psychiatrist Call non-emergency contact if: your symptoms worsen Diet: Heart Healthy Addtl Provider Instructions: You were admitted with chest tightness, however, the lab work up and cardiology evaluation reveal that these symptoms were not cardiac in nature, which is reassuring. On discharge: 1) Stop fluoxetine, and start taking venlafaxine (Effexor) once daily. Follow up at [facility] is highly recommended. 2) Miconazole powder has been prescribed to apply twice daily to the irritated skin under your breast (x 4 weeks) and groin area (x2 weeks). If the irritation persists, please follow up with your PCP 3) Case management is helping you to arrange home services, please be in touch with them if you have other needs or concerns 4) Continue all medication as previous. 5) Follow up with your PCP is recommended in 1-2 weeks. Please call their office to make an appointment for a hospital follow up visit. Prescriptions: New venlafaxine 37.5 mg Capsule,Extended Release 24hr 37.5 mg PO QAM Qty: 30 RF: 0 miconazole nitrate [Desenex] 2 % Powder 1 applic EXT BID 28 Days Qty: 1 RF: 0 Continue atorvastatin 40 mg Tablet 40 mg PO DAILY RF: 0 bupropion HCl 150 mg Tablet Sustained-Release 12 Hr 150 mg PO BID RF: 0 fluticasone-salmeterol [Advair Diskus] 250-50 mcg/dose Blister With Device 1 inh INHALATION Q12H RF: 0 acetaminophen 325 mg Tablet 325 - 650 mg PO Q6H PRN (Reason: Fever Or Pain) RF: 0 promethazine 12.5 mg Tablet 12.5 mg PO Q6H PRN (Reason: Nausea) RF: 0 propranolol 60 mg Capsule,Extended Release 24 Hr 60 mg PO DAILY RF: 0 cyanocobalamin (vitamin B-12) [Vitamin B-12] 1,000 mcg Tablet 1,000 mcg PO DAILY RF: 0 aspirin [Aspir-81] 81 mg Tablet,Delayed Release (Dr/Ec) 81 mg PO DAILY RF: 0 metoclopramide HCl 5 mg Tablet 5 mg PO ACHS RF: 0 pantoprazole 40 mg Tablet,Delayed Release (Dr/Ec) 40 mg PO DAILY RF: 0 ranitidine HCl 150 mg Tablet 150 mg PO Q12 PRN (Reason: reflux) RF: 0 polyethylene glycol 3350 [Miralax] 17 gram/dose Powder 17 g PO DAILY PRN (Reason: Constipation) RF: 0 docusate sodium [Stool Softener] 100 mg Tablet 100 mg PO DAILY PRN (Reason: Constipation) RF: 0 Discontinued fluoxetine 20 mg Tablet 40 mg PO DAILY RF: 0 Stand-Alone Forms: [facility] Discharge Orders: Discharge Order (Routine); Ordered 12/21/18 Ordered By: Jessenia Bonilla Admission Data Admit Date/Time: 12/20/18 03:39 Attending Provider: Sonia Maya Admit Provider: Leoncio Carter Primary Care Provider: Kareem Ponce Other Providers: Leoncio Carter ; Timbo Joseph ; Hue Bob Service: Medical Other Interventions: Discharge Summary Assessment (RN) Last Done: 12/21/18 11:03 DC Date/Time DO NOT enter until pt leaves facility: 12/21/18 16:17 Supervising Physician Co-Signing Physician Notes Resident Physician Supervision Note: I independently interviewed and examined the patient and verified the baxter history and physical, reviewed labs and image studies, discussed the case with the resident Dr. Bonilla and agree with the findings and care plan. Time spent in discharge 35 min Resident Activity Tracking Resident Involvement: Resident Care Provided Care Provided: Adult Hospital Medicine
[2018-12-21 07:55] LABS: Hematocrit (blood only) 43.2 % (37-47); Hemoglobin 14.1 g/dL (12.0-16.0); Mean Corpuscular Hgb Conc 32.6 g/dL (32-36); Mean Corpuscular Volume 96.9 fL (80-100); Mean Platelet Volume 11.3 fL (7.4-10.4); Platelet Count 211 K/uL (130-400); RDW Coefficient of Variation 13.7 % (11.5-14.5); RDW Standard Deviation 48.7 fL (36.4-46.3); Red Blood Count 4.46 M/uL (4.2-5.4); White Blood Count 5.35 K/uL (4.8-10.8)
[2018-12-21 08:02] LABS: INR 1.1 (0.9-1.1); Partial Thromboplastin Ratio 1.1; Partial Thromboplastin Time 27.3 Seconds (21.0-31.0); Prothrombin Time 10.8 Seconds (9.0-12.0)
[2018-12-21 08:31] LABS: Albumin Level 3.2 gm/dl (3.4-5.0); BUN Creatinine Ratio 11.8 (10-20); Calcium 8.8 mg/dl (8.5-10.1); Est GFR (African American) 63.3; Est GFR (Non-African American) 54.6; Potassium 3.6 mmol/L (3.5-5.1)
[2018-12-21 08:34] LABS: Albumin Globulin Ratio 0.9 (0.9-2); Globulin 3.5 gm/dl (2.5-4.0); Total Protein 6.7 gm/dl (6.4-8.2)
[2018-12-21 08:48] LABS: ALC (manual) 3.48 K/uL (1.2-3.4); Eosinophils # (manual) 0.05 K/uL (0-0.5); Lymphocytes # (manual) 1.66 K/uL (1.2-3.4); Monocytes # (manual) 0.32 K/uL (0.11-0.59); Reactive Lymphocytes # (manual) 1.82 K/uL
[2018-12-21] MEDS ORDERED: VENLAFAXINE HCL XR 37.5 MG CAPXR PO SCH (09:00)
== END 2018-12-21 16:17 | disposition home health service (06) | DRG 948 ==
LOC: ED 22:58 → SUATTDRO 12-20 03:39 → 2E 12-20 03:39 → 4W 12-20 18:15

== ENCOUNTER 2020-11-03 01:10 | Inpatient (IN) ==
--- NOTE | 2020-11-03 01:37 | Emergency Department Note ---
History of Present Illness General Chief complaint: Illness Stated complaint: ILLNESS Time Seen by Provider: 11/03/20 01:16 History of Present Illness This 75 yo presents to the ER complaining of fever chills feeling weak shortness of breath and chest pain for the past few days who was exposed to Covid Location: Generalized Quality: Weak Severity: Moderate Duration: Past few days Timing: Past few days Context: Patient felt worse and came in Modifying factors: better with rest; worse with activity Patient states her neighbor has Covid. She has been feeling sick the past few days. Patient states she was so weak today she is walking to go the bathroom collapsed and accidentally defecated on herself. Patient complains of fever, chills, cough, congestion, abdominal discomfort and diarrhea. Patient denies loss of taste, loss of smell, neck stiffness. Home Medications Medication Instructions Recorded Confirmed Type acetaminophen 325 - 650 mg PO Q6H PRN 12/20/18 11/03/20 History cyanocobalamin (vitamin B-12) 1,000 mcg PO DAILY 12/20/18 11/03/20 History [Vitamin B-12] polyethylene glycol 3350 [Miralax] 17 g PO DAILY PRN 12/20/18 11/03/20 History famotidine 20 mg tablet 20 mg PO BID #180 tab 12/22/19 11/03/20 Rx propranolol 60 mg capsule,24 60 mg PO DAILY #90 cap 12/22/19 11/03/20 Rx hr,extended release venlafaxine 50 mg tablet 50 mg PO DAILY #90 tab 12/22/19 11/03/20 Rx pantoprazole 40 mg tablet,delayed 40 mg PO DAILY #90 tab 02/09/20 11/03/20 Rx release meclizine 25 mg tablet 25 mg PO TID PRN #30 tab 04/06/20 11/03/20 Rx bupropion HCl (smoking deter) 150 150 mg PO BID #60 tab 04/20/20 11/03/20 Rx mg tablet,12 hr sustained-release(smoking deterrent) ondansetron 4 mg PO Q6H PRN #14 tab 06/23/20 11/03/20 Rx atorvastatin 40 mg tablet 40 mg PO DAILY #90 tab 10/03/20 11/03/20 Rx aspirin 81 mg PO DAILY 11/03/20 11/03/20 History Allergies Allergy/AdvReac Type Severity Reaction Status Date / Time simvastatin Allergy Unknown MUSCLE Verified 11/03/20 02:53 WEAKNESS latex AdvReac Intermediate HIVES Verified 11/03/20 02:53 Past Med/Surg History Medical History Constipation Depression Hypothyroidism Nausea & vomiting Surgical History History of esophagogastroduodenoscopy (EGD) S/P arthroscopy of knee S/P cholecystectomy S/P colonoscopy S/P hysterectomy Status post Agatha fundoplication 05/2011 Dr. Ivey- Esophagogastric fundoplasty agatha fundoplication Family History Mother Cardiac disorder Myocardial infarction Aunt Cancer Uncle Cancer Cardiac disorder Myocardial infarction Other Family history non-contributory Denies family history of Ovarian cancer Prostate cancer Breast cancer Colorectal cancer Social History Smoking Status: Never smoker Second Hand Exposure: No; Hx Alcohol Use: No Hx Substance Use: No Preferred Language: Bahraini Communication Ability: Effective Visual Impairment: No Limitations Hearing Ability: Normal Camp Advisor Required: No Beliefs That Will Affect Care: None Current Living Situation: Alone current occupational status: retired Feels Safe at Home: Yes Childhood Exposure to Second-Hand Smoke: Yes caffeine: No during the past year weight has: remained stable Dental Care, Regularly: No Physical Activity Frequency: Does not Exercise Seatbelt Use: always Sunscreen Use: No Assistive Devices: None Review of Systems A total of 10 systems reviewed and were otherwise negative Physical Exam Vital Signs Vital Signs - 24 hr 11/03/20 01:21 11/03/20 01:50 11/03/20 02:59 Temperature 37.0 C Temperature Source Oral Pulse Rate - Lying Pulse Rate - Sitting Pulse Rate - Standing Pulse Rate 64 Pulse Rate [Apical] 60 Respiratory Rate 18 18 Respiratory Effort / Characteristics Non-Labored Blood Pressure - Lying Blood Pressure - Sitting Blood Pressure- Standing Blood Pressure 107/66 Blood Pressure [Left Arm] 116/64 Blood Pressure Mean 79 Blood Pressure Mean [Left Arm] 81 Pulse Oximetry 95 95 96 Oxygen Delivery Method Room Air Room Air Room Air Sepsis Recent Fever Within 48 Hours No Sepsis New/Unexplained Change in Mental Status N/A Sepsis Action Taken by Nursing No Action Required 11/03/20 03:41 Temperature Temperature Source Pulse Rate - Lying 60 Pulse Rate - Sitting 66 Pulse Rate - Standing 64 Pulse Rate Pulse Rate [Apical] Respiratory Rate Respiratory Effort / Characteristics Blood Pressure - Lying 129/61 Blood Pressure - Sitting 110/80 Blood Pressure- Standing 111/63 Blood Pressure Blood Pressure [Left Arm] Blood Pressure Mean Blood Pressure Mean [Left Arm] Pulse Oximetry Oxygen Delivery Method Sepsis Recent Fever Within 48 Hours Sepsis New/Unexplained Change in Mental Status Sepsis Action Taken by Nursing VITALS: Vitals are noted on the nurse's note and reviewed by myself. Vital signs stable. GENERAL: Pleasant elderly female mildly ill-appearing, in no acute distress SKIN: The skin was without rashes, erythema, edema, or bruising. There is no te nting of the skin. Capillary reflex less than 2 seconds. HEAD: Normocephalic atraumatic. EARS: External auditory canals clear, tympanic membranes pearly terrell without erythema or effusion bilaterally. EYES: Pupils equal round and reactive to light and accommodation. Conjunctivae without injection, sclerae without icterus. Extraocular movements intact. NOSE: Patent, turbinates without inflammation or discharge. No sinus tenderness. MOUTH: Mucous membranes mildly dry. Pharynx without erythema or exudate. Uvula midline. Airway patent. Tongue does not deviate. NECK: Supple without nuchal rigidity. No lymphadenopathy. No thyromegaly. Cervical spine is nontender. No JVD. HEART: Regular rate and rhythm LUNGS: Clear to auscultation bilaterally without wheezes, rales or rhonchi. No retractions or accessory muscle use. ABDOMEN: Positive bowel sounds x 4. Normal tympanic percussion. Soft, mild diffuse tenderness, without masses or organomegaly. Cedeno sign negative. No guarding or rebound tenderness. No CVA tenderness MUSCULOSKELETAL: No muscle atrophy, erythema, or edema noted. NEURO: Patient was alert and oriented to person place and time. Normal sensation to light and sharp touch. No focal neurological deficits. Course Administered Medications Discontinued Medications Sodium Chloride (Nss 1000ml) 1,000 mls @ 999 mls/hr IV .Q1H1M RODRIGO Stop: 11/03/20 02:45 Last Admin: 11/03/20 02:20 Dose: 999 mls/hr Documented by: [id number] Medical Decision Making Medical Records Attestation: I reviewed the patient's medical records. Home Medications Current Medication List: was personally reviewed by me Laboratory Data Attestation: I reviewed the patient's lab results. Result diagrams: 11/03/20 01:15 11/03/20 01:15 Lab Results 11/03/20 11/03/20 11/03/20 Range/Units 01:15 01:15 01:15 WBC 5.63 (4.8-10.8) K/uL RBC 4.68 (4.2-5.4) M/uL Hgb 14.8 (12.0-16.0) g/dL Hct 45.0 (37-47) % MCV 96.2 (80-100) fL MCH 31.6 (25-34) pg MCHC 32.9 (32-36) g/dL RDW Std Deviation 48.7 H (36.4-46.3) fL RDW Coeff of Yani 13.7 (11.5-14.5) % Plt Count 174 (130-400) K/uL MPV 11.2 H (7.4-10.4) fL Immature Gran % (Auto) 0.2 % Neut % (Auto) 50.0 % Lymph % (Auto) 39.1 % [place] % (Auto) 10.3 % Eos % (Auto) 0.0 % Baso % (Auto) 0.4 % Neut # (Auto) 2.82 (1.4-6.5) K/uL Lymph # (Auto) 2.20 (1.2-3.4) K/uL [place] # (Auto) 0.58 (0.11-0.59) K/uL Eos # (Auto) 0.00 (0-0.5) K/uL Baso # (Auto) 0.02 (0-0.2) K/uL Immature Gran # (Auto) 0.01 (0.00-0.02) K/uL PT 10.5 (9.0-12.0) Seconds INR 1.0 (0.9-1.1) APTT 23.9 (21.0-31.0) Seconds PTT Ratio 0.9 Sodium 134 L (136-145) mmol/L Potassium (3.5-5.1) mmol/L Chloride 102 (98-107) mmol/L Carbon Dioxide 27 (21-32) mmol/L Anion Gap 5.0 (3-11) BUN 14 (7-18) mg/dl Creatinine 1.14 (0.6-1.2) mg/dl Est Cr Clr Drug Dosing 44.2 ml/min Est GFR ( Amer) 55.2 Est GFR (Non-Af Amer) 47.7 BUN/Creatinine Ratio 12.4 (10-20) Glucose 91 (70-99) mg/dl Lactate (0.4-2.0) mmol/L Calcium 8.7 (8.5-10.1) mg/dl Magnesium (1.8-2.4) mg/dl Total Bilirubin 0.9 (0.2-1) mg/dl AST (15-37) U/L ALT 45 (12-78) U/L Alkaline Phosphatase 62 (45-117) U/L Troponin I 0.016 (0-0.045) ng/ml Total Protein 7.4 (6.4-8.2) gm/dl Albumin 3.3 L (3.4-5.0) gm/dl Globulin 4.1 H (2.5-4.0) gm/dl Albumin/Globulin Ratio 0.8 L (0.9-2) Procalcitonin COVID-19 Eval Order SARS-CoV-2, RNA, NAAT (NEGATIVE) 11/03/20 11/03/20 11/03/20 Range/Units 01:15 01:44 01:44 WBC (4.8-10.8) K/uL RBC (4.2-5.4) M/uL Hgb (12.0-16.0) g/dL Hct (37-47) % MCV (80-100) fL MCH (25-34) pg MCHC (32-36) g/dL RDW Std Deviation (36.4-46.3) fL RDW Coeff of Yani (11.5-14.5) % Plt Count (130-400) K/uL MPV (7.4-10.4) fL Immature Gran % (Auto) % Neut % (Auto) % Lymph % (Auto) % [place] % (Auto) % Eos % (Auto) % Baso % (Auto) % Neut # (Auto) (1.4-6.5) K/uL Lymph # (Auto) (1.2-3.4) K/uL [place] # (Auto) (0.11-0.59) K/uL Eos # (Auto) (0-0.5) K/uL Baso # (Auto) (0-0.2) K/uL Immature Gran # (Auto) (0.00-0.02) K/uL PT (9.0-12.0) Seconds INR (0.9-1.1) APTT (21.0-31.0) Seconds PTT Ratio Sodium (136-145) mmol/L Potassium (3.5-5.1) mmol/L Chloride (98-107) mmol/L Carbon Dioxide (21-32) mmol/L Anion Gap (3-11) BUN (7-18) mg/dl Creatinine (0.6-1.2) mg/dl Est Cr Clr Drug Dosing ml/min Est GFR ( Amer) Est GFR (Non-Af Amer) BUN/Creatinine Ratio (10-20) Glucose (70-99) mg/dl Lactate (0.4-2.0) mmol/L Calcium (8.5-10.1) mg/dl Magnesium (1.8-2.4) mg/dl Total Bilirubin (0.2-1) mg/dl AST (15-37) U/L ALT (12-78) U/L Alkaline Phosphatase (45-117) U/L Troponin I (0-0.045) ng/ml Total Protein (6.4-8.2) gm/dl Albumin (3.4-5.0) gm/dl Globulin (2.5-4.0) gm/dl Albumin/Globulin Ratio (0.9-2) Procalcitonin Cancelled COVID-19 Eval [facility] SARS-CoV-2, RNA, NAAT POSITIVE A* (NEGATIVE) 11/03/20 Range/Units 01:47 WBC (4.8-10.8) K/uL RBC (4.2-5.4) M/uL Hgb (12.0-16.0) g/dL Hct (37-47) % MCV (80-100) fL MCH (25-34) pg MCHC (32-36) g/dL RDW Std Deviation (36.4-46.3) fL RDW Coeff of Yani (11.5-14.5) % Plt Count (130-400) K/uL MPV (7.4-10.4) fL Immature Gran % (Auto) % Neut % (Auto) % Lymph % (Auto) % [place] % (Auto) % Eos % (Auto) % Baso % (Auto) % Neut # (Auto) (1.4-6.5) K/uL Lymph # (Auto) (1.2-3.4) K/uL [place] # (Auto) (0.11-0.59) K/uL Eos # (Auto) (0-0.5) K/uL Baso # (Auto) (0-0.2) K/uL Immature Gran # (Auto) (0.00-0.02) K/uL PT (9.0-12.0) Seconds INR (0.9-1.1) APTT (21.0-31.0) Seconds PTT Ratio Sodium (136-145) mmol/L Potassium (3.5-5.1) mmol/L Chloride (98-107) mmol/L Carbon Dioxide (21-32) mmol/L Anion Gap (3-11) BUN (7-18) mg/dl Creatinine (0.6-1.2) mg/dl Est Cr Clr Drug Dosing ml/min Est GFR ( Amer) Est GFR (Non-Af Amer) BUN/Creatinine Ratio (10-20) Glucose (70-99) mg/dl Lactate 1.2 (0.4-2.0) mmol/L Calcium (8.5-10.1) mg/dl Magnesium (1.8-2.4) mg/dl Total Bilirubin (0.2-1) mg/dl AST (15-37) U/L ALT (12-78) U/L Alkaline Phosphatase (45-117) U/L Troponin I (0-0.045) ng/ml Total Protein (6.4-8.2) gm/dl Albumin (3.4-5.0) gm/dl Globulin (2.5-4.0) gm/dl Albumin/Globulin Ratio (0.9-2) Procalcitonin COVID-19 Eval Order SARS-CoV-2, RNA, NAAT (NEGATIVE) Imaging Data Attestation: I personally reviewed and interpreted this imaging study as follows: MDM Narrative Prior records/ancillary studies reviewed and summarized above. Nursing notes reviewed. Additional history obtained from nursing. The patient's history was concerning for Covid concerns with feeling weak and fall. Differential diagnosis: Etiologies such as metabolic, infection, hypo/hyperglycemia, electrolyte abnormalities, cardiac sources, intracerebral event, toxicologic, neurologic, as well as others were entertained. Physical examination: As above. ER treatment provided: IV Lock An order was placed for continuous cardiac monitoring. The monitor shows a rate of 60-100 with a sinus rhythm. IV fluids On reassessment the patient felt better. Diagnostics interpretation by me: ECG: Ordered for weakness EKG: Normal sinus, normal intervals, minimal ST depression in the lateral leads with T wave inversions, rate of 63. EKG compared to prior EKG from May 2020 and is unchanged. Impression normal sinus rhythm with persistent ST and T wave changes interpreted by myself. I think arrhythmia is unlikely. EKG shows normal sinus rhythm with no interval abnormalities such as QT prolongation or WPW. There are no findings to suggest Brugada syndrome. Cardiac monitoring in the emergency department reveals no tachycardic or bradycardic dysrhythmia. Hypertrophic cardiomyopathy was considered but there are no clear historical elements pointing toward this. EKG is not suggestive. The QRS voltage is not extremely large and there are no suggestive Q waves. The labs revealed positive Covid. Blood cultures pending Imaging studies: CT ABDOMEN & PELVIS Without Contrast: Mild infiltrate in left lung base. Some fluid in the colon that may suggest diarrhea. Colonic diverticula without diverticulitis. Unremarkable appendix. Cholecystectomy. No radiographic evidence of pancreatitis. No renal calculi or obstructive changes. Hysterectomy. Small hiatal hernia Nonobstructive bowel gas pattern. Radiologist: Noemí Velez M.D. CT C SPINE: No evidence of fracture or malalignment. Degenerative changes. Radiologist: Noemí Velez M.D. CT HEAD: No ICH, mass effect or edema. No skull fracture. Radiologist: Noemí Velez M.D. Chest x-ray with with possible left lower lung infiltrate concerning for Covid mitral rotation Consultation: A consultation was placed with the hospitalist. The case was discussed and diagnostics were reviewed. The patient was evaluated in the ER for further treatment. Exam and history seem consistent with Covid near syncope and dehydration. Patient felt quite weak. She does not feel comfortable going home. Medicine was consulted. She was hydrated as above. Medicine will evaluate for possible admission. By the evaluation outlined above emergent etiologies such as electrolyte abnormalities, intracerebral event, toxologic, neurologic, abnormalities blood glucose, metabolic, as well as others were deemed relatively unlikely. The pt informed about the findings as listed above. All questions were answered and pleased with the treatment. The chart was completed utilizing [employer] Speech voice recognition software. Grammatical errors, random word insertions, pronoun errors, and incomplete sentences are an occassional consequence of this system due to software limitations, ambient noise, and hardware issues. Any formal questions or concerns about the content, text, or information contained within the body of this dictation should be directly addressed to the physician music library assistant for clarification. Impression & Plan COVID-19 virus infection, Weakness, Near syncope, Chest pain Discharge Plan Visit Data Chief Complaint: Illness Stated Complaint: ILLNESS ED Provider: Loren Gomez ED Midlevel Provider: Cira Palmer Discharge Problem: COVID-19 virus infection, Weakness, Near syncope, Chest pain Patient Disposition: Being Evaluated by Hospitalist Condition: Fair Forms Stand Alone Forms: [facility] [place] Prescriptions Prescriptions: No Action venlafaxine 50 mg tablet 50 mg PO DAILY Qty: 90 RF: 3 propranolol 60 mg capsule,extended release 24 hr 60 mg PO DAILY Qty: 90 RF: 3 famotidine [Pepcid] 20 mg tablet 20 mg PO BID Qty: 180 RF: 3 pantoprazole 40 mg tablet,delayed release (DR/EC) 40 mg PO DAILY Qty: 90 RF: 3 meclizine 25 mg tablet 25 mg PO TID PRN (Reason: dizziness) Qty: 30 RF: 0 bupropion HCl (smoking deter) 150 mg tablet extended release 12 hr 150 mg PO BID Qty: 60 RF: 5 atorvastatin 40 mg tablet 40 mg PO DAILY Qty: 90 RF: 3 ondansetron 4 mg tablet,disintegrating 4 mg PO Q6H PRN (Reason: nausea and vomiting) Qty: 14 RF: 0 acetaminophen 325 mg Tablet 325 - 650 mg PO Q6H PRN (Reason: Fever Or Pain) RF: 0 cyanocobalamin (vitamin B-12) [Vitamin B-12] 1,000 mcg Tablet 1,000 mcg PO DAILY RF: 0 polyethylene glycol 3350 [Miralax] 17 gram/dose Powder 17 g PO DAILY PRN (Reason: Constipation) RF: 0 aspirin 81 mg Tablet,Delayed Release (Dr/Ec) 81 mg PO DAILY RF: 0 Referrals Referrals: Kareem Ponce MD [Primary Care Provider] -
[2020-11-03] MEDS ORDERED: SODIUM CHLORIDE 0.9% 1000ML 1,000 ML IV SCH (01:45)
[2020-11-03 02:00] LABS: Basophils # (auto) 0.02 K/uL (0-0.2); Basophils % (auto) 0.4 %; Hemoglobin 14.8 g/dL (12.0-16.0); Immature Granulocytes # (auto) 0.01 K/uL (0.00-0.02); Immature Granulocytes % (auto) 0.2 %; Lymphocytes % (auto) 39.1 %; Mean Corpuscular Hemoglobin 31.6 pg (25-34); Mean Corpuscular Hgb Conc 32.9 g/dL (32-36); Mean Corpuscular Volume 96.2 fL (80-100); Mean Platelet Volume 11.2 fL (7.4-10.4); Monocytes # (auto) 0.58 K/uL (0.11-0.59); Monocytes % (auto) 10.3 %; Neutrophils # (auto) 2.82 K/uL (1.4-6.5); Platelet Count 174 K/uL (130-400); RDW Coefficient of Variation 13.7 % (11.5-14.5); RDW Standard Deviation 48.7 fL (36.4-46.3); Red Blood Count 4.68 M/uL (4.2-5.4); White Blood Count 5.63 K/uL (4.8-10.8)
[2020-11-03 02:10] LABS: Partial Thromboplastin Ratio 0.9; Partial Thromboplastin Time 23.9 Seconds (21.0-31.0); Prothrombin Time 10.5 Seconds (9.0-12.0)
[2020-11-03 02:30] LABS: Albumin Globulin Ratio 0.8 (0.9-2); Albumin Level 3.3 gm/dl (3.4-5.0); BUN Creatinine Ratio 12.4 (10-20); Bilirubin,Total 0.9 mg/dl (0.2-1); Calcium 8.7 mg/dl (8.5-10.1); Creatinine Clr Calc Pharmacy 44.2 ml/min; Est GFR (African American) 55.2; Est GFR (Non-African American) 47.7; Globulin 4.1 gm/dl (2.5-4.0); Total Protein 7.4 gm/dl (6.4-8.2); Troponin I 0.016 ng/ml (0-0.045)
--- NOTE | 2020-11-03 02:43 | Emergency Department Note ---
ED Visit Note I have personally seen and evaluated the patient with the PA. I agree with the diagnosis and management decisions and have been personally involved in the case. Please see Roxy Palmer PA-C's notes for further details of the history, physical and visit. .
[2020-11-03 04:15] LABS: Appearance Urine Turbid (Clear); Bacteria Urine Automated 4+ (Negative); Bilirubin Urine Negative (Negative); Blood Urine Trace (Negative); Color Urine Dark Yellow; Epithelial Cell Urine Auto >30 /lpf (0-5); Glucose Urine UA Negative (Negative); Ketones Urine 1+ (Negative); Leukocyte Esterase Urine 1+ (Negative); Nitrite Urine Positive (Negative); Protein Urine 1+ (Negative); Specific Gravity Urine 1.026 (1.000-1.030); Urobilinogen Urine Negative (Negative); WBC Urine Automated >30 /hpf (0-5)
[2020-11-03] MEDS ORDERED: NSS+KCL 20 MEQ 1000ML IV ONE (04:18)
[2020-11-03 04:45] LABS: Mucus Urine Present (None Prsent)
[2020-11-03 04:46] LABS: RBC Urine Automated 0-4 /hpf (0-4)
[2020-11-03] MEDS: NSS + 20MEQ KCL 20 MEQ/1,000 ML BAG IV SCH ×2 (04:57→17:13)
--- NOTE | 2020-11-03 05:19 | History & Physical Report ---
Date of Service November 03, 2020 Assessment & Plan (1) COVID-19 virus infection: COVID-19 virus infection- Left lower lobe infiltrate may be an early beginning to a viral pneumonia, so will need to be watched closely. Most prominent symptoms at this point are that of generalized weakness and fatigue. Unclear if associated with episode of fecal incontinence, which was a new finding for this patient. Would hold on usual treatments of Decadron IV, convalescent plasma and remdesivir IV at this time Present on Admission?: Yes (2) Pneumonia involving left lung: Place on levofloxacin 500 mg IV daily. We will also cover possible UTI, with urine culture pending Present on Admission?: Yes (3) Weakness: May be secondary to COVID-19 virus infection. Will rehydrate with IV fluids and if necessary consult PT/OT Present on Admission?: Yes (4) Near syncope: Not a true neurologic event, more likely related to generalized weakness and fatigue Present on Admission?: Yes (5) Hypothyroidism: TSH on 06/22/2020 was 17.00 with a normal free T4 of 1.28. Repeat laboratories today, as it may be that part of her symptoms of fatigue that been generalized and worse recently, may be associated with or aggravated by subclinical hypothyroidism Present on Admission?: Yes (6) Hypertension: Continue propranolol extended release 60 mg daily and aspirin 81 mg daily Present on Admission?: Yes (7) GERD (gastroesophageal reflux disease): Continue famotidine 20 mg twice daily and pantoprazole 40 mg daily Present on Admission?: Yes (8) Hyperlipidemia: Continue to lovastatin 40 mg daily Present on Admission?: Yes (9) Fecal incontinence: Single episode that occurred early this evening, may be secondary to viral issues as noted above. If it comes more of an issue we will further address Present on Admission?: Yes Admission and Anticipated Discharge Date Admission Date: November 03, 2020 History of Present Illness Chief Complaint: Patient presents to the emergency department with complaint of generalized weakness, fatigue, occasional shortness of breath and an episode of bowel incontinence earlier this evening. Primary Care Provider: Kareem Ponce MD The patient is a 75-year-old female who lives alone, with a past medical history including hypothyroidism, pyloric stenosis in adult, hiatal hernia, vertigo, gastroparesis, severe RISHI, adult situational stress disorder, hypertension, insomnia, mild cognitive impairment, multiple falls, polyneuropathy, poor balance, vitamin B12 deficiency, GERD, asthma, hyperlipidemia and constipation. Patient presents with symptoms as noted above. Patient is very concerned about being able to take care of herself at home with the significant fatigue and weakness that she is feeling. Work-up in the emergency department included the following abnormalities: Sodium 134, albumin 3.3, abnormal urinalysis. COVID-[address] viral [address] was positive. CT scan of head without contrast was negative. CT of abdomen and pelvis showed a mild infiltrate in left lung base. Some fluid in the colon that may suggest diarrhea. Colonic diverticula without diverticulitis. Small hiatal hernia. Nonobstructive bowel gas pattern Allergies Allergy/AdvReac Type Severity Reaction Status Date / Time simvastatin Allergy Unknown MUSCLE Verified 11/03/20 02:53 WEAKNESS latex AdvReac Intermediate HIVES Verified 11/03/20 02:53 Home Medications Medication Instructions Recorded Confirmed Type acetaminophen 325 - 650 mg PO Q6H PRN 12/20/18 11/03/20 History cyanocobalamin (vitamin B-12) 1,000 mcg PO DAILY 12/20/18 11/03/20 History [Vitamin B-12] polyethylene glycol 3350 [Miralax] 17 g PO DAILY PRN 12/20/18 11/03/20 History famotidine 20 mg tablet 20 mg PO BID #180 tab 12/22/19 11/03/20 Rx propranolol 60 mg capsule,24 60 mg PO DAILY #90 cap 12/22/19 11/03/20 Rx hr,extended release venlafaxine 50 mg tablet 50 mg PO DAILY #90 tab 12/22/19 11/03/20 Rx pantoprazole 40 mg tablet,delayed 40 mg PO DAILY #90 tab 02/09/20 11/03/20 Rx release meclizine 25 mg tablet 25 mg PO TID PRN #30 tab 04/06/20 11/03/20 Rx bupropion HCl (smoking deter) 150 150 mg PO BID #60 tab 04/20/20 11/03/20 Rx mg tablet,12 hr sustained-release(smoking deterrent) ondansetron 4 mg PO Q6H PRN #14 tab 06/23/20 11/03/20 Rx atorvastatin 40 mg tablet 40 mg PO DAILY #90 tab 10/03/20 11/03/20 Rx aspirin 81 mg PO DAILY 11/03/20 11/03/20 History Past Med/Surg History Medical History Constipation Depression Hypothyroidism Nausea & vomiting Surgical History History of esophagogastroduodenoscopy (EGD) S/P arthroscopy of knee S/P cholecystectomy S/P colonoscopy S/P hysterectomy Status post Agatha fundoplication 05/2011 Dr. Ivey- Esophagogastric fundoplasty agatha fundoplication Family History Mother Cardiac disorder Myocardial infarction Aunt Cancer Uncle Cancer Cardiac disorder Myocardial infarction Other Family history non-contributory Denies family history of Ovarian cancer Prostate cancer Breast cancer Colorectal cancer Social History Smoking Status: Never smoker Second Hand Exposure: No; Hx Alcohol Use: No Hx Substance Use: No Preferred Language: Gibraltarian Communication Ability: Effective Visual Impairment: No Limitations Hearing Ability: Normal Office Asst Required: No Beliefs That Will Affect Care: None Current Living Situation: Alone current occupational status: retired Feels Safe at Home: Yes Childhood Exposure to Second-Hand Smoke: Yes caffeine: No during the past year weight has: remained stable Dental Care, Regularly: No Physical Activity Frequency: Does not Exercise Seatbelt Use: always Sunscreen Use: No Assistive Devices: None Review of Systems Review of Systems: The patient denies chest pain, palpitations, lower extremity swelling, sore throat, fevers, chills, sweats, vomiting, constipation, abdominal pain, pelvic pain, blood in urine or stool, dysuria, urinary frequency or urgency, lightheadedness, dizziness, headache, memory loss, loss of consciousness, rash, abnormal bruising or bleeding, focal weakness, numbness or tingling in arms or legs, generalized arthralgias or myalgias, back or neck pain, or night sweats. The review of systems is otherwise negative other than for that already noted above, and at least 10 systems have been reviewed. Physical Exam Physical Exam: The patient is awake, alert and oriented 3, well developed and well nourished, normocephalic and atraumatic, lying in bed and in no acute distress. HEENT--PERRL, EOMI, mucous membranes and oropharynx dry. Neck--supple. No JVD. No bruits. Thyroid normal, trachea midline, no adenopathy. Heart--normal S1 and S2. No murmurs, rubs or gallops. Lungs--decreased breath sounds bases bilaterally left greater than right. No respiratory distress, no accessory muscle use. Abdomen--normal bowel sounds and soft. Nontender. Nondistended. Extremities--no cyanosis or clubbing. No edema. Dermatologic--normal skin turgor, normal color, no abnormal lymph nodes, no rash. Neurologic--cranial nerves II through XII grossly intact. Rheumatologic--normal range of motion. Psychiatric--normal affect. Results & Data Results & Data ([facility]) Vital Signs (Past 12 Hours) Vital Signs Temp Pulse Pulse Resp BP BP Pulse Ox 11/03/20 02:59 60 18 116/64 96 11/03/20 01:50 95 11/03/20 01:21 98.6 F 64 18 107/66 95 Laboratory Results Laboratory Results WBC 5.63 K/uL (4.8-10.8) 11/03/20 01:15 RBC 4.68 M/uL (4.2-5.4) 11/03/20 01:15 Hgb 14.8 g/dL (12.0-16.0) 11/03/20 01:15 Hct 45.0 % (37-47) 11/03/20 01:15 MCV 96.2 fL (80-100) 11/03/20 01:15 MCH 31.6 pg (25-34) 11/03/20 01:15 MCHC 32.9 g/dL (32-36) 11/03/20 01:15 RDW Std Deviation 48.7 fL (36.4-46.3) H 11/03/20 01:15 RDW Coeff of Yani 13.7 % (11.5-14.5) 11/03/20 01:15 Plt Count 174 K/uL (130-400) 11/03/20 01:15 MPV 11.2 fL (7.4-10.4) H 11/03/20 01:15 Immature Gran % (Auto) 0.2 % 11/03/20 01:15 Neut % (Auto) 50.0 % 11/03/20 01:15 Lymph % (Auto) 39.1 % 11/03/20 01:15 Payne % (Auto) 10.3 % 11/03/20 01:15 Eos % (Auto) 0.0 % 11/03/20 01:15 Baso % (Auto) 0.4 % 11/03/20 01:15 Neut # (Auto) 2.82 K/uL (1.4-6.5) 11/03/20 01:15 Lymph # (Auto) 2.20 K/uL (1.2-3.4) 11/03/20 01:15 Payne # (Auto) 0.58 K/uL (0.11-0.59) 11/03/20 01:15 Eos # (Auto) 0.00 K/uL (0-0.5) 11/03/20 01:15 Baso # (Auto) 0.02 K/uL (0-0.2) 11/03/20 01:15 Immature Gran # (Auto) 0.01 K/uL (0.00-0.02) 11/03/20 01:15 PT 10.5 Seconds (9.0-12.0) 11/03/20 01:15 INR 1.0 (0.9-1.1) 11/03/20 01:15 APTT 23.9 Seconds (21.0-31.0) 11/03/20 01:15 PTT Ratio 0.9 11/03/20 01:15 Sodium 134 mmol/L (136-145) L 11/03/20 01:15 Potassium mmol/L (3.5-5.1) 11/03/20 01:15 Chloride 102 mmol/L (98-107) 11/03/20 01:15 Carbon Dioxide 27 mmol/L (21-32) 11/03/20 01:15 Anion Gap 5.0 (3-11) 11/03/20 01:15 BUN 14 mg/dl (7-18) 11/03/20 01:15 Creatinine 1.14 mg/dl (0.6-1.2) 11/03/20 01:15 Est Cr Clr Drug Dosing 44.2 ml/min 11/03/20 01:15 Est GFR ( Amer) 55.2 11/03/20 01:15 Est GFR (Non-Af Amer) 47.7 11/03/20 01:15 BUN/Creatinine Ratio 12.4 (-20) 11/03/20 01:15 Glucose 91 mg/dl (70-99) 11/03/20 01:15 Lactate 1.2 mmol/L (0.4-2.0) 11/03/20 01:47 Calcium 8.7 mg/dl (8.5-10.1) 11/03/20 01:15 Magnesium mg/dl (1.8-2.4) 11/03/20 01:15 Total Bilirubin 0.9 mg/dl (0.2-1) 11/03/20 01:15 AST U/L (15-37) 11/03/20 01:15 ALT 45 U/L (12-78) 11/03/20 01:15 Alkaline Phosphatase 62 U/L (45-117) 11/03/20 01:15 Troponin I 0.016 ng/ml (0-0.045) 11/03/20 01:15 Total Protein 7.4 gm/dl (6.4-8.2) 11/03/20 01:15 Albumin 3.3 gm/dl (3.4-5.0) L 11/03/20 01:15 Globulin 4.1 gm/dl (2.5-4.0) H 11/03/20 01:15 Albumin/Globulin Ratio 0.8 (0.9-2) L 11/03/20 01:15 Procalcitonin Cancelled 11/03/20 01:15 Urine Color Dark Yellow 11/03/20 Unknown Urine Appearance Turbid (Clear) A 11/03/20 Unknown Urine pH 5.0 (4.5-7.5) 11/03/20 Unknown Ur Specific [place] 1.026 (1.000-1.030) 11/03/20 Unknown Urine Protein 1+ (Negative) H 11/03/20 Unknown Urine Glucose (UA) Negative (Negative) 11/03/20 Unknown Urine Ketones 1+ (Negative) H 11/03/20 Unknown Urine Blood Trace (Negative) H 11/03/20 Unknown Urine Nitrite Positive (Negative) A 11/03/20 Unknown Urine Bilirubin Negative (Negative) 11/03/20 Unknown Urine Urobilinogen Negative (Negative) 11/03/20 Unknown Ur Leukocyte Esterase 1+ (Negative) H 11/03/20 Unknown Urine WBC (Auto) >30 /hpf (0-5) H 11/03/20 Unknown Urine RBC (Auto) 0-4 /hpf (0-4) 11/03/20 Unknown U Hyaline Cast (Auto) 10-30 /lpf (0-5) H 11/03/20 Unknown U Epithel Cells (Auto) >30 /lpf (0-5) H 11/03/20 Unknown Urine Bacteria (Auto) 4+ (Negative) H 11/03/20 Unknown Urine Mucus Present (None Prsent) A 11/03/20 Unknown COVID-19 Eval [facility] [place] 11/03/20 01:44 SARS-CoV-2, RNA, NAAT POSITIVE (NEGATIVE) A* 11/03/20 01:44 Diagnostic Findings [facility] Patient: KEAGAN VILLASEÑOR (Female) : 49 Status: ER Date: 11/03/20 02:44 Room #: History: FELL ONTO BOTTOM, DID NOT HIT HER HEAD, EXPOSED TO COVID Slices: [phone] Priors: Tech: Brandon Pena @ [phone] Exams: CT C SPINE Contrast: Accession Numbers: [id number] Preliminary Findings Only See Final Report For Complete Findings CT C SPINE: No evidence of fracture or malalignment. Degenerative changes. Radiologist: Noemí Velez M.D. Study ready at 02:47 and initial results transmitted at 02:52 *This report constitutes a preliminary interpretation only. Non-acute findings felt to be unrelated to the clinical presentation may not be discussed in this report. The study will be interpreted and a final report will be generated by the local Radiologist the following shift. To reach the hospital radiology department call [phone]. If a discrepancy is found between the preliminary and final interpretations of this study, please notify us via our Client Portal at [email or web address].You can also fax this report with a description of the discrepancy, or include the final report, to our daytime fax number [phone].If faxing, please indicate the severity of discrepancy using one of the following categories: [ ] 1 - Agree/Informational [ ] 2 - Unlikely to Affect Management [ ] 3 - Possible Eventual Change of Management [ ] 4 - Probable Immediate Change of Management For all other patient related information, please fax us at [phone]. [id number] [facility] Patient: KEAGAN VILLASEÑOR (Female) : 49 Status: ER Date: 11/03/20 02:51 Room #: History: N/V/D EXPOSED TO COVID, PAIN IN ABD Slices: [id number] Priors: Tech: Brandon Pena @ [phone] Exams: CT ABDOMEN & PELVIS Without Contrast Contrast: Accession Numbers: [id number] Preliminary Findings Only See Final Report For Complete Findings CT ABDOMEN & PELVIS Without Contrast: Mild infiltrate in left lung base. Some fluid in the colon that may suggest diarrhea. Colonic diverticula without diverticulitis. Unremarkable appendix. Cholecystectomy. No radiographic evidence of pancreatitis. No renal calculi or obstructive changes. Hysterectomy. Small hiatal hernia Nonobstructive bowel gas pattern. Radiologist: Noemí Velez M.D. Study ready at 02:54 and initial results transmitted at 03:05 *This report constitutes a preliminary interpretation only. Non-acute findings felt to be unrelated to the clinical presentation may not be discussed in this report. The study will be interpreted and a final report will be generated by the local Radiologist the following shift. To reach the hospital radiology department call [phone]. If a discrepancy is found between the preliminary and final interpretations of this study, please notify us via our Client Portal at [email or web address].You can also fax this report with a description of the discrepancy, or include the final report, to our daytime fax number [phone].If faxing, please indicate the severity of discrepancy using one of the following categories: [ ] 1 - Agree/Informational [ ] 2 - Unlikely to Affect Management [ ] 3 - Possible Eventual Change of Management [ ] 4 - Probable Immediate Change of Management For all other patient related information, please fax us at [phone]. [id number] Code Status & VTE Plan Code Status Full code VTE Prophylaxis Plan VTE Prophylaxis will be ordered: Yes PG Care Time/CCT Total # of Minutes Spent Total Time Spent with Patient: Total time spent is greater than 50% in coordination of care (as documented) at patient's floor/unit and/or counseling p atient: Coding Level of Care Code 20243 OBS Care - Level 3 Diagnoses COVID-19 virus infection U07.1 Pneumonia involving left lung J18.9 Weakness R53.1 Near syncope R55 Hypothyroidism E03.9 Hypertension I10 GERD (gastroesophageal reflux disease) K21.9 Hyperlipidemia E78.5 Fecal incontinence R15.9
[2020-11-03] MEDS ORDERED: NSS + 20MEQ KCL 20 MEQ/1,000 ML BAG IV SCH (05:22)
[2020-11-03] MEDS ORDERED: MECLIZINE HCL 25 MG TAB PO PRN (05:30)
[2020-11-03] MEDS: ONDANSETRON 4 MG OD TAB PO PRN ×2 (06:32→12:41)
[2020-11-03 06:45] LABS: T4 Free Thyroxine 1.26 ng/dl (0.8-1.6); Thyroid Stimulating Hormone 3.25 uIu/ml (0.300-4.500)
--- NOTE | 2020-11-03 06:59 | CT Scan Report ---
CT head/brain wo con CLINICAL HISTORY: Head pain status post trauma. Weakness. COMPARISON STUDY: 03/05/2020 TECHNIQUE: Axial CT of the brain is performed from the vertex to the skull base. IV contrast was not administered for this examination. A dose lowering technique was utilized adhering to the principles of ALARA. CT DOSE: 892.14 mGy.cm FINDINGS: No intra or extra-axial mass lesions are visualized. There is no CT evidence of acute cortical infarc tion. There is no evidence of midline shift. There is no acute hemorrhage. No calvarial fractures ar e visualized. There are patchy white matter hypodensities likely on a small vessel basis. There is no evidence of pathologic ventricular dilatation. There is no evidence of acute sinusitis IMPRESSION: No acute intracranial findings ACT 112: Negative or not required by law. Electronically signed by: Jamison Murillo M.D. 11/03/2020 6:58 AM
--- NOTE | 2020-11-03 07:06 | XRay Report ---
XR chest 1V portable CLINICAL HISTORY: SEPSIS COMPARISON STUDY: 06/22/2020 FINDINGS: The heart is mildly enlarged. There is no failure. There is no focal pulmonary consolidatio n. There are no pleural effusions. There is stable minor atelectasis/scarring at the left lung base[ IMPRESSION: No active disease in the chest. ACT 112: Negative or not required by law. Electronically signed by: Jamison Murillo M.D. 11/03/2020 7:05 AM
--- NOTE | 2020-11-03 07:32 | CT Scan Report ---
CT OF THE CERVICAL SPINE CLINICAL HISTORY: Neck pain status post trauma COMPARISON STUDY: No previous studies for comparison. CT DOSE: TECHNIQUE: CT scan of the cervical spine was performed from the skull base to the thoracic inlet. Tory ges are reviewed in the axial, sagittal, and coronal planes. IV contrast was not administered for thi s examination. A dose lowering technique was utilized adhering to the principles of ALARA. FINDINGS: The visualized portions of the lung apices reveal no evidence of pneumothorax. The prevertebral soft tissues are normal. No fractures or subluxations are visualized. There are multilevel degenerative changes. There is slight reversal the normal cervical lordosis. IMPRESSION: No evidence of acute fracture or traumatic subluxation. ACT 112: Negative or not required by law. Electronically signed by: Jamison Murillo M.D. 11/03/2020 7:31 AM
--- NOTE | 2020-11-03 07:41 | CT Scan Report ---
CT SCAN OF THE ABDOMEN AND PELVIS WITHOUT CONTRAST CLINICAL HISTORY: Nausea, vomiting, diarrhea, weakness, abdominal pain. COMPARISON STUDY: June 2018 TECHNIQUE: CT scan of the abdomen and pelvis was performed from the lung bases to the proximal femurs . Images are reviewed in the axial, sagittal, and coronal planes. IV contrast was not administered fo r this examination. A dose lowering technique was utilized adhering to the principles of ALARA. CT DOSE: 835.45 mGy.cm FINDINGS: Lower chest: There is mild dependent atelectasis. There is a hiatal hernia. Liver: The unenhanced liver is normal in size, contour, and attenuation. There is no intrahepatic bhupinder iary ductal dilatation. Gallbladder: Surgically absent Spleen: Normal in size and attenuation. Pancreas: Unremarkable. Adrenal glands: Unremarkable. Kidneys: No renal, ureteral, or bladder calculi are visualized. Bowel: There are no transition zones indicate bowel obstruction. There is no evidence of acute divert iculitis. There is no evidence of acute appendicitis. Peritoneum: There is no intraperitoneal free air or abdominal ascites. Vasculature: The abdominal aorta is normal in course and caliber. Adenopathy: None. Pelvic viscera: The uterus is surgically absent Skeletal structures: No destructive osseous lesions are seen. IMPRESSION: 1. No evidence of bowel obstruction. No evidence of free air 2. No renal, ureteral, or bladder calculi identified 3. No evidence of acute appendicitis. No evidence of acute diverticulitis 4. Hiatal hernia 5. Basilar airspace opacities, likely atelectatic. ACT 112: Negative or not required by law. Electronically signed by: Jamison Murillo M.D. 11/03/2020 7:40 AM
[2020-11-03] MEDS: levoFLOXacin/D5W 500 MG/100 ML BAG IV SCH (08:31)
[2020-11-03] MEDS: CYANOCOBALAMIN 500 MCG TABLET (VITAMIN B-12) PO SCH (09:12)
[2020-11-03] MEDS: VENLAFAXINE HCL 50 MG TAB PO SCH (09:12)
[2020-11-03] MEDS: ASPIRIN 81 MG ECTAB PO SCH (09:12)
[2020-11-03] MEDS: PROPRANOLOL HCL 60 MG LA CAP PO SCH (09:13)
[2020-11-03] MEDS: FAMOTIDINE 20 MG TAB PO SCH ×2 (09:13→21:05)
[2020-11-03] MEDS: buPROPion SR 150 MG TABCR PO SCH ×2 (09:13→21:05)
[2020-11-03] MEDS: ATORVASTATIN 40 MG TAB PO SCH (09:13)
[2020-11-03] MEDS: PANTOprazole 40 MG TAB PO SCH (09:13)
[2020-11-03] MEDS: ACETAMINOPHEN 325 MG TAB PO PRN ×2 (10:54→18:52)
--- NOTE | 2020-11-03 19:46 | Hospitalist Progress Note ---
Date of Service November 03, 2020 Assessment & Plan (1) COVID-19 virus infection: Admitted 11/03/2020 with weakness and fatigue No hypoxia Covid positive test on 11/03/2020 Patient with no hypoxia and no other major symptoms For now, we will hold off on remdesivir, steroids, convalescent plasma If symptoms would worsen will consider dexamethasone only Continue supportive care (2) Pneumonia involving left lung: This looks to be scarring versus atelectasis and appears to be per previous chest x-ray. Patient has no prior history of CT scan of the chest If patient were to develop worsening hypoxia, consider CT chest without contrast Started on levofloxacin at the time of admission We will check repeat chest x-ray as well as procalcitonin tomorrow morning (3) Fecal incontinence: Check stool for C. difficile Check stool culture (4) Weakness: Patient with ambulatory dysfunction which is chronic Unsure if the weakness is worse than usual and if so whether is related to Covid PT/OT evaluations requested Patient may benefit from rehabilitation Continue to monitor (5) Polyneuropathy: Seems to be controlled today Patient with no complaint No treatment at this time (6) Poor balance: Patient reports fall at home PT/OT evaluation Out of bed with assistance (7) Vertigo: Vestibular dysfunction Patient underwent physical therapy in February 2020 with canalith repositioning Patient reported this helped moderately For now consider meclizine If no improvement, have primary care office make referral for repeat physical therapy (8) Hypertension: Generally controlled Continue propanolol (9) DVT prophylaxis: Avoid aggressive anticoagulation for DVT prophylaxis as patient has full history and ambulatory dysfunction We will start heparin subcu 5000 units every 8 hours Admission and Anticipated Discharge Date Admission Date: November 03, 2020 Subjective Attending: Dr. Lawrence Birch Patient seen and examined at bedside. She is in good spirits. She is explaining some dizziness and lightheadedness which is similar to what she has had in the past which is previous admit diagnosis as vertigo. She does have Parkinson's disease and presented with weakness and fatigue. She continues to feel extremely weak and has trouble sitting up in bed. She was also complaining of persistent watery diarrhea. She has no fever or chills. She has no shortness of breath. She is oxygenating well on room air. She has no nausea or vomiting. She has no other acute complaints. Review of Systems Review of Systems: All systems reviewed & are unremarkable except as noted in Subjective Physical Exam Physical Exam: GENERAL : No acute distress EYES: No icterus, gaze conjugate NOSE: No evidence of epistaxis MOUTH: No lesions or candidiasis NECK: Supple LUNGS: CTA B/L, no wheezes, rales or rhonchi HEART: Regular, rate controlled ABDOMEN: Soft, NT, ND, BS Present. No rebound tenderness or guarding EXTREMITIES: No LE edema, pedal pulses intact. Minimal tremor in the upper extremities NEURO: A&OX3 Results & Data Results & Data ([facility]) Vital Signs (Past 12 Hours) Vital Signs Temp Pulse Resp BP BP Pulse Ox 11/03/20 15:33 36.7 C 60 20 99/58 L 96 11/03/20 13:06 37.4 C 65 18 99/59 L 95 11/03/20 08:38 37.7 C H 64 16 129/70 97 Laboratory Results 11/03/20 01:15 11/03/20 01:15 11/03/20 01:15 Troponin I 0.016 Diagnostic Findings XR chest 1V portable CLINICAL HISTORY: SEPSIS COMPARISON STUDY: 06/22/2020 FINDINGS: The heart is mildly enlarged. There is no failure. There is no focal pulmonary consolidation. There are no pleural effusions. There is stable minor atelectasis/scarring at the left lung base[ IMPRESSION: No active disease in the chest. ACT 112: Negative or not required by law. Electronically signed by: Jamison Murillo M.D. 11/03/2020 7:05 AM PG Care Time/CCT Total # of Minutes Spent Total Time Spent with Patient: Total time spent is greater than 50% in coordination of care (as documented) at patient's floor/unit and/or counseling patient: 30 minutes Coding Level of Care Code 17136 Subseq Hosp Care Lvl 2 Diagnoses COVID-19 virus infection U07.1 Pneumonia involving left lung J18.9 Fecal incontinence R15.9 Weakness R53.1 Polyneuropathy G62.9 Poor balance R26.89 Vertigo R42 Hypertension I10 DVT prophylaxis Z29.9 Time Spent (min) 30
--- NOTE | 2020-11-03 20:36 | XRay Report ---
XR chest 1V portable HISTORY: 75 years-old Female ? LLL pneumonia, COVID positive acute shortness breath with pneumonia. COVID Positive. COMPARISON: Chest radiograph and CT abdomen and pelvis studies of same day TECHNIQUE: Portable AP view of the chest FINDINGS: Cardiac silhouette is mildly enlarged. Mild right hemidiaphragmatic elevation. Minimal left lung base opacities suggest atelectasis. No pneumothorax, pleural effusion, overt pulmonary edema or airspace consolidation typical for pneumonia. Hiatal hernia. Degenerative changes of the shoulders and spine w ith sigmoidal thoracolumbar scoliosis. IMPRESSION: No acute process. ACT 112: Negative or not required by law. The above report was generated using voice recognition software. It may contain grammatical, syntax o r spelling errors. Electronically signed by: Daniel Saenz M.D. 11/03/2020 8:35 PM
[2020-11-03] MEDS: HEPARIN SOD 5,000 UNIT/0.5 ML VIAL SQ SCH (22:21)
[2020-11-04] MEDS: NSS + 20MEQ KCL 20 MEQ/1,000 ML BAG IV SCH ×3 (02:51→22:53)
[2020-11-04] MEDS: levoFLOXacin/D5W 500 MG/100 ML BAG IV SCH (05:36)
[2020-11-04] MEDS: HEPARIN SOD 5,000 UNIT/0.5 ML VIAL SQ SCH ×3 (05:38→22:03)
--- NOTE | 2020-11-04 06:43 | Electrocardiogram Report ---
Test Reason : Blood Pressure : / mmHG Vent. Rate : 063 BPM Atrial Rate : 063 BPM P-R Int : 200 ms QRS Dur : 080 ms QT Int : 422 ms P-R-T Axes : 036 -30 059 degrees QTc Int : 431 ms Normal sinus rhythm Left axis deviation Nonspecific ST and T wave abnormality Abnormal ECG When compared with ECG of 22-JUN-2020 21:41, No significant change Confirmed by Timbo Joseph ([id number]) on 11/04/2020 6:42:56 AM Referred By: REFERRED SELF Confirmed By:Timbo Joseph
[2020-11-04 06:57] LABS: Hematocrit (blood only) 34.8 % (37-47); Hemoglobin 11.6 g/dL (12.0-16.0); Mean Corpuscular Hemoglobin 31.7 pg (25-34); Mean Corpuscular Hgb Conc 33.3 g/dL (32-36); Mean Corpuscular Volume 95.1 fL (80-100); Mean Platelet Volume 10.7 fL (7.4-10.4); Platelet Count 162 K/uL (130-400); RDW Coefficient of Variation 13.9 % (11.5-14.5); RDW Standard Deviation 48.6 fL (36.4-46.3); Red Blood Count 3.66 M/uL (4.2-5.4); White Blood Count 3.33 K/uL (4.8-10.8)
[2020-11-04 07:18] LABS: BUN Creatinine Ratio 13.6 (10-20); Calcium 7.5 mg/dl (8.5-10.1); Creatinine Clr Calc Pharmacy 55.4 ml/min; Est GFR (African American) 72.5; Est GFR (Non-African American) 62.6; Potassium 3.5 mmol/L (3.5-5.1)
[2020-11-04 08:20] LABS: ALC (manual) 2.89 K/uL (1.2-3.4); ANC (manual) 0.29 K/uL (1.4-6.5); Basophils # (manual) 0.03 K/uL (0-0.2); Basophils % (manual) 0.9 %; Large Granular Lymph # (manua 1.16 K/uL; Large Granular Lymph % (manual) 34.8 %; Lymphocytes # (manual) 1.73 K/uL (1.2-3.4); Lymphocytes % (manual) 52.1 %; Monocytes # (manual) 0.12 K/uL (0.11-0.59); Monocytes % (manual) 3.5 %; Neutrophils # (manual) 0.29 K/uL (1.4-6.5); Neutrophils % (manual) 8.7 %
[2020-11-04] MEDS: ASPIRIN 81 MG ECTAB PO SCH (08:28)
[2020-11-04] MEDS: PROPRANOLOL HCL 60 MG LA CAP PO SCH (08:30)
[2020-11-04] MEDS: VENLAFAXINE HCL 50 MG TAB PO SCH (08:30)
[2020-11-04] MEDS: ATORVASTATIN 40 MG TAB PO SCH (08:31)
[2020-11-04] MEDS: PANTOprazole 40 MG TAB PO SCH (08:32)
[2020-11-04] MEDS: FAMOTIDINE 20 MG TAB PO SCH ×2 (08:32→22:08)
[2020-11-04] MEDS: buPROPion SR 150 MG TABCR PO SCH ×2 (08:33→22:08)
[2020-11-04] MEDS: CYANOCOBALAMIN 500 MCG TABLET (VITAMIN B-12) PO SCH (08:33)
--- NOTE | 2020-11-04 15:23 | Hospitalist Progress Note ---
Date of Service November 04, 2020 Assessment & Plan (1) Leukopenia: Patient with leukopenia and now with decreased absolute neutrophil count Repeat CBC with differential daily Patient currently with negative procalcitonin We will discontinue levofloxacin in the event that this is causing myel osuppression Follow serial labs (2) COVID-19 virus infection: Admitted 11/03/2020 with weakness and fatigue Asymptomatic Patient continues to maintain adequate SaO2 without supplemental oxygen Covid positive test on 11/03/2020 Patient with no hypoxia and no other major symptoms No remdesivir, steroids, convalescent plasma given Continue supportive care (3) Pneumonia involving left lung: This looks to be scarring versus atelectasis and appears to be per previous chest x-ray. Patient has no prior history of CT scan of the chest If patient were to develop worsening hypoxia, consider CT chest without contrast Started on levofloxacin at the time of admission * Procalcitonin is negative * Will discontinue levofloxacin due to limited findings of pneumonia as well as new leukopenia which may be myelosuppression from the levofloxacin (4) Fecal incontinence: Awaiting results from stool for C. difficile Awaiting results from stool culture (5) Weakness: Patient with ambulatory dysfunction which is chronic Unsure if the weakness is worse than usual and if so whether is related to Covid PT/OT evaluations Patient may benefit from rehabilitation but would probably do well at home with home health and home therapies Continue to monitor (6) Polyneuropathy: No acute complaints Patient with no complaint No treatment at this time (7) Poor balance: Patient reports fall at home PT/OT evaluation completed Out of bed with assistance Patient will need physical therapy and Occupational Therapy at home or may benefit from rehab (8) Vertigo: Vestibular dysfunction Patient underwent physical therapy in February 2020 with canalith repositioning Patient reported this helped moderately For now continue meclizine Check orthostatic pressures Continue with physical therapy (9) Hypertension: Generally controlled Continue propanolol (10) DVT prophylaxis: Avoid aggressive anticoagulation for DVT prophylaxis as patient has fall history as well as ambulatory dysfunction Continue heparin subcu 5000 units every 8 hours Admission and Anticipated Discharge Date Admission Date: November 04, 2020 Subjective Attending: Dr. Lawrence Birch Patient states that she feels a little bit better today but continues with some dizziness and nausea. She had physical therapy and afterwards had lay down because she felt as though she was going to fall. She continues with periods of imbalance. She does not have classic vertigo with room spinning sensation but rather just feels "woozy and dizzy". She denies any fever or chills. Diarrhea has improved. She has no nausea or vomiting. She denies headache. She denies any other neurological symptoms. She has no other acute complaints. She does state that she does not feel as though she is ready to go home secondary to her nausea and persistent dizziness. Review of Systems Review of Systems: All systems reviewed & are unremarkable except as noted in Subjective Physical Exam Physical Exam: GENERAL : No acute distress EYES: No icterus, gaze conjugate. Extraocular movement intact. No nystagmus. NOSE: No evidence of epistaxis MOUTH: No lesions or candidiasis NECK: Supple LUNGS: CTA B/L, no wheezes, rales or rhonchi HEART: Regular, rate controlled ABDOMEN: Soft, NT, ND, BS Present EXTREMITIES: No LE edema, pedal pulses intact NEURO: A&OX3 Results & Data Results & Data ([facility]) Vital Signs (Past 12 Hours) Vital Signs Temp Pulse Resp BP Pulse Ox 11/04/20 11:12 37 C 60 18 112/79 97 11/04/20 07:28 37 C 51 L 16 104/68 95 11/04/20 04:42 36.9 C 57 L 16 102/70 96 Laboratory Results 11/04/20 06:19 11/04/20 06:19 Diagnostic Findings No new diagnostic images PG Care Time/CCT Total # of Minutes Spent Total Time Spent with Patient: Total time spent is greater than 50% in coordination of care (as documented) at patient's floor/unit and/or counseling patient:30 minutes Coding Level of Care Code 30086 Subseq Hosp Care Lvl 2 Diagnoses Leukopenia D72.819 COVID-19 virus infection U07.1 Pneumonia involving left lung J18.9 Fecal incontinence R15.9 Weakness R53.1 Polyneuropathy G62.9 Poor balance R26.89 Vertigo R42 Hypertension I10 DVT prophylaxis Z29.9 Time Spent (min) 30
[2020-11-05] MEDS: HEPARIN SOD 5,000 UNIT/0.5 ML VIAL SQ SCH ×3 (05:37→20:22)
[2020-11-05 07:55] LABS: Hemoglobin 12.4 g/dL (12.0-16.0); Mean Corpuscular Hemoglobin 31.2 pg (25-34); Mean Corpuscular Hgb Conc 32.6 g/dL (32-36); Mean Corpuscular Volume 95.5 fL (80-100); Mean Platelet Volume 11.2 fL (7.4-10.4); Platelet Count 176 K/uL (130-400); RDW Coefficient of Variation 14.1 % (11.5-14.5); RDW Standard Deviation 49.4 fL (36.4-46.3); Red Blood Count 3.98 M/uL (4.2-5.4); White Blood Count 3.52 K/uL (4.8-10.8)
[2020-11-05] MEDS: NSS + 20MEQ KCL 20 MEQ/1,000 ML BAG IV SCH (08:05)
[2020-11-05] MEDS: CYANOCOBALAMIN 500 MCG TABLET (VITAMIN B-12) PO SCH (08:06)
[2020-11-05] MEDS: ASPIRIN 81 MG ECTAB PO SCH (08:06)
[2020-11-05] MEDS: PROPRANOLOL HCL 60 MG LA CAP PO SCH (08:07)
[2020-11-05] MEDS: VENLAFAXINE HCL 50 MG TAB PO SCH (08:07)
[2020-11-05] MEDS: ATORVASTATIN 40 MG TAB PO SCH (08:07)
[2020-11-05] MEDS: PANTOprazole 40 MG TAB PO SCH (08:08)
[2020-11-05] MEDS: buPROPion SR 150 MG TABCR PO SCH ×2 (08:08→20:21)
[2020-11-05] MEDS: FAMOTIDINE 20 MG TAB PO SCH ×2 (08:10→20:21)
[2020-11-05 08:35] LABS: ALC (manual) 2.79 K/uL (1.2-3.4); ANC (manual) 0.63 K/uL (1.4-6.5); Basophils # (manual) 0.03 K/uL (0-0.2); Basophils % (manual) 0.9 %; Large Granular Lymph # (manua 1.39 K/uL; Large Granular Lymph % (manual) 39.6 %; Lymphocytes % (manual) 39.7 %; Monocytes # (manual) 0.06 K/uL (0.11-0.59); Monocytes % (manual) 1.8 %; Neutrophils # (manual) 0.63 K/uL (1.4-6.5)
[2020-11-05 09:04] LABS: BUN Creatinine Ratio 8.8 (10-20); Calcium 8.2 mg/dl (8.5-10.1); Est GFR (African American) 84.8; Est GFR (Non-African American) 73.1; Potassium 4.1 mmol/L (3.5-5.1)
--- NOTE | 2020-11-05 13:20 | Hospitalist Progress Note ---
Date of Service November 05, 2020 Assessment & Plan (1) COVID-19 virus infection: COVID-19 virus infection- Left lower lobe infiltrate may be an early beginning to a viral pneumonia, so will need to be watched closely. Most prominent symptoms at this point are that of generalized weakness and fatigue. Would hold on usual treatments of Decadron IV, convalescent plasma and remdesivir IV at this time she remains stable on room air, no increased work of breathing (2) Pneumonia involving left lung: no signs that this is bacterial, likely mild viral pneumonia Levaquin stopped due to leukopenia yesterday (3) Weakness: May be secondary to COVID-19 virus infection. Will rehydrate with IV fluids PT click score was 23, okay to go home still with light headed symptoms increase activty, OOB in chair BID, ambulate try for discharge tomorrow (4) Near syncope: Not a true neurologic event, more likely related to generalized weakness and fatigue (5) Hypothyroidism: TSH on 06/22/2020 was 17.00 with a normal free T4 of 1.28. (6) Hypertension: Continue propranolol extended release 60 mg daily and aspirin 81 mg daily (7) GERD (gastroesophageal reflux disease): Continue famotidine 20 mg twice daily and pantoprazole 40 mg daily (8) Hyperlipidemia: Continue to lovastatin 40 mg daily (9) Fecal incontinence: Single episode may be secondary to viral issues as noted above. If it comes more of an issue we will further address (10) Leukopenia: suspect it was either due to COVID or levofloxacin WBC and ANC is up slightly today Admission and Anticipated Discharge Date Admission Date: November 04, 2020 Subjective patient laying in bed, she says she is still weak and light headed when standing discussed that she did well with PT, ambulated 70 feet, click score was 23 she is eating fairly well, no dyspnea, no hypoxia, no fever she is fearful of going home today, wants to try therapy and being upright asked aide to get her in a chair BID, increase activity level try for d/c tomorrow labs today show leukopenia and neutropenia but a little better Cr and electrolytes stable Review of Systems Review of Systems: All systems reviewed & are unremarkable except as noted in Subjective Physical Exam Constitutional: WD/WN, vitals as above + obese; no acute distress Neck: trachea midline, no thyromegaly Respiratory: normal respiratory effort, lungs clear to auscultation Cardiovascular: RRR, no murmur, no edema Gastrointestinal (Abdomen): normal bowel sounds, soft, nontender, no hepatos plenomegaly Musculoskeletal: Head/Neck/Chest: normocephalic, head atraumatic and neck supple Extremities: extremities normal to inspection and + abnormal strength (generalized weakness) Skin: no rashes, warm and dry Neurologic: patellar DTR's 2+ bilat, sensation intact and PERRL, EOMI, accommodation nl, no face palsy, no dysarthria Psychiatric: A+Ox3, euthymic affect Lymphatic: no cervical or axillary lymphadenopathy Results & Data Results & Data ([facility]) Vital Signs (Past 12 Hours) Vital Signs Temp Pulse Resp BP Pulse Ox 11/05/20 07:16 36.7 C 63 17 125/85 94 Laboratory Results Laboratory Results - last 24 hr 11/05/20 11/05/20 05:56 05:56 WBC 3.52 L RBC 3.98 L Hgb 12.4 Hct 38.0 MCV 95.5 MCH 31.2 MCHC 32.6 RDW Std Deviation 49.4 H RDW Coeff of Yani 14.1 Plt Count 176 MPV 11.2 H Neutrophils % (Manual) 18.0 Lymphocytes % (Manual) 39.7 Monocytes % (Manual) 1.8 Basophils % (Manual) 0.9 Neutrophils # (Manual) 0.63 L Total Absolute Neuts 0.63 L* Lymphocytes # (Manual) 1.40 Total Abs Lymphocytes 2.79 Monocytes # (Manual) 0.06 L Basophils # (Manual) 0.03 Large Granular Lymphs 39.6 # Lrg Granular Lymphs 1.39 Sodium 140 Potassium 4.1 D Chloride 112 H Carbon Dioxide 23 Anion Gap 5.0 BUN 7 D Creatinine 0.80 Est Cr Clr Drug Dosing 63.0 Est GFR ( Amer) 84.8 Est GFR (Non-Af Amer) 73.1 BUN/Creatinine Ratio 8.8 L Glucose 71 Calcium 8.2 L Medications Administered Current Inpatient Medications Acetaminophen (Acetaminophen 325 Mg Tab) 650 mg PO Q6H PRN PRN Reason: Fever Or Pain Stop: 12/03/20 05:21 Last Admin: 11/03/20 18:52 Dose: 650 mg Documented by: Aspirin (Aspirin 81 Mg Ectab) 81 mg PO DAILY [facility] Stop: 12/03/20 08:59 Last Admin: 11/05/20 08:06 Dose: 81 mg Documented by: Atorvastatin Calcium (Atorvastatin 40 Mg Tab) 40 mg PO DAILY [facility] Stop: 12/03/20 08:59 Last Admin: 11/05/20 08:07 Dose: 40 mg Documented by: Bupropion HCl (Bupropion Sr 150 Mg Tabcr) 150 mg PO BID [facility] Stop: 12/03/20 08:59 Last Admin: 11/05/20 08:08 Dose: 150 mg Documented by: Cyanocobalamin (Cyanocobalamin 500 Mcg Tablet (Vitamin B-12)) 1,000 mcg PO DAILY [facility] Stop: 12/03/20 08:59 Last Admin: 11/05/20 08:06 Dose: 1,000 mcg Documented by: Famotidine (Famotidine 20 Mg Tab) 20 mg PO BID [facility] Stop: 12/03/20 08:59 Last Admin: 11/05/20 08:10 Dose: 20 mg Documented by: Heparin Sodium (Porcine) (Heparin Sod 5,000 Unit/0.5 Ml Vial) 5,000 units SQ Q8 RODRIGO Stop: 12/03/20 21:59 Last Admin: 11/05/20 05:37 Dose: 5,000 units Documented by: Meclizine HCl (Meclizine Hcl 25 Mg Tab) 25 mg PO TID PRN PRN Reason: dizziness Stop: 12/03/20 05:29 Last Admin: 11/03/20 12:37 Dose: 25 mg Documented by: Ondansetron HCl (Ondansetron 4 Mg Od Tab) 4 mg PO Q6H PRN PRN Reason: nausea and vomiting Stop: 12/03/20 05:37 Last Admin: 11/03/20 12:41 Dose: 4 mg Documented by: Pantoprazole Sodium (Pantoprazole 40 Mg Tab) 40 mg PO DAILY [facility] Stop: 12/03/20 08:59 Last Admin: 11/05/20 08:08 Dose: 40 mg Documented by: Propranolol HCl (Propranolol Hcl 60 Mg [place]) 60 mg PO DAILY [facility] Stop: 12/03/20 08:59 Last Admin: 11/05/20 08:07 Dose: 60 mg Documented by: Venlafaxine HCl (Venlafaxine Hcl 50 Mg Tab) 50 mg PO DAILY [facility] Stop: 12/03/20 08:59 Last Admin: 11/05/20 08:07 Dose: 50 mg Documented by: PG Care Time/CCT Total # of Minutes Spent Total Time Spent with Patient: Total time spent is greater than 50% in coordination of care (as documented) at patient's floor/unit and/or counseling patient: Coding Level of Care Code 45466 Subseq Hosp Care Lvl 2 Diagnoses COVID-19 virus infection U07.1 Pneumonia involving left lung J18.9 Weakness R53.1 Near syncope R55 Hypothyroidism E03.9 Hypertension I10 GERD (gastroesophageal reflux disease) K21.9 Hyperlipidemia E78.5 Fecal incontinence R15.9 Leukopenia D72.819
[2020-11-05] MEDS: ONDANSETRON 4 MG OD TAB PO PRN (20:19)
[2020-11-06] MEDS: HEPARIN SOD 5,000 UNIT/0.5 ML VIAL SQ SCH ×3 (05:28→22:15)
[2020-11-06] MEDS: ACETAMINOPHEN 325 MG TAB PO PRN (05:35)
[2020-11-06 07:19] LABS: Hematocrit (blood only) 37.5 % (37-47); Hemoglobin 12.6 g/dL (12.0-16.0); Mean Corpuscular Hemoglobin 31.7 pg (25-34); Mean Corpuscular Hgb Conc 33.6 g/dL (32-36); Mean Corpuscular Volume 94.2 fL (80-100); Mean Platelet Volume 11.6 fL (7.4-10.4); Platelet Count 178 K/uL (130-400); RDW Standard Deviation 47.9 fL (36.4-46.3); Red Blood Count 3.98 M/uL (4.2-5.4); White Blood Count 3.06 K/uL (4.8-10.8)
[2020-11-06 07:34] LABS: BUN Creatinine Ratio 9.6 (10-20); Calcium 8.2 mg/dl (8.5-10.1); Creatinine Clr Calc Pharmacy 68.2 ml/min; Est GFR (African American) 93.2; Est GFR (Non-African American) 80.4; Potassium 3.8 mmol/L (3.5-5.1)
[2020-11-06 08:13] LABS: ALC (manual) 2.35 K/uL (1.2-3.4); ANC (manual) 0.62 K/uL (1.4-6.5); Large Granular Lymph # (manua 1.11 K/uL; Large Granular Lymph % (manual) 36.3 %; Lymphocytes # (manual) 1.24 K/uL (1.2-3.4); Lymphocytes % (manual) 40.6 %; Monocytes # (manual) 0.08 K/uL (0.11-0.59); Monocytes % (manual) 2.7 %; Neutrophils # (manual) 0.62 K/uL (1.4-6.5); Neutrophils % (manual) 20.4 %
[2020-11-06] MEDS: buPROPion SR 150 MG TABCR PO SCH ×2 (08:47→22:13)
[2020-11-06] MEDS: VENLAFAXINE HCL 50 MG TAB PO SCH (08:48)
[2020-11-06] MEDS: PROPRANOLOL HCL 60 MG LA CAP PO SCH (08:48)
[2020-11-06] MEDS: CYANOCOBALAMIN 500 MCG TABLET (VITAMIN B-12) PO SCH (08:48)
[2020-11-06] MEDS: ATORVASTATIN 40 MG TAB PO SCH (08:48)
[2020-11-06] MEDS: PANTOprazole 40 MG TAB PO SCH (08:48)
[2020-11-06] MEDS: ASPIRIN 81 MG ECTAB PO SCH (08:48)
[2020-11-06] MEDS: FAMOTIDINE 20 MG TAB PO SCH ×2 (08:51→22:15)
[2020-11-06] MEDS: ONDANSETRON 4 MG OD TAB PO PRN ×2 (11:07→16:06)
--- NOTE | 2020-11-06 15:07 | Discharge Summary ---
Date of Service November 06, 2020 Admission HPI Per Admitting Provider The patient is a 75-year-old female who lives alone, with a past medical history including hypothyroidism, pyloric stenosis in adult, hiatal hernia, vertigo, gastroparesis, severe RISHI, adult situational stress disorder, hypertension, insomnia, mild cognitive impairment, multiple falls, polyneuropathy, poor balance, vitamin B12 deficiency, GERD, asthma, hyperlipidemia and constipation. Patient presents with symptoms as noted above. Patient is very concerned about being able to take care of herself at home with the significant fatigue and weakness that she is feeling. Work-up in the emergency department included the following abnormalities: Sodium 134, albumin 3.3, abnormal urinalysis. COVID-[address] positive. [address] scan of head without contrast was negative. CT of abdomen and pelvis showed a mild infiltrate in left lung base. Some fluid in the colon that may suggest diarrhea. Colonic diverticula without diverticulitis. Small hiatal hernia. Nonobstructive bowel gas pattern Discharge Exam Constitutional WD/WN, vitals as above + obese; no acute distress Neck trachea midline, no thyromegaly Respiratory normal respiratory effort, lungs clear to auscultation Cardiovascular RRR, no murmur, no edema Gastrointestinal (Abdomen) normal bowel sounds, soft, nontender, no hepatosplenomegaly Musculoskeletal Head/Neck/Chest: normocephalic, head atraumatic and neck supple Extremities: extremities normal to inspection and + abnormal strength (generalized weakness) Skin no rashes, warm and dry Neurologic patellar DTR's 2+ bilat, sensation intact and PERRL, EOMI, accommodation nl, no face palsy, no dysarthria Psychiatric A+Ox3, euthymic affect Lymphatic no cervical or axillary lymphadenopathy Discharge Data Allergies Allergy/AdvReac Type Severity Reaction Status Date / Time simvastatin Allergy Unknown MUSCLE Verified 11/03/20 02:53 WEAKNESS latex AdvReac Intermediate HIVES Verified 11/03/20 02:53 Consultations 11/03/20 03:26 ED Decision to Admit Stat 11/03/20 05:22 Consult Case Management - Discharge Planning Routine Ordered Studies 11/03/20 01:32 CT abd pelvis wo con Urgent CT cervical spine wo con Urgent CT head/brain wo con Urgent Hospital Course (1) COVID-19 virus infection: COVID-19 virus infection- Left lower lobe infiltrate may be an early beginning to a viral pneumonia, so will need to be watched closely. Most prominent symptoms at this point are that of generalized weakness and fatigue. Would hold on usual treatments of Decadron IV, convalescent plasma and remdesivir IV at this time she remains stable on room air, no increased work of breathing (2) Pneumonia involving left lung: no signs that this is bacterial, likely mild viral pneumonia Levaquin stopped due to leukopenia yesterday (3) Weakness: May be secondary to COVID-19 virus infection. Will rehydrate with IV fluids PT click score was 23, okay to go home still with light headed symptoms increase activty, OOB in chair BID, ambulate try for discharge tomorrow (4) Near syncope: Not a true neurologic event, more likely related to generalized weakness and fatigue (5) Hypothyroidism: TSH on 06/22/2020 was 17.00 with a normal free T4 of 1.28. (6) Hypertension: Continue propranolol extended release 60 mg daily and aspirin 81 mg daily (7) GERD (gastroesophageal reflux disease): Continue famotidine 20 mg twice daily and pantoprazole 40 mg daily (8) Hyperlipidemia: Continue to lovastatin 40 mg daily (9) Fecal incontinence: Single episode may be secondary to viral issues as noted above. If it comes more of an issue we will further address (10) Leukopenia: suspect it was either due to COVID or levofloxacin WBC and ANC is up slightly today Discharge Plan Discharge Items Patient Disposition: Home - Self-Care Reason For Visit: COVID 19 infection Discharge Diagnosis: COVID 19 infection Weakness Condition on Discharge: Good Goals: stay well nourished, well hydrated Activity: Resume your previous activity Weightbearing: Full weightbearing Non-emergency contact: Primary Care Provider Call non-emergency contact if: you have any medication questions, your symptoms worsen and you have a fever Follow-up/Referrals: Kareem Ponce MD [Primary Care Provider] - (1-2 weeks) Diet: Regular Addtl Attending Provider Instructions: Medications: no changes COVID 19 infection with weakness, fatigue, near syncope no evidence of severe infection, did not require steroids, plasma or Remdesivir you have been on room air entire visit, no fever, stable vitals stay well nourished, well hydrated increase activity level gradually Pending Studies at Discharge: No Stand-Alone Forms: My MM[facility], Smoking Cessation Medications and DC Order Prescriptions: Continued venlafaxine 50 mg tablet 50 mg PO DAILY Qty: 90 RF: 3 propranolol 60 mg capsule,extended release 24 hr 60 mg PO DAILY Qty: 90 RF: 3 famotidine [Pepcid] 20 mg tablet 20 mg PO BID Qty: 180 RF: 3 pantoprazole 40 mg tablet,delayed release (DR/EC) 40 mg PO DAILY Qty: 90 RF: 3 meclizine 25 mg tablet 25 mg PO TID PRN (Reason: dizziness) Qty: 30 RF: 0 bupropion HCl (smoking deter) 150 mg tablet extended release 12 hr 150 mg PO BID Qty: 60 RF: 5 atorvastatin 40 mg tablet 40 mg PO DAILY Qty: 90 RF: 3 ondansetron 4 mg tablet,disintegrating 4 mg PO Q6H PRN (Reason: nausea and vomiting) Qty: 14 RF: 0 acetaminophen 325 mg Tablet 325 - 650 mg PO Q6H PRN (Reason: Fever Or Pain) RF: 0 cyanocobalamin (vitamin B-12) [Vitamin B-12] 1,000 mcg Tablet 1,000 mcg PO DAILY RF: 0 polyethylene glycol 3350 [Miralax] 17 gram/dose Powder 17 g PO DAILY PRN (Reason: Constipation) RF: 0 aspirin 81 mg Tablet,Delayed Release (Dr/Ec) 81 mg PO DAILY RF: 0 Discharge Orders: Discharge Order (Routine); Ordered 11/06/20 Ordered By: Lawrence Birch Admission Data Admit Date/Time: 11/04/20 09:25 Attending Provider: Lawrence Birch Admit Provider: Leoncio Carter Primary Care Provider: Kareem Ponce Other Providers: Leoncio Carter Coding Diagnoses COVID-19 virus infection U07.1 Pneumonia involving left lung J18.9 Weakness R53.1 Near syncope R55 Hypothyroidism E03.9 Hypertension I10 GERD (gastroesophageal reflux disease) K21.9 Hyperlipidemia E78.5 Fecal incontinence R15.9 Leukopenia D72.819
--- NOTE | 2020-11-06 16:02 | Hospitalist Progress Note ---
Date of Service November 06, 2020 Assessment & Plan (1) COVID-19 virus infection: COVID-19 virus infection- Left lower lobe infiltrate may be an early beginning to a viral pneumonia, so will need to be watched closely. Most prominent symptoms at this point are that of generalized weakness and fatigue. Would hold on usual treatments of Decadron IV, convalescent plasma and remdesivir IV at this time she remains stable on room air for four days, no increased work of breathing stable for discharge, cannot go to personal [facility] until tomorrow due to staffing issue (2) Pneumonia involving left lung: no signs that this is bacterial, likely mild viral pneumonia Levaquin stopped due to leukopenia on room air entire admission (3) Weakness: May be secondary to COVID-19 virus infection. rehydrated with IV fluids, now euvolemic PT click score was 23, okay to go home to personal halfway still with light headed symptoms but this is chronic increase activty, OOB in chair BID, ambulate try for discharge tomorrow when personal halfway can accept (4) Near syncope: Not a true neurologic event, more likely related to generalized weakness and fatigue (5) Hypothyroidism: TSH on 06/22/2020 was 17.00 with a normal free T4 of 1.28. (6) Hypertension: Continue propranolol extended release 60 mg daily and aspirin 81 mg daily (7) GERD (gastroesophageal reflux disease): Continue famotidine 20 mg twice daily and pantoprazole 40 mg daily (8) Hyperlipidemia: Continue to lovastatin 40 mg daily (9) Fecal incontinence: Single episode may be secondary to viral issues as noted above. If it comes more of an issue we will further address (10) Leukopenia: suspect it was either due to COVID or levofloxacin WBC and ANC continue to rise past two days Admission and Anticipated Discharge Date Admission Date: November 04, 2020 Subjective patient doing better, eating well, OOB in a chair called her daughter to let her know she could be discharged she was going to take her but her personal [facility] has no staff today and patient does not have a baxter patient cannot get into personal halfway until tomorrow Review of Systems Review of Systems: All systems reviewed & are unremarkable except as noted in Subjective Constitutional: + weakness Cardiovascular: + lightheadedness (chronic issue) Neurologic: + unsteadiness (chronic issue) Physical Exam Constitutional: WD/WN, vitals as above + obese; no acute distress Neck: trachea midline, no thyromegaly Respiratory: normal respiratory effort, lungs clear to auscultation Cardiovascular: RRR, no murmur, no edema Gastrointestinal (Abdomen): normal bowel sounds, soft, nontender, no hepatosplenomegaly Musculoskeletal: Head/Neck/Chest: normocephalic, head atraumatic and neck supple Extremities: extremities normal to inspection and + abnormal strength (generalized weakness) Skin: no rashes, warm and dry Neurologic: patellar DTR's 2+ bilat, sensation intact and PERRL, EOMI, accommodation nl, no face palsy, no dysarthria Psychiatric: A+Ox3, euthymic affect Lymphatic: no cervical or axillary lymphadenopathy Results & Data Results & Data ([facility]) Vital Signs (Past 12 Hours) Vital Signs Temp Pulse Pulse Pulse Resp BP BP 11/06/20 15:46 36.6 C 58 L 67 61 20 108/77 121/75 11/06/20 15:16 36.6 C 67 20 121/75 11/06/20 09:39 11/06/20 08:53 11/06/20 07:50 11/06/20 07:30 37.4 C 64 18 130/69 11/06/20 06:09 Pulse Ox Pulse Ox 11/06/20 15:46 93 11/06/20 15:16 93 11/06/20 09:39 91 11/06/20 08:53 94 11/06/20 07:50 96 11/06/20 07:30 96 11/06/20 06:09 92 Laboratory Results Laboratory Results - last 24 hr 11/06/20 11/06/20 05:42 05:42 WBC 3.06 L RBC 3.98 L Hgb 12.6 Hct 37.5 MCV 94.2 MCH 31.7 MCHC 33.6 RDW Std Deviation 47.9 H RDW Coeff of Yani 14.0 Plt Count 178 MPV 11.6 H Neutrophils % (Manual) 20.4 Lymphocytes % (Manual) 40.6 Monocytes % (Manual) 2.7 Neutrophils # (Manual) 0.62 L Total Absolute Neuts 0.62 L* Lymphocytes # (Manual) 1.24 Total Abs Lymphocytes 2.35 Monocytes # (Manual) 0.08 L Large Granular Lymphs 36.3 # Lrg Granular Lymphs 1.11 Sodium 134 L Potassium 3.8 Chloride 106 Carbon Dioxide 23 Anion Gap 5.0 BUN 7 Creatinine 0.74 Est Cr Clr Drug Dosing 68.2 Est GFR ( Amer) 93.2 Est GFR (Non-Af Amer) 80.4 BUN/Creatinine Ratio 9.6 L Glucose 79 Calcium 8.2 L Medications Administered Current Inpatient Medications Acetaminophen (Acetaminophen 325 Mg Tab) 650 mg PO Q6H PRN PRN Reason: Fever Or Pain Stop: 12/03/20 05:21 Last Admin: 11/06/20 05:35 Dose: 650 mg Documented by: Aspirin (Aspirin 81 Mg Ectab) 81 mg PO DAILY [facility] Stop: 12/03/20 08:59 Last Admin: 11/06/20 08:48 Dose: 81 mg Documented by: Atorvastatin Calcium (Atorvastatin 40 Mg Tab) 40 mg PO DAILY [facility] Stop: 12/03/20 08:59 Last Admin: 11/06/20 08:48 Dose: 40 mg Documented by: Bupropion HCl (Bupropion Sr 150 Mg Tabcr) 150 mg PO BID [facility] Stop: 12/03/20 08:59 Last Admin: 11/06/20 08:47 Dose: 150 mg Documented by: Cyanocobalamin (Cyanocobalamin 500 Mcg Tablet (Vitamin B-12)) 1,000 mcg PO DAILY [facility] Stop: 12/03/20 08:59 Last Admin: 11/06/20 08:48 Dose: 1,000 mcg Documented by: Famotidine (Famotidine 20 Mg Tab) 20 mg PO BID [facility] Stop: 12/03/20 08:59 Last Admin: 11/06/20 08:51 Dose: 20 mg Documented by: Heparin Sodium (Porcine) (Heparin Sod 5,000 Unit/0.5 Ml Vial) 5,000 units SQ Q8 [facility]IGO Stop: 12/03/20 21:59 Last Admin: 11/06/20 13:49 Dose: 5,000 units Documented by: Meclizine HCl (Meclizine Hcl 25 Mg Tab) 25 mg PO TID PRN PRN Reason: dizziness Stop: 12/03/20 05:29 Last Admin: 11/03/20 12:37 Dose: 25 mg Documented by: Ondansetron HCl (Ondansetron 4 Mg Od Tab) 4 mg PO Q6H PRN PRN Reason: nausea and vomiting Stop: 12/03/20 05:37 Last Admin: 11/06/20 16:06 Dose: 4 mg Documented by: Pantoprazole Sodium (Pantoprazole 40 Mg Tab) 40 mg PO DAILY [facility] Stop: 12/03/20 08:59 Last Admin: 11/06/20 08:48 Dose: 40 mg Documented by: Propranolol HCl (Propranolol Hcl 60 Mg [place]) 60 mg PO DAILY [facility] Stop: 12/03/20 08:59 Last Admin: 11/06/20 08:48 Dose: 60 mg Documented by: Venlafaxine HCl (Venlafaxine Hcl 50 Mg Tab) 50 mg PO DAILY [facility] Stop: 12/03/20 08:59 Last Admin: 11/06/20 08:48 Dose: 50 mg Documented by: PG Care Time/CCT Total # of Minutes Spent Total Time Spent with Patient: Total time spent is greater than 50% in coordination of care (as documented) at patient's floor/unit and/or counseling patient: Coding Level of Care Code 24351 Subseq Hosp Care Lvl 2 Diagnoses COVID-19 virus infection U07.1 Pneumonia involving left lung J18.9 Weakness R53.1 Near syncope R55 Hypothyroidism E03.9 Hypertension I10 GERD (gastroesophageal reflux disease) K21.9 Hyperlipidemia E78.5 Fecal incontinence R15.9 Leukopenia D72.819
[2020-11-07] MEDS: HEPARIN SOD 5,000 UNIT/0.5 ML VIAL SQ SCH ×3 (05:35→20:19)
[2020-11-07 07:30] LABS: Hematocrit (blood only) 38.1 % (37-47); Hemoglobin 12.6 g/dL (12.0-16.0); Mean Corpuscular Hgb Conc 33.1 g/dL (32-36); Mean Corpuscular Volume 93.8 fL (80-100); Platelet Count 168 K/uL (130-400); RDW Coefficient of Variation 13.9 % (11.5-14.5); Red Blood Count 4.06 M/uL (4.2-5.4); White Blood Count 2.91 K/uL (4.8-10.8)
[2020-11-07 08:10] LABS: BUN Creatinine Ratio 10.5 (10-20); Calcium 8.5 mg/dl (8.5-10.1); Creatinine Clr Calc Pharmacy 66.4 ml/min; Est GFR (African American) 90.2; Est GFR (Non-African American) 77.8; Potassium 3.7 mmol/L (3.5-5.1)
[2020-11-07 08:23] LABS: ALC (manual) 1.76 K/uL (1.2-3.4); ANC (manual) 1.02 K/uL (1.4-6.5); Large Granular Lymph # (manua 1.33 K/uL; Large Granular Lymph % (manual) 45.6 %; Lymphocytes # (manual) 0.43 K/uL (1.2-3.4); Lymphocytes % (manual) 14.9 %; Monocytes # (manual) 0.13 K/uL (0.11-0.59); Monocytes % (manual) 4.4 %; Neutrophils # (manual) 1.02 K/uL (1.4-6.5); Neutrophils % (manual) 35.1 %
[2020-11-07] MEDS: ASPIRIN 81 MG ECTAB PO SCH (09:18)
[2020-11-07] MEDS: CYANOCOBALAMIN 500 MCG TABLET (VITAMIN B-12) PO SCH (09:18)
[2020-11-07] MEDS: FAMOTIDINE 20 MG TAB PO SCH ×2 (09:18→20:19)
[2020-11-07] MEDS: VENLAFAXINE HCL 50 MG TAB PO SCH (09:18)
[2020-11-07] MEDS: PANTOprazole 40 MG TAB PO SCH (09:18)
[2020-11-07] MEDS: ATORVASTATIN 40 MG TAB PO SCH (09:18)
[2020-11-07] MEDS: buPROPion SR 150 MG TABCR PO SCH ×2 (09:18→20:19)
[2020-11-07] MEDS: PROPRANOLOL HCL 60 MG LA CAP PO SCH (09:18)
[2020-11-07] MEDS: ONDANSETRON 4 MG OD TAB PO PRN (09:23)
--- NOTE | 2020-11-07 13:00 | XRay Report ---
XR KUB/Abdomen 1 view CLINICAL HISTORY: Nausea, decreased bowel sounds, COVID-19 COMPARISON STUDY: 12/20/2018 FINDINGS: There are surgical clips in the right upper quadrant consistent with a prior cholecystectom y. There is no pathologic bowel dilatation. There are scattered pelvic basin calcifications, likely r epresenting phleboliths. There is borderline elevation of the right hemidiaphragm. IMPRESSION: Nonobstructive bowel gas pattern. ACT 112: Negative or not required by law. Electronically signed by: Jamison Murillo M.D. 11/07/2020 12:59 PM
--- NOTE | 2020-11-07 17:46 | Hospitalist Progress Note ---
Date of Service November 07, 2020 Assessment & Plan (1) Leukopenia: Patient with leukopenia and now with decreased absolute neutrophil count Repeat CBC with differential daily Patient currently with negative procalcitonin Levofloxacin was discontinued in the event that it was causing myelosuppression Neutrophil count has increased and patient is not neutropenic. We will continue to follow as an outpatient until labs are normalized (2) COVID-19 virus infection: Admitted 11/03/2020 with weakness and fatigue Asymptomatic Patient continues to maintain adequate SaO2 without supplemental oxygen Covid positive test on 11/03/2020 Patient with no hypoxia and no other major symptoms No remdesivir, steroids, convalescent plasma given Plan is to discharge patient back home tomorrow and continue quarantine until 18 November (3) Pneumonia involving left lung: This looks to be scarring versus atelectasis and appears to be per previous chest x-ray. Patient has no prior history of CT scan of the chest Started on levofloxacin at the time of admission * Procalcitonin is negative * Developed neutropenia * Discontinued levofloxacin due to limited findings of pneumonia as well as leukopenia which may be myelosuppression from the levofloxacin * No indication for further antibiotics (4) Fecal incontinence: Stool negative for C. difficile Negative stool culture (5) Weakness: Patient with ambulatory dysfunction which is chronic Unsure if the weakness is worse than usual and if so whether is related to Covid PT/OT evaluations completed * Discharge home with physical therapy recommended Plan on discharge home 11/08/2020 Appreciate case management's help with discharge coordination (6) Polyneuropathy: Patient with no complaint No treatment at this time Continue ambulation as tolerated (7) Poor balance: Patient reports fall at home PT/OT evaluation completed Out of bed with assistance Patient will need physical therapy and Occupational Therapy at home (8) Vertigo: Vestibular dysfunction Patient underwent physical therapy in February 2020 with canalith repositioning Patient reported this helped moderately For now continue meclizine Orthostatic pressures checked with no significant change in heart rate. HR:SBP: lying 62:118, sitting 64:139, standing 72:106 Continue with physical therapy on discharge (9) Hypertension: Generally controlled Continue propanolol (10) DVT prophylaxis: Avoid aggressive anticoagulation for DVT prophylaxis as patient has fall history as well as ambulatory dysfunction Continue heparin subcu 5000 units every 8 hours while inpatient. No indication for AC on discharge Admission and Anticipated Discharge Date Admission Date: November 04, 2020 Supervising Physician Co-Signing Physician Notes PA Supervision Note: I did not personally see or examine the patient today, but I verified all baxter points of ROSA Torrez's assessment and plan with the following exceptions/additions: None Subjective Attending: Dr. Hilda Whitten Patient seen and examined at bedside. She is complaining of nausea for the last 2 days. She has received some Zofran with limited effect. She has had no vomiting. She also has had no further diarrhea. Patient is afebrile. She continues to oxygenate well on room air. Her only complaint is ongoing nausea. Review of Systems Review of Systems: All systems reviewed & are unremarkable except as noted in Subjective Physical Exam Physical Exam: GENERAL : No acute distress EYES: No icterus, gaze conjugate NOSE: No evidence of epistaxis MOUTH: No lesions or candidiasis NECK: Supple LUNGS: CTA B/L, no wheezes, rales or rhonchi HEART: Regular, rate controlled ABDOMEN: Soft, NT, ND, BS Present but quiet, especially in the right upper quadrant. There is no rebound, guarding or pain to palpation EXTREMITIES: No LE edema, pedal pulses intact NEURO: A&OX3 Results & Data Results & Data ([facility]) Vital Signs (Past 12 Hours) Vital Signs Temp Pulse Resp BP BP Pulse Ox Pulse Ox 11/07/20 15:31 37.2 C 60 16 103/69 91 11/07/20 08:05 36.9 C 64 16 127/83 90 11/07/20 08:00 36.9 C 64 16 127/83 93 11/07/20 07:40 90 Laboratory Results 11/07/20 05:36 11/07/20 05:36 Diagnostic Findings XR KUB/Abdomen 1 view CLINICAL HISTORY: Nausea, decreased bowel sounds, COVID-19 COMPARISON STUDY: 12/20/2018 FINDINGS: There are surgical clips in the right upper quadrant consistent with a prior cholecystectomy. There is no pathologic bowel dilatation. There are scattered pelvic basin calcifications, likely representing phleboliths. There is borderline elevation of the right hemidiaphragm. IMPRESSION: Nonobstructive bowel gas pattern. Electronically signed by: Jamison Murillo M.D. 11/07/2020 12:59 PM PG Care Time/CCT Total # of Minutes Spent Total Time Spent with Patient: Total time spent is greater than 50% in coordination of care (as documented) at patient's floor/unit and/or counseling patient:25 minutes Coding Level of Care Code 41542 Subseq Hosp Care Lvl 2 Diagnoses Leukopenia D72.819 COVID-19 virus infection U07.1 Pneumonia involving left lung J18.9 Fecal incontinence R15.9 Weakness R53.1 Polyneuropathy G62.9 Poor balance R26.89 Vertigo R42 Hypertension I10 DVT prophylaxis Z29.9 Time Spent (min) 25
[2020-11-08] MEDS: HEPARIN SOD 5,000 UNIT/0.5 ML VIAL SQ SCH (06:13)
[2020-11-08] MEDS: buPROPion SR 150 MG TABCR PO SCH (07:53)
[2020-11-08] MEDS: ASPIRIN 81 MG ECTAB PO SCH (07:54)
[2020-11-08] MEDS: PANTOprazole 40 MG TAB PO SCH (07:54)
[2020-11-08] MEDS: VENLAFAXINE HCL 50 MG TAB PO SCH (07:54)
[2020-11-08] MEDS: PROPRANOLOL HCL 60 MG LA CAP PO SCH (07:54)
[2020-11-08] MEDS: CYANOCOBALAMIN 500 MCG TABLET (VITAMIN B-12) PO SCH (07:54)
[2020-11-08] MEDS: ATORVASTATIN 40 MG TAB PO SCH (07:55)
[2020-11-08] MEDS: FAMOTIDINE 20 MG TAB PO SCH (07:55)
[2020-11-08] MEDS: ACETAMINOPHEN 325 MG TAB PO PRN (10:52)
[2020-11-08] MEDS: ONDANSETRON 4 MG OD TAB PO PRN (10:52)
--- NOTE | 2020-11-08 20:13 | Discharge Summary ---
Date of Service November 08, 2020 Admission HPI Per Admitting Provider Chief Complaint: Patient presents to the emergency department with complaint of generalized weakness, fatigue, occasional shortness of breath and an episode of bowel incontinence earlier this evening. Primary Care Provider: Kareem Ponce MD The patient is a 75-year-old female who lives alone, with a past medical history including hypothyroidism, pyloric stenosis in adult, hiatal hernia, vertigo, gastroparesis, severe RISHI, adult situational stress disorder, hypertension, insomnia, mild cognitive impairment, multiple falls, polyneuropathy, poor balance, vitamin B12 deficiency, GERD, asthma, hyperlipidemia and constipation. Patient presents with symptoms as noted above. Patient is very concerned about being able to take care of herself at home with the significant fatigue and weakness that she is feeling. Work-up in the emergency department included the following abnormalities: Sodium 134, albumin 3.3, abnormal urinalysis. COVID-[address] scan of head without contrast was negative. CT of abdomen and pelvis showed a mild infiltrate in left lung base. Some fluid in the colon that may suggest diarrhea. Colonic diverticula without diverticulitis. Small hiatal hernia. Nonobstructive bowel gas pattern Principal Diagnosis COVID-19, Gastroenteritis, Generalized weakness Discharge Exam Constitutional WD/WN, vitals as above Eyes + anicteric sclerae Neck trachea midline, no thyromegaly Respiratory normal respiratory effort, lungs clear to auscultation Cardiovascular RRR, no murmur, no edema Chest (Breasts) Chest: normal inspection of chest Gastrointestinal (Abdomen) normal bowel sounds, soft, nontender, no hepatosplenomegaly Musculoskeletal Extremities: extremities normal to inspection; no cyanosis and no clubbing Skin no rashes, warm and dry Neurologic moves all extremities and awake; no focal motor deficits Psychiatric A+Ox3, euthymic affect Lymphatic no lymphedema Discharge Data Allergies Allergy/AdvReac Type Severity Reaction Status Date / Time simvastatin Allergy Unknown MUSCLE Verified 11/03/20 02:53 WEAKNESS latex AdvReac Intermediate HIVES Verified 11/03/20 02:53 Consultations 11/03/20 03:26 ED Decision to Admit Stat 11/03/20 05:22 Consult Case Management - Discharge Planning Routine Ordered Studies 11/03/20 01:32 CT abd pelvis wo con Urgent CT cervical spine wo con Urgent CT head/brain wo con Urgent CXR x 2 KUB Hospital Course (1) COVID-19 virus infection: COVID-19 virus infection- Left lower lobe infiltrate may be an early beginning to a COVID-19 pneumonia, so will need to be watched closely. Her POx was stable on room air throughout her stay Most prominent symptoms at this point are that of generalized weakness and fatigue which have improved Did not meet criteria for severe COVID so did not receive Decadron IV, convalescent plasma and remdesivir IV Is tolerating a diet and able to ambulate 100 feet with rolling walker with PT yesterday Can return to [facility] today (2) Leukopenia: suspect it was either due to COVID or levofloxacin WBC and ANC continue to rise (3) Pneumonia involving left lung: COVID-19 Pneumonia Levaquin stopped due to leukopenia and not bacterial PNA on room air entire admission (4) Fecal incontinence: Single episode may be secondary to viral issues as noted above. If it comes more of an issue we will further address (5) Weakness: May be secondary to COVID-19 virus infection. rehydrated with IV fluids, now euvolemic PT click score was 23, okay to go home to [facility] still with light headed symptoms but this is chronic Improved, can dc to [facility] (6) Polyneuropathy: stable (7) Poor balance: (8) Vertigo: chronic (9) Hypertension: Continue propranolol extended release 60 mg daily and aspirin 81 mg daily Total Time Total Time Spent Total Time Spent (In Minutes): 35 min Total Time Includes: Examination of the Patient, Discharge Planning and Medication Reconciliation Discharge Plan Discharge Items Patient Disposition: Home - Home Health Services Reason For Visit: COVID 19 infection Discharge Diagnosis: COVID 19 infection Weakness Condition on Discharge: Good Goals: stay well nourished, well hydrated Activity: Resume your previous activity Lifting: Gradually increase as tolerated Bathing: No limitations Exercise/Sports: Gradually increase as tolerated Weightbearing: Full weightbearing Non-emergency contact: Primary Care Provider Call non-emergency contact if: you have any medication questions, your symptoms worsen and you have a fever Follow-up/Referrals: Kareem Ponce MD [Primary Care Provider] - 11/11/20 11:00 am (1-2 weeks TELEHEALTH APPT WITH DR Christiano PONCE) Diet: Regular Addtl Attending Provider Instructions: Medications: no changes COVID 19 infection with weakness, fatigue, near syncope no evidence of severe infection, did not require steroids, plasma or Remdesivir you have been on room air entire visit, no fever, stable vitals stay well nourished, well hydrated increase activity level gradually You can take Zofran (ondansetron) as needed for nausea and tylenol as needed for headache Please follow up with Dr. Ponce regarding your dizziness. Your blood pressure was well controlled and you had no drops in blood pressure (orthostatic hypotension). You may require more physical therapy with head tilt procedures. Pending Studies at Discharge: No Stand-Alone Forms: My [facility] Medications and DC Order Prescriptions: Continued venlafaxine 50 mg tablet 50 mg PO DAILY Qty: 90 RF: 3 propranolol 60 mg capsule,extended release 24 hr 60 mg PO DAILY Qty: 90 RF: 3 famotidine [Pepcid] 20 mg tablet 20 mg PO BID Qty: 180 RF: 3 pantoprazole 40 mg tablet,delayed release (DR/EC) 40 mg PO DAILY Qty: 90 RF: 3 meclizine 25 mg tablet 25 mg PO TID PRN (Reason: dizziness) Qty: 30 RF: 0 bupropion HCl (smoking deter) 150 mg tablet extended release 12 hr 150 mg PO BID Qty: 60 RF: 5 atorvastatin 40 mg tablet 40 mg PO DAILY Qty: 90 RF: 3 acetaminophen 325 mg Tablet 325 - 650 mg PO Q6H PRN (Reason: Fever Or Pain) RF: 0 polyethylene glycol 3350 [Miralax] 17 gram/dose Powder 17 g PO DAILY PRN (Reason: Constipation) RF: 0 aspirin 81 mg Tablet,Delayed Release (Dr/Ec) 81 mg PO DAILY RF: 0 ondansetron 4 mg tablet,disintegrating 4 mg PO Q6H PRN (Reason: nausea and vomiting) Qty: 14 RF: 0 Discharge Orders: Discharge Order (Routine); Ordered 11/08/20 Ordered By: Britton Jaeger/Other Patient Handouts: 2019-nCoV, COVID-19 Prevention, COVID-19 Home Care Admission Data Admit Date/Time: 11/04/20 09:25 Attending Provider: Hilda Whitten Admit Provider: Leoncio Carter Primary Care Provider: Kareem Ponce Other Providers: Leoncio Carter ; Zachary,Home Health Other Interventions: Discharge Summary Assessment (RN) Last Done: 11/08/20 10:10 Coding Level of Care Code D/C Day Management >30 mins Diagnoses COVID-19 virus infection U07.1 Leukopenia D72.819 Pneumonia involving left lung J18.9 Fecal incontinence R15.9 Weakness R53.1 Polyneuropathy G62.9 Poor balance R26.89 Vertigo R42 Hypertension I10
== END 2020-11-08 12:00 | disposition home health service (06) | DRG 177 ==
LOC: EDINP 01:10 → ED 01:10 → SUATTDRO 04:20 → 3E 06:30 → SUATTDRO 11-04 09:25

== ENCOUNTER 2020-11-14 18:32 | Observation (INO) ==
[2020-11-14] MEDS ORDERED: SODIUM CHLORIDE 0.9% 1000ML 1,000 ML IV SCH (19:00)
--- NOTE | 2020-11-14 19:10 | Emergency Department Note ---
History of Present Illness General Chief complaint: Illness Stated complaint: DIZZY, DIARRHEA, WEAK, FATIGUE, COVID + Time Seen by Provider: 11/14/20 18:33 Source: patient and EMS Mode of arrival: EMS Limitations: no limitations History of Present Illness Provider complaint: Weakness, diarrhea, pneumonia, coronavirus Onset (ago): week(s) Severity: moderate Associated symptoms: + loss of appetite, + malaise, + nausea/vomiting and + weakness; no fever/chills Treatments prior to arrival: none This is a 75-year-old female brought in by EMS due to increased weakness and diarrhea secondary to recent coronavirus and pneumonia. Per EMS patient was recently discharged after being hospitalized for coronavirus with secondary pneumonia. Patient is currently taking antibiotics. Patient called 911 after being too weak to get up off the floor in the bathroom when she was concerned she was going to pass out. Patient states she has had increased weakness over the last several days. Patient states she has had difficulty eating and drinking she does not have a normal appetite, denies any overt vomiting. Patient denies fevers or chills. Patient states she is taking antibiotics but does not recall which one. Patient states she has had a persistent nonproductive cough, however is not short of breath. Patient states she has had 4-5 episodes of diarrhea per day, denies noting any blood. Patient states today she did feel weak and briefly passed out onto the living room floor which is carpeted. Patient denies hitting her head. Patient states she woke up and slowly crawled into the bathroom she felt she needed to have another bowel movement. Patient states while in the bathroom she felt persistently weak so she lowered herself to the floor so as to not pass out again. Patient denies any current headaches, or dizziness. Patient states she feels very weak and tired. Patient states she does take a baby aspirin daily however no other blood thinners. EMS states initial room air sats were 90-91, so she was placed on nasal cannula 2 L/min. EMS reported initial blood pressure was slightly low with a systolic of 100, however repeat was back to normal with a systolic of 140. No fluids were given in route to ER. Initial BP 88/51. Pt seen during a time of high acuity and national emergency pandemic while wearing PPE. Home Medications Medication Instructions Recorded Confirmed Type acetaminophen 325 - 650 mg PO Q6H PRN 12/20/18 11/14/20 History polyethylene glycol 3350 [Miralax] 17 g PO DAILY PRN 12/20/18 11/14/20 History famotidine 20 mg tablet 20 mg PO BID #180 tab 12/22/19 11/14/20 Rx propranolol 60 mg capsule,24 60 mg PO DAILY #90 cap 12/22/19 11/14/20 Rx hr,extended release venlafaxine 50 mg tablet 50 mg PO DAILY #90 tab 12/22/19 11/14/20 Rx pantoprazole 40 mg tablet,delayed 40 mg PO DAILY #90 tab 02/09/20 11/14/20 Rx release meclizine 25 mg tablet 25 mg PO TID PRN #30 tab 04/06/20 11/14/20 Rx bupropion HCl (smoking deter) 150 150 mg PO BID #60 tab 04/20/20 11/14/20 Rx mg tablet,12 hr sustained-release(smoking deterrent) atorvastatin 40 mg tablet 40 mg PO DAILY #90 tab 10/03/20 11/14/20 Rx aspirin 81 mg PO DAILY 11/03/20 11/14/20 History ondansetron 4 mg PO Q6H PRN #14 tab 11/08/20 11/14/20 Rx Allergies Allergy/AdvReac Type Severity Reaction Status Date / Time simvastatin Allergy Unknown MUSCLE Verified 11/03/20 02:53 WEAKNESS latex AdvReac Intermediate HIVES Verified 11/03/20 02:53 Past Med/Surg History Medical History Chest pain Constipation Depression Hypothyroidism Nausea & vomiting Near syncope Surgical History History of esophagogastroduodenoscopy (EGD) S/P arthroscopy of knee S/P cholecystectomy S/P colonoscopy S/P hysterectomy Status post Agatha fundoplication 05/2011 Dr. Ivey- Esophagogastric fundoplasty agatha fundoplication Family History Mother Cardiac disorder Myocardial infarction Aunt Cancer Uncle Cancer Cardiac disorder Myocardial infarction Other Family history non-contributory Denies family history of Ovarian cancer Prostate cancer Breast cancer Colorectal cancer Social History (Reviewed 11/14/20 @ 19:09 by ANGUS Travis Smoking Status: Never smoker Second Hand Exposure: No; Hx Alcohol Use: No Hx Substance Use: No Preferred Language: Ghanaian Communication Ability: Effective Visual Impairment: No Limitations Hearing Ability: Normal Rental Car Deliverer Required: No Beliefs That Will Affect Care: None Current Living Situation: Personal Care Facility Current Living Situation Comment: [facility] current occupational status: retired Feels Safe at Home: Yes Childhood Exposure to Second-Hand Smoke: Yes caffeine: No during the past year weight has: remained stable Dental Care, Regularly: No Physical Activity Frequency: Does not Exercise Seatbelt Use: always Sunscreen Use: No Assistive Devices: None Review of Systems See HPI for pertinent positives & negatives. and A total of 10 systems reviewed and were otherwise negative Physical Exam Vital Signs Vital Signs - 24 hr 11/14/20 19:14 11/14/20 19:25 11/14/20 19:30 Temperature 36.6 C Temperature Source Oral Pulse Rate 90 Pulse Rate [Apical] Pulse Rhythm Regular Pulse Rhythm [Apical] Pulse Strength Normal Pulse Strength [Apical] Respiratory Rate 20 20 20 Respiratory Effort / Characteristics Non-Labored Non-Labored Non-Labored Spontaneous Respiratory Depth Normal Respiratory Pattern Blood Pressure 98/50 L Blood Pressure [Right Arm] Blood Pressure Mean 66 Blood Pressure Mean [Right Arm] Blood Pressure Position Lying Blood Pressure Position [Right Arm] Pulse Oximetry 93 98 98 Oxygen Delivery Method Room Air Nasal Cannula Nasal Cannula Oxygen Flow Rate 2 2 Sepsis Recent Fever Within 48 Hours No Sepsis New/Unexplained Change in Mental Status No Sepsis Action Taken by Nursing No Action Required 11/14/20 20:30 11/14/20 20:57 11/14/20 21:31 Temperature Temperature Source Pulse Rate Pulse Rate [Apical] 89 94 H 88 Pulse Rhythm Pulse Rhythm [Apical] Regular Regular Regular Pulse Strength Pulse Strength [Apical] Normal Normal Normal Respiratory Rate 20 18 20 Respiratory Effort / Characteristics Non-Labored Non-Labored Non-Labored Respiratory Depth Normal Normal Normal Respiratory Pattern Regular Regular Regular Blood Pressure Blood Pressure [Right Arm] 111/58 L 108/76 114/78 Blood Pressure Mean Blood Pressure Mean [Right Arm] 75 86 90 Blood Pressure Position Blood Pressure Position [Right Arm] Lying Lying Lying Pulse Oximetry 97 98 99 Oxygen Delivery Method Nasal Cannula Nasal Cannula Nasal Cannula Oxygen Flow Rate 2 2 2 Sepsis Recent Fever Within 48 Hours Sepsis New/Unexplained Change in Mental Status Sepsis Action Taken by Nursing 11/14/20 22:30 11/14/20 22:47 11/14/20 22:48 Temperature Temperature Source Pulse Rate Pulse Rate [Apical] 87 Pulse Rhythm Pulse Rhythm [Apical] Regular Pulse Strength Pulse Strength [Apical] Normal Respiratory Rate 20 18 18 Respiratory Effort / Characteristics Non-Labored Spontaneous Non-Labored Spontaneous Non-Labored Spontaneous Respiratory Depth Normal Respiratory Pattern Blood Pressure Blood Pressure [Right Arm] 134/95 Blood Pressure Mean Blood Pressure Mean [Right Arm] 108 Blood Pressure Position Blood Pressure Position [Right Arm] Lying Pulse Oximetry 99 94 94 Oxygen Delivery Method Nasal Cannula Room Air Room Air Oxygen Flow Rate 2 Sepsis Recent Fever Within 48 Hours Sepsis New/Unexplained Change in Mental Status Sepsis Action Taken by Nursing 11/14/20 23:00 11/14/20 23:32 Temperature Temperature Source Pulse Rate Pulse Rate [Apical] 90 88 Pulse Rhythm Pulse Rhythm [Apical] Regular Regular Pulse Strength Pulse Strength [Apical] Normal Normal Respiratory Rate 18 20 Respiratory Effort / Characteristics Non-Labored Non-Labored Spontaneous Respiratory Depth Normal Normal Respiratory Pattern Blood Pressure Blood Pressure [Right Arm] 134/95 Blood Pressure Mean Blood Pressure Mean [Right Arm] 108 Blood Pressure Position Blood Pressure Position [Right Arm] Pulse Oximetry 91 93 Oxygen Delivery Method Room Air Room Air Oxygen Flow Rate Sepsis Recent Fever Within 48 Hours Sepsis New/Unexplained Change in Mental Status Sepsis Action Taken by Nursing GENERAL: alert, ill appearing, well nourished, no distress, non-toxic, nasal cannula placed by EMS EYE EXAM: normal conjunctiva, PERRL and EOM's grossly intact OROPHARYNX: no exudate, no erythema, lips, buccal mucosa, and tongue normal and mucous membranes are moist NECK: supple, no nuchal rigidity, no adenopathy, non-tender LUNGS: Clear to auscultation. Normal chest wall mechanics, no w/r/r HEART: no murmurs, S1 normal and S2 normal ABDOMEN: abdomen soft, non-tender, normo-active bowel sounds, no masses, no rebound or guarding. BACK: Back is symmetrical on inspection and there is no deformity, no midline tenderness, no CVA tenderness. SKIN: no rashes and no bruising, no petechiae, slightly pale UPPER EXTREMITIES: upper extremities are grossly normal. FROM, nml pulses b/l. LOWER EXTREMITIES: No pitting edema. FROM, nml pulses b/l. NEURO EXAM: Normal sensorium, cranial nerves II-XII grossly intact, normal speech, no gross weakness of arms, no gross weakness of legs. Gross sensation intact. Course Course 2210: Patient states she feels slightly improved with IV fluid rehydration, although still feels weak and is concerned about going home alone. Patient states she still has no appetite or desire to eat. BP 101/58, oxygen weaned and pt hold at 92%. 2247: Discussed with Dr. Carter. Blood pressure improved. Patient did tolerate oral potassium repletion. UA still pending. Administered Medications Acetaminophen (Acetaminophen 325 Mg Tab) 650 mg PO Q4H PRN PRN Reason: Pain or Fever Stop: 12/15/20 02:23 Last Admin: 11/15/20 16:27 Dose: 650 mg Documented by: [id number] Aspirin (Aspirin 81 Mg Ectab) 81 mg PO DAILY [facility] Stop: 12/15/20 08:59 Last Admin: 11/15/20 08:41 Dose: 81 mg Documented by: [id number] Atorvastatin Calcium (Atorvastatin 40 Mg Tab) 40 mg PO DAILY [facility] Stop: 12/15/20 08:59 Last Admin: 11/15/20 08:42 Dose: 40 mg Documented by: [id number] Bupropion HCl (Bupropion Sr 150 Mg Tabcr) 150 mg PO BID [facility] Stop: 12/15/20 08:59 Last Admin: 11/15/20 08:41 Dose: 150 mg Documented by: [id number] Famotidine (Famotidine 20 Mg Tab) 20 mg PO BID [facility] Stop: 12/15/20 02:23 Last Admin: 11/15/20 08:41 Dose: 20 mg Documented by: [id number] Admin: 11/15/20 05:30 Dose: 20 mg Documented by: [id number] Heparin Sodium (Porcine) (Heparin Sod 5,000 Unit/0.5 Ml Vial) 5,000 units SQ Q12 [facility] Stop: 12/15/20 08:59 Last Admin: 11/15/20 08:42 Dose: 5,000 units Documented by: [id number] Potassium Chloride/Sodium Chloride (Normal Saline W/20 Meq Kcl) 20 meq in 1,000 mls @ 100 mls/hr IV .Q10H [facility] Stop: 12/15/20 02:23 Last Admin: 11/15/20 12:38 Dose: 100 mls/hr Documented by: [id number] Infusion: 11/15/20 12:38 Dose: 100 mls/hr Documented by: [id number] Admin: 11/15/20 03:40 Dose: 100 mls/hr Documented by: [id number] Ceftriaxone Sodium 1,000 mg/ (Dextrose) 50 mls @ 100 mls/hr IV Q24H [facility] Stop: 11/20/20 08:29 Last Infusion: 11/15/20 11:37 Dose: 0 mls/hr Documented by: [id number] Admin: 11/15/20 08:41 Dose: 100 mls/hr Documented by: [id number] Pantoprazole Sodium (Pantoprazole 40 Mg Tab) 40 mg PO DAILY [facility] Stop: 12/15/20 08:59 Last Admin: 11/15/20 08:41 Dose: 40 mg Documented by: [id number] Potassium Chloride (Potassium Chloride Crtab 20 Meq Tabcr) 20 meq PO BID [facility] Stop: 12/15/20 08:59 Last Admin: 11/15/20 08:42 Dose: 20 meq Documented by: [id number] Propranolol HCl (Propranolol Hcl 60 Mg [place]) 60 mg PO DAILY [facility] Stop: 12/15/20 08:59 Last Admin: 11/15/20 08:41 Dose: 60 mg Documented by: [id number] Venlafaxine HCl (Venlafaxine Hcl 50 Mg Tab) 50 mg PO DAILY [facility] Stop: 12/15/20 08:59 Last Admin: 11/15/20 08:42 Dose: 50 mg Documented by: [id number] Discontinued Medications Sodium Chloride (Nss 1000ml) 1,000 mls @ 999 mls/hr IV .Q1H1M [facility] Stop: 11/14/20 20:00 Last Infusion: 11/14/20 19:15 Dose: 0 mls/hr Documented by: [id number] Admin: 11/14/20 19:00 Dose: 999 mls/hr Documented by: [id number] Lactated Ringer's (Lr) 1,000 mls @ 999 mls/hr IV .Q1H1M ONE Stop: 11/14/20 20:27 Last Infusion: 11/14/20 22:47 Dose: 0 mls/hr Documented by: [id number] Admin: 11/14/20 20:00 Dose: 999 mls/hr Documented by: [id number] Potassium Chloride (Potassium Chloride Crtab 20 Meq Tabcr) 40 meq PO NOW STA Stop: 11/14/20 21:03 Last Admin: 11/14/20 21:37 Dose: 40 meq Documented by: [id number] Medical Decision Making Differential Diagnosis Differential Diagnosis includes but is not limited to dehydration, stroke, anemia, hypoglycemia, hyponatremia, hypernatremia, urinary tract infection, pneumonia, bronchitis, sepsis, gastroenteritis, additional abdominal pathology, metabolic abnormalities and infections. Medical Records Attestation: I reviewed the patient's medical records. Home Medications Current Medication List: was personally reviewed by me Laboratory Data Attestation: I reviewed the patient's lab results. Result diagrams: 11/14/20 20:24 11/14/20 20:24 Lab Results 11/14/20 11/14/20 11/14/20 Range/Units 20:24 20:24 20:24 WBC 9.36 (4.8-10.8) K/uL RBC 4.64 (4.2-5.4) M/uL Hgb 14.6 (12.0-16.0) g/dL Hct 43.1 (37-47) % MCV 92.9 (80-100) fL MCH 31.5 (25-34) pg MCHC 33.9 (32-36) g/dL RDW Std Deviation 47.0 H (36.4-46.3) fL RDW Coeff of Yani 13.8 (11.5-14.5) % Plt Count 399 (130-400) K/uL MPV 10.1 (7.4-10.4) fL Immature Gran % (Auto) 0.4 % Neut % (Auto) 72.3 % Lymph % (Auto) 18.7 % [place] % (Auto) 8.4 % Eos % (Auto) 0.0 % Baso % (Auto) 0.2 % Neut # (Auto) 6.76 H (1.4-6.5) K/uL Lymph # (Auto) 1.75 (1.2-3.4) K/uL [place] # (Auto) 0.79 H (0.11-0.59) K/uL Eos # (Auto) 0.00 (0-0.5) K/uL Baso # (Auto) 0.02 (0-0.2) K/uL Immature Gran # (Auto) 0.04 H (0.00-0.02) K/uL PT 11.7 (9.0-12.0) Seconds INR 1.1 (0.9-1.1) APTT 20.4 L (21.0-31.0) Seconds PTT Ratio 0.7 Sodium 137 (136-145) mmol/L Potassium 2.9 L (3.5-5.1) mmol/L Chloride 97 L (98-107) mmol/L Carbon Dioxide 29 (21-32) mmol/L Anion Gap 11.0 (3-11) BUN 14 (7-18) mg/dl Creatinine 1.05 (0.6-1.2) mg/dl Est Cr Clr Drug Dosing 50.6 ml/min Est GFR ( Amer) 61.0 Est GFR (Non-Af Amer) 52.6 BUN/Creatinine Ratio 13.6 (10-20) Glucose 83 (70-99) mg/dl Lactate (0.4-2.0) mmol/L Calcium 8.7 (8.5-10.1) mg/dl Magnesium 2.2 (1.8-2.4) mg/dl Total Bilirubin 1.3 H (0.2-1) mg/dl AST 52 H (15-37) U/L ALT 49 (12-78) U/L Alkaline Phosphatase 71 (45-117) U/L Troponin I < 0.015 (0-0.045) ng/ml Total Protein 7.1 (6.4-8.2) gm/dl Albumin 3.1 L (3.4-5.0) gm/dl Globulin 4.0 (2.5-4.0) gm/dl Albumin/Globulin Ratio 0.8 L (0.9-2) Procalcitonin (0-0.5) ng/ml COVID-19 Eval Order SARS-CoV-2, RNA, NAAT (NEGATIVE) 11/14/20 11/14/20 11/14/20 Range/Units 20:24 20:24 22:42 WBC (4.8-10.8) K/uL RBC (4.2-5.4) M/uL Hgb (12.0-16.0) g/dL Hct (37-47) % MCV (80-100) fL MCH (25-34) pg MCHC (32-36) g/dL RDW Std Deviation (36.4-46.3) fL RDW Coeff of Yani (11.5-14.5) % Plt Count (130-400) K/uL MPV (7.4-10.4) fL Immature Gran % (Auto) % Neut % (Auto) % Lymph % (Auto) % [place] % (Auto) % Eos % (Auto) % Baso % (Auto) % Neut # (Auto) (1.4-6.5) K/uL Lymph # (Auto) (1.2-3.4) K/uL [place] # (Auto) (0.11-0.59) K/uL Eos # (Auto) (0-0.5) K/uL Baso # (Auto) (0-0.2) K/uL Immature Gran # (Auto) (0.00-0.02) K/uL PT (9.0-12.0) Seconds INR (0.9-1.1) APTT (21.0-31.0) Seconds PTT Ratio Sodium (136-145) mmol/L Potassium (3.5-5.1) mmol/L Chloride (98-107) mmol/L Carbon Dioxide (21-32) mmol/L Anion Gap (3-11) BUN (7-18) mg/dl Creatinine (0.6-1.2) mg/dl Est Cr Clr Drug Dosing ml/min Est GFR ( Amer) Est GFR (Non-Af Amer) BUN/Creatinine Ratio (10-20) Glucose (70-99) mg/dl Lactate 2.3 H* 1.8 (0.4-2.0) mmol/L Calcium (8.5-10.1) mg/dl Magnesium (1.8-2.4) mg/dl Total Bilirubin (0.2-1) mg/dl AST (15-37) U/L ALT (12-78) U/L Alkaline Phosphatase (45-117) U/L Troponin I (0-0.045) ng/ml Total Protein (6.4-8.2) gm/dl Albumin (3.4-5.0) gm/dl Globulin (2.5-4.0) gm/dl Albumin/Globulin Ratio (0.9-2) Procalcitonin < 0.05 (0-0.5) ng/ml COVID-19 Eval Order SARS-CoV-2, RNA, NAAT (NEGATIVE) 11/14/20 11/14/20 Range/Units 23:20 23:20 WBC (4.8-10.8) K/uL RBC (4.2-5.4) M/uL Hgb (12.0-16.0) g/dL Hct (37-47) % MCV (80-100) fL MCH (25-34) pg MCHC (32-36) g/dL RDW Std Deviation (36.4-46.3) fL RDW Coeff of Yani (11.5-14.5) % Plt Count (130-400) K/uL MPV (7.4-10.4) fL Immature Gran % (Auto) % Neut % (Auto) % Lymph % (Auto) % [place] % (Auto) % Eos % (Auto) % Baso % (Auto) % Neut # (Auto) (1.4-6.5) K/uL Lymph # (Auto) (1.2-3.4) K/uL [place] # (Auto) (0.11-0.59) K/uL Eos # (Auto) (0-0.5) K/uL Baso # (Auto) (0-0.2) K/uL Immature Gran # (Auto) (0.00-0.02) K/uL PT (9.0-12.0) Seconds INR (0.9-1.1) APTT (21.0-31.0) Seconds PTT Ratio Sodium (136-145) mmol/L Potassium (3.5-5.1) mmol/L Chloride (98-107) mmol/L Carbon Dioxide (21-32) mmol/L Anion Gap (3-11) BUN (7-18) mg/dl Creatinine (0.6-1.2) mg/dl Est Cr Clr Drug Dosing ml/min Est GFR ( Amer) Est GFR (Non-Af Amer) BUN/Creatinine Ratio (10-20) Glucose (70-99) mg/dl Lactate (0.4-2.0) mmol/L Calcium (8.5-10.1) mg/dl Magnesium (1.8-2.4) mg/dl Total Bilirubin (0.2-1) mg/dl AST (15-37) U/L ALT (12-78) U/L Alkaline Phosphatase (45-117) U/L Troponin I (0-0.045) ng/ml Total Protein (6.4-8.2) gm/dl Albumin (3.4-5.0) gm/dl Globulin (2.5-4.0) gm/dl Albumin/Globulin Ratio (0.9-2) Procalcitonin (0-0.5) ng/ml COVID-19 Eval Order Covid19 [facility] SARS-CoV-2, RNA, NAAT POSITIVE A* (NEGATIVE) Imaging Data Radiologist's Impression: XR chest 1V portable CLINICAL HISTORY: SEPSIS COMPARISON STUDY: 11/03/2020 FINDINGS: The heart is borderline enlarged. There is mild elevation of interstitium. There are subtle left midlung zone interstitial opacities. Given history of sepsis this may represent a subtle pneumonitis. Clinical and radiographic follow-up is recommended.[ IMPRESSION: Subtle interstitial opacities most pronounced within the left midlung zone. Given the history of sepsis this may represent a subtle pneumonitis. Clinical and radiographic follow-up is recommended ACT 112: Negative or not required by law. Electronically signed by: Jamison Murillo M.D. 11/14/2020 8:38 PM ECG Data Attestation: I personally reviewed and interpreted this ECG as follows: Indication: + weakness Rate (beats per minute): 86 Rhythm: + normal sinus ECG Intervals/blocks: + Normal QRS and + Prolonged QT ECG [place]: + Left axis deviation ECG ST segments: + T-wave inversions (V2-V5) Blood Pressure Blood Pressure Findings: Low blood pressure MDM Narrative This is an ill-appearing 75-year-old female with known coronavirus and recent hospitalization for this who presents due to worsening weakness and subsequent fall at home. Patient states she has been having increased diarrhea. Patient states she had also been on antibiotics recently however was not discharged on any. Patient thought this was for pneumonia, however on review of EMR it seems that this may have also been for an accompanying UTI. Patient is not using oxygen at home. Patient states she has a poor appetite however is trying to sip clear liquids. Patient states today she felt too weak to get up off the floor after lowering herself down as she was fearful she would pass out. Patient found to be hypotensive for EMS and was still hypotensive on arrival here. Patient started on IV fluids, and a sepsis evaluation was started due to concern for known infection and hypotension. Patient had been placed on oxygen via EMS due to persistent cough and borderline O2 sats, patient ultimately was able to be weaned off and maintained her oxygen saturation in the low 90s on room air. Patient found to be hypokalemic which is consistent with her recent diarrhea, this was repleted orally. Patient was also given IV fluids which helped her blood pressure and patient stated she felt improved. Patient with mildly elevated lactic acid, a repeat was performed following administration of IV fluids here and was improved, patient's procalcitonin negative, and no leukocytosis noted. At this time I do not suspect bacteremia/sepsis. I feel likely patient volume deplete related and given ongoing GI losses was having increased weakness and orthostatic symptoms which led to the events today. Given patient does live alone, has no family that can come help her, and we are unable to place a Covid positive patient into inpatient rehab at this time, case discussed with the hospitalist for additional inpatient evaluation and management. At the time of our discussion a UA was still pending. I did asked the nurses to straight cath the patient for urine specimen given the recent UTI as well as ongoing diarrhea to evaluate for possible infection. We were required to perform a repeat coronavirus test on the patient which was still positive. Patient's other electrolytes were reassuring, troponin negative. She was found to have a prolonged QT, no other ectopy or dysrhythmia noted on telemetry while patient monitored here. This was discussed with hospitalist also who will continue to monitor. Patient also found to have mild T wave inversion, which may be secondary to hypotension and demand given her advanced age. Patient had no diarrhea while in the emergency room to sent for additional testing, I have a low suspicion for C. difficile or other acute bacterial cause of her diarrhea despite recent antibiotics. Likely this could be a manifestation yet of her coronavirus. An order was placed for continuous cardiac monitoring. The monitor shows a rate of 92_ with _normal sinus_ rhythm. Impression & Plan Generalized weakness, Diarrhea, Hypokalemia, Fall, COVID-19, Prolonged Q-T interval on ECG Discharge Plan Visit Data Chief Complaint: Illness Stated Complaint: DIZZY, DIARRHEA, WEAK, FATIGUE, COVID + ED Provider: Ashtyn Tinoco Discharge Problem: Generalized weakness, Diarrhea, Hypokalemia, Fall, COVID-19, Prolonged Q-T interval on ECG Patient Disposition: Admitted As Inpatient Discharge Instructions Interventions: ED Discharge Assessment Last Done: 11/15/20 01:46 Discharge Problem: Diarrhea Qualifiers: Diarrhea type: unspecified type Qualified Code(s): R19.7 - Diarrhea, unspecified Fall Qualifiers: Encounter type: initial encounter Qualified Code(s): W19.XXXA - Unspecified fall, initial encounter
[2020-11-14] MEDS ORDERED: LACTATED RINGER'S 1,000 ML IV ONE (19:27)
--- NOTE | 2020-11-14 20:39 | XRay Report ---
XR chest 1V portable CLINICAL HISTORY: SEPSIS COMPARISON STUDY: 11/03/2020 FINDINGS: The heart is borderline enlarged. There is mild elevation of interstitium. There are subtle left midlung zone interstitial opacities. Given history of sepsis this may represent a subtle pneumo nitis. Clinical and radiographic follow-up is recommended.[ IMPRESSION: Subtle interstitial opacities most pronounced within the left midlung zone. Given the his tory of sepsis this may represent a subtle pneumonitis. Clinical and radiographic follow-up is recomm ended ACT 112: Negative or not required by law. Electronically signed by: Jamison Murillo M.D. 11/14/2020 8:38 PM
[2020-11-14 20:42] LABS: Basophils # (auto) 0.02 K/uL (0-0.2); Basophils % (auto) 0.2 %; Hematocrit (blood only) 43.1 % (37-47); Hemoglobin 14.6 g/dL (12.0-16.0); Immature Granulocytes # (auto) 0.04 K/uL (0.00-0.02); Immature Granulocytes % (auto) 0.4 %; Lymphocytes # (auto) 1.75 K/uL (1.2-3.4); Lymphocytes % (auto) 18.7 %; Mean Corpuscular Hemoglobin 31.5 pg (25-34); Mean Corpuscular Hgb Conc 33.9 g/dL (32-36); Mean Corpuscular Volume 92.9 fL (80-100); Mean Platelet Volume 10.1 fL (7.4-10.4); Monocytes # (auto) 0.79 K/uL (0.11-0.59); Monocytes % (auto) 8.4 %; Neutrophils # (auto) 6.76 K/uL (1.4-6.5); Neutrophils % (auto) 72.3 %; Platelet Count 399 K/uL (130-400); RDW Coefficient of Variation 13.8 % (11.5-14.5); Red Blood Count 4.64 M/uL (4.2-5.4); White Blood Count 9.36 K/uL (4.8-10.8)
[2020-11-14 20:53] LABS: INR 1.1 (0.9-1.1); Partial Thromboplastin Ratio 0.7; Partial Thromboplastin Time 20.4 Seconds (21.0-31.0); Prothrombin Time 11.7 Seconds (9.0-12.0)
[2020-11-14 20:58] LABS: Alanine Aminotransferase 49 U/L (12-78); Albumin Level 3.1 gm/dl (3.4-5.0); Aspartate Aminotransferase 52 U/L (15-37); BUN Creatinine Ratio 13.6 (10-20); Blood Urea Nitrogen 14 mg/dl (7-18); Calcium 8.7 mg/dl (8.5-10.1); Carbon Dioxide 29 mmol/L (21-32); Chloride 97 mmol/L (98-107); Creatinine Clr Calc Pharmacy 50.6 ml/min; Est GFR (Non-African American) 52.6; Glucose 83 mg/dl (70-99); Magnesium 2.2 mg/dl (1.8-2.4); Potassium 2.9 mmol/L (3.5-5.1); Sodium 137 mmol/L (136-145)
[2020-11-14] MEDS ORDERED: POTASSIUM CHLORIDE CRTAB 20 MEQ TABCR PO STA (21:02)
[2020-11-14 21:03] LABS: Albumin Globulin Ratio 0.8 (0.9-2); Alkaline Phosphatase 71 U/L (45-117); Bilirubin,Total 1.3 mg/dl (0.2-1); Total Protein 7.1 gm/dl (6.4-8.2); Troponin I < 0.015 ng/ml (0-0.045)
--- NOTE | 2020-11-15 | History & Physical Report ---
Date of Service November 14, 2020 Assessment & Plan (1) Pneumonia due to COVID-19 virus: Chest x-ray overall looks mildly worse since the x-ray of 11/[address] on Decadron 6 mg IV every morning. Zinc sulfate 220 mg p.o. daily Ventolin HFA 2 puffs 4 times daily, and every 2 hours as needed Nasal cannula oxygen to target pulse ox 94 to 95% Suspect her general fatigue may be associated with adrenal insufficiency, and may need a longer tapering course of Decadron Present on Admission?: Yes (2) Weakness: Multifactorial: COVID-19 viral infection, recent secondary bacterial pneumonia, general debilitation, adrenal insufficiency, recent urinary tract infection. We will consult PT/OT. Patient is finding it difficult to be at home, as she is there alone. If at all possible, take into account her COVID-19 diagnosis, either home health or inpatient rehab may be of value Present on Admission?: Yes (3) Hypothyroidism: Check a TSH level. Noted as part of her history, but not on any thyroid medication Present on Admission?: Yes (4) Severe obstructive sleep apnea: CPAP at bedtime as needed Present on Admission?: Yes (5) Hypertension: (6) GERD (gastroesophageal reflux disease): Continue pantoprazole and famotidine Present on Admission?: Yes (7) Multiple falls: Consult PT/OT as noted Present on Admission?: Yes (8) Hyperlipidemia: Continue atorvastatin 40 mg daily Present on Admission?: Yes (9) Urinary tract infection: Follow-up urinalysis and urine culture and sensitivity, to verify the E. coli UTI from previous admission has cleared him Present on Admission?: Yes History of Present Illness Chief Complaint: The patient presents to the emergency department with complaint of persistent weakness and persistent shortness of breath after discharge from [facility] on 11/08, where she was treated for bacterial pneumonia secondary to COVID-19 infection, and E. coli UTI. Primary Care Provider: Kareem Ponce MD The patient is a 75-year-old female with a past medical history including hypothyroidism, pyloric stenosis in adult, hiatal hernia, vertigo, gastroparesis, severe RISHI, adult situational stress disorder, hypertension, insomnia, mild cognitive impairment, multiple falls, polyneuropathy, poor balance, vitamin B12 deficiency, GERD, asthma, hyperlipidemia, and constipation. She was most recently admitted to [facility] from 11/03-11/08 for treatment of bacterial pneumonia secondary to COVID-19 infection, and E. coli UTI. She was thought to be well enough to be discharged to home, but she has been unable to take care of herself. Allergies Allergy/AdvReac Type Severity Reaction Status Date / Time simvastatin Allergy Unknown MUSCLE Verified 11/03/20 02:53 WEAKNESS latex AdvReac Intermediate HIVES Verified 11/03/20 02:53 Home Medications Medication Instructions Recorded Confirmed Type acetaminophen 325 - 650 mg PO Q6H PRN 12/20/18 11/14/20 History polyethylene glycol 3350 [Miralax] 17 g PO DAILY PRN 12/20/18 11/14/20 History famotidine 20 mg tablet 20 mg PO BID #180 tab 12/22/19 11/14/20 Rx propranolol 60 mg capsule,24 60 mg PO DAILY #90 cap 12/22/19 11/14/20 Rx hr,extended release venlafaxine 50 mg tablet 50 mg PO DAILY #90 tab 12/22/19 11/14/20 Rx pantoprazole 40 mg tablet,delayed 40 mg PO DAILY #90 tab 02/09/20 11/14/20 Rx release meclizine 25 mg tablet 25 mg PO TID PRN #30 tab 04/06/20 11/14/20 Rx bupropion HCl (smoking deter) 150 150 mg PO BID #60 tab 04/20/20 11/14/20 Rx mg tablet,12 hr sustained-release(smoking deterrent) atorvastatin 40 mg tablet 40 mg PO DAILY #90 tab 10/03/20 11/14/20 Rx aspirin 81 mg PO DAILY 11/03/20 11/14/20 History ondansetron 4 mg PO Q6H PRN #14 tab 11/08/20 11/14/20 Rx Past Med/Surg History Medical History Chest pain Constipation Depression Hypothyroidism Nausea & vomiting Near syncope Surgical History History of esophagogastroduodenoscopy (EGD) S/P arthroscopy of knee S/P cholecystectomy S/P colonoscopy S/P hysterectomy Status post Agatha fundoplication 05/2011 Dr. Ramondelli- Esophagogastric fundoplasty agatha fundoplication Family History Mother Cardiac disorder Myocardial infarction Aunt Cancer Uncle Cancer Cardiac disorder Myocardial infarction Other Family history non-contributory Denies family history of Ovarian cancer Prostate cancer Breast cancer Colorectal cancer Social History Smoking Status: Never smoker Second Hand Exposure: No; Hx Alcohol Use: No Hx Substance Use: No Preferred Language: Barbadian Communication Ability: Effective Visual Impairment: No Limitations Hearing Ability: Normal [employer] Required: No Beliefs That Will Affect Care: None Current Living Situation: Personal Care Facility Current Living Situation Comment: [facility] current occupational status: retired Other Information That Helps Us Care for You: No Feels Safe at Home: Yes Safety Concerns: Feels Safe At This Time Childhood Exposure to Second-Hand Smoke: Yes caffeine: No during the past year weight has: remained stable Dental Care, Regularly: No Physical Activity Frequency: Does not Exercise Seatbelt Use: always Sunscreen Use: No Assistive Devices: None Review of Systems Review of Systems: The patient denies chest pain, palpitations, cough, lower extremity swelling, sore throat, fevers, chills, sweats, nausea, vomiting, diarrhea , constipation, abdominal pain, pelvic pain, blood in urine or stool, dysuria, urinary frequency or urgency, lightheadedness, dizziness, headache, memory loss, loss of consciousness, rash, abnormal bruising or bleeding, imbalance, focal weakness, numbness or tingling in arms or legs, generalized arthralgias or myalgias, back or neck pain, or night sweats. The review of systems is otherwise negative other than for that already noted above, and at least 10 systems have been reviewed. Physical Exam Physical Exam: The patient is awake, alert and oriented 3, normocephalic and atraumatic, lying in bed and in no acute distress. HEENT--PERRL, EOMI, mucous membranes and oropharynx dry. Neck--supple. No JVD. No bruits. Thyroid normal, trachea midline, no adenopathy. Heart--normal S1 and S2. No murmurs, rubs or gallops. Lungs--clear bilaterally, no respiratory distress, no accessory muscle use. Abdomen--normal bowel sounds and soft. Nontender. Nondistended, no hernias or masses, no organomegaly. Extremities--no cyanosis or clubbing. No edema. Dermatologic--normal skin turgor, normal color, no abnormal lymph nodes, no rash. Neurologic--cranial nerves II through XII grossly intact. Rheumatologic--normal range of motion. Psychiatric--normal affect. Results & Data Results & Data ([facility]) Vital Signs (Past 12 Hours) Vital Signs Temp Pulse Pulse Resp BP BP Pulse Ox 11/14/20 23:32 88 20 134/95 93 11/14/20 23:00 18 94 11/14/20 22:48 87 18 134/95 94 11/14/20 22:47 18 94 11/14/20 22:30 20 99 11/14/20 21:31 88 20 114/78 99 11/14/20 20:57 94 H 18 108/76 98 11/14/20 20:30 89 20 111/58 L 97 11/14/20 19:30 20 98 11/14/20 19:25 20 98 11/14/20 19:14 97.9 F 90 20 98/50 L 93 Laboratory Results Laboratory Results WBC 9.36 K/uL (4.8-10.8) 11/14/20 20:24 RBC 4.64 M/uL (4.2-5.4) 11/14/20 20:24 Hgb 14.6 g/dL (12.0-16.0) 11/14/20 20:24 Hct 43.1 % (37-47) 11/14/20 20:24 MCV 92.9 fL (80-100) 11/14/20 20:24 MCH 31.5 pg (25-34) 11/14/20 20:24 MCHC 33.9 g/dL (32-36) 11/14/20 20:24 RDW Std Deviation 47.0 fL (36.4-46.3) H 11/14/20 20:24 RDW Coeff of Yani 13.8 % (11.5-14.5) 11/14/20 20:24 Plt Count 399 K/uL (130-400) 11/14/20 20:24 MPV 10.1 fL (7.4-10.4) 11/14/20 20:24 Immature Gran % (Auto) 0.4 % 11/14/20 20:24 Neut % (Auto) 72.3 % 11/14/20 20:24 Lymph % (Auto) 18.7 % 11/14/20 20:24 [place] % (Auto) 8.4 % 11/14/20 20:24 Eos % (Auto) 0.0 % 11/14/20 20:24 Baso % (Auto) 0.2 % 11/14/20 20:24 Neut # (Auto) 6.76 K/uL (1.4-6.5) H 11/14/20 20:24 Lymph # (Auto) 1.75 K/uL (1.2-3.4) 11/14/20 20:24 [place] # (Auto) 0.79 K/uL (0.11-0.59) H 11/14/20 20:24 Eos # (Auto) 0.00 K/uL (0-0.5) 11/14/20 20:24 Baso # (Auto) 0.02 K/uL (0-0.2) 11/14/20 20:24 Immature Gran # (Auto) 0.04 K/uL (0.00-0.02) H 11/14/20 20:24 PT 11.7 Seconds (9.0-12.0) 11/14/20 20:24 INR 1.1 (0.9-1.1) 11/14/20 20:24 APTT 20.4 Seconds (21.0-31.0) L 11/14/20 20:24 PTT Ratio 0.7 11/14/20 20:24 Sodium 137 mmol/L (136-145) 11/14/20 20:24 Potassium 2.9 mmol/L (3.5-5.1) L 11/14/20 20:24 Chloride 97 mmol/L (98-107) L 11/14/20 20:24 Carbon Dioxide 29 mmol/L (21-32) 11/14/20 20:24 Anion Gap 11.0 (3-11) 11/14/20 20:24 BUN 14 mg/dl (7-18) 11/14/20 20:24 Creatinine 1.05 mg/dl (0.6-1.2) 11/14/20 20:24 Est Cr Clr Drug Dosing 50.6 ml/min 11/14/20 20:24 Est GFR ( Amer) 61.0 11/14/20 20:24 Est GFR (Non-Af Amer) 52.6 11/14/20 20:24 BUN/Creatinine Ratio 13.6 (10-20) 11/14/20 20:24 Glucose 83 mg/dl (70-99) 11/14/20 20:24 Lactate 1.8 mmol/L (0.4-2.0) 11/14/20 22:42 Calcium 8.7 mg/dl (8.5-10.1) 11/14/20 20:24 Magnesium 2.2 mg/dl (1.8-2.4) 11/14/20 20:24 Total Bilirubin 1.3 mg/dl (0.2-1) H 11/14/20 20:24 AST 52 U/L (15-37) H 11/14/20 20:24 ALT 49 U/L (12-78) 11/14/20 20:24 Alkaline Phosphatase 71 U/L (45-117) 11/14/20 20:24 Troponin I < 0.015 ng/ml (0-0.045) 11/14/20 20:24 Total Protein 7.1 gm/dl (6.4-8.2) 11/14/20 20:24 Albumin 3.1 gm/dl (3.4-5.0) L 11/14/20 20:24 Globulin 4.0 gm/dl (2.5-4.0) 11/14/20 20:24 Albumin/Globulin Ratio 0.8 (0.9-2) L 11/14/20 20:24 Procalcitonin < 0.05 ng/ml (0-0.5) 11/14/20 20:24 Urine Color Dark Yellow 11/15/20 00:28 Urine Appearance Cloudy (Clear) A 11/15/20 00:28 Urine pH 6.0 (4.5-7.5) 11/15/20 00:28 Ur Specific [place] 1.022 (1.000-1.030) 11/15/20 00:28 Urine Protein 2+ (Negative) H 11/15/20 00:28 Urine Glucose (UA) Negative (Negative) 11/15/20 00: Urine Ketones 4+ (Negative) H 11/15/20 00:28 Urine Blood Negative (Negative) 11/15/20 00:28 Urine Nitrite Negative (Negative) 11/15/20 00:28 Urine Bilirubin Negative (Negative) 11/15/20 00:28 Urine Urobilinogen Negative (Negative) 11/15/20 00:28 Ur Leukocyte Esterase 1+ (Negative) H 11/15/20 00:28 Urine WBC (Auto) 5-10 /hpf (0-5) H 11/15/20 00:28 Urine RBC (Auto) 0-4 /hpf (0-4) 11/15/20 00:28 U Hyaline Cast (Auto) 1-5 /lpf (0-5) 11/15/20 00:28 U Epithel Cells (Auto) 10-20 /lpf (0-5) H 11/15/20 00:28 Urine Bacteria (Auto) 4+ (Negative) H 11/15/20 00:28 Urine Yeast Not Reportable 11/15/20 00:28 COVID-19 Eval [facility] 11/14/20 23:20 SARS-CoV-2, RNA, NAAT POSITIVE (NEGATIVE) A* 11/14/20 23:20 Diagnostic Findings [facility], [phone] XRay Report Patient: KEAGAN VILLASEÑOR Date: 11/14/20MR#: [id number]: 67 FOREIGN Acct ID:[id number]: [address]Birth Date: 1945[facility] Zip: [place], [place] [address]Hsh: 75Location: EDSex: FRoom/Bed:Att Phy:Diagnosis: DIZZY, DIARRHEA, WEAK, FATIGUE, COVID +Tracy Phy: Kareem Ponce MDService Date: 11/14/20Fam Phy:Interpreting Phy: Jamison Murillo MDAdmit Phy: Ordering Phy: Ashtyn Tinoco DO cc: ~ XR chest 1V portable CLINICAL HISTORY: SEPSIS COMPARISON STUDY: 11/03/2020 FINDINGS: The heart is borderline enlarged. There is mild elevation of interstitium. There are subtle left midlung zone interstitial opacities. Given history of sepsis this may represent a subtle pneumonitis. Clinical and radiographic follow-up is recommended.[ IMPRESSION: Subtle interstitial opacities most pronounced within the left midlung zone. Given the history of sepsis this may represent a subtle pneumonitis. Clinical and radiographic follow-up is recommended ACT 112: Negative or not required by law. Electronically signed by: Jamison Murillo M.D. 11/14/2020 8:38 PM Dictated: 11/14/202035Transcribed: 11/14/202035 Code Status & VTE Plan Code Status Full code VTE Prophylaxis Plan VTE Prophylaxis will be ordered: Yes PG Care Time/CCT Total # of Minutes Spent Total Time Spent with Patient: Total time spent is greater than 50% in coordination of care (as documented) at patient's floor/unit and/or counseling patient: Coding Level of Care Code 11036 OBS Care - Level 3 Diagnoses Pneumonia due to COVID-19 virus U07.1; J12.89 Weakness R53.1 Hypothyroidism E03.9 Severe obstructive sleep apnea G47.33 Hypertension I10 GERD (gastroesophageal reflux disease) K21.9 Multiple falls R29.6 Hyperlipidemia E78.5 Urinary tract infection N39.0
[2020-11-15 00:50] LABS: Appearance Urine Cloudy (Clear); Bacteria Urine Automated 4+ (Negative); Blood Urine Negative (Negative); Color Urine Dark Yellow; Glucose Urine UA Negative (Negative); Ketones Urine 4+ (Negative); Leukocyte Esterase Urine 1+ (Negative); Nitrite Urine Negative (Negative); Protein Urine 2+ (Negative); RBC Urine Automated 0-4 /hpf (0-4); Specific Gravity Urine 1.022 (1.000-1.030); Urobilinogen Urine Negative (Negative)
[2020-11-15 01:06] LABS: Bilirubin Urine Negative (Negative); Ictotest Urine Negative (Negative)
[2020-11-15] MEDS ORDERED: POLYETHYLENE (MIRALAX) 17 GM PACK PO PRN (02:24)
[2020-11-15] MEDS ORDERED: ONDANSETRON INJ 2 MG/ML 2 ML VIAL IV PRN (02:24)
[2020-11-15] MEDS ORDERED: ACETAMINOPHEN 325 MG TAB PO PRN ×2 (02:24)
[2020-11-15] MEDS ORDERED: MECLIZINE HCL 25 MG TAB PO PRN (02:51)
[2020-11-15] MEDS: NSS + 20MEQ KCL 20 MEQ/1,000 ML BAG IV SCH ×3 (03:40→22:43)
[2020-11-15] MEDS: FAMOTIDINE 20 MG TAB PO SCH ×3 (05:30→20:40)
[2020-11-15] MEDS: cefTRIAXone SODIUM 1,000 MG in DEXTROSE 5% 50 ML IV SCH (08:41)
[2020-11-15] MEDS: PANTOprazole 40 MG TAB PO SCH (08:41)
[2020-11-15] MEDS: PROPRANOLOL HCL 60 MG LA CAP PO SCH (08:41)
[2020-11-15] MEDS: ASPIRIN 81 MG ECTAB PO SCH (08:41)
[2020-11-15] MEDS: buPROPion SR 150 MG TABCR PO SCH ×2 (08:41→20:40)
[2020-11-15] MEDS: ATORVASTATIN 40 MG TAB PO SCH (08:42)
[2020-11-15] MEDS: POTASSIUM CHLORIDE CRTAB 20 MEQ TABCR PO SCH ×2 (08:42→20:40)
[2020-11-15] MEDS: VENLAFAXINE HCL 50 MG TAB PO SCH (08:42)
[2020-11-15] MEDS: HEPARIN SOD 5,000 UNIT/0.5 ML VIAL SQ SCH ×2 (08:42→20:40)
--- NOTE | 2020-11-15 10:27 | Hospitalist Progress Note ---
Date of Service November 15, 2020 Assessment & Plan (1) Pneumonia due to COVID-19 virus: Chest x-ray at time of admission looks mildly worse since the x-ray of 11/03, but not hypoxic We will place on Decadron 6 mg IV every morning, day 2, treat for 7 days Zinc sulfate 220 mg p.o. daily Ventolin HFA 2 puffs 4 times daily, and every 2 hours as needed Nasal cannula oxygen to target pulse ox 94 to 95% (2) Weakness: Multifactorial: COVID-19 viral infection, recent secondary bacterial pneumonia, general debilitation, possible adrenal insufficiency, recent urinary tract infection. We will consult PT/OT. Patient is finding it difficult to be at her personal longterm as she is there alone If at all possible, take into account her COVID-19 diagnosis, likely would benefit from SNF rehab (3) Hypothyroidism: TSH normal at 4.2 not on Synthroid (4) Severe obstructive sleep apnea: CPAP at bedtime as needed (5) Hypertension: (6) GERD (gastroesophageal reflux disease): Continue pantoprazole and famotidine (7) Multiple falls: Consult PT/OT as noted (8) Hyperlipidemia: Continue atorvastatin 40 mg daily (9) Urinary tract infection: Follow-up urinalysis and urine culture and sensitivity, to verify the E. coli UTI from previous admission has cleared him urine culture pending Admission and Anticipated Discharge Date Admission Date: November 14, 2020 Subjective patient says she was too weak at her personal longterm couldn't walk to the bathroom, not eating or drinking well no fever, no dyspnea, no cough, no chest pain, no diarrhea main symptom is weakness reviewed chart, reviewed labs discussed with RN, will move to medical floor Review of Systems Review of Systems: All systems reviewed & are unremarkable except as noted in Subjective Constitutional: + fatigue and + weakness Musculoskeletal: + muscle weakness (generalized) Physical Exam Constitutional: WD/WN, vitals as above + overweight; no acute distress Neck: trachea midline, no thyromegaly Respiratory: normal respiratory effort, lungs clear to auscultation Cardiovascular: RRR, no murmur, no edema Gastrointestinal (Abdomen): normal bowel sounds, soft, nontender, no hepatosplenomegaly Musculoskeletal: Head/Neck/Chest: normocephalic, head atraumatic and neck supple Extremities: extremities normal to inspection and + abnormal strength (generalized weakness); no cyanosis, no clubbing and no petechiae Skin: no rashes, warm and dry Neurologic: patellar DTR's 2+ bilat, sensation intact and PERRL, EOMI, accommodation nl, no face palsy, no dysarthria Psychiatric: Orientation: alert and oriented x 3 Affect: + flat affect Lymphatic: no cervical or axillary lymphadenopathy Results & Data Results & Data ([facility]) Vital Signs (Past 12 Hours) Vital Signs Temp Pulse Pulse Resp BP BP BP 11/15/20 07:37 36.9 C 88 16 134/81 11/15/20 02:00 36.7 C 85 19 120/84 11/15/20 01:46 83 18 100/69 11/15/20 01:13 84 18 106/65 11/15/20 00:30 82 18 124/55 L 11/14/20 23:59 85 11/14/20 23:32 88 20 134/95 11/14/20 23:00 90 18 11/14/20 22:48 87 18 134/95 11/14/20 22:47 18 11/14/20 22:30 20 Pulse Ox 11/15/20 07:37 96 11/15/20 02:00 95 11/15/20 01:46 92 11/15/20 01:13 93 11/15/20 00:30 92 11/14/20 23:59 11/14/20 23:32 93 11/14/20 23:00 91 11/14/20 22:48 94 11/14/20 22:47 94 11/14/20 22:30 99 Laboratory Results Laboratory Results - last 24 hr 11/14/20 11/14/20 11/14/20 20:24 20:24 20:24 WBC 9.36 RBC 4.64 Hgb 14.6 Hct 43.1 MCV 92.9 MCH 31.5 MCHC 33.9 RDW Std Deviation 47.0 H RDW Coeff of Yani 13.8 Plt Count 399 MPV 10.1 Immature Gran % (Auto) 0.4 Neut % (Auto) 72.3 Lymph % (Auto) 18.7 [place] % (Auto) 8.4 Eos % (Auto) 0.0 Baso % (Auto) 0.2 Neut # (Auto) 6.76 H Lymph # (Auto) 1.75 [place] # (Auto) 0.79 H Eos # (Auto) 0.00 Baso # (Auto) 0.02 Immature Gran # (Auto) 0.04 H PT 11.7 INR 1.1 APTT 20.4 L PTT Ratio 0.7 Sodium 137 Potassium 2.9 L Chloride 97 L Carbon Dioxide 29 Anion Gap 11.0 BUN 14 Creatinine 1.05 Est Cr Clr Drug Dosing 50.6 Est GFR ( Amer) 61.0 Est GFR (Non-Af Amer) 52.6 BUN/Creatinine Ratio 13.6 Glucose 83 Lactate Calcium 8.7 Magnesium 2.2 Total Bilirubin 1.3 H AST 52 H ALT 49 Alkaline Phosphatase 71 Troponin I < 0.015 Total Protein 7.1 Albumin 3.1 L Globulin 4.0 Albumin/Globulin Ratio 0.8 L Procalcitonin TSH Urine Color Urine Appearance Urine pH Ur Specific [place] Urine Protein Urine Glucose (UA) Urine Ketones Urine Blood Urine Nitrite Urine Bilirubin Urine Urobilinogen Ur Leukocyte Esterase Urine WBC (Auto) Urine RBC (Auto) U Hyaline Cast (Auto) U Epithel Cells (Auto) Urine Bacteria (Auto) Urine Yeast COVID-19 Eval Order SARS-CoV-2, RNA, NAAT 11/14/20 11/14/20 11/14/20 20:24 20:24 22:42 WBC RBC Hgb Hct MCV MCH MCHC RDW Std Deviation RDW Coeff of Yani Plt Count MPV Immature Gran % (Auto) Neut % (Auto) Lymph % (Auto) [place] % (Auto) Eos % (Auto) Baso % (Auto) Neut # (Auto) Lymph # (Auto) [place] # (Auto) Eos # (Auto) Baso # (Auto) Immature Gran # (Auto) PT INR APTT PTT Ratio Sodium Potassium Chloride Carbon Dioxide Anion Gap BUN Creatinine Est Cr Clr Drug Dosing Est GFR ( Amer) Est GFR (Non-Af Amer) BUN/Creatinine Ratio Glucose Lactate 2.3 H* 1.8 Calcium Magnesium Total Bilirubin AST ALT Alkaline Phosphatase Troponin I Total Protein Albumin Globulin Albumin/Globulin Ratio Procalcitonin < 0.05 TSH Urine Color Urine Appearance Urine pH Ur Specific [place] Urine Protein Urine Glucose (UA) Urine Ketones Urine Blood Urine Nitrite Urine Bilirubin Urine Urobilinogen Ur Leukocyte Esterase Urine WBC (Auto) Urine RBC (Auto) U Hyaline Cast (Auto) U Epithel Cells (Auto) Urine Bacteria (Auto) Urine Yeast COVID-19 Eval Order SARS-CoV-2, RNA, NAAT 11/14/20 11/14/20 11/15/20 23:20 23:20 00:28 WBC RBC Hgb Hct MCV MCH MCHC RDW Std Deviation RDW Coeff of Yani Plt Count MPV Immature Gran % (Auto) Neut % (Auto) Lymph % (Auto) [place] % (Auto) Eos % (Auto) Baso % (Auto) Neut # (Auto) Lymph # (Auto) [place] # (Auto) Eos # (Auto) Baso # (Auto) Immature Gran # (Auto) PT INR APTT PTT Ratio Sodium Potassium Chloride Carbon Dioxide Anion Gap BUN Creatinine Est Cr Clr Drug Dosing Est GFR ( Amer) Est GFR (Non-Af Amer) BUN/Creatinine Ratio Glucose Lactate Calcium Magnesium Total Bilirubin AST ALT Alkaline Phosphatase Troponin I Total Protein Albumin Globulin Albumin/Globulin Ratio Procalcitonin TSH Urine Color Dark Yellow Urine Appearance Cloudy A Urine pH 6.0 Ur Specific [place] 1.022 Urine Protein 2+ H Urine Glucose (UA) Negative Urine Ketones 4+ H Urine Blood Negative Urine Nitrite Negative Urine Bilirubin Negative Urine Urobilinogen Negative Ur Leukocyte Esterase 1+ H Urine WBC (Auto) 5-10 H Urine RBC (Auto) 0-4 U Hyaline Cast (Auto) 1-5 U Epithel Cells (Auto) 10-20 H Urine Bacteria (Auto) 4+ H Urine Yeast Not Reportable COVID-19 Eval Order Covid19 [facility] SARS-CoV-2, RNA, NAAT POSITIVE A* 11/15/20 06:32 WBC RBC Hgb Hct MCV MCH MCHC RDW Std Deviation RDW Coeff of Yani Plt Count MPV Immature Gran % (Auto) Neut % (Auto) Lymph % (Auto) [place] % (Auto) Eos % (Auto) Baso % (Auto) Neut # (Auto) Lymph # (Auto) [place] # (Auto) Eos # (Auto) Baso # (Auto) Immature Gran # (Auto) PT INR APTT PTT Ratio Sodium Potassium Chloride Carbon Dioxide Anion Gap BUN Creatinine Est Cr Clr Drug Dosing Est GFR ( Amer) Est GFR (Non-Af Amer) BUN/Creatinine Ratio Glucose Lactate Calcium Magnesium Total Bilirubin AST ALT Alkaline Phosphatase Troponin I Total Protein Albumin Globulin Albumin/Globulin Ratio Procalcitonin TSH 4.200 Urine Color Urine Appearance Urine pH Ur Specific [place] Urine Protein Urine Glucose (UA) Urine Ketones Urine Blood Urine Nitrite Urine Bilirubin Urine Urobilinogen Ur Leukocyte Esterase Urine WBC (Auto) Urine RBC (Auto) U Hyaline Cast (Auto) U Epithel Cells (Auto) Urine Bacteria (Auto) Urine Yeast COVID-19 Eval Order SARS-CoV-2, RNA, NAAT Medications Administered Current Inpatient Medications Acetaminophen (Acetaminophen 325 Mg Tab) 650 mg PO Q4H PRN PRN Reason: Pain or Fever Stop: 12/15/20 02:23 Aspirin (Aspirin 81 Mg Ectab) 81 mg PO DAILY [facility] Stop: 12/15/20 08:59 Last Admin: 11/15/20 08:41 Dose: 81 mg Documented by: Atorvastatin Calcium (Atorvastatin 40 Mg Tab) 40 mg PO DAILY [facility] Stop: 12/15/20 08:59 Last Admin: 11/15/20 08:42 Dose: 40 mg Documented by: Bupropion HCl (Bupropion Sr 150 Mg Tabcr) 150 mg PO BID [facility] Stop: 12/15/20 08:59 Last Admin: 11/15/20 08:41 Dose: 150 mg Documented by: Famotidine (Famotidine 20 Mg Tab) 20 mg PO BID [facility] Stop: 12/15/20 02:23 Last Admin: 11/15/20 08:41 Dose: 20 mg Documented by: Heparin Sodium (Porcine) (Heparin Sod 5,000 Unit/0.5 Ml Vial) 5,000 units SQ Q12 [facility] Stop: 12/15/20 08:59 Last Admin: 11/15/20 08:42 Dose: 5,000 units Documented by: Potassium Chloride/Sodium Chloride (Normal Saline W/20 Meq Kcl) 20 meq in 1,000 mls @ 100 mls/hr IV .Q10H [facility] Stop: 12/15/20 02:23 Last Admin: 11/15/20 03:40 Dose: 100 mls/hr Documented by: Ceftriaxone Sodium 1,000 mg/ (Dextrose) 50 mls @ 100 mls/hr IV Q24H [facility] Stop: 11/20/20 08:29 Last Admin: 11/15/20 08:41 Dose: 100 mls/hr Documented by: Meclizine HCl (Meclizine Hcl 25 Mg Tab) 25 mg PO TID PRN PRN Reason: dizziness Stop: 12/15/20 02:50 Ondansetron HCl (Ondansetron Inj 2 Mg/Ml 2 Ml Vial) 4 mg IV Q6H PRN PRN Reason: Nausea Stop: 12/15/20 02:23 Pantoprazole Sodium (Pantoprazole 40 Mg Tab) 40 mg PO DAILY [facility] Stop: 12/15/20 08:59 Last Admin: 11/15/20 08:41 Dose: 40 mg Documented by: Polyethylene Glycol (Polyethylene (Miralax) 17 Gm Pack) 17 gm PO DAILY PRN PRN Reason: Constipation Stop: 12/15/20 02:23 Potassium Chloride (Potassium Chloride Crtab 20 Meq Tabcr) 20 meq PO BID [facility] Stop: 12/15/20 08:59 Last Admin: 11/15/20 08:42 Dose: 20 meq Documented by: Propranolol HCl (Propranolol Hcl 60 Mg [place]) 60 mg PO DAILY [facility] Stop: 12/15/20 08:59 Last Admin: 11/15/20 08:41 Dose: 60 mg Documented by: Venlafaxine HCl (Venlafaxine Hcl 50 Mg Tab) 50 mg PO DAILY [facility] Stop: 12/15/20 08:59 Last Admin: 11/15/20 08:42 Dose: 50 mg Documented by: PG Care Time/CCT Total # of Minutes Spent Total Time Spent with Patient: Total time spent is greater than 50% in coordination of care (as documented) at patient's floor/unit and/or counseling patient: Coding Level of Care Code 51321 Subseq Hosp Care Lvl 2 Diagnoses Pneumonia due to COVID-19 virus U07.1; J12.89 Weakness R53.1 Hypothyroidism E03.9 Severe obstructive sleep apnea G47.33 Hypertension I10 GERD (gastroesophageal reflux disease) K21.9 Multiple falls R29.6 Hyperlipidemia E78.5 Urinary tract infection N39.0
--- NOTE | 2020-11-15 16:04 | Electrocardiogram Report ---
Test Reason : Blood Pressure : / mmHG Vent. Rate : 086 BPM Atrial Rate : 086 BPM P-R Int : 154 ms QRS Dur : 080 ms QT Int : 448 ms P-R-T Axes : 002 -36 -22 degrees QTc Int : 536 ms Normal sinus rhythm Left axis deviation Minimal voltage criteria for LVH, may be normal variant Abnormal ECG When compared with ECG of 09-NOV-2020 11:33, Inverted T waves have replaced nonspecific T wave abnormality in Inferior leads T wave inversion now evident in Anterior leads QT has lengthened Confirmed by Cody Fabian ([id number]) on 11/15/2020 4:04:05 PM Referred By: REFERRED SELF Confirmed By:Cody Fabian
[2020-11-16] MEDS: cefTRIAXone SODIUM 1,000 MG in DEXTROSE 5% 50 ML IV SCH (07:59)
[2020-11-16] MEDS: buPROPion SR 150 MG TABCR PO SCH ×2 (08:50→21:11)
[2020-11-16] MEDS: POTASSIUM CHLORIDE CRTAB 20 MEQ TABCR PO SCH ×2 (08:50→21:11)
[2020-11-16] MEDS: VENLAFAXINE HCL 50 MG TAB PO SCH (08:51)
[2020-11-16] MEDS: ATORVASTATIN 40 MG TAB PO SCH (08:51)
[2020-11-16] MEDS: PROPRANOLOL HCL 60 MG LA CAP PO SCH (08:51)
[2020-11-16] MEDS: FAMOTIDINE 20 MG TAB PO SCH ×2 (08:51→21:11)
[2020-11-16] MEDS: PANTOprazole 40 MG TAB PO SCH (08:51)
[2020-11-16] MEDS: HEPARIN SOD 5,000 UNIT/0.5 ML VIAL SQ SCH ×2 (08:52→21:11)
[2020-11-16] MEDS: ASPIRIN 81 MG ECTAB PO SCH (08:52)
[2020-11-16] MEDS: NSS + 20MEQ KCL 20 MEQ/1,000 ML BAG IV SCH ×2 (09:32→21:04)
--- NOTE | 2020-11-16 14:20 | Hospitalist Progress Note ---
Date of Service November 16, 2020 Assessment & Plan (1) Pneumonia due to COVID-19 virus: Chest x-ray at time of admission looks mildly worse since the x-ray of 11/[address] on Decadron 6 mg IV every morning, day 3, treat for 7 days Zinc sulfate 220 mg p.o. daily Ventolin HFA 2 puffs 4 times daily, and every 2 hours as needed Nasal cannula oxygen to target pulse ox 94 to 95%, she is stable on room air today (2) Weakness: Multifactorial: COVID-19 viral infection, recent secondary bacterial pneumonia, general debilitation, possible adrenal insufficiency, recent urinary tract infection. also, likely that mental health is playing a role, very depressed We will consult PT/OT. Patient is finding it difficult to be at her [facility] as she is there alone If at all possible, take into account her COVID-19 diagnosis, likely would b enefit from SNF rehab (3) Hypothyroidism: TSH normal at 4.2 not on Synthroid (4) Severe obstructive sleep apnea: CPAP at bedtime as needed (5) Hypertension: (6) GERD (gastroesophageal reflux disease): Continue pantoprazole and famotidine (7) Multiple falls: Consult PT/OT as noted (8) Hyperlipidemia: Continue atorvastatin 40 mg daily (9) Urinary tract infection: previous UTI is resolved, no growth on culture Admission and Anticipated Discharge Date Admission Date: November 14, 2020 Subjective patient has a flat affect today, not eating too much discussed plans to go to SNF/rehab, she agrees vitals stable, no fever, no hypoxia again continue to work with PT/OT CM working on placement Review of Systems Review of Systems: All systems reviewed & are unremarkable except as noted in Subjective Constitutional: + fatigue and + weakness Psychiatric: + depression Physical Exam Constitutional: WD/WN, vitals as above + overweight; no acute distress Neck: trachea midline, no thyromegaly Respiratory: normal respiratory effort, lungs clear to auscultation Cardiovascular: RRR, no murmur, no edema Gastrointestinal (Abdomen): normal bowel sounds, soft, nontender, no hepatosplenomegaly Musculoskeletal: Head/Neck/Chest: normocephalic, head atraumatic and neck supple Extremities: extremities normal to inspection and + abnormal strength (generalized weakness); no cyanosis, no clubbing and no petechiae Skin: no rashes, warm and dry Neurologic: patellar DTR's 2+ bilat, sensation intact and PERRL, EOMI, accommodation nl, no face palsy, no dysarthria Psychiatric: Orientation: alert and oriented x 3 Affect: + flat affect Lymphatic: no cervical or axillary lymphadenopathy Results & Data Results & Data ([facility]) Vital Signs (Past 12 Hours) Vital Signs Temp Pulse Resp BP Pulse Ox Pulse Ox 11/16/20 12:03 95 11/16/20 07:23 36.7 C 58 L 16 127/82 94 11/16/20 02:43 54 L 95 Medications Administered Current Inpatient Medications Acetaminophen (Acetaminophen 325 Mg Tab) 650 mg PO Q4H PRN PRN Reason: Pain or Fever Stop: 12/15/20 02:23 Last Admin: 11/15/20 16:27 Dose: 650 mg Documented by: Aspirin (Aspirin 81 Mg Ectab) 81 mg PO DAILY RODRIGO Stop: 12/15/20 08:59 Last Admin: 11/16/20 08:52 Dose: 81 mg Documented by: Atorvastatin Calcium (Atorvastatin 40 Mg Tab) 40 mg PO DAILY RODRIGO Stop: 12/15/20 08:59 Last Admin: 11/16/20 08:51 Dose: 40 mg Documented by: Bupropion HCl (Bupropion Sr 150 Mg Tabcr) 150 mg PO BID RODRIGO Stop: 12/15/20 08:59 Last Admin: 11/16/20 08:50 Dose: 150 mg Documented by: Famotidine (Famotidine 20 Mg Tab) 20 mg PO BID RODRIGO Stop: 12/15/20 02:23 Last Admin: 11/16/20 08:51 Dose: 20 mg Documented by: Heparin Sodium (Porcine) (Heparin Sod 5,000 Unit/0.5 Ml Vial) 5,000 units SQ Q 12 RODRIGO Stop: 12/15/20 08:59 Last Admin: 11/16/20 08:52 Dose: 5,000 units Documented by: Potassium Chloride/Sodium Chloride (Normal Saline W/20 Meq Kcl) 20 meq in 1,000 mls @ 100 mls/hr IV .Q10H RODRIGO Stop: 12/15/20 02:23 Last Admin: 11/16/20 09:32 Dose: 100 mls/hr Documented by: Ceftriaxone Sodium 1,000 mg/ (Dextrose) 50 mls @ 100 mls/hr IV Q24H RODRIGO Stop: 11/20/20 08:29 Last Infusion: 11/16/20 08:52 Dose: Infused Documented by: Meclizine HCl (Meclizine Hcl 25 Mg Tab) 25 mg PO TID PRN PRN Reason: dizziness Stop: 12/15/20 02:50 Ondansetron HCl (Ondansetron Inj 2 Mg/Ml 2 Ml Vial) 4 mg IV Q6H PRN PRN Reason: Nausea Stop: 12/15/20 02:23 Last Admin: 11/16/20 11:46 Dose: 4 mg Documented by: Pantoprazole Sodium (Pantoprazole 40 Mg Tab) 40 mg PO DAILY RODRIGO Stop: 12/15/20 08:59 Last Admin: 11/16/20 08:51 Dose: 40 mg Documented by: Polyethylene Glycol (Polyethylene (Miralax) 17 Gm Pack) 17 gm PO DAILY PRN PRN Reason: Constipation Stop: 12/15/20 02:23 Potassium Chloride (Potassium Chloride Crtab 20 Meq Tabcr) 20 meq PO BID RODRIGO Stop: 12/15/20 08:59 Last Admin: 11/16/20 08:50 Dose: 20 meq Documented by: Propranolol HCl (Propranolol Hcl 60 Mg [place]) 60 mg PO DAILY RODRIGO Stop: 12/15/20 08:59 Last Admin: 11/16/20 08:51 Dose: Not Given Documented by: Venlafaxine HCl (Venlafaxine Hcl 50 Mg Tab) 50 mg PO DAILY RODRIGO Stop: 12/15/20 08:59 Last Admin: 11/16/20 08:51 Dose: 50 mg Documented by: PG Care Time/CCT Total # of Minutes Spent Total Time Spent with Patient: Total time spent is greater than 50% in coordination of care (as documented) at patient's floor/unit and/or counseling patient: Coding Level of Care Code 87155 Subseq Hosp Care Lvl 2 Diagnoses Pneumonia due to COVID-19 virus U07.1; J12.89 Weakness R53.1 Hypothyroidism E03.9 Severe obstructive sleep apnea G47.33 Hypertension I10 GERD (gastroesophageal reflux disease) K21.9 Multiple falls R29.6 Hyperlipidemia E78.5 Urinary tract infection N39.0
[2020-11-17] MEDS: NSS + 20MEQ KCL 20 MEQ/1,000 ML BAG IV SCH (05:12)
[2020-11-17] MEDS: cefTRIAXone SODIUM 1,000 MG in DEXTROSE 5% 50 ML IV SCH (09:06)
[2020-11-17] MEDS: HEPARIN SOD 5,000 UNIT/0.5 ML VIAL SQ SCH (09:09)
[2020-11-17] MEDS: VENLAFAXINE HCL 50 MG TAB PO SCH (09:11)
[2020-11-17] MEDS: buPROPion SR 150 MG TABCR PO SCH (09:11)
[2020-11-17] MEDS: ASPIRIN 81 MG ECTAB PO SCH (09:12)
[2020-11-17] MEDS: PROPRANOLOL HCL 60 MG LA CAP PO SCH (09:12)
[2020-11-17] MEDS: ATORVASTATIN 40 MG TAB PO SCH (09:13)
[2020-11-17] MEDS: PANTOprazole 40 MG TAB PO SCH (09:14)
[2020-11-17] MEDS: POTASSIUM CHLORIDE CRTAB 20 MEQ TABCR PO SCH (09:16)
[2020-11-17] MEDS: FAMOTIDINE 20 MG TAB PO SCH (09:16)
--- NOTE | 2020-11-17 11:04 | Discharge Summary ---
Date of Service November 17, 2020 Admission HPI Per Admitting Provider The patient is a 75-year-old female with a past medical history including hypothyroidism, pyloric stenosis in adult, hiatal hernia, vertigo, gastroparesis, severe RISHI, adult situational stress disorder, hypertension, insomnia, mild cognitive impairment, multiple falls, polyneuropathy, poor balance, vitamin B12 deficiency, GERD, asthma, hyperlipidemia, and constipation. She was most recently admitted to [facility] from 11/03-11/08 for treatment of bacterial pneumonia secondary to COVID-19 infection, and E. coli UTI. She was thought to be well enough to be discharged to home, but she has been unable to take care of herself. Principal Diagnosis Weakness and falls at home Discharge Exam Constitutional WD/WN, vitals as above + overweight; no acute distress Neck trachea midline, no thyromegaly Respiratory normal respiratory effort, lungs clear to auscultation Cardiovascular RRR, no murmur, no edema Gastrointestinal (Abdomen) normal bowel sounds, soft, nontender, no hepatosplenomegaly Musculoskeletal Head/Neck/Chest: normocephalic, head atraumatic and neck supple Extremities: extremities normal to inspection and + abnormal strength (generalized weakness); no cyanosis, no clubbing and no petechiae Skin no rashes, warm and dry Neurologic patellar DTR's 2+ bilat, sensation intact and PERRL, EOMI, accommodation nl, no face palsy, no dysarthria Psychiatric Orientation: alert and oriented x 3 Affect: + flat affect Lymphatic no cervical or axillary lymphadenopathy Discharge Data Allergies Allergy/AdvReac Type Severity Reaction Status Date / Time simvastatin Allergy Unknown MUSCLE Verified 11/03/20 02:53 WEAKNESS latex AdvReac Intermediate HIVES Verified 11/03/20 02:53 Consultations 11/14/20 22:50 ED Decision to Admit Stat 11/15/20 02:24 Consult Case Management - Discharge Planning Routine Hospital Course (1) Pneumonia due to COVID-19 virus: Chest x-ray at time of admission looks mildly worse since the x-ray of treated with decadron 6mg PO daily while here Zinc sulfate 220 mg p.o. daily Ventolin HFA 2 puffs 4 times daily, and every 2 hours as needed Nasal cannula oxygen to target pulse ox 94 to 95%, she is stable on room air for several days no need to continue Decadron on discharge (2) Weakness: Multifactorial: COVID-19 viral infection, recent secondary bacterial pneumonia, general debilitation, recent urinary tract infection. also, likely that mental health is playing a role, very depressed ever since her a few years ago We will consult PT/OT, patient needs rehab at SNF will discharge to [facility] today (3) Hypothyroidism: TSH normal at 4.2 not on Synthroid (4) Severe obstructive sleep apnea: CPAP at bedtime as needed (5) Hypertension: (6) GERD (gastroesophageal reflux disease): Continue pantoprazole and famotidine (7) Multiple falls: Consult PT/OT as noted (8) Hyperlipidemia: Continue atorvastatin 40 mg daily (9) Urinary tract infection: previous UTI is resolved, no growth on culture Total Time Total Time Spent Total Time Spent (In Minutes): 25 minutes Total Time Includes: Examination of the Patient, Discharge Planning and Medication Reconciliation Discharge Plan Discharge Items Patient Disposition: Transfer Assisted Fac Reason For Visit: GENERALIZED WEAKNESS, COVID-19, E. COLI, UTI Discharge Diagnosis: Covid 19 infection weakness depression Condition on Discharge: Fair Goals: improve strength and mobility stay well nourished and well hydrated Activity: Resume your previous activity Weightbearing: Full weightbearing Non-emergency contact: Primary Care Provider Call non-emergency contact if: you have any medication questions Follow-up/Referrals: Kareem Ponce MD [Primary Care Provider] - Diet: Regular Addtl Attending Provider Instructions: Medications: no changes please note that patient is prescribed CPAP for RISHI, she REFUSES to wear it COVID 19, weakness, dehydration, depression patient is stable on room air, no distress she is complicated, has a suspected baseline depression, no motivation family says that she has been getting worse every since her no need to treat with dexamethasone she was admitted last week for COVID 19 and weakness she went home to her personal care apartment but started falling again, could not manage on her own will go to SNF for rehab at this time Pending Studies at Discharge: No Stand-Alone Forms: My [facility] Skilled Items Patient informed of condition?: Yes DNR: No Discharge Level of Care: Acute rehab Communicable Disease: No Discharge Prognosis: Stable Lines: None Urinary Catheter: No Medications and DC Order Prescriptions: Continued venlafaxine 50 mg tablet 50 mg PO DAILY Qty: 90 RF: 3 propranolol 60 mg capsule,extended release 24 hr 60 mg PO DAILY Qty: 90 RF: 3 famotidine [Pepcid] 20 mg tablet 20 mg PO BID Qty: 180 RF: 3 pantoprazole 40 mg tablet,delayed release (DR/EC) 40 mg PO DAILY Qty: 90 RF: 3 meclizine 25 mg tablet 25 mg PO TID PRN (Reason: dizziness) Qty: 30 RF: 0 bupropion HCl (smoking deter) 150 mg tablet extended release 12 hr 150 mg PO BID Qty: 60 RF: 5 atorvastatin 40 mg tablet 40 mg PO DAILY Qty: 90 RF: 3 acetaminophen 325 mg Tablet 325 - 650 mg PO Q6H PRN (Reason: Fever Or Pain) RF: 0 polyethylene glycol 3350 [Miralax] 17 gram/dose Powder 17 g PO DAILY PRN (Reason: Constipation) RF: 0 aspirin 81 mg Tablet,Delayed Release (Dr/Ec) 81 mg PO DAILY RF: 0 ondansetron 4 mg tablet,disintegrating 4 mg PO Q6H PRN (Reason: nausea and vomiting) Qty: 14 RF: 0 Discharge Orders: Discharge Order (Routine); Ordered 11/17/20 Ordered By: Lawrence Jaeger/Other Patient Handouts: Exercises to Prevent Falls Admission Data Admit Date/Time: 11/17/20 07:33 Attending Provider: Lawrence Birch Admit Provider: Leoncio Carter Primary Care Provider: Kareem Ponce Other Providers: Leoncio Carter ; [facility] ; [facility], Other Interventions: Discharge Summary Assessment (RN) Last Done: 11/17/20 11:18 Coding Level of Care Code D/C Day Management <30 mins Diagnoses Pneumonia due to COVID-19 virus U07.1; J12.89 Weakness R53.1 Hypothyroidism E03.9 Severe obstructive sleep apnea G47.33 Hypertension I10 GERD (gastroesophageal reflux disease) K21.9 Multiple falls R29.6 Hyperlipidemia E78.5 Urinary tract infection N39.0
== END 2020-11-17 12:05 ==
LOC: ED 18:32 → 2S 18:32 → EDINP 18:32 → SUATTDRO 11-15 → 2S 11-15 → 3E 11-15 12:30

== ENCOUNTER 2023-09-28 16:25 | Inpatient (IN) ==
[2023-09-28 17:03] LABS: Appearance Urine Cloudy (Clear); Bacteria Urine Automated 4+ (Negative); Bilirubin Urine Negative (Negative); Blood Urine Negative (Negative); Color Urine Yellow; Glucose Urine UA Negative (Negative); Ketones Urine Trace (Negative); Leukocyte Esterase Urine 1+ (Negative); Nitrite Urine Positive (Negative); Protein Urine Negative (Negative); Specific Gravity Urine 1.011 (1.000-1.030); Urobilinogen Urine Negative (Negative)
[2023-09-28 17:23] LABS: Basophils # (auto) 0.05 K/uL (0.00-0.20); Basophils % (auto) 0.7 %; Hematocrit (blood only) 42.6 % (37.0-47.0); Hemoglobin 14.7 g/dl (12.0-16.0); Immature Granulocytes # (auto) 0.01 K/uL (0.01-0.20); Immature Granulocytes % (auto) 0.1 %; Lymphocytes # (auto) 2.61 K/uL (1.20-3.40); Lymphocytes % (auto) 35.5 %; Mean Corpuscular Hemoglobin 32.6 pg (25.0-34.0); Mean Corpuscular Hgb Conc 34.5 g/dL (32.0-36.0); Mean Corpuscular Volume 94.5 fL (80.0-100.0); Mean Platelet Volume 9.9 fL (9.4-12.4); Monocytes % (auto) 6.8 %; Neutrophils # (auto) 4.19 K/uL (1.40-6.50); Neutrophils % (auto) 56.9 %; Platelet Count 272 K/uL (130-400); RDW Coefficient of Variation 13.1 % (11.5-14.5); RDW Standard Deviation 45.3 fL (36.4-46.3); Red Blood Count 4.51 M/uL (4.20-5.40); White Blood Count 7.36 K/ul (4.8-10.8)
--- NOTE | 2023-09-28 17:25 | Emergency Department Note ---
Impression & Plan Depression with suicidal ideation, UTI (urinary tract infection) ED Provider Note NAME: KEAGAN VILLASEÑOR AGE: 78 SEX: F : 1945 ARRIVES VIA: Ambulance INFORMANT: Patient ED PROVIDER(S): Kel Hylton DO CHIEF COMPLAINT: depression HPI: Patient is a 78-year-old female with a past medical history of asthma, hyperlipidemia, GERD and hypertension who presents to the ER for suicidal ideations with a plan to overdose on medications. She notes that this is likely secondary to feeling as though she cannot go anywhere or do anything because lost her license. She does feel very depressed. She was taken overdose on her medications earlier today. Denies any headache or change in vision. No chest pain or shortness of breath. No nausea, vomiting, or diarrhea. No dysuria, urgency, or frequency. ADDITIONAL HISTORY OBTAINED: Per HPI Chronic Medical/Social Conditions Affecting Care: Per HPI PAST MEDICAL HISTORY:See Below PAST SURGICAL HISTORY:See Below FAMILY HISTORY:See Below SOCIAL HISTORY:See Below HOME MEDICATIONS:See Below ALLERGIES:See Below VITALS:See Below PHYSICAL EXAMINATION: GENERAL: Sitting up in bed, alert, well appearing, well nourished, no distress, non-toxic EYE EXAM: normal conjunctiva. OROPHARYNX: mucous membranes are moist NECK: supple, no nuchal rigidity, no adenopathy, non-tender LUNGS: Clear to auscultation. Normal chest wall mechanics HEART: no murmurs, S1 normal and S2 normal ABDOMEN: abdomen soft, non-tender, normo-active bowel sounds, no masses, no rebound or guarding. UPPER EXTREMITIES: upper extremities are grossly normal. LOWER EXTREMITIES: No pitting edema. NEURO EXAM: Normal sensorium, cranial nerves II-XII grossly intact, normal speech, no gross weakness of arms, no gross weakness of legs. PSYCH: Admits to suicidal ideations with a plan to overdose MEDICAL DECISION MAKING: Patient is a 78-year-old male who presents ER for above-stated complaint. Blood work is obtained and shows no significant leukocytosis or anemia. BMP with mild hyponatremia at 133. LFTs bilirubin was unremarkable. TSH was normal unremarkable. UA did have nitrates, leuks, whites and +4 bacteria with greater than 10-20 epithelial cells. This is contaminated but will cover with Keflex to be on the safe side. Will benefit from Keflex 500 mg twice daily for the next 5 days. Tox was negative. Patient was ordered her nighttime meds. She was evaluated by [facility]. EKG was unremarkable. Chest x-ray clean. Patient will be admitted to [facility]. Please see their note for further evaluation management treatment. External Records Reviewed: Patient was seen by PCP within the past month for hallucinations and UTI Consults/Care Managements Discussions: Per [facility] Triage Nursing notes reviewed. Limited review of prior medical records performed Vital Signs: reviewed and remarkable for no significant abnormalities Differential diagnosis: Mood disorder, infection, hypoglycemia, electrolyte abnormalities, cardiac sources, intracerebral event, toxicologic, trauma, neurologic, as well as other pathologies. ER treatment provided: See below Diagnostics interpreted by me include EKG and cardiac monitoring as listed below: -ECG: Sinus rhythm rate 72 Left axis No PVCs QTc 446 -Laboratory studies:Interpreted by me as stated above in MDM and shown below. Imaging studies: Xrays: As interpreted by me: Portable AP upright 1 view of the chest shows no focal infiltrate CTs show: none Procedures:none Critical Care: None Past Med/Surg History Medical History Anxiety Auditory hallucinations Depression Encounter for pre-operative examination GERD (gastroesophageal reflux disease) Hiatal hernia HTN (hypertension) Hypothyroidism Osteoarthritis Sleep apnea TMJ (temporomandibular joint disorder) Tremor Urinary incontinence Surgical History History of arthroscopic knee surgery History of cholecystectomy History of colonoscopy History of esophagogastroduodenoscopy (EGD) History of total abdominal hysterectomy and bilateral salpingo-oophorectomy Status post Agatha fundoplication Family History Mother Cardiac disorder Myocardial infarction Aunt Cancer Uncle Cancer Cardiac disorder Myocardial infarction Other Family history non-contributory Denies family history of Ovarian cancer Prostate cancer Breast cancer Colorectal cancer Social History Smoking Status: Never smoker Second Hand Exposure: No; Do You Dip or Chew Tobacco: No; Hx Alcohol Use: Yes Alcohol type: beer Hx Substance Use: No Preferred Language: Niuean Communication Ability: Effective Visual Impairment: No Limitations Hearing Ability: Normal Kitchen And Bath Designer Required: No Beliefs That Will Affect Care: None Current Living Situation: Alone and Personal Care Facility Current Living Situation Comment: [facility] current occupational status: retired Feels Safe at Home: Yes Childhood Exposure to Second-Hand Smoke: Yes Diet: regular Diet Comment: regular caffeine: Yes during the past year weight has: remained stable Dental Care, Regularly: No Physical Activity Frequency: 1-2 Times per Week Seatbelt Use: always Sunscreen Use: No Gender Identity: Female Assistive Devices: Cane, Glasses and Walker Allergies Allergies Allergy/AdvReac Type Severity Reaction Status Date / Time simvastatin Allergy Unknown MUSCLE Verified 06/18/23 15:07 WEAKNESS latex AdvReac Intermediate HIVES Verified 06/18/23 15:07 Home Meds Home Medications Medication Instructions Recorded Confirmed acetaminophen 325 mg tablet 325 - 650 mg PO Q6H PRN Fever Or 12/20/18 09/28/23 Pain aspirin 81 mg tablet,delayed 81 mg PO QPM 11/03/20 09/28/23 release vitamin B complex (B 1 tab PO QAM 01/30/23 09/28/23 Complex-Vitamin B12 tablet) polyethylene glycol 3350 17 17 g PO DAILY PRN Constipation 09/13/23 09/28/23 gram/dose oral powder (Miralax) risperidone 1 mg tablet 1 mg PO BID 09/13/23 09/28/23 propranolol 60 mg capsule,24 60 mg PO DAILY 09/28/23 09/28/23 hr,extended release trazodone 50 mg tablet 50 mg PO HS 09/28/23 09/28/23 Previous Rx's Medication Instructions Recorded amlodipine 5 mg tablet 5 mg PO DAILY #30 tabs 09/09/23 cholecalciferol (vitamin D3) 1,250 50,000 unit PO .weekly #12 caps 09/13/23 mcg (50,000 unit) capsule levothyroxine 75 mcg tablet 75 mcg PO QAM #90 tabs 09/13/23 atorvastatin 40 mg tablet 40 mg PO QPM #90 tabs 09/18/23 betamethasone valerate 0.1 % lotion 1 applic topical TID PRN skin 09/18/23 irritation #60 mL famotidine 20 mg tablet (Pepcid) 20 mg PO BID PRN gerd #180 tabs 09/18/23 pantoprazole 40 mg tablet,delayed 40 mg PO QPM #90 tabs 09/18/23 release duloxetine 30 mg capsule,delayed 30 mg PO DAILY #90 caps 09/25/23 release Results & Data (ED) Vital Signs Vital Signs - 24 hr 09/28/23 16:31 09/28/23 19:22 09/28/23 20:58 Temperature 36.7 C Temperature Source Oral Pulse Rate 80 Pulse Rate [Right Finger] 78 72 Pulse Rhythm Regular Pulse Strength Normal Respiratory Rate 20 12 12 Respiratory Effort / Characteristics Non-Labored Spontaneous Respiratory Depth Normal Normal Respiratory Pattern Regular Blood Pressure 141/88 H Blood Pressure [Right Arm] 94/70 L 115/80 Blood Pressure Mean 105 Blood Pressure Mean [Right Arm] 78 91 Blood Pressure Position Sitting Pulse Oximetry 97 98 98 Oxygen Delivery Method Room Air Room Air Room Air Sepsis Recent Fever Within 48 Hours No Sepsis New/Unexplained Change in Mental Status No Sepsis Action Taken by Nursing No Action Required Laboratory Data 09/28/23 17:01 09/28/23 17:01 Lab Results 09/28/23 09/28/23 Range/Units 16:44 17:01 WBC 7.36 (4.8-10.8) K/ul RBC 4.51 (4.20-5.40) M/uL Hgb 14.7 (12.0-16.0) g/dl Hct 42.6 (37.0-47.0) % MCV 94.5 (80.0-100.0) fL MCH 32.6 (25.0-34.0) pg MCHC 34.5 (32.0-36.0) g/dL RDW Std Deviation 45.3 (36.4-46.3) fL RDW Coeff of Yani 13.1 (11.5-14.5) % Plt Count 272 (130-400) K/uL MPV 9.9 (9.4-12.4) fL Immature Gran % (Auto) 0.1 % Neut % (Auto) 56.9 % Lymph % (Auto) 35.5 % [place] % (Auto) 6.8 % Eos % (Auto) 0.0 % Baso % (Auto) 0.7 % Neut # (Auto) 4.19 (1.40-6.50) K/uL Lymph # (Auto) 2.61 (1.20-3.40) K/uL [place] # (Auto) 0.50 (0.11-0.59) K/uL Eos # (Auto) 0.00 (0.00-0.50) K/uL Baso # (Auto) 0.05 (0.00-0.20) K/uL Immature Gran # (Auto) 0.01 (0.01-0.20) K/uL Sodium 133 L (136-145) mmol/L Potassium 3.7 (3.5-5.1) mmol/L Chloride 96 L (98-107) mmol/L Carbon Dioxide 27 (21-32) mmol/L Anion Gap 10 (3-11) BUN 14 (6-23) mg/dl Creatinine 0.91 (0.6-1.2) mg/dl Est Cr Clr Drug Dosing 60.2 ml/min Est GFR ( Amer) 71.0 ml/min Est GFR (Non-Af Amer) 61.3 ml/min BUN/Creatinine Ratio 15.4 (10-20) Glucose 110 H (70-99(Fasting)) mg/dl Calcium 9.6 (8.6-10.3) mg/dl Total Bilirubin 1.2 H (0.2-1.0) mg/dl AST 20 (13-39) U/L ALT 19 (7-52) U/L Alkaline Phosphatase 52 (34-104) U/L Total Protein 7.4 (6.0-8.3) gm/dl Albumin 4.0 (3.4-5.0) gm/dl Globulin 3.4 (2.5-4.0) gm/dl Albumin/Globulin Ratio 1.2 (0.9-2) TSH 0.901 (0.300-4.500) uIu/ml Urine Color Yellow Urine Appearance Cloudy A (Clear) Urine pH 7.0 (4.5-7.5) Ur Specific [place] 1.011 (1.000-1.030) Urine Protein Negative (Negative) Urine Glucose (UA) Negative (Negative) Urine Ketones Trace H (Negative) Urine Blood Negative (Negative) Urine Nitrite Positive A (Negative) Urine Bilirubin Negative (Negative) Urine Urobilinogen Negative (Negative) Ur Leukocyte Esterase 1+ H (Negative) Urine WBC (Auto) 10-30 H (0-5) /hpf Urine RBC (Auto) 10-30 H (0-4) /hpf U Hyaline Cast (Auto) 1-5 (0-5) /lpf U Epithel Cells (Auto) 10-20 H (0-5) /lpf Urine Bacteria (Auto) 4+ H (Negative) Urine Crystals Not Reportable Salicylates < 3.0 L (3.0-30) mg/dl Urine Opiates Screen Neg (Neg) Ur Methadone, Qual Neg (Neg) Acetaminophen < 3 L (10-30) ug/ml Urine Barbiturates Neg (Neg) Ur Phencyclidine (PCP) Neg (Neg) U Amphetamin/Meth Scrn Neg (Neg) MDMA (Ecstasy) Screen Neg (Neg) U Benzodiazepines Scrn Neg (Neg) Ur Cocaine Metabolite Neg (Neg) U Marijuana (THC) Screen Neg (Neg) Ethyl Alcohol mg/dL < 10.0 (<10.0) mg/dl SARS-CoV-2, RNA, NAAT NEGATIVE (NEGATIVE) Administered Medications Discontinued Medications Cephalexin HCl (Cephalexin 250 Mg Cap) 500 mg PO NOW ONE Stop: 09/28/23 20:55 Last Admin: 09/28/23 21:39 Dose: 500 mg Documented By: AEROSPACE PROJECT MANAGER Propranolol HCl (Propranolol Hcl 10 Mg Tab) 60 mg PO NOW STA Stop: 09/28/23 21:01 Last Admin: 09/28/23 21:37 Dose: Not Given Documented By: AEROSPACE PROJECT MANAGER Propranolol HCl (Propranolol Hcl 60 Mg [place]) 60 mg PO NOW STA Stop: 09/28/23 21:30 Last Admin: 09/28/23 21:37 Dose: Not Given Documented By: AEROSPACE PROJECT MANAGER Risperidone (Risperidone 1 Mg Tablet) 1 mg PO NOW STA Stop: 09/28/23 21:01 Last Admin: 09/28/23 21:39 Dose: 1 mg Documented By: AEROSPACE PROJECT MANAGER Trazodone HCl (Trazodone Hcl 50 Mg Tab) 50 mg PO NOW ONE Stop: 09/28/23 21:01 Last Admin: 09/28/23 21:39 Dose: 50 mg Documented By: AEROSPACE PROJECT MANAGER Discharge Plan Visit Data Chief Complaint: Mental Health Evaluation ED Provider: Kel Hylton Discharge Problem: Depression with suicidal ideation, UTI (urinary tract infection) Forms Stand Alone Forms: [facility], Suicide Prevention Resources Prescriptions Prescriptions: No Action amlodipine 5 mg tablet 5 mg PO DAILY Qty: 30 2RF risperidone 1 mg tablet 1 mg PO BID Rx Instructions: [place] [facility] atorvastatin 40 mg tablet 40 mg PO QPM Qty: 90 1RF betamethasone valerate 0.1 % lotion 1 applic topical TID PRN (Reason: skin irritation) Qty: 60 2RF famotidine [Pepcid] 20 mg tablet 20 mg PO BID PRN (Reason: gerd) Qty: 180 1RF pantoprazole 40 mg tablet,delayed release (DR/EC) 40 mg PO QPM Qty: 90 1RF polyethylene glycol 3350 [Miralax] 17 gram/dose powder 17 g PO DAILY PRN (Reason: Constipation) Patient Comments: [facility]- Uses only when needed. levothyroxine 75 mcg tablet 75 mcg PO QAM Qty: 90 1RF cholecalciferol (vitamin D3) 1,250 mcg (50,000 unit) capsule 50,000 unit PO .weekly Qty: 12 0RF Rx Instructions: [place] the [place] [address] please continue with 3000 mcg (OTC) daily (patient takes on Fridays) vitamin B complex [B Complex-Vitamin B12] Tablet 1 tab PO QAM duloxetine 30 mg capsule,delayed release(DR/EC) 30 mg PO DAILY Qty: 90 2RF acetaminophen 325 mg Tablet 325 - 650 mg PO Q6H PRN (Reason: Fever Or Pain) aspirin 81 mg Tablet,Delayed Release (Dr/Ec) 81 mg PO QPM trazodone 50 mg tablet 50 mg PO HS propranolol 60 mg capsule,extended release 24 hr 60 mg PO DAILY Referrals Referrals: Adrian Guillen CRNP [Primary Care Provider] - Discharge Problem: UTI (urinary tract infection) Qualifiers: Urinary tract infection type: acute cystitis Hematuria presence: with hematuria Qualified Code(s): N30.01 - Acute cystitis with hematuria
[2023-09-28 17:30] LABS: Amphetamines+Metham, Urine Neg (Neg); Barbiturates, Urine Neg (Neg); Benzodiazepine, Urine Neg (Neg); Cocaine, Urine Neg (Neg); MDMA (Ecstacy), Urine Neg (Neg); Methadone, Urine Neg (Neg); Opiate, Urine Neg (Neg); Phencyclidine, Urine Neg (Neg)
[2023-09-28 17:37] LABS: Acetaminophen < 3 ug/ml (10-30); Salicylate < 3.0 mg/dl (3.0-30)
[2023-09-28 17:38] LABS: Albumin Globulin Ratio 1.2 (0.9-2); BUN Creatinine Ratio 15.4 (10-20); Bilirubin,Total 1.2 mg/dl (0.2-1.0); Calcium 9.6 mg/dl (8.6-10.3); Creatinine Clr Calc Pharmacy 60.2 ml/min; Est GFR (Non-African American) 61.3 ml/min; Globulin 3.4 gm/dl (2.5-4.0); Potassium 3.7 mmol/L (3.5-5.1); Total Protein 7.4 gm/dl (6.0-8.3)
[2023-09-28 17:53] LABS: Thyroid Stimulating Hormone 0.901 uIu/ml (0.300-4.500)
[2023-09-28] MEDS ORDERED: cephALEXin 250 MG CAP PO ONE (20:54)
[2023-09-28] MEDS ORDERED: PROPRANOLOL HCL 10 MG TAB PO STA (21:00)
[2023-09-28] MEDS ORDERED: risperiDONE 1 MG TABLET PO STA (21:00)
[2023-09-28] MEDS ORDERED: traZODone HCL 50 MG TAB PO ONE (21:00)
[2023-09-28] MEDS ORDERED: PROPRANOLOL HCL 60 MG LA CAP PO STA (21:29)
--- NOTE | 2023-09-28 22:05 | XRay Report ---
XR chest 1V portable CLINICAL HISTORY: per psych TECHNIQUE: Single frontal radiograph of the chest was obtained. Comparison: Comparison is made to chest radiograph 11/14/2020 FINDINGS: No lines and tubes are seen. Calcified aortic knob is seen. The lungs are clear. No evidence of pleur al effusion or pneumothorax. IMPRESSION: No acute chest disease. ACT 112: Negative or not required by law. Electronically signed by: Lawrence Palmer M.D. 09/28/2023 10:03 PM
[2023-09-28] MEDS ORDERED: ALUMINUM/MAGNESIUM SUSP 30 ML UDC PO PRN (22:50)
[2023-09-28] MEDS ORDERED: hydrOXYzine HCl 25 MG TAB PO PRN ×2 (22:50)
[2023-09-28] MEDS ORDERED: MAGNESIUM HYDROXIDE SUSP 30 ML UDC PO PRN (22:50)
[2023-09-28] MEDS ORDERED: SODIUM CHLORIDE 0.65% NA SOLN 45 ML (OCEAN) PRN (22:50)
[2023-09-28] MEDS ORDERED: BISMUTH SUBSALICYLATE LIQD 236 ML PO PRN (22:50)
[2023-09-29] MEDS ORDERED: POLYETHYLENE (MIRALAX) 17 GM PACK PO PRN (08:22)
[2023-09-29] MEDS ORDERED: FAMOTIDINE 20 MG TAB PO PRN (08:22)
[2023-09-29] MEDS ORDERED: INFLUENZA VACCINE HIGH-DOSE (HD-IIV4) PF 65+ 0.7mL SYR IM ONE (09:00)
[2023-09-29] MEDS: PROPRANOLOL HCL 60 MG LA CAP PO SCH (09:27)
[2023-09-29] MEDS: amLODIPine BESYLATE 5 MG TAB PO SCH (09:27)
[2023-09-29] MEDS: risperiDONE 1 MG TABLET PO SCH ×2 (09:27→21:37)
[2023-09-29] MEDS: DULoxetine HCL 30 MG CAP PO SCH (09:27)
[2023-09-29] MEDS: VITAMIN B COMPLEX TAB PO SCH (09:27)
[2023-09-29] MEDS: DOCUSATE SODIUM 100 MG CAP PO SCH ×2 (12:39→21:36)
[2023-09-29] MEDS: FAMOTIDINE 20 MG TAB PO SCH ×2 (12:39→21:36)
[2023-09-29] MEDS: cephALEXin 500 MG CAP PO SCH ×2 (12:39→21:32)
[2023-09-29] MEDS: LEVOTHYROXINE SODIUM 75 MCG TABLET PO SCH (12:40)
--- NOTE | 2023-09-29 13:19 | History & Physical ---
Date of Service September 29, 2023 Impression / Recommendations Impression 78 yo female with depression with psychotic features, though hallucinations could also represent early stages of a major cognitive disorder. No hx of bipolar and doubt late onset schizophrenia as otherwise organized. MNPR given age and ambulatory status. Overall, I spent a total of 65 minutes with this case, including review of chart, direct evaluation of the patient, counseling the patient, ordering medication, coordination with nursing,risk assessment, and documentation. (1) Major depress dis, severe: (2) UTI (urinary tract infection): Hematuria presence: with hematuria Urinary tract infection type: acute cystitis Qualified Code(s): N30.01 - Acute cystitis with hematuria Plan The patient was admitted to the [facility] ([facility] mental health unit) on q15 min checks (behavioral with suicide precautions) for safety. The patient will participate in group, recreational, and milieu therapies and will be offered additional individual and family sessions as clinically appropriate. Risks/benefits/alternatives reviewed re: her current medications, discussion included but was not limited to risks of TD/metabolic abnormalities. Fasting labs as indicated. will d/c trazodone as confirmed not taking at home and fall risk. MOCA when less tired. Keflex pending culture. Inventory Assets Strengths: help seeking, independent Needs: improve insight into condition, improve coping Suicide Risk Level Suicide Risk Level: High-Moderate (q15 min suicide checks) Risk Factors Assessment Male: No : Yes Do You Have Access To A Gun?: No Health Problems: Yes Mental Health Diagnoses: No Substance Use Disorders: No Previous Attempt: No Family History of Suicide: No Previous Psychiatric Hospitalization: Yes Protective Factors Assessment Employed: No (Retired from [employer] and [employer]) Supportive Family: Yes Psychiatric History Identifying Data DONITA VILLASEÑOR is a 78-year-old F who currently lives in alone in a senior apartment in [place], has a history of depression and recent psych admit to [facility] (August 2023), and was admitted on 09/28/23 22:18 on a 201 voluntary commitment for SI with plan to overdose on medication. Chief Complaint "I guess I felt a little better when I left the hospital but losing my license is too much." History of Present Illness Donita relates that she's lived alone since her in 2016 and moved to her current apartment five years ago. She deals with varying degrees of depression and loneliness since as doesn't always like the activities available to her in the apartment complex. She has 2 daughters and a sister for support but has largely been independent for driving to get to appointments and shopping. She was hospitalized last month on the medical floor for a UTI and was discharged for a few days only to return to hospital and get placed at [facility]. She reports being recommended for treatment as she has been experiencing auditory hallucinations for a few months, speaking with a man named Bal for example. She states any voices are not upsetting to her and are unrelated to her SI. She believes she was reported to the DMV as she received a piece of mail that she interpreted losing her license pending a test. Loss of her license is problematic as loss of freedom. She hadn't been sleeping well yet has significant side effects to trazodone (excessive sedation) and it was dis continued at a recent psychiatric appointment with [facility]. She denies any hx of gisela. She was not able to describe any visual hallucinations at this time but a primary care note indicates she was referred to neuroopthamology. She has no known diagnosis of dementia but seems to lack detail in describing aspects of her history and medication. Past Psychiatric History Current Psychiatric Diagnosis: Unknown Outpatient Services: [facility] Previous Psych Admissions: [facility] Aug 2023 Do You Have Access To A Gun?: No History of Previous Suicide Attempt: No Past Medication Trials: unsure, Zyprexa was likely used briefly for delirium, Wellbutrin prior to rx of Cymbalta Past Head Trauma/Neuro History History of Concussion/Seizure: No Allergies Allergy/AdvReac Type Severity Reaction Status Date / Time simvastatin Allergy Unknown MUSCLE Verified 06/18/23 15:07 WEAKNESS latex AdvReac Intermediate HIVES Verified 06/18/23 15:07 Home Medications Medication Instructions Recorded Confirmed Type acetaminophen 325 mg tablet 325 - 650 mg PO Q6H PRN Fever Or 12/20/18 09/28/23 History Pain aspirin 81 mg tablet,delayed 81 mg PO QPM 11/03/20 09/28/23 History release vitamin B complex (B 1 tab PO QAM 01/30/23 09/28/23 History Complex-Vitamin B12 tablet) amlodipine 5 mg tablet 5 mg PO DAILY #30 tabs 09/09/23 09/28/23 Rx cholecalciferol (vitamin D3) 1,250 50,000 unit PO .weekly #12 caps 09/13/23 09/28/23 Rx mcg (50,000 unit) capsule levothyroxine 75 mcg tablet 75 mcg PO QAM #90 tabs 09/13/23 09/28/23 Rx polyethylene glycol 3350 17 17 g PO DAILY PRN Constipation 09/13/23 09/28/23 History gram/dose oral powder (Miralax) risperidone 1 mg tablet 1 mg PO BID 09/13/23 09/28/23 History atorvastatin 40 mg tablet 40 mg PO QPM #90 tabs 09/18/23 09/28/23 Rx betamethasone valerate 0.1 % lotion 1 applic topical TID PRN skin 09/18/23 09/28/23 Rx irritation #60 mL famotidine 20 mg tablet (Pepcid) 20 mg PO BID PRN gerd #180 tabs 09/18/23 09/28/23 Rx pantoprazole 40 mg tablet,delayed 40 mg PO QPM #90 tabs 09/18/23 09/28/23 Rx release duloxetine 30 mg capsule,delayed 30 mg PO DAILY #90 caps 09/25/23 09/28/23 Rx release propranolol 60 mg capsule,24 60 mg PO DAILY 09/28/23 09/28/23 History hr,extended release trazodone 50 mg tablet 50 mg PO HS 09/28/23 09/28/23 History Family History Family History of: Bipolar (daughter) Alcohol History Hx of Alcohol Use Over the Past 12 Months: Yes (occasionally) AUDIT Total Score: 2 Smoking Use Have You Smoked or Used Tobacco Products in the Last 30 Days: No Smoking Status: Never smoker Substance History Hx of Prescription Med Misuse Over the Past 12 Months: No Hx of Over the Counter Med Misuse Over the Past 12 Months: No Hx of Inhalent Misuse Over the Past 12 Months: No Hx of Organic Substance Use Over the Past 12 Months: No Hx of Illegal Substances/Street Drug Use Over Past 12 Months: No Problems as a Result of Past Substance Use: None Identified Personal History Living Arrangements: Apartment Highest Grade Completed: High School Graduate Employment Status: Retired (worked in [employer] and [employer]) Marital Status: Number Of Children: 2 daughters Beliefs That Will Affect Care: None Current Legal Problems: No Hx Traumatic Life Events: Yes (losses) Patient History Medical History Auditory hallucinations Encounter for pre-operative examination Osteoarthritis Urinary incontinence Hiatal hernia TMJ (temporomandibular joint disorder) hx locking HTN (hypertension) Sleep apnea unable to tolerate CPAP Anxiety Tremor GERD (gastroesophageal reflux disease) Hypothyroidism Depression Surgical History History of arthroscopic knee surgery History of colonoscopy History of cholecystectomy History of total abdominal hysterectomy and bilateral salpingo-oophorectomy Status post Agatha fundoplication 05/2011 Dr. Ivey- Esophagogastric fundoplasty agatha fundoplication History of esophagogastroduodenoscopy (EGD) Family History Mother Cardiac disorder Myocardial infarction Aunt Cancer Uncle Cancer Cardiac disorder Myocardial infarction Other Family history non-contributory Denies family history of Ovarian cancer Prostate cancer Breast cancer Colorectal cancer Social History Smoking Status: Never smoker Second Hand Exposure: No; Do You Dip or Chew Tobacco: No; Hx Alcohol Use: Yes Alcohol type: beer Hx Substance Use: No Preferred Language: Macedonian Communication Ability: Effective Visual Impairment: No Limitations Hearing Ability: Normal 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 Beliefs That Will Affect Care: None Current Living Situation: Alone and Personal Care Facility Current Living Situation Comment: [facility] current occupational status: retired Feels Safe at Home: Yes Childhood Exposure to Second-Hand Smoke: Yes Diet: regular Diet Comment: regular caffeine: Yes during the past year weight has: remained stable Dental Care, Regularly: No Physical Activity Frequency: 1-2 Times per Week Seatbelt Use: always Sunscreen Use: No Gender Identity: Female Assistive Devices: Cane, Glasses and Walker Review of Systems Review of Systems: All systems reviewed & are unremarkable except as noted in HPI & below Physical Exam Psychiatric: Orientation: alert and oriented x 3 Apperance: appropriately dressed and appropriately groomed Eye Contact: good eye contact Motor Behavior: no abnormal motor movements Speech: normal rate/rhythm/volume of speech Affect: + depressed affect Mood: + depressed mood Thought Process: goal directed thought process Thought Content: reality based without delusions Suicidal Thoughts: denies suicidal intent; + reports suicidal thoughts and + reports suicidal plan (OD) Homicidal Thoughts: denies homicidal thoughts Hallucinations: no auditory hallucinations and no visual hallucinations Cognition: attention grossly intact and language grossly intact Estimated Intelligence: consistent with education level Insight: + limited insight Judgment: + limited judgement Vital Signs (Past 24 Hours): Last Vital Signs Temp 36.6 C 09/29/23 06:35 Pulse 87 09/29/23 06:35 Resp 16 09/29/23 06:35 BP 113/72 09/29/23 06:35 Pulse Ox 98 09/28/23 22:53 O2 Del Method Room Air 09/28/23 22:53 Exam Statement: A physical exam was performed in the ED by Dr. Hylton for the purposes of medical clearance. I accept that physical as correct and adequate for the purposes of the inpatient physical exam. Results & Data ([facility]) Laboratory Results Laboratory Results - last 24 hr 09/28/23 09/28/23 16:44 17:01 WBC 7.36 RBC 4.51 Hgb 14.7 Hct 42.6 MCV 94.5 MCH 32.6 MCHC 34.5 RDW Std Deviation 45.3 RDW Coeff of Yani 13.1 Plt Count 272 MPV 9.9 Immature Gran % (Auto) 0.1 Neut % (Auto) 56.9 Lymph % (Auto) 35.5 Crosby % (Auto) 6.8 Eos % (Auto) 0.0 Baso % (Auto) 0.7 Neut # (Auto) 4.19 Lymph # (Auto) 2.61 Crosby # (Auto) 0.50 Eos # (Auto) 0.00 Baso # (Auto) 0.05 Immature Gran # (Auto) 0.01 Sodium 133 L Potassium 3.7 Chloride 96 L Carbon Dioxide 27 Anion Gap 10 BUN 14 Creatinine 0.91 Est Cr Clr Drug Dosing 60.2 Est GFR ( Amer) 71.0 Est GFR (Non-Af Amer) 61.3 BUN/Creatinine Ratio 15.4 Glucose 110 H Calcium 9.6 Total Bilirubin 1.2 H AST 20 ALT 19 Alkaline Phosphatase 52 Total Protein 7.4 Albumin 4.0 Globulin 3.4 Albumin/Globulin Ratio 1.2 TSH 0.901 Urine Color Yellow Urine Appearance Cloudy A Urine pH 7.0 Ur Specific [place] 1.011 Urine Protein Negative Urine Glucose (UA) Negative Urine Ketones Trace H Urine Blood Negative Urine Nitrite Positive A Urine Bilirubin Negative Urine Urobilinogen Negative Ur Leukocyte Esterase 1+ H Urine WBC (Auto) 10-30 H Urine RBC (Auto) 10-30 H U Hyaline Cast (Auto) 1-5 U Epithel Cells (Auto) 10-20 H Urine Bacteria (Auto) 4+ H Urine Crystals Not Reportable Salicylates < 3.0 L Urine Opiates Screen Neg Ur Methadone, Qual Neg Acetaminophen < 3 L Urine Barbiturates Neg Ur Phencyclidine (PCP) Neg U Amphetamin/Meth Scrn Neg MDMA (Ecstasy) Screen Neg U Benzodiazepines Scrn Neg Ur Cocaine Metabolite Neg U Marijuana (THC) Screen Neg Ethyl Alcohol mg/dL < 10.0 SARS-CoV-2, RNA, NAAT NEGATIVE Diagnostic Findings EKG nl QTc, CXR NAD, UC pending Current Inpatient Medications Current Inpatient Medications: Current Inpatient Medications Acetaminophen (Acetaminophen 325 Mg Tab) 650 mg PO Q4H PRN PRN Reason: Headache or Minor Fever Stop: 10/28/23 22:49 Al Hydrox/Mg Hydrox/Simethicone (Aluminum/Magnesium Susp 30 Ml Udc) 30 ml PO Q4H PRN PRN Reason: GI Upset Stop: 10/28/23 22:49 Amlodipine Besylate (Amlodipine Besylate 5 Mg Tab) 5 mg PO DAILY [facility] Stop: 10/29/23 08:59 Last Admin: 09/29/23 09:27 Dose: 5 mg Aspirin (Aspirin 81 Mg Ectab) 81 mg PO QPM [facility] Stop: 10/29/23 20:59 Atorvastatin Calcium (Atorvastatin 40 Mg Tab) 40 mg PO QPM [facility] Stop: 10/29/23 20:59 Bismuth Subsalicylate (Bismuth Subsalicylate Liqd 236 Ml) 15 ml PO PRN PRN PRN Reason: Loose Stool Stop: 10/28/23 22:49 Cephalexin HCl (Cephalexin 500 Mg Cap) 500 mg PO BID [facility]; Protocol Stop: 10/04/23 11:29 Last Admin: 09/29/23 12:39 Dose: 500 mg Docusate Sodium (Docusate Sodium 100 Mg Cap) 100 mg PO BID [facility] Stop: 10/29/23 10:59 Last Admin: 09/29/23 12:39 Dose: 100 mg Duloxetine HCl (Duloxetine Hcl 30 Mg Cap) 30 mg PO DAILY [facility] Stop: 10/29/23 08:59 Last Admin: 09/29/23 09:27 Dose: 30 mg Famotidine (Famotidine 20 Mg Tab) 20 mg PO BID [facility] Stop: 10/29/23 10:59 Last Admin: 09/29/23 12:39 Dose: 20 mg Hydroxyzine HCl (Hydroxyzine Hcl 25 Mg Tab) 50 mg PO HSZ PRN PRN Reason: Insomnia Stop: 10/28/23 22:49 Hydroxyzine HCl (Hydroxyzine Hcl 25 Mg Tab) 25 mg PO Q4H PRN PRN Reason: Anxiety Stop: 10/28/23 22:49 Levothyroxine Sodium (Levothyroxine Sodium 75 Mcg Tablet) 75 mcg PO DAILYBB [facility] Stop: 10/30/23 07:59 Last Admin: 09/29/23 12:40 Dose: 75 mcg Magnesium Hydroxide (Magnesium Hydroxide Susp 30 Ml Udc) 30 ml PO DAILY PRN PRN Reason: Constipation Stop: 10/28/23 22:49 Pantoprazole Sodium (Pantoprazole 40 Mg Tab) 40 mg PO QPM [facility] Stop: 10/29/23 20:59 Polyethylene Glycol (Polyethylene (Miralax) 17 Gm Pack) 17 gm PO DAILY PRN PRN Reason: Constipation Stop: 10/29/23 08:21 Propranolol HCl (Propranolol Hcl 60 Mg La Cap) 60 mg PO DAILY [facility] Stop: 10/29/23 08:59 Last Admin: 09/29/23 09:27 Dose: 60 mg Risperidone (Risperidone 1 Mg Tablet) 1 mg PO BID [facility] Stop: 10/29/23 08:59 Last Admin: 09/29/23 09:27 Dose: 1 mg Sodium Chloride (Sodium Chloride 0.65% Na Soln 45 Ml ([place])) 1 - 2 sprays NA PRN PRN PRN Reason: Nasal Dryness/Congestion Stop: 10/28/23 22:49 Vitamin B Complex (Vitamin B Complex Tab) 1 tab PO QAM [facility] Stop: 10/29/23 08:59 Last Admin: 09/29/23 09:27 Dose: 1 tab
[2023-09-29] MEDS: ASPIRIN 81 MG ECTAB PO SCH (21:33)
[2023-09-29] MEDS: ATORVASTATIN 40 MG TAB PO SCH (21:34)
[2023-09-29] MEDS: PANTOprazole 40 MG TAB PO SCH (21:37)
[2023-09-29] MEDS ORDERED: traZODone HCL 50 MG TAB PO SCH (22:00)
--- NOTE | 2023-09-29 22:14 | Electrocardiogram Report ---
Test Reason : Blood Pressure : / mmHG Vent. Rate : 072 BPM Atrial Rate : 072 BPM P-R Int : 194 ms QRS Dur : 086 ms QT Int : 408 ms P-R-T Axes : 016 -32 029 degrees QTc Int : 446 ms Normal sinus rhythm Left axis deviation Moderate voltage criteria for LVH, may be normal variant ( R in aVL , Ronan product ) Cannot rule out Anterior infarct , age undetermined Abnormal ECG When compared with ECG of 14-NOV-2020 19:32, ST no longer depressed in Anterior leads T wave inversion no longer evident in Anterior leads QT has shortened Confirmed by Cody Fabian ([id number]) on 09/29/2023 10:14:18 PM Referred By: REFERRED SELF Confirmed By:Cody Fabian
[2023-09-30 08:34] LABS: Chol HDL Ratio 2.9 (0-5)
[2023-09-30] MEDS: LEVOTHYROXINE SODIUM 75 MCG TABLET PO SCH (08:41)
[2023-09-30] MEDS: cephALEXin 500 MG CAP PO SCH ×2 (08:42→21:43)
[2023-09-30] MEDS: DOCUSATE SODIUM 100 MG CAP PO SCH ×2 (08:42→21:43)
[2023-09-30] MEDS: amLODIPine BESYLATE 5 MG TAB PO SCH (08:42)
[2023-09-30] MEDS: FAMOTIDINE 20 MG TAB PO SCH ×2 (08:43→21:43)
[2023-09-30] MEDS: DULoxetine HCL 30 MG CAP PO SCH (08:43)
[2023-09-30] MEDS: PROPRANOLOL HCL 60 MG LA CAP PO SCH (08:44)
[2023-09-30] MEDS: risperiDONE 1 MG TABLET PO SCH ×2 (08:46→21:43)
[2023-09-30] MEDS: VITAMIN B COMPLEX TAB PO SCH (08:46)
[2023-09-30 09:59] LABS: Estimated Average Glucose 123 mg/dl; Hemoglobin A1C 5.9 % (4.5-5.6)
--- NOTE | 2023-09-30 13:58 | Psychiatric Progress Note ---
Date of Service September 30, 2023 Impression / Recommendations Impression 78 yo female with depression with psychotic features, though hallucinations could also represent early stages of a major cognitive disorder. No hx of bipolar and doubt late onset schizophrenia as otherwise organized. MNPR given age and ambulatory status. Overall, I spent a total of 35 minutes with this case, including review of chart, direct evaluation of the patient, counseling the patient, coordination with nursing,risk assessment, and documentation. (1) Major depress dis, severe: (2) UTI (urinary tract infection): Plan 09/30/23: culture grew E Coli sensitive to all agents so continue Keflex, continue Cymbalta 30 mg as dose just increased prior to admission. Engage family. 09/29/23: The patient was admitted to the [facility] ([facility]) on q15 min checks (behavioral with suicide precautions) for safety. The patient will participate in group, recreational, and milieu therapies and will be offered additional individual and family sessions as clinically appropriate. Risks/benefits/alternatives reviewed re: her current medications, discussion included but was not limited to risks of TD/metabolic abnormalities. Fasting lab s as indicated. will d/c trazodone as confirmed not taking at home and fall risk. MOCA when less tired. Keflex pending culture. Inventory Assets Strengths: help seeking, independent Needs: improve insight into condition, improve coping Suicide Risk Level Suicide Risk Level: High-Moderate (q15 min suicide checks) Risk Factors Assessment Male: No : Yes Do You Have Access To A Gun?: No Health Problems: Yes Mental Health Diagnoses: No Substance Use Disorders: No Previous Attempt: No Family History of Suicide: No Previous Psychiatric Hospitalization: Yes Protective Factors Assessment Employed: No (Retired from [employer] and [employer]) Supportive Family: Yes Interval History Identifying Information KEAGAN VILLASEÑOR is a 78-year-old F who currently lives in alone in a senior apartment in [place], has a history of depression and recent psych admit to [facility] (August 2023), and was admitted on 09/28/23 22:18 on a 201 voluntary commitment for SI with plan to overdose on medication. Chief Complaint "I'm sad about relationship issues." Review of Systems Sleep Information Total Hours of Sleep: 7 Meal Information Percent Meal Consumed - Breakfast: 100 Percent Meal Consumed - Lunch: 70 Percent Meal Consumed - Dinner: 50 Subjective Subjective Patient was seen & assessed and interval progress reviewed with treatment team. has been cooperative with care. tired at times. need to engage family in understanding supports as may be help rejecting with regards to transportation, etc. Has not been experiencing hallucinations. Physical Exam Psychiatric Orientation: alert and oriented x 3 Apperance: appropriately dressed and appropriately groomed Eye Contact: good eye contact Motor Behavior: no abnormal motor movements Speech: normal rate/rhythm/volume of speech Affect: + depressed affect Mood: + depressed mood Thought Process: goal directed thought process Thought Content: reality based without delusions Suicidal Thoughts: denies suicidal plan and denies suicidal intent; + reports suicidal thoughts (intermittent) Homicidal Thoughts: denies homicidal thoughts Hallucinations: no auditory hallucinations and no visual hallucinations Cognition: attention grossly intact and language grossly intact Estimated Intelligence: consistent with education level Insight: + limited insight Judgment: + limited judgement Vital Signs (Past 24 Hours) Last Vital Signs Temp 36.5 C 09/30/23 06:39 Pulse 72 09/30/23 08:39 Resp 16 09/30/23 06:39 BP 115/75 09/30/23 08:39 Pulse Ox 98 09/28/23 22:53 O2 Del Method Room Air 09/28/23 22:53 Results & Data ([facility]) Laboratory Results Laboratory Results - last 24 hr 09/30/23 07:38 Estimat Average Glucose 123 Hemoglobin A1c 5.9 H Triglycerides 70 Cholesterol 130 LDL Cholesterol, Calc 71 VLDL Cholesterol, Calc 14 HDL Cholesterol 45 Cholesterol/HDL Ratio 2.9 Current Inpatient Medications Current Inpatient Medications: Current Inpatient Medications Acetaminophen (Acetaminophen 325 Mg Tab) 650 mg PO Q4H PRN PRN Reason: Headache or Minor Fever Stop: 10/28/23 22:49 Al Hydrox/Mg Hydrox/Simethicone (Aluminum/Magnesium Susp 30 Ml Udc) 30 ml PO Q4H PRN PRN Reason: GI Upset Stop: 10/28/23 22:49 Amlodipine Besylate (Amlodipine Besylate 5 Mg Tab) 5 mg PO DAILY [facility] Stop: 10/29/23 08:59 Last Admin: 09/30/23 08:42 Dose: 5 mg Aspirin (Aspirin 81 Mg Ectab) 81 mg PO QPM [facility] Stop: 10/29/23 20:59 Last Admin: 09/29/23 21:33 Dose: 81 mg Atorvastatin Calcium (Atorvastatin 40 Mg Tab) 40 mg PO QPM [facility] Stop: 10/29/23 20:59 Last Admin: 09/29/23 21:34 Dose: 40 mg Bismuth Subsalicylate (Bismuth Subsalicylate Liqd 236 Ml) 15 ml PO PRN PRN PRN Reason: Loose Stool Stop: 10/28/23 22:49 Cephalexin HCl (Cephalexin 500 Mg Cap) 500 mg PO BID [facility]; Protocol Stop: 10/04/23 11:29 Last Admin: 09/30/23 08:42 Dose: 500 mg Docusate Sodium (Docusate Sodium 100 Mg Cap) 100 mg PO BID [facility] Stop: 10/29/23 10:59 Last Admin: 09/30/23 08:42 Dose: 100 mg Duloxetine HCl (Duloxetine Hcl 30 Mg Cap) 30 mg PO DAILY [facility] Stop: 10/29/23 08:59 Last Admin: 09/30/23 08:43 Dose: 30 mg Famotidine (Famotidine 20 Mg Tab) 20 mg PO BID [facility] Stop: 10/29/23 10:59 Last Admin: 09/30/23 08:43 Dose: 20 mg Hydroxyzine HCl (Hydroxyzine Hcl 25 Mg Tab) 50 mg PO HSZ PRN PRN Reason: Insomnia Stop: 10/28/23 22:49 Hydroxyzine HCl (Hydroxyzine Hcl 25 Mg Tab) 25 mg PO Q4H PRN PRN Reason: Anxiety Stop: 10/28/23 22:49 Levothyroxine Sodium (Levothyroxine Sodium 75 Mcg Tablet) 75 mcg PO DAILYBB [facility] Stop: 10/30/23 07:59 Last Admin: 09/30/23 08:41 Dose: 75 mcg Magnesium Hydroxide (Magnesium Hydroxide Susp 30 Ml Udc) 30 ml PO DAILY PRN PRN Reason: Constipation Stop: 10/28/23 22:49 Pantoprazole Sodium (Pantoprazole 40 Mg Tab) 40 mg PO QPM [facility] Stop: 10/29/23 20:59 Last Admin: 09/29/23 21:37 Dose: 40 mg Polyethylene Glycol (Polyethylene (Miralax) 17 Gm Pack) 17 gm PO DAILY PRN PRN Reason: Constipation Stop: 10/29/23 08:21 Propranolol HCl (Propranolol Hcl 60 Mg La Cap) 60 mg PO DAILY [facility] Stop: 10/29/23 08:59 Last Admin: 09/30/23 08:44 Dose: 60 mg Risperidone (Risperidone 1 Mg Tablet) 1 mg PO BID [facility] Stop: 10/29/23 08:59 Last Admin: 09/30/23 08:46 Dose: 1 mg Sodium Chloride (Sodium Chloride 0.65% Na Soln 45 Ml ([place])) 1 - 2 sprays NA PRN PRN PRN Reason: Nasal Dryness/Congestion Stop: 10/28/23 22:49 Vitamin B Complex (Vitamin B Complex Tab) 1 tab PO QAM [facility] Stop: 10/29/23 08:59 Last Admin: 09/30/23 08:46 Dose: 1 tab Post Discharge Appointments Primary Care Physician Name Of Family Doctor/PCP: [facility] (2) UTI (urinary tract infection) Hematuria presence: with hematuria Urinary tract infection type: acute cystitis Qualified Code(s): N30.01 - Acute cystitis with hematuria
[2023-09-30] MEDS: ACETAMINOPHEN 325 MG TAB PO PRN (16:05)
[2023-09-30] MEDS: ATORVASTATIN 40 MG TAB PO SCH (21:43)
[2023-09-30] MEDS: ASPIRIN 81 MG ECTAB PO SCH (21:43)
[2023-09-30] MEDS: PANTOprazole 40 MG TAB PO SCH (21:43)
[2023-10-01] MEDS: LEVOTHYROXINE SODIUM 75 MCG TABLET PO SCH (08:57)
[2023-10-01] MEDS: cephALEXin 500 MG CAP PO SCH ×2 (09:35→20:46)
[2023-10-01] MEDS: DOCUSATE SODIUM 100 MG CAP PO SCH ×2 (09:36→20:47)
[2023-10-01] MEDS: amLODIPine BESYLATE 5 MG TAB PO SCH (09:37)
[2023-10-01] MEDS: DULoxetine HCL 30 MG CAP PO SCH (09:37)
[2023-10-01] MEDS: risperiDONE 1 MG TABLET PO SCH ×2 (09:38→20:49)
[2023-10-01] MEDS: PROPRANOLOL HCL 60 MG LA CAP PO SCH (09:38)
[2023-10-01] MEDS: FAMOTIDINE 20 MG TAB PO SCH ×2 (09:38→20:48)
[2023-10-01] MEDS: VITAMIN B COMPLEX TAB PO SCH (09:39)
--- NOTE | 2023-10-01 14:04 | Psychiatric Progress Note ---
Date of Service October 01, 2023 Impression / Recommendations Impression 78 yo female with depression with psychotic features, though hallucinations could also represent early stages of a major cognitive disorder. No hx of bipolar and doubt late onset schizophrenia as otherwise organized. MNPR given age and ambulatory status. Overall, I spent a total of 35 minutes with this case, including review of chart, direct evaluation of the patient, counseling the patient, coordination with nursing,risk assessment, and documentation. (1) Major depress dis, severe: (2) UTI (urinary tract infection): Plan 10/01/23: continue current meds and treatment plan as suspect not taking correctly at home and is not hallucinating here. confirming status of her waiver with office of aging as requires [facility]. 09/30/23: culture grew E Coli sensitive to all agents so continue Keflex, continue Cymbalta 30 mg as dose just increased prior to admission. Engage family. 09/29/23: The patient was admitted to the [facility] ([facility] health unit) on q15 min checks (behavioral with suicide precautions) for safety. The patient will participate in group, recreational, and milieu therapies and will be offered additional individual and family sessions as clinically appropriate. Risks/benefits/alternatives reviewed re: her current medications, discussion included but was not limited to risks of TD/metabolic abnormalities. Fasting labs as indicated. will d/c trazodone as confirmed not taking at home and fall risk. MOCA when less tired. Keflex pending culture. Inventory Assets Strengths: help seeking, independent Needs: improve insight into condition, improve coping Suicide Risk Level Suicide Risk Level: High-Moderate (q15 min suicide checks) Risk Factors Assessment Male: No : Yes Do You Have Access To A Gun?: No Health Problems: Yes Mental Health Diagnoses: No Substance Use Disorders: No Previous Attempt: No Family History of Suicide: No Previous Psychiatric Hospitalization: Yes Protective Factors Assessment Employed: No (Retired from [employer]) Supportive Family: Yes Interval History Identifying Information KEAGAN VILLASEÑOR is a 78-year-old F who currently lives in alone in a senior apartment in [place], has a history of depression and recent psych admit to [facility] (August 2023), and was admitted on 09/28/23 22:18 on a 201 voluntary commitment for SI with plan to overdose on medication. Chief Complaint preoccupation with Bal Review of Systems Sleep Information Total Hours of Sleep: 7.5 Meal Information Percent Meal Consumed - Breakfast: 100 Percent Meal Consumed - Lunch: 90 Percent Meal Consumed - Dinner: 50 Subjective Subjective Patient was seen & assessed and interval progress reviewed with nursing and social work. Relational problem from yesterday was patient actually referring to her previous auditory hassan of Bal. Since he is no longer talking with her she felt broken up with yesterday. She has little insight into any of this and remains a poor historian. In pm she was out of her room and participating. Rated mood as 5/10. Today she was incontinent of urine but cooperative with care/clean up and is attending groups and ambulating well, using wheeled walker at times. Physical Exam Psychiatric Orientation: alert and oriented x 3 Apperance: appropriately dressed and appropriately groomed Eye Contact: good eye contact Motor Behavior: no abnormal motor movements Speech: normal rate/rhythm/volume of speech Affect: euthymic affect Mood: + depressed mood Thought Process: + concrete thought process Thought Content: reality based without delusions Suicidal Thoughts: denies suicidal thoughts, denies suicidal plan and denies suicidal intent Homicidal Thoughts: denies homicidal thoughts Hallucinations: no auditory hallucinations and no visual hallucinations Cognition: attention grossly intact and language grossly intact Estimated Intelligence: consistent with education level Insight: + limited insight Judgment: + limited judgement Vital Signs (Past 24 Hours) Last Vital Signs Temp 36.7 C 10/01/23 06:38 Pulse 78 10/01/23 06:38 Resp 16 10/01/23 06:38 BP 100/59 L 10/01/23 06:38 Pulse Ox 98 09/28/23 22:53 O2 Del Method Room Air 09/28/23 22:53 Results & Data ([facility]) Current Inpatient Medications Current Inpatient Medications: Current Inpatient Medications Acetaminophen (Acetaminophen 325 Mg Tab) 650 mg PO Q4H PRN PRN Reason: Headache or Minor Fever Stop: 10/28/23 22:49 Last Admin: 09/30/23 16:05 Dose: 650 mg Al Hydrox/Mg Hydrox/Simethicone (Aluminum/Magnesium Susp 30 Ml Udc) 30 ml PO Q4H PRN PRN Reason: GI Upset Stop: 10/28/23 22:49 Amlodipine Besylate (Amlodipine Besylate 5 Mg Tab) 5 mg PO DAILY RODRIGO Stop: 10/29/23 08:59 Last Admin: 10/01/23 09:37 Dose: 5 mg Aspirin (Aspirin 81 Mg Ectab) 81 mg PO QPM RODRIGO Stop: 10/29/23 20:59 Last Admin: 09/30/23 21:43 Dose: 81 mg Atorvastatin Calcium (Atorvastatin 40 Mg Tab) 40 mg PO QPM RODRIGO Stop: 10/29/23 20:59 Last Admin: 09/30/23 21:43 Dose: 40 mg Bismuth Subsalicylate (Bismuth Subsalicylate Liqd 236 Ml) 15 ml PO PRN PRN PRN Reason: Loose Stool Stop: 10/28/23 22:49 Cephalexin HCl (Cephalexin 500 Mg Cap) 500 mg PO BID [facility]; Protocol Stop: 10/04/23 11:29 Last Admin: 10/01/23 09:35 Dose: 500 mg Docusate Sodium (Docusate Sodium 100 Mg Cap) 100 mg PO BID [facility] Stop: 10/29/23 10:59 Last Admin: 10/01/23 09:36 Dose: 100 mg Duloxetine HCl (Duloxetine Hcl 30 Mg Cap) 30 mg PO DAILY RODRIGO Stop: 10/29/23 08:59 Last Admin: 10/01/23 09:37 Dose: 30 mg Famotidine (Famotidine 20 Mg Tab) 20 mg PO BID [facility] Stop: 10/29/23 10:59 Last Admin: 10/01/23 09:38 Dose: 20 mg Hydroxyzine HCl (Hydroxyzine Hcl 25 Mg Tab) 50 mg PO HSZ PRN PRN Reason: Insomnia Stop: 10/28/23 22:49 Hydroxyzine HCl (Hydroxyzine Hcl 25 Mg Tab) 25 mg PO Q4H PRN PRN Reason: Anxiety Stop: 10/28/23 22:49 Levothyroxine Sodium (Levothyroxine Sodium 75 Mcg Tablet) 75 mcg PO DAILYBB [facility] Stop: 10/30/23 07:59 Last Admin: 10/01/23 08:57 Dose: 75 mcg Magnesium Hydroxide (Magnesium Hydroxide Susp 30 Ml Udc) 30 ml PO DAILY PRN PRN Reason: Constipation Stop: 10/28/23 22:49 Pantoprazole Sodium (Pantoprazole 40 Mg Tab) 40 mg PO QPM R[facility]IGO Stop: 10/29/23 20:59 Last Admin: 09/30/23 21:43 Dose: 40 mg Polyethylene Glycol (Polyethylene (Miralax) 17 Gm Pack) 17 gm PO DAILY PRN PRN Reason: Constipation Stop: 10/29/23 08:21 Propranolol HCl (Propranolol Hcl 60 Mg La Cap) 60 mg PO DAILY R[facility]O Stop: 10/29/23 08:59 Last Admin: 10/01/23 09:38 Dose: 60 mg Risperidone (Risperidone 1 Mg Tablet) 1 mg PO BID R[facility] Stop: 10/29/23 08:59 Last Admin: 10/01/23 09:38 Dose: 1 mg Sodium Chloride (Sodium Chloride 0.65% Na Soln 45 Ml ([place])) 1 - 2 sprays NA PRN PRN PRN Reason: Nasal Dryness/Congestion Stop: 10/28/23 22:49 Vitamin B Complex (Vitamin B Complex Tab) 1 tab PO QAM R[facility]O Stop: 10/29/23 08:59 Last Admin: 10/01/23 09:39 Dose: 1 tab Post Discharge Appointments Primary Care Physician Name Of Family Doctor/PCP: BHARATH (2) UTI (urinary tract infection) Hematuria presence: with hematuria Urinary tract infection type: acute cystitis Qualified Code(s): N30.01 - Acute cystitis with hematuria
[2023-10-01] MEDS: ACETAMINOPHEN 325 MG TAB PO PRN (15:46)
[2023-10-01] MEDS: ASPIRIN 81 MG ECTAB PO SCH (20:44)
[2023-10-01] MEDS: ATORVASTATIN 40 MG TAB PO SCH (20:46)
[2023-10-01] MEDS: PANTOprazole 40 MG TAB PO SCH (20:49)
[2023-10-02] MEDS: cephALEXin 500 MG CAP PO SCH ×2 (09:11→20:52)
[2023-10-02] MEDS: PROPRANOLOL HCL 60 MG LA CAP PO SCH (09:11)
[2023-10-02] MEDS: DOCUSATE SODIUM 100 MG CAP PO SCH ×2 (09:11→20:52)
[2023-10-02] MEDS: VITAMIN B COMPLEX TAB PO SCH (09:12)
[2023-10-02] MEDS: LEVOTHYROXINE SODIUM 75 MCG TABLET PO SCH (09:12)
[2023-10-02] MEDS: FAMOTIDINE 20 MG TAB PO SCH ×2 (09:12→20:52)
[2023-10-02] MEDS: amLODIPine BESYLATE 5 MG TAB PO SCH (09:12)
[2023-10-02] MEDS: risperiDONE 1 MG TABLET PO SCH ×2 (09:13→20:52)
[2023-10-02] MEDS: DULoxetine HCL 30 MG CAP PO SCH (09:13)
--- NOTE | 2023-10-02 14:00 | Psychiatric Progress Note ---
Date of Service October 02, 2023 Impression / Recommendations Impression 78 yo female with depression with psychotic features, though hallucinations could also represent early stages of a major cognitive disorder. No hx of bipolar and doubt late onset schizophrenia as otherwise organized. MNPR given age and ambulatory status. Overall, I spent a total of 40 minutes with this case, including review of chart, direct evaluation of the patient, counseling the patient, coordination with nursing,risk assessment, and documentation. (1) Major depress dis, severe: (2) UTI (urinary tract infection): Plan 10/02/23: on the [facility]. Split Risperdal dosing to minimize am sedation. Plan is to have someone overseeing medications after hospitalization so given compliant here don't see immediate need for conversion to agent with an HODGES. 10/01/23: continue current meds and treatment plan as suspect not taking correctly at home and is not hallucinating here. confirming status of her waiver with office of aging as requires [facility]. 09/30/23: culture grew E Coli sensitive to all agents so continue Keflex, continue Cymbalta 30 mg as dose just increased prior to admission. Engage family. 09/29/23: The patient was admitted to the [facility] ([facility] mental health unit) on q15 min checks (behavioral with suicide precautions) for safety. The patient will participate in group, recreational, and milieu therapies and will be offered additional individual and family sessions as clinically appropriate. Risks/benefits/alternatives reviewed re: her current medications, discussion included but was not limited to risks of TD/metabolic abnormalities. Fasting labs as indicated. will d/c trazodone as confirmed not taking at home and fall risk. MOCA when less tired. Keflex pending culture. Inventory Assets Strengths: help seeking, independent Needs: improve insight into condition, improve coping Suicide Risk Level Suicide Risk Level: Moderate (q15 min suicide checks) Risk Factors Assessment Male: No : Yes Do You Have Access To A Gun?: No Health Problems: Yes Mental Health Diagnoses: No Substance Use Disorders: No Previous Attempt: No Family History of Suicide: No Previous Psychiatric Hospitalization: Yes Protective Factors Assessment Employed: No (Retired from [employer]) Supportive Family: Yes Interval History Identifying Information KEAGAN VILLASEÑOR is a 78-year-old F who currently lives in alone in a senior apartment in [place], has a history of depression and recent psych admit to [facility] (August 2023), and was admitted on 09/28/23 22:18 on a 201 voluntary commitment for SI with plan to overdose on medication. Chief Complaint "I feel sort of tired in the am." Review of Systems Sleep Information Total Hours of Sleep: 7.5 Sleep Comments: incontinent around 0200 Meal Information Percent Meal Consumed - Breakfast: 100 Percent Meal Consumed - Lunch: 90 Percent Meal Consumed - Dinner: 80 Subjective Subjective Patient was seen & assessed and interval progress reviewed with treatment team. Patient has not appeared to be hallucinating, attending groups, better energy as day goes on. waiver process for [facility] may take time, discussed her more immediate needs at home. SW exploring ability to live with daughter or other family plan upon discharge given repeated hospitalizations. Cooperative with [facility]. Physical Exam Psychiatric Orientation: alert and oriented x 3 Apperance: appropriately dressed and appropriately groomed Eye Contact: good eye contact Motor Behavior: no abnormal motor movements Speech: normal rate/rhythm/volume of speech Affect: euthymic affect Mood: + depressed mood Thought Process: goal directed thought process and + concrete thought process Thought Content: reality based without delusions Suicidal Thoughts: denies suicidal thoughts Homicidal Thoughts: denies homicidal thoughts Hallucinations: no auditory hallucinations and no visual hallucinations Cognition: attention grossly intact and language grossly intact Estimated Intelligence: consistent with education level Insight: + limited insight Judgment: + limited judgement Vital Signs (Past 24 Hours) Last Vital Signs Temp 36.5 C 10/02/23 06:34 Pulse 82 10/02/23 06:35 Resp 16 10/02/23 06:34 BP 104/73 10/02/23 06:35 Pulse Ox 98 09/28/23 22:53 O2 Del Method Room Air 09/28/23 22:53 Results & Data ([facility]) Current Inpatient Medications Current Inpatient Medications: Current Inpatient Medications Acetaminophen (Acetaminophen 325 Mg Tab) 650 mg PO Q4H PRN PRN Reason: Headache or Minor Fever Stop: 10/28/23 22:49 Last Admin: 10/01/23 15:46 Dose: 650 mg Al Hydrox/Mg Hydrox/Simethicone (Aluminum/Magnesium Susp 30 Ml Udc) 30 ml PO Q4H PRN PRN Reason: GI Upset Stop: 10/28/23 22:49 Amlodipine Besylate (Amlodipine Besylate 5 Mg Tab) 5 mg PO DAILY RODRIGO Stop: 10/29/23 08:59 Last Admin: 10/02/23 09:12 Dose: 5 mg Aspirin (Aspirin 81 Mg Ectab) 81 mg PO QPM R[facility]RIGO Stop: 10/29/23 20:59 Last Admin: 10/01/23 20:44 Dose: 81 mg Atorvastatin Calcium (Atorvastatin 40 Mg Tab) 40 mg PO QPM [facility]IGO Stop: 10/29/23 20:59 Last Admin: 10/01/23 20:46 Dose: 40 mg Bismuth Subsalicylate (Bismuth Subsalicylate Liqd 236 Ml) 15 ml PO PRN PRN PRN Reason: Loose Stool Stop: 10/28/23 22:49 Cephalexin HCl (Cephalexin 500 Mg Cap) 500 mg PO BID [facility]; Protocol Stop: 10/04/23 11:29 Last Admin: 10/02/23 09:11 Dose: 500 mg Docusate Sodium (Docusate Sodium 100 Mg Cap) 100 mg PO BID [facility] Stop: 10/29/23 10:59 Last Admin: 10/02/23 09:11 Dose: 100 mg Duloxetine HCl (Duloxetine Hcl 30 Mg Cap) 30 mg PO DAILY RODRIGO Stop: 10/29/23 08:59 Last Admin: 10/02/23 09:13 Dose: 30 mg Famotidine (Famotidine 20 Mg Tab) 20 mg PO BID R[facility] Stop: 10/29/23 10:59 Last Admin: 10/02/23 09:12 Dose: 20 mg Hydroxyzine HCl (Hydroxyzine Hcl 25 Mg Tab) 50 mg PO HSZ PRN PRN Reason: Insomnia Stop: 10/28/23 22:49 Hydroxyzine HCl (Hydroxyzine Hcl 25 Mg Tab) 25 mg PO Q4H PRN PRN Reason: Anxiety Stop: 10/28/23 22:49 Levothyroxine Sodium (Levothyroxine Sodium 75 Mcg Tablet) 75 mcg PO DAILYBB [facility] Stop: 10/30/23 07:59 Last Admin: 10/02/23 09:12 Dose: 75 mcg Magnesium Hydroxide (Magnesium Hydroxide Susp 30 Ml Udc) 30 ml PO DAILY PRN PRN Reason: Constipation Stop: 10/28/23 22:49 Pantoprazole Sodium (Pantoprazole 40 Mg Tab) 40 mg PO QPM RODRIGO Stop: 10/29/23 20:59 Last Admin: 10/01/23 20:49 Dose: 40 mg Polyethylene Glycol (Polyethylene (Miralax) 17 Gm Pack) 17 gm PO DAILY PRN PRN Reason: Constipation Stop: 10/29/23 08:21 Propranolol HCl (Propranolol Hcl 60 Mg La Cap) 60 mg PO DAILY RODRIGO Stop: 10/29/23 08:59 Last Admin: 10/02/23 09:11 Dose: 60 mg Risperidone (Risperidone 1 Mg Tablet) 1 mg PO BID R[facility]O Stop: 10/29/23 08:59 Last Admin: 10/02/23 09:13 Dose: 1 mg Sodium Chloride (Sodium Chloride 0.65% Na Soln 45 Ml ([place])) 1 - 2 sprays NA PRN PRN PRN Reason: Nasal Dryness/Congestion Stop: 10/28/23 22:49 Vitamin B Complex (Vitamin B Complex Tab) 1 tab PO QAM [facility] Stop: 10/29/23 08:59 Last Admin: 10/02/23 09:12 Dose: 1 tab Post Discharge Appointments Primary Care Physician Name Of Family Doctor/PCP: BHARATH (2) UTI (urinary tract infection) Hematuria presence: with hematuria Urinary tract infection type: acute cystitis Qualified Code(s): N30.01 - Acute cystitis with hematuria
[2023-10-02] MEDS: ATORVASTATIN 40 MG TAB PO SCH (20:52)
[2023-10-02] MEDS: ASPIRIN 81 MG ECTAB PO SCH (20:52)
[2023-10-02] MEDS: PANTOprazole 40 MG TAB PO SCH (20:52)
[2023-10-03] MEDS: LEVOTHYROXINE SODIUM 75 MCG TABLET PO SCH (09:06)
[2023-10-03] MEDS: amLODIPine BESYLATE 5 MG TAB PO SCH (09:06)
[2023-10-03] MEDS: DULoxetine HCL 30 MG CAP PO SCH (09:07)
[2023-10-03] MEDS: cephALEXin 500 MG CAP PO SCH ×2 (09:07→20:44)
[2023-10-03] MEDS: DOCUSATE SODIUM 100 MG CAP PO SCH ×2 (09:07→20:45)
[2023-10-03] MEDS: FAMOTIDINE 20 MG TAB PO SCH ×2 (09:08→20:45)
[2023-10-03] MEDS: risperiDONE 0.5 MG TABLET PO SCH (09:08)
[2023-10-03] MEDS: PROPRANOLOL HCL 60 MG LA CAP PO SCH (09:08)
[2023-10-03] MEDS: VITAMIN B COMPLEX TAB PO SCH (09:09)
--- NOTE | 2023-10-03 17:00 | Psychiatric Progress Note ---
Date of Service October 03, 2023 Impression / Recommendations Impression 78 yo female with depression with psychotic features, though hallucinations could also represent early stages of a major cognitive disorder. No hx of bipolar and doubt late onset schizophrenia as otherwise organized. MNPR given age and ambulatory status. 10/03/23: improving, appears less sedated on lower dose of Risperdal in the am. Overall, I spent a total of 36 minutes with this case, including review of andrey kolb, direct evaluation of the patient, counseling the patient, coordination with nursing, and documentation. (1) Major depress dis, severe: (2) UTI (urinary tract infection): Plan 10/03/23: continue Risperdal 0.5 mg am and 1 mg pm. If hassan recur will add afternoon 0.5 mg dose. 10/02/23: on the Mo[facility]. Split Risperdal dosing to minimize am sedation. Plan is to have someone overseeing medications after hospitalization so given compliant here don't see immediate need for conversion to agent with an HODGES. 10/01/23: continue current meds and treatment plan as suspect not taking correctly at home and is not hallucinating here. confirming status of her waiver with office of aging as requires [facility]. 09/30/23: culture grew E Coli sensitive to all agents so continue Keflex, continue Cymbalta 30 mg as dose just increased prior to admission. Engage family. 09/29/23: The patient was admitted to the [facility] ([facility] health unit) on q15 min checks (behavioral with suicide precautions) for safety. The patient will participate in group, recreational, and milieu therapies and will be offered additional individual and family sessions as clinically appropriate. Risks/benefits/alternatives reviewed re: her current medications, discussion included but was not limited to risks of TD/metabolic abnormalities. Fasting labs as indicated. will d/c trazodone as confirmed not taking at home and fall risk. MOCA when less tired. Keflex pending culture. Inventory Assets Strengths: help seeking, independent Needs: improve insight into condition, improve coping Suicide Risk Level Suicide Risk Level: Moderate (q15 min suicide checks) Risk Factors Assessment Male: No : Yes Do You Have Access To A Gun?: No Health Problems: Yes Mental Health Diagnoses: No Substance Use Disorders: No Previous Attempt: No Family History of Suicide: No Previous Psychiatric Hospitalization: Yes Protective Factors Assessment Employed: No (Retired from [employer]) Supportive Family: Yes Interval History Identifying Information KEAGAN VILLASEÑOR is a 78-year-old F who currently lives in alone in a senior apartment in [place], has a history of depression and recent psych admit to [facility] (August 2023), and was admitted on 09/28/23 22:18 on a 201 voluntary commitment for SI with plan to overdose on medication. Chief Complaint "sad I can't return home" Review of Systems Sleep Information Total Hours of Sleep: 8.75 Sleep Comments: incontinent around 0200 Meal Information Percent Meal Consumed - Breakfast: 100 Percent Meal Consumed - Lunch: 80 Percent Meal Consumed - Dinner: 90 Subjective Subjective Patient was seen & assessed and interval progress reviewed with nursing and social work. Patient accepted recommendation that should not live alone following hospital stay pending longer term care. Physical Exam Psychiatric Orientation: alert and oriented x 3 Apperance: appropriately dressed and appropriately groomed Eye Contact: good eye contact Motor Behavior: no abnormal motor movements Speech: normal rate/rhythm/volume of speech Affect: euthymic affect Mood: + depressed mood Thought Process: goal directed thought process Thought Content: reality based without delusions Suicidal Thoughts: denies suicidal thoughts Homicidal Thoughts: denies homicidal thoughts Hallucinations: no auditory hallucinations and no visual hallucinations Cognition: attention grossly intact and language grossly intact Estimated Intelligence: consistent with education level Insight: + limited insight Judgment: + limited judgement Vital Signs (Past 24 Hours) Last Vital Signs Temp 36.7 C 10/03/23 06:38 Pulse 74 10/03/23 06:39 Resp 16 10/03/23 06:38 BP 121/85 10/03/23 06:39 Pulse Ox 98 09/28/23 22:53 O2 Del Method Room Air 09/28/23 22:53 Results & Data (U) Current Inpatient Medications Current Inpatient Medications: Current Inpatient Medications Acetaminophen (Acetaminophen 325 Mg Tab) 650 mg PO Q4H PRN PRN Reason: Headache or Minor Fever Stop: 10/28/23 22:49 Last Admin: 10/01/23 15:46 Dose: 650 mg Al Hydrox/Mg Hydrox/Simethicone (Aluminum/Magnesium Susp 30 Ml Udc) 30 ml PO Q4H PRN PRN Reason: GI Upset Stop: 10/28/23 22:49 Amlodipine Besylate (Amlodipine Besylate 5 Mg Tab) 5 mg PO DAILY R[facility]O Stop: 10/29/23 08:59 Last Admin: 10/03/23 09:06 Dose: 5 mg Aspirin (Aspirin 81 Mg Ectab) 81 mg PO QPM [facility]O Stop: 10/29/23 20:59 Last Admin: 10/02/23 20:52 Dose: 81 mg Atorvastatin Calcium (Atorvastatin 40 Mg Tab) 40 mg PO QPM R[facility]IGO Stop: 10/29/23 20:59 Last Admin: 10/02/23 20:52 Dose: 40 mg Bismuth Subsalicylate (Bismuth Subsalicylate Liqd 236 Ml) 15 ml PO PRN PRN PRN Reason: Loose Stool Stop: 10/28/23 22:49 Cephalexin HCl (Cephalexin 500 Mg Cap) 500 mg PO BID [facility]; Protocol Stop: 10/04/23 11:29 Last Admin: 10/03/23 09:07 Dose: 500 mg Docusate Sodium (Docusate Sodium 100 Mg Cap) 100 mg PO BID [facility] Stop: 10/29/23 10:59 Last Admin: 10/03/23 09:07 Dose: 100 mg Duloxetine HCl (Duloxetine Hcl 30 Mg Cap) 30 mg PO DAILY R[facility]RIGO Stop: 10/29/23 08:59 Last Admin: 10/03/23 09:07 Dose: 30 mg Famotidine (Famotidine 20 Mg Tab) 20 mg PO BID R[facility]O Stop: 10/29/23 10:59 Last Admin: 10/03/23 09:08 Dose: 20 mg Hydroxyzine HCl (Hydroxyzine Hcl 25 Mg Tab) 50 mg PO HSZ PRN PRN Reason: Insomnia Stop: 10/28/23 22:49 Hydroxyzine HCl (Hydroxyzine Hcl 25 Mg Tab) 25 mg PO Q4H PRN PRN Reason: Anxiety Stop: 10/28/23 22:49 Levothyroxine Sodium (Levothyroxine Sodium 75 Mcg Tablet) 75 mcg PO DAILYBB [facility] Stop: 10/30/23 07:59 Last Admin: 10/03/23 09:06 Dose: 75 mcg Magnesium Hydroxide (Magnesium Hydroxide Susp 30 Ml Udc) 30 ml PO DAILY PRN PRN Reason: Constipation Stop: 10/28/23 22:49 Pantoprazole Sodium (Pantoprazole 40 Mg Tab) 40 mg PO QPM [facility] Stop: 10/29/23 20:59 Last Admin: 10/02/23 20:52 Dose: 40 mg Polyethylene Glycol (Polyethylene (Miralax) 17 Gm Pack) 17 gm PO DAILY PRN PRN Reason: Constipation Stop: 10/29/23 08:21 Propranolol HCl (Propranolol Hcl 60 Mg La Cap) 60 mg PO DAILY RODRIGO Stop: 10/29/23 08:59 Last Admin: 10/03/23 09:08 Dose: 60 mg Risperidone (Risperidone 1 Mg Tablet) 1 mg PO HS R[facility]IGO Stop: 11/01/23 21:59 Last Admin: 10/02/23 20:52 Dose: 1 mg Risperidone (Risperidone 0.5 Mg Tablet) 0.5 mg PO QAM [facility] Stop: 11/02/23 08:59 Last Admin: 10/03/23 09:08 Dose: 0.5 mg Sodium Chloride (Sodium Chloride 0.65% Na Soln 45 Ml ([place])) 1 - 2 sprays NA PRN PRN PRN Reason: Nasal Dryness/Congestion Stop: 10/28/23 22:49 Vitamin B Complex (Vitamin B Complex Tab) 1 tab PO QAM [facility] Stop: 10/29/23 08:59 Last Admin: 10/03/23 09:09 Dose: 1 tab Mental Health & Subst Abuse Tx Psychiatrist Name of Psychiatrist: [facility] Psychiatrist's Psychiatric Appointment Comment: [address] [facility], [place] [address] [employer] Helper Name of Hardening Machine Operator Helper: [facility] Phone Number for Hardening Machine Operator Helper: [phone] Case Management Appointment Comment: Please follow-up with any questions related to in-home services/waiver. Post Discharge Appointments Primary Care Physician Name Of Family Doctor/PCP: BHARATH Bhardwaj [facility] Date of Future Appointment with PCP: 10/09/23 Time of Appointment with PCP: 9:20 AM Provider Appointment Comment: [address] [facility], [facility] [address], [place] [address] (2) UTI (urinary tract infection) Hematuria presence: with hematuria Urinary tract infection type: acute cystitis Qualified Code(s): N30.01 - Acute cystitis with hematuria
[2023-10-03] MEDS: ATORVASTATIN 40 MG TAB PO SCH (20:44)
[2023-10-03] MEDS: ASPIRIN 81 MG ECTAB PO SCH (20:44)
[2023-10-03] MEDS: PANTOprazole 40 MG TAB PO SCH (20:45)
[2023-10-03] MEDS: risperiDONE 1 MG TABLET PO SCH (20:46)
[2023-10-04] MEDS: cephALEXin 500 MG CAP PO SCH (08:45)
[2023-10-04] MEDS: VITAMIN B COMPLEX TAB PO SCH (08:45)
[2023-10-04] MEDS: FAMOTIDINE 20 MG TAB PO SCH ×2 (08:45→21:13)
[2023-10-04] MEDS: DULoxetine HCL 30 MG CAP PO SCH (08:46)
[2023-10-04] MEDS: LEVOTHYROXINE SODIUM 75 MCG TABLET PO SCH (08:46)
[2023-10-04] MEDS: PROPRANOLOL HCL 60 MG LA CAP PO SCH (08:46)
[2023-10-04] MEDS: DOCUSATE SODIUM 100 MG CAP PO SCH ×2 (08:46→21:13)
[2023-10-04] MEDS: amLODIPine BESYLATE 5 MG TAB PO SCH (08:46)
[2023-10-04] MEDS: risperiDONE 0.5 MG TABLET PO SCH (08:46)
--- OUTSIDE RECORDS SUMMARY | 2023-10-04 11:06 | External Medical Summary | Summary of Care ---
Author Name Unknown Organization [facility] Address [address] [place] [address] Phone [phone] Care Team Providers Care Engraving Operator Name Role Phone Kareem Ponce MD Primary Care Provider [phone] Encounter Details Date Type Department Care Team Description 05/13/2023 Orders Only Outcomes Research Department [address], [place] [id number] Cira Michaud CHRA MyCode Research Other*[id number] Allergies Active Allergy Reactions Severity Noted Date Comments Latex Rash 01/16/2018 No Known Drug Allergy 09/23/2001 documented as of this encounter (statuses as of 05/13/2023) Medications Medication Sig Dispensed Refills Start Date End Date Status ALBUTEROL 90 MCG/ACT IN AERS As needed 0 Active FLOVENT DISKUS 50 MCG/BLIST IN AEPB As needed 0 Active ASPIRIN 81 MG PO TABS 1 Daily 0 Active PROTONIX 40 MG PO TBECIndications:Diap hragmatic hernia 1 tablet each day 100 Tab 0 07/19/2011 Active albuterol (PROAIR HFA) 108 (90 BASE) MCG/ACT inhalerIndications:W heezing Inhale 2 Puffs by mouth every 4 hours as needed for Wheezing. 1 Inhaler 0 05/26/2016 Active Additional Information Patient not taking.Reported on 08/02/2021 buPROPion extended release, SR, (WELLBUTRIN SR) 150 MG TB12 Take 150 mg by mouth 2 times a day. 0 Active ondansetron (ZOFRAN) 4 MG Tablet Take 4 mg by mouth every 8 hours as needed for Nausea. 0 Active vitamin b 12 (CYANOCOBALAMIN) 1000 MCG TABS Take 1,000 mcg by mouth daily. 0 Active Atorvastatin Calcium 40 MG Oral Tablet (Lipitor) Take 40 mg by mouth daily. 0 05/08/2021 Active Famotidine 20 MG Oral Tablet (Pepcid) Take 20 mg by mouth 2 times a day. 0 05/04/2021 Active Meclizine HCl 25 MG Oral Tablet (Antivert) Take 25 mg by mouth 3 times a day as needed. 0 05/04/2021 Active Venlafaxine HCl 50 MG Oral Tablet (Effexor) Take 50 mg by mouth daily. 0 05/04/2021 Active Propranolol HCl ER 60 MG Oral Capsule Extended Release 24 Hour (Inderal LA) Take 60 mg by mouth daily. 0 05/04/2021 Active [facility] Acetaminophen 325 MG Oral Capsule (Acetaminophen) Take by mouth . 0 Acti ve Polyethylene Glycol 3350 17 GM/SCOOP Oral Powder (MiraLax) Apply topically to affected area . 0 Active SM Vitamin D3 50 MCG (2000 UT) Oral Capsule (Cholecalciferol) Take by mouth . 0 Ac tive documented as of this encounter (statuses as of 05/13/2023) Active Problems Problem Noted Date Visual hallucination 08/02/2021 Diaphragmatic hernia 06/21/2011 Asthma with severity to be determined Overview: ICD-10 update of inactive term BENIGN HYPERTENSION PURE HYPERCHOLESTEROLEM Major depressive disorder Overview: ICD-10 update of inactive term Esophageal reflux OTHER URINARY INCONTINENCE Other allergic rhinitis Overview: ICD-10 update of inactive term documented as of this encounter (statuses as of 05/13/2023) Resolved Problems Problem Noted Date Resolved Date Encounter for examination fo r normal comparison and control in clinical research program 04/23/2018 06/27/2020 Overview: DO NOT DELETE [facility] DETECT Study: Project # [id number], Reading Professor: Irvin Cary, PhD. SUMMARY: Goal: Establish test characteristics (sensitivity, specificity, PPV, NPV) of a circulating tumor DNA (ctDNA)-based test for cancer. Hypothesis: Circulating tumor DNA (ctDNA) and elevated protein biomarkers (together, the marker panel) can be detected in asymptomatic individuals with early cancer. Specific Aim 1: Determine the prevalence of a positive marker panel test in a prospective clinical cohort of 10,000 asymptomatic women ages 65 to 75 years. Specific Aim 2: Determine the sensitivity, specificity, positive predictive value (PPV) and negative predictive value (NPV) of a marker panel test to identify histologically proven cancers that develop within 5-years of the marker panel evaluation. CONTACTS: During normal business hours, contact study staff at ; after hours Reading Professor via the [facility] engineering operator . Please contact study team before resolving/deleting from patients problem list. Study phone number: [phone]. Diagnosis changed due to Research Module. Go to Snapshot for study details. Encounter for examination fo r normal comparison and control in clinical research program 04/23/2018 07/26/2022 Overview: DO NOT DELETE - [facility] Study: Project # [id number], Reading Professor: Krishan Hinkle, MS, MPH. SUMMARY: Goal: Establish test characteristics (sensitivity, specificity, PPV, NPV) of a circulating tumor DNA (ctDNA)-based test for cancer. - Hypothesis: Circulating tumor DNA (ctDNA) and elevated protein biomarkers (together, the marker panel) can be detected in asymptomatic individuals with early cancer. - Specific Aim 1: Determine the prevalence of a positive marker panel test in a prospective clinical cohort of 10,000 asymptomatic women ages 65 to 75 years. - Specific Aim 2: Determine the sensitivity, specificity, positive predictive value (PPV) and negative predictive value (NPV) of a marker panel test to identify histologically proven cancers that develop within 5-years of the marker panel evaluation. - CONTACTS: During normal business hours, contact study staff at ; after hours Reading Professor via the [facility] engineering operator . - Please contact study team before resolving/deleting from patients problem list. Study phone number: [phone]. Diagnosis changed due to Research Module. Go to Douguo for study details. documented as of this encounter (statuses as of 05/13/2023) Social History Tobacco Use Types Packs/Day Years Used Date Smoking Tobacco: Former Smokeless Tobacco: Never Comments:< 1 pk/week. Stoppe d in 1979 Alcohol Use Standard Drinks/Week Comments No 0 (1 standard drink = 0.6 oz pur e alcohol) Sex Assigned at Date Recorded Not on file Job Start Date Occupation Industry Not on file Not on file Not on file documented as of this encounter Plan of Treatment Scheduled Orders Name Type Priority Associated Diagnoses Orde r Schedule MYCODE INITIAL ADULT Lab Routine MyCode Research Other*[id number] Expected: 05/13/2023 (Approximate), Expires: 06/01/2024 Health Maintenance Due Date Last Done Comments DXA Scan 1945 COVID-19 Vaccine (#1) 03/21/1946 Pneumococcal Vaccine: 65+ Years (1 - PCV) 1953 Depression Screening, Annual for Pts 12 and Over 1959 Albumin/Creatinine Ratio 1965 Hepatitis C Screening 1965 DTaP,Tdap,and Td Vaccines (1 - Tdap) 1966 Zoster Vaccines (1 of 2) 1997 GFR 04/14/2002 04/14/2001, 08/25, 03/20/2000, Additional history exists *SPIROMETRY ONCE FOR ASTHMA-ADULT 10/18/2022 Influenza Vaccine (FLU shot) (Season Ended) 2023 GARDASIL-HPV IMMUNIZATION SERIES Aged Out No longer eligible based on patient's age to complete this topic Hepatitis B Aged Out No longer eligi ble based on patient's age to complete this topic MENINGOCOCCAL (MENACTRA/MENVEO) Aged Out No longer eligible based on patient's age to complete this topic documented as of this encounter Medical Devices Implanted Type Area Biometrician Device Identifier Shelf Expiration Date Model / Serial / Lot Lens Intraoc 17.5 - [id number] - [id number] Implanted:Qty: 1 on 09/07/2021 by Jonel Mendoza MD at [facility] Right: Eye [employer] 04/24/2026 [id number] / [id number] / [id number] Lens Intraoc 18.0 - [id number] - [id number] Implanted:Qty: 1 on 09/15/2021 by Jonel Mendoza MD at OR [facility] Left: Eye [employer] 05/24/2026 [id number] / [id number] / documented as of this encounter Visit Diagnoses Diagnosis MyCode Research Other*[id number] documented in this encounter Care Teams Engraving Operator Relationship Specialty Start Date End Date Kareem Ponce MD PCP - General Internal Medicine 05/26/16 documented as of this encounter
--- NOTE | 2023-10-04 15:27 | Psychiatric Progress Note ---
Date of Service October 04, 2023 Impression / Recommendations Impression 78 yo female with depression with psychotic features, though hallucinations could also represent early stages of a major cognitive disorder. No hx of bipolar and doubt late onset schizophrenia as otherwise organized. 10/04/23: improving Overall, I spent a total of 40 minutes with this case, including review of chart, direct evaluation of the patient, counseling the patient and family, treatment team, coordination with nursing, and documentation. (1) Major depress dis, severe: (2) UTI (urinary tract infection): Plan 10/04/23: continue current meds and tx plan. 10/03/23: continue Risperdal 0.5 mg am and 1 mg pm. If hassan recur will add afternoon 0.5 mg dose. 10/02/23: on the MoCA. Split Risperdal dosing to minimize am sedation. Plan is to have someone overseeing medications after hospitalization so given compliant here don't see immediate need for conversion to agent with an HODGES. 10/01/23: continue current meds and treatment plan as suspect not taking correctly at home and is not hallucinating here. confirming status of her waiver with office of aging as requires [facility]. 09/30/23: culture grew E Coli sensitive to all agents so continue Keflex, continue Cymbalta 30 mg as dose just increased prior to admission. Engage family. 09/29/23: The patient was admitted to the [facility] ([facility] mental health unit) on q15 min checks (behavioral with suicide precautions) for safety. The patient will participate in group, recreational, and milieu therapies and will be offered additional individual and family sessions as clinically appropriate. Risks/benefits/alternatives reviewed re: her current medications, discussion included but was not limited to risks of TD/metabolic abnormalities. Fasting labs as indicated. will d/c trazodone as confirmed not taking at home and fall risk. MOCA when less tired. Keflex pending culture. Inventory Assets Strengths: help seeking, independent Needs: improve insight into condition, improve coping Suicide Risk Level Suicide Risk Level: Moderate (q15 min suicide checks) Risk Factors Assessment Male: No : Yes Do You Have Access To A Gun?: No Health Problems: Yes Mental Health Diagnoses: No Substance Use Disorders: No Previous Attempt: No Family History of Suicide: No Previous Psychiatric Hospitalization: Yes Protective Factors Assessment Employed: No (Retired from [employer]) Supportive Family: Yes Interval History Identifying Information KEAGAN VILLASEÑOR is a 78-year-old F who currently lives in alone in a senior apartment in [place], has a history of depression and recent psych admit to [facility] (August 2023), and was admitted on 09/28/23 22:18 on a 201 voluntary commitment for SI with plan to overdose on medication. Chief Complaint "I want to return to my place." Review of Systems Sleep Information Total Hours of Sleep: 7 Sleep Comments: incontinent around 0200 Meal Information Percent Meal Consumed - Breakfast: 15 Percent Meal Consumed - Lunch: 80 Percent Meal Consumed - Dinner: 90 Subjective Subjective Patient was seen & assessed and interval progress reviewed with treatment team. joined family session with daughters to discuss progress here and update on medications. expressed my concerns about repeated hospitalizations and that meds may not have been taken correctly as she is clear here and actually on less Risperdal. They will be able to help with medications and would like her to return home with med support. Physical Exam Psychiatric Orientation: alert and oriented x 3 Apperance: appropriately dressed and appropriately groomed Eye Contact: good eye contact Motor Behavior: no abnormal motor movements Speech: normal rate/rhythm/volume of speech Affect: euthymic affect Mood: no depressed mood Thought Process: goal directed thought process and + concrete thought process Thought Content: reality based without delusions Suicidal Thoughts: denies suicidal thoughts, denies suicidal plan and denies suicidal intent Homicidal Thoughts: denies homicidal thoughts Hallucinations: no auditory hallucinations and no visual hallucinations Cognition: attention grossly intact and language grossly intact Estimated Intelligence: consistent with education level Insight: + limited insight Judgment: + limited judgement Vital Signs (Past 24 Hours) Last Vital Signs Temp 36.8 C 10/04/23 06:42 Pulse 75 10/04/23 06:42 Resp 16 10/04/23 06:42 BP 118/74 10/04/23 06:42 Pulse Ox 98 09/28/23 22:53 O2 Del Method Room Air 09/28/23 22:53 Results & Data ([facility]) Current Inpatient Medications Current Inpatient Medications: Current Inpatient Medications Acetaminophen (Acetaminophen 325 Mg Tab) 650 mg PO Q4H PRN PRN Reason: Headache or Minor Fever Stop: 10/28/23 22:49 Last Admin: 10/01/23 15:46 Dose: 650 mg Al Hydrox/Mg Hydrox/Simethicone (Aluminum/Magnesium Susp 30 Ml Udc) 30 ml PO Q4H PRN PRN Reason: GI Upset Stop: 10/28/23 22:49 Amlodipine Besylate (Amlodipine Besylate 5 Mg Tab) 5 mg PO DAILY RODRIGO Stop: 10/29/23 08:59 Last Admin: 10/04/23 08:46 Dose: 5 mg Aspirin (Aspirin 81 Mg Ectab) 81 mg PO QPM RODRIGO Stop: 10/29/23 20:59 Last Admin: 10/03/23 20:44 Dose: 81 mg Atorvastatin Calcium (Atorvastatin 40 Mg Tab) 40 mg PO QPM RODRIGO Stop: 10/29/23 20:59 Last Admin: 10/03/23 20:44 Dose: 40 mg Bismuth Subsalicylate (Bismuth Subsalicylate Liqd 236 Ml) 15 ml PO PRN PRN PRN Reason: Loose Stool Stop: 10/28/23 22:49 Docusate Sodium (Docusate Sodium 100 Mg Cap) 100 mg PO BID RODRIGO Stop: 10/29/23 10:59 Last Admin: 10/04/23 08:46 Dose: 100 mg Duloxetine HCl (Duloxetine Hcl 30 Mg Cap) 30 mg PO DAILY RODRIGO Stop: 10/29/23 08:59 Last Admin: 10/04/23 08:46 Dose: 30 mg Famotidine (Famotidine 20 Mg Tab) 20 mg PO BID RODRIGO Stop: 10/29/23 10:59 Last Admin: 10/04/23 08:45 Dose: 20 mg Hydroxyzine HCl (Hydroxyzine Hcl 25 Mg Tab) 50 mg PO HSZ PRN PRN Reason: Insomnia Stop: 10/28/23 22:49 Hydroxyzine HCl (Hydroxyzine Hcl 25 Mg Tab) 25 mg PO Q4H PRN PRN Reason: Anxiety Stop: 10/28/23 22:49 Levothyroxine Sodium (Levothyroxine Sodium 75 Mcg Tablet) 75 mcg PO DAILYBB RODRIGO Stop: 10/30/23 07:59 Last Admin: 10/04/23 08:46 Dose: 75 mcg Magnesium Hydroxide (Magnesium Hydroxide Susp 30 Ml Udc) 30 ml PO DAILY PRN PRN Reason: Constipation Stop: 10/28/23 22:49 Pantoprazole Sodium (Pantoprazole 40 Mg Tab) 40 mg PO QPM RODRIGO Stop: 10/29/23 20:59 Last Admin: 10/03/23 20:45 Dose: 40 mg Polyethylene Glycol (Polyethylene (Miralax) 17 Gm Pack) 17 gm PO DAILY PRN PRN Reason: Constipation Stop: 10/29/23 08:21 Propranolol HCl (Propranolol Hcl 60 Mg [place]) 60 mg PO DAILY RODRIGO Stop: 10/29/23 08:59 Last Admin: 10/04/23 08:46 Dose: 60 mg Risperidone (Risperidone 1 Mg Tablet) 1 mg PO HS RODRIGO Stop: 11/01/23 21:59 Last Admin: 10/03/23 20:46 Dose: 1 mg Risperidone (Risperidone 0.5 Mg Tablet) 0.5 mg PO QAM RODRIGO Stop: 11/02/23 08:59 Last Admin: 10/04/23 08:46 Dose: 0.5 mg Sodium Chloride (Sodium Chloride 0.65% Na Soln 45 Ml ([place])) 1 - 2 sprays NA PRN PRN PRN Reason: Nasal Dryness/Congestion Stop: 10/28/23 22:49 Vitamin B Complex (Vitamin B Complex Tab) 1 tab PO QAM RODRIGO Stop: 10/29/23 08:59 Last Admin: 10/04/23 08:45 Dose: 1 tab Mental Health & Subst Abuse Tx Psychiatrist Name of Psychiatrist: [facility] Psychiatrist's Psychiatric Appointment Comment: [address] [facility], [place] [address] Planner Scheduler Name of Planner Scheduler: [facility] Phone Number for Planner Scheduler: [phone] Case Management Appointment Comment: Please follow-up with any questions related to in-home services/waiver. Post Discharge Appointments Primary Care Physician Name Of Family Doctor/PCP: BHARATH Bhardwaj [facility] Date of Future Appointment with PCP: 10/09/23 Time of Appointment with PCP: 9:20 AM Provider Appointment Comment: [address] , [facility] [address], [place] [address] (2) UTI (urinary tract infection) Hematuria presence: with hematuria Urinary tract infection type: acute cystitis Qualified Code(s): N30.01 - Acute cystitis with hematuria
[2023-10-04] MEDS: ATORVASTATIN 40 MG TAB PO SCH (21:13)
[2023-10-04] MEDS: risperiDONE 1 MG TABLET PO SCH (21:13)
[2023-10-04] MEDS: PANTOprazole 40 MG TAB PO SCH (21:13)
[2023-10-04] MEDS: ASPIRIN 81 MG ECTAB PO SCH (21:13)
[2023-10-05] MEDS: DOCUSATE SODIUM 100 MG CAP PO SCH ×2 (08:50→20:59)
[2023-10-05] MEDS: amLODIPine BESYLATE 5 MG TAB PO SCH (08:50)
[2023-10-05] MEDS: LEVOTHYROXINE SODIUM 75 MCG TABLET PO SCH (08:50)
[2023-10-05] MEDS: PROPRANOLOL HCL 60 MG LA CAP PO SCH (08:51)
[2023-10-05] MEDS: risperiDONE 0.5 MG TABLET PO SCH (08:51)
[2023-10-05] MEDS: DULoxetine HCL 30 MG CAP PO SCH (08:51)
[2023-10-05] MEDS: FAMOTIDINE 20 MG TAB PO SCH ×2 (08:51→20:56)
[2023-10-05] MEDS: VITAMIN B COMPLEX TAB PO SCH (08:51)
--- NOTE | 2023-10-05 09:46 | Psychiatric Progress Note ---
Date of Service October 05, 2023 Impression / Recommendations Impression Agree with assessment per Dr. Perez: 78 yo female with depression with psychotic features, though hallucinations could also represent early stages of a major cognitive disorder. No hx of bipolar and doubt late onset schizophrenia as otherwise organized. 10/05/23: mood improving overall in terms of depression but some increased anxiety related to anticipation of returning home and some more physical concerns. Will get UA given concerns for possible persistent UTI and she consents to starting multivitamin for leg cramps. Overall, I spent a total of 45 minutes with this case, including review of chart, direct evaluation of the patient, counseling the patient, treatment team, coordination with nursing, and documentation. (1) Major depress dis, severe: (2) UTI (urinary tract infection): Plan 10/05/2023: UA, start multivitamin. Continue Cymbalta and risperidone. 10/04/23: continue current meds and tx plan. 10/03/23: continue Risperdal 0.5 mg am and 1 mg pm. If hassan recur will add afternoon 0.5 mg dose. 10/02/23: on the MoCA. Split Risperdal dosing to minimize am sedation. Plan is to have someone overseeing medications after hospitalization so given compliant here don't see immediate need for conversion to agent with an HODGES. 10/01/23: continue current meds and treatment plan as suspect not taking correctly at home and is not hallucinating here. confirming status of her waiver with office of aging as requires [facility]. 09/30/23: culture grew E Coli sensitive to all agents so continue Keflex, continue Cymbalta 30 mg as dose just increased prior to admission. Engage family. 09/29/23: The patient was admitted to the [facility] ([facility]) on q15 min checks (behavioral with suicide precautions) for safety. The patient will participate in group, recreational, and milieu therapies and will be offered additional individual and family sessions as clinically appropriate. Risks/benefits/alternatives reviewed re: her current medications, discussion included but was not limited to risks of TD/metabolic abnormalities. Fasting labs as indicated. will d/c trazodone as confirmed not taking at home and fall risk. MOCA when less tired. Keflex pending culture. Inventory Assets Strengths: help seeking, independent Needs: improve insight into condition, improve coping Suicide Risk Level Suicide Risk Level: Moderate (q15 min suicide checks) (SI with plan prior to admission but depression lessening, now denies SI and feels she can alert staff if she feels unsafe or requires additional support) Risk Factors Assessment Male: No : Yes Do You Have Access To A Gun?: No Health Problems: Yes Mental Health Diagnoses: No Substance Use Disorders: No Previous Attempt: No Family History of Suicide: No Previous Psychiatric Hospitalization: Yes Protective Factors Assessment Employed: No (Retired from [employer] and [employer]) Supportive Family: Yes Interval History Identifying Information KEAGAN VILLASEÑOR is a 78-year-old F who currently lives in alone in a senior apartment in [place], has a history of depression and recent psych admit to [facility] (August 2023), and was admitted on 09/28/23 22:18 on a 201 voluntary commitment for SI with plan to overdose on medication. Chief Complaint "I get nervous about going home and being alone again". Review of Systems Sleep Information Total Hours of Sleep: 6.25 Sleep Comments: incontinent around 0200 Meal Information Percent Meal Consumed - Breakfast: 100 Percent Meal Consumed - Lunch: 80 Percent Meal Consumed - Dinner: 0 Subjective Subjective Patient was seen & assessed and interval progress reviewed with treatment team nursing and social work. Family meeting yesterday with plan for increased support to help with medications and ensuring she is attending to her ADLs. Attending groups and feeling safer. Today reports some grogginess from sleeping in this morning and going to bed early after episode of emesis last evening. She attributes emesis to her "hiatal hernia" denies any current GI symptoms. Feels the medication adjustments have improved her hallucinations, denies any voices. Denies SI. Does worry about going home and being alone again but also feels her daughters and neighbors will be providing a lot of support and getting her out of the house for weekend activities which she is looking forward to. Describes some urinary frequency and sense of bladder pressure after recently completed antibiotic course. Also reports chronic leg cramps as bothersome. Physical Exam Psychiatric Orientation: alert and oriented x 3 Apperance: appropriately dressed and appropriately groomed Eye Contact: good eye contact Motor Behavior: no abnormal motor movements Speech: normal rate/rhythm/volume of speech Affect: + constricted affect Mood: + depressed mood and + anxious mood Thought Process: goal directed thought process and + concrete thought process Thought Content: reality based without delusions Suicidal Thoughts: denies suicidal thoughts, denies suicidal plan and denies suicidal intent Homicidal Thoughts: denies homicidal thoughts Hallucinations: no auditory hallucinations and no visual hallucinations Cognition: attention grossly intact and language grossly intact Estimated Intelligence: consistent with education level Insight: + limited insight Judgment: + limited judgement Vital Signs (Past 24 Hours) Last Vital Signs Temp 36.2 C L 10/05/23 07:03 Pulse 78 10/05/23 07:04 Resp 16 10/05/23 07:03 BP 102/76 10/05/23 07:04 Pulse Ox 98 09/28/23 22:53 O2 Del Method Room Air 09/28/23 22:53 Results & Data ([facility]) Current Inpatient Medications Current Inpatient Medications: Current Inpatient Medications Acetaminophen (Acetaminophen 325 Mg Tab) 650 mg PO Q4H PRN PRN Reason: Headache or Minor Fever Stop: 10/28/23 22:49 Last Admin: 10/01/23 15:46 Dose: 650 mg Al Hydrox/Mg Hydrox/Simethicone (Aluminum/Magnesium Susp 30 Ml Udc) 30 ml PO Q4H PRN PRN Reason: GI Upset Stop: 10/28/23 22:49 Last Admin: 10/05/23 06:28 Dose: 30 ml Amlodipine Besylate (Amlodipine Besylate 5 Mg Tab) 5 mg PO DAILY [facility] Stop: 10/29/23 08:59 Last Admin: 10/05/23 08:50 Dose: 5 mg Aspirin (Aspirin 81 Mg Ectab) 81 mg PO QPM RODRIGO Stop: 10/29/23 20:59 Last Admin: 10/04/23 21:13 Dose: 81 mg Atorvastatin Calcium (Atorvastatin 40 Mg Tab) 40 mg PO QPM RODRIGO Stop: 10/29/23 20:59 Last Admin: 10/04/23 21:13 Dose: 40 mg Bismuth Subsalicylate (Bismuth Subsalicylate Liqd 236 Ml) 15 ml PO PRN PRN PRN Reason: Loose Stool Stop: 10/28/23 22:49 Docusate Sodium (Docusate Sodium 100 Mg Cap) 100 mg PO BID RODRIGO Stop: 10/29/23 10:59 Last Admin: 10/05/23 08:50 Dose: 100 mg Duloxetine HCl (Duloxetine Hcl 30 Mg Cap) 30 mg PO DAILY RODRIGO Stop: 10/29/23 08:59 Last Admin: 10/05/23 08:51 Dose: 30 mg Famotidine (Famotidine 20 Mg Tab) 20 mg PO BID RODRIGO Stop: 10/29/23 10:59 Last Admin: 10/05/23 08:51 Dose: 20 mg Hydroxyzine HCl (Hydroxyzine Hcl 25 Mg Tab) 50 mg PO HSZ PRN PRN Reason: Insomnia Stop: 10/28/23 22:49 Hydroxyzine HCl (Hydroxyzine Hcl 25 Mg Tab) 25 mg PO Q4H PRN PRN Reason: Anxiety Stop: 10/28/23 22:49 Levothyroxine Sodium (Levothyroxine Sodium 75 Mcg Tablet) 75 mcg PO DAILYBB RODRIGO Stop: 10/30/23 07:59 Last Admin: 10/05/23 08:50 Dose: 75 mcg Magnesium Hydroxide (Magnesium Hydroxide Susp 30 Ml Udc) 30 ml PO DAILY PRN PRN Reason: Constipation Stop: 10/28/23 22:49 Pantoprazole Sodium (Pantoprazole 40 Mg Tab) 40 mg PO QPM RODRIGO Stop: 10/29/23 20:59 Last Admin: 10/04/23 21:13 Dose: 40 mg Polyethylene Glycol (Polyethylene (Miralax) 17 Gm Pack) 17 gm PO DAILY PRN PRN Reason: Constipation Stop: 10/29/23 08:21 Propranolol HCl (Propranolol Hcl 60 Mg La Cap) 60 mg PO DAILY RODRIGO Stop: 10/29/23 08:59 Last Admin: 10/05/23 08:51 Dose: 60 mg Risperidone (Risperidone 1 Mg Tablet) 1 mg PO HS RODRIGO Stop: 11/01/23 21:59 Last Admin: 10/04/23 21:13 Dose: 1 mg Risperidone (Risperidone 0.5 Mg Tablet) 0.5 mg PO QAM RODRIGO Stop: 11/02/23 08:59 Last Admin: 10/05/23 08:51 Dose: 0.5 mg Sodium Chloride (Sodium Chloride 0.65% Na Soln 45 Ml ([place])) 1 - 2 sprays NA PRN PRN PRN Reason: Nasal Dryness/Congestion Stop: 10/28/23 22:49 Vitamin B Complex (Vitamin B Complex Tab) 1 tab PO QAM RODRIGO Stop: 10/29/23 08:59 Last Admin: 10/05/23 08:51 Dose: 1 tab Mental Health & Subst Abuse Tx Psychiatrist Name of Psychiatrist: [facility] Psychiatrist's Psychiatric Appointment Comment: [address] [facility], [place] [address] Mogul Operator Name of Mogul Operator: [facility] Phone Number for Mogul Operator: [phone] Case Management Appointment Comment: Please follow-up with any questions related to in-home services/waiver. Post Discharge Appointments Primary Care Physician Name Of Family Doctor/PCP: BHARATH Bhardwaj Primary Care Date of Future Appointment with PCP: 10/09/23 Time of Appointment with PCP: 9:20 AM Provider Appointment Comment: [address] [facility] [facility] [address], [place] [address] (2) UTI (urinary tract infection) Hematuria presence: with hematuria Urinary tract infection type: acute cyst itis Qualified Code(s): N30.01 - Acute cystitis with hematuria
[2023-10-05] MEDS: CEROVITE ADV FORMULA TAB PO SCH (11:21)
[2023-10-05 15:20] LABS: Appearance Urine Clear (Clear); Bilirubin Urine Negative (Negative); Blood Urine Negative (Negative); Color Urine Dark Yellow; Glucose Urine UA Negative (Negative); Ketones Urine Negative (Negative); Leukocyte Esterase Urine Negative (Negative); Nitrite Urine Negative (Negative); Protein Urine Negative (Negative); Specific Gravity Urine 1.013 (1.000-1.030); Urobilinogen Urine Negative (Negative)
[2023-10-05] MEDS: risperiDONE 1 MG TABLET PO SCH (20:55)
[2023-10-05] MEDS: PANTOprazole 40 MG TAB PO SCH (20:56)
[2023-10-05] MEDS: ASPIRIN 81 MG ECTAB PO SCH (20:57)
[2023-10-05] MEDS: ATORVASTATIN 40 MG TAB PO SCH (20:57)
[2023-10-06] MEDS: LEVOTHYROXINE SODIUM 75 MCG TABLET PO SCH (08:45)
[2023-10-06] MEDS: DULoxetine HCL 30 MG CAP PO SCH (08:46)
[2023-10-06] MEDS: DOCUSATE SODIUM 100 MG CAP PO SCH ×2 (08:46→20:53)
[2023-10-06] MEDS: PROPRANOLOL HCL 60 MG LA CAP PO SCH (08:46)
[2023-10-06] MEDS: FAMOTIDINE 20 MG TAB PO SCH ×2 (08:46→20:53)
[2023-10-06] MEDS: amLODIPine BESYLATE 5 MG TAB PO SCH (08:46)
[2023-10-06] MEDS: CEROVITE ADV FORMULA TAB PO SCH (08:46)
[2023-10-06] MEDS: VITAMIN B COMPLEX TAB PO SCH (08:47)
[2023-10-06] MEDS: risperiDONE 0.5 MG TABLET PO SCH (08:47)
--- NOTE | 2023-10-06 10:05 | Psychiatric Progress Note ---
Date of Service October 06, 2023 Impression / Recommendations Impression Agree with assessment per Dr. Perez: 78 yo female with depression with psychotic features, though hallucinations could also represent early stages of a major cognitive disorder. No hx of bipolar and doubt late onset schizophrenia as otherwise organized. 10/06/23: brighter affect and able to speak to things she is looking forward to at home, still with some anticipatory anxiety. UA reviewed and no evidence for bacteria or concern for ongoing UTI. Overall, I spent a total of 35 minutes with this case, including review of chart, direct evaluation of the patient, counseling the patient, treatment team, coordination with nursing, and documentation. (1) Major depress dis, severe: (2) UTI (urinary tract infection): Plan 10/06/2023: Continue current medications and treatment plan. 10/05/2023: UA, start multivitamin. Continue Cymbalta and risperidone. 10/04/23: continue current meds and tx plan. 10/03/23: continue Risperdal 0.5 mg am and 1 mg pm. If hassan recur will add afternoon 0.5 mg dose. 10/02/23: 27/30 on the MoCA. Split Risperdal dosing to minimize am sedation. Plan is to have someone overseeing medications after hospitalization so given compliant here don't see immediate need for conversion to agent with an HODGES. 10/01/23: continue current meds and treatment plan as suspect not taking correctly at home and is not hallucinating here. confirming status of her waiver with office of aging as requires [facility]. 09/30/23: culture grew E Coli sensitive to all agents so continue Keflex, continue Cymbalta 30 mg as dose just increased prior to admission. Engage family. 09/29/23: The patient was admitted to the [facility] ([facility] mental health unit) on q15 min checks (behavioral with suicide precautions) for safety. The patient will participate in group, recreational, and milieu therapies and will be offered additional individual and family sessions as clinically appropriate. Risks/benefits/alternatives reviewed re: her current medications, discussion included but was not limited to risks of TD/metabolic abnormalities. Fasting labs as indicated. will d/c trazodone as confirmed not taking at home and fall risk. MOCA when less tired. Keflex pending culture. Inventory Assets Strengths: help seeking, independent Needs: improve insight into condition, improve coping Suicide Risk Level Suicide Risk Level: Moderate (q15 min suicide checks) (SI with plan prior to admission but depression improving, has been denying any SI and feels she can alert staff if she feels unsafe or requires additional support) Risk Factors Assessment Male: No : Yes Do You Have Access To A Gun?: No Health Problems: Yes Mental Health Diagnoses: No Substance Use Disorders: No Previous Attempt: No Family History of Suicide: No Previous Psychiatric Hospitalization: Yes Protective Factors Assessment Employed: No (Retired from [employer]) Supportive Family: Yes Interval History Identifying Information KEAGAN VILLASEÑOR is a 78-year-old F who currently lives in alone in a senior apartment in [place], has a history of depression and recent psych admit to [facility] (August 2023), and was admitted on 09/28/23 22:18 on a 201 voluntary commitment for SI with plan to overdose on medication. Chief Complaint "I'm good". Review of Systems Sleep Information Total Hours of Sleep: 8.25 Sleep Comments: Meal Information Percent Meal Consumed - Breakfast: 50 Percent Meal Consumed - Lunch: 80 Percent Meal Consumed - Dinner: 100 Subjective Subjective Patient was seen & assessed and interval progress reviewed with treatment team nursing and social work. More active yesterday evening, attended groups. Still worried about living alone but wants to do this and to live independently. Reports improved physical symptoms today, less fatigued, no emesis, no urinary pressure/urgency. Feels her mood is improving, looking forward to having the independence at home and enjoying the long dark evenings as the holiday season approaches. Physical Exam Psychiatric Orientation: alert and oriented x 3 Apperance: appropriately dressed and appropriately groomed Eye Contact: good eye contact Motor Behavior: no abnormal motor movements Speech: normal rate/rhythm/volume of speech Affect: euthymic affect Mood: + anxious mood; no depressed mood Thought Process: goal directed thought process Thought Content: reality based without delusions Suicidal Thoughts: denies suicidal thoughts, denies suicidal plan and denies suicidal intent Homicidal Thoughts: denies homicidal thoughts Hallucinations: no auditory hallucinations and no visual hallucinations Cognition: attention grossly intact and language grossly intact Estimated Intelligence: consistent with education level Insight: + limited insight Judgment: + limited judgement Vital Signs (Past 24 Hours) Last Vital Signs Temp 37.1 C 10/06/23 06:00 Pulse 78 10/06/23 07:07 Resp 16 10/06/23 06:00 BP 119/80 10/06/23 07:07 Pulse Ox 98 09/28/23 22:53 O2 Del Method Room Air 09/28/23 22:53 Results & Data ([facility]) Laboratory Results Laboratory Results - last 24 hr 10/05/23 15:04 Urine Color Dark Yellow Urine Appearance Clear Urine pH 7.0 Ur Specific [place] 1.013 Urine Protein Negative Urine Glucose (UA) Negative Urine Ketones Negative Urine Blood Negative Urine Nitrite Negative Urine Bilirubin Negative Urine Urobilinogen Negative Ur Leukocyte Esterase Negative Current Inpatient Medications Current Inpatient Medications: Current Inpatient Medications Acetaminophen (Acetaminophen 325 Mg Tab) 650 mg PO Q4H PRN PRN Reason: Headache or Minor Fever Stop: 10/28/23 22:49 Last Admin: 10/01/23 15:46 Dose: 650 mg Al Hydrox/Mg Hydrox/Simethicone (Aluminum/Magnesium Susp 30 Ml Udc) 30 ml PO Q4H PRN PRN Reason: GI Upset Stop: 10/28/23 22:49 Last Admin: 10/05/23 06:28 Dose: 30 ml Amlodipine Besylate (Amlodipine Besylate 5 Mg Tab) 5 mg PO DAILY RODRIGO Stop: 10/29/23 08:59 Last Admin: 10/06/23 08:46 Dose: 5 mg Aspirin (Aspirin 81 Mg Ectab) 81 mg PO QPM RODRIGO Stop: 10/29/23 20:59 Last Admin: 10/05/23 20:57 Dose: 81 mg Atorvastatin Calcium (Atorvastatin 40 Mg Tab) 40 mg PO QPM RODRIGO Stop: 10/29/23 20:59 Last Admin: 10/05/23 20:57 Dose: 40 mg Bismuth Subsalicylate (Bismuth Subsalicylate Liqd 236 Ml) 15 ml PO PRN PRN PRN Reason: Loose Stool Stop: 10/28/23 22:49 Docusate Sodium (Docusate Sodium 100 Mg Cap) 100 mg PO BID RODRIGO Stop: 10/29/23 10:59 Last Admin: 10/06/23 08:46 Dose: 100 mg Duloxetine HCl (Duloxetine Hcl 30 Mg Cap) 30 mg PO DAILY RODRIGO Stop: 10/29/23 08:59 Last Admin: 10/06/23 08:46 Dose: 30 mg Famotidine (Famotidine 20 Mg Tab) 20 mg PO BID RODRIGO Stop: 10/29/23 10:59 Last Admin: 10/06/23 08:46 Dose: 20 mg Hydroxyzine HCl (Hydroxyzine Hcl 25 Mg Tab) 50 mg PO HSZ PRN PRN Reason: Insomnia Stop: 10/28/23 22:49 Hydroxyzine HCl (Hydroxyzine Hcl 25 Mg Tab) 25 mg PO Q4H PRN PRN Reason: Anxiety Stop: 10/28/23 22:49 Levothyroxine Sodium (Levothyroxine Sodium 75 Mcg Tablet) 75 mcg PO DAILYBB RODRIGO Stop: 10/30/23 07:59 Last Admin: 10/06/23 08:45 Dose: 75 mcg Magnesium Hydroxide (Magnesium Hydroxide Susp 30 Ml Udc) 30 ml PO DAILY PRN PRN Reason: Constipation Stop: 10/28/23 22:49 Multivitamins/Minerals (Cerovite Adv Formula Tab) 1 tab PO QAM RODRIGO Stop: 11/04/23 10:44 Last Admin: 10/06/23 08:46 Dose: 1 tab Pantoprazole Sodium (Pantoprazole 40 Mg Tab) 40 mg PO QPM RODRIGO Stop: 10/29/23 20:59 Last Admin: 10/05/23 20:56 Dose: 40 mg Polyethylene Glycol (Polyethylene (Miralax) 17 Gm Pack) 17 gm PO DAILY PRN PRN Reason: Constipation Stop: 10/29/23 08:21 Propranolol HCl (Propranolol Hcl 60 Mg La Cap) 60 mg PO DAILY RODRIGO Stop: 10/29/23 08:59 Last Admin: 10/06/23 08:46 Dose: 60 mg Risperidone (Risperidone 1 Mg Tablet) 1 mg PO HS RODRIGO Stop: 11/01/23 21:59 Last Admin: 10/05/23 20:55 Dose: 1 mg Risperidone (Risperidone 0.5 Mg Tablet) 0.5 mg PO QAM RODRIGO Stop: 11/02/23 08:59 Last Admin: 10/06/23 08:47 Dose: 0.5 mg Sodium Chloride (Sodium Chloride 0.65% Na Soln 45 Ml ([place])) 1 - 2 sprays NA PRN PRN PRN Reason: Nasal Dryness/Congestion Stop: 10/28/23 22:49 Vitamin B Complex (Vitamin B Complex Tab) 1 tab PO QAM RODRIGO Stop: 10/29/23 08:59 Last Admin: 10/06/23 08:47 Dose: 1 tab Mental Health & Subst Abuse Tx Psychiatrist Name of Psychiatrist: [facility] Psychiatrist's Psychiatric Appointment Comment: [address] [facility] [facility], [place] [address] Internet Systems Administrator Name of Internet Systems Administrator: [facility] Phone Number for Internet Systems Administrator: [phone] Case Management Appointment Comment: Please follow-up with any questions related to in-home services/waiver. Post Discharge Appointments Primary Care Physician Name Of Family Doctor/PCP: BHARATH Bhardwaj Primary Care Date of Future Appointment with PCP: 10/09/23 Time of Appointment with PCP: 9:20 AM Provider Appointment Comment: [address] [facility], [place] [address] (2) UTI (urinary tract infection) Hematuria presence: with hematuria Urinary tract infection type: acute cystitis Qualified Code(s): N30.01 - Acute cystitis with hematuria
[2023-10-06] MEDS: ASPIRIN 81 MG ECTAB PO SCH (20:52)
[2023-10-06] MEDS: ATORVASTATIN 40 MG TAB PO SCH (20:53)
[2023-10-06] MEDS: PANTOprazole 40 MG TAB PO SCH (20:53)
[2023-10-06] MEDS: risperiDONE 1 MG TABLET PO SCH (20:53)
[2023-10-07] MEDS: amLODIPine BESYLATE 5 MG TAB PO SCH (09:03)
[2023-10-07] MEDS: DULoxetine HCL 30 MG CAP PO SCH (09:03)
[2023-10-07] MEDS: DOCUSATE SODIUM 100 MG CAP PO SCH ×2 (09:03→11:47)
[2023-10-07] MEDS: LEVOTHYROXINE SODIUM 75 MCG TABLET PO SCH (09:03)
[2023-10-07] MEDS: CEROVITE ADV FORMULA TAB PO SCH (09:04)
[2023-10-07] MEDS: FAMOTIDINE 20 MG TAB PO SCH (09:04)
[2023-10-07] MEDS: PROPRANOLOL HCL 60 MG LA CAP PO SCH (09:04)
[2023-10-07] MEDS: VITAMIN B COMPLEX TAB PO SCH (09:04)
[2023-10-07] MEDS: risperiDONE 0.5 MG TABLET PO SCH (09:04)
[2023-10-07] MEDS ORDERED: BENZTROPINE MESYLATE 0.5 MG TAB PO PRN (11:23)
--- NOTE | 2023-10-07 15:02 | Discharge Summary ---
Date of Service October 07, 2023 History of Present Illness Admission H&P per Dr. Perez: Donita relates that she's lived alone since her in 2016 and moved to her current apartment five years ago. She deals with varying degrees of depression and loneliness since as doesn't always like the activities available to her in the apartment complex. She has 2 daughters and a sister for support but has largely been independent for driving to get to appointments and shopping. She was hospitalized last month on the medical floor for a UTI and was discharged for a few days only to return to hospital and get placed at [facility]. She reports being recommended for treatment as she has been experienc ing auditory hallucinations for a few months, speaking with a man named Bal for example. She states any voices are not upsetting to her and are unrelated to her SI. She believes she was reported to the DMV as she received a piece of mail that she interpreted losing her license pending a test. Loss of her license is problematic as loss of freedom. She hadn't been sleeping well yet has significant side effects to trazodone (excessive sedation) and it was discontinued at a recent psychiatric appointment with [facility]. She denies any hx of gisela. She was not able to describe any visual hallucinations at this time but a primary care note indicates she was referred to neuroopthamology. She has no known diagnosis of dementia but seems to lack detail in describing aspects of her history and medication. Physical Exam Vital Signs (Past 24 Hours) Last Vital Signs Temp 37 C 10/07/23 06:40 Pulse 84 10/07/23 06:41 Resp 16 10/07/23 06:40 BP 110/78 10/07/23 06:41 Pulse Ox 98 09/28/23 22:53 O2 Del Method Room Air 09/28/23 22:53 See admission H&P and DOD summary. Principal Diagnosis Major Depressive Disorder with psychotic features Psychiatric Data See daily stay summary. In short, patient was engaged with the social/therapeutic milieu of the unit, safety was maintained and the patient was cooperative with care. Medication changes included discontinuation of trazodone and decrease of risperidone to 0.5mg qAM and 1 mg HS and cogentin 0.25mg daily prn for muscle tightness in her legs and they tolerated this well. She developed a sense of muscle tightness/restlessness versus nerve pain in her bilateral lower extremities on the day of discharge and responded well to a dose of cogentin 0.25mg po so this was prescribed at discharge but her description of the symptoms sounded possibly more consistent with a peripheral neuropathy/restless legs type phenomenon so if symptoms persist would recommend further workup and if felt to be EPS related then consideration for further dose reduction of risperidone in the outpatient setting. She scored a 27/30 on the [place] Cognitive Assessment during admission. Baseline labs of fasting glucose, fasting lipid profile, and weight were preformed notable for elevated glucose and HBA1c of 5.9%. Recommend repeat fasting glucose, HbA1c and fasting lipid profile every 12 weeks and then annually. If symptoms arise recommend checking BP, EKG, prolactin level as clinically indicated or relevant. A family session was held and safety plan was completed prior to discharge. On the day of discharge she stated her mood was "not bad" and remained future- oriented including seeing her daughters, getting her cat, possibly going out for dinner and engaging in aftercare appointments. Day of Discharge Assessment Today the patient voices readiness for discharge. They note improvement in mood and anxiety. They deny thoughts of harm to self or others. Thoughts are organized and they are clinically improved from admission. There is no evidence of psychosis. They improved in the hospital with support and medication adjustments. They agree to take medications as prescribed and keep follow-up appointments. At the time of the discharge they are deemed to be stable and appropriate for outpatient level of care. They are not deemed to be at imminent risk of harm to self or others. They are aware of emergency and crisis services. Knows to call 911 or go to nearest emergency care center if in a crisis which cannot be handled as an outpatient. Overall, I spent a total of 35 minutes with this discharge including review of chart records, direct evaluation of the patient, counseling the patient, ordering medications, discussion during interdisciplinary treatment rounds, disposition planning, risk assessment, and documentation in the electronic health record. Transition of Care Transition Of Care Record: was reviewed with the patient Advance Directives Advance Directives Information Provided: Yes Advance Directives: No Mental Health Advance Directive: No Advance Directives on File: No Living Will: No Power of Director Of [employer]: No Advance Directives Reason:: Declines as Mental Health Visit. Suicide Risk Level Suicide Risk Level Comments: Acute risk is low given improvement in mood and denial of SI, lack of access to lethal means, hopefulness and improvement in psychosis. Chronic risk is moderate given some non-modifiable risk factors: periods of impulsivity, chronic illness, prior psychiatric hospitalizations, limited social support but also with protective factors including: good support from her daughters, sense of responsibility to family and social supports, outpatient care in place, positive coping skills, capacity to establish therapeutic alliance, willingness to engage with treatment and capacity for self-observation. Counseled on ways to reduce acute and chronic risk including engaging with outpatient providers, using safety plan if needed, utilizing supports, taking medication, and using coping skills. Modifiable risk factors of SI and depression were addressed during hospitalization through development of new coping skills, family meeting, safety planning, and medication adjustments. Risk Factors Assessment Male: No : Yes Do You Have Access To A Gun?: No Health Problems: Yes Mental Health Diagnoses: No Substance Use Disorders: No Previous Attempt: No Family History of Suicide: No Previous Psychiatric Hospitalization: Yes Hopelessness: No Protective Factors Assessment Employed: No (Retired from [employer] and [employer]) Stable Relationships: Yes Supportive Family: Yes Discharge Data Lab Results 09/28/23 09/28/23 09/30/23 16:44 17:01 07:38 WBC 7.36 RBC 4.51 Hgb 14.7 Hct 42.6 MCV 94.5 MCH 32.6 MCHC 34.5 RDW Std Deviation 45.3 RDW Coeff of Yani 13.1 Plt Count 272 MPV 9.9 Immature Gran % (Auto) 0.1 Neut % (Auto) 56.9 Lymph % (Auto) 35.5 [place] % (Auto) 6.8 Eos % (Auto) 0.0 Baso % (Auto) 0.7 Neut # (Auto) 4.19 Lymph # (Auto) 2.61 [place] # (Auto) 0.50 Eos # (Auto) 0.00 Baso # (Auto) 0.05 Immature Gran # (Auto) 0.01 Sodium 133 L Potassium 3.7 Chloride 96 L Carbon Dioxide 27 Anion Gap 10 BUN 14 Creatinine 0.91 Est Cr Clr Drug Dosing 60.2 Est GFR ( Amer) 71.0 Est GFR (Non-Af Amer) 61.3 BUN/Creatinine Ratio 15.4 Glucose 110 H Estimat Average Glucose 123 Hemoglobin A1c 5.9 H Calcium 9.6 Total Bilirubin 1.2 H AST 20 ALT 19 Alkaline Phosphatase 52 Total Protein 7.4 Albumin 4.0 Globulin 3.4 Albumin/Globulin Ratio 1.2 Triglycerides 70 Cholesterol 130 LDL Cholesterol, Calc 71 VLDL Cholesterol, Calc 14 HDL Cholesterol 45 Cholesterol/HDL Ratio 2.9 TSH 0.901 Urine Color Yellow Urine Appearance Cloudy A Urine pH 7.0 Ur Specific [place] 1.011 Urine Protein Negative Urine Glucose (UA) Negative Urine Ketones Trace H Urine Blood Negative Urine Nitrite Positive A Urine Bilirubin Negative Urine Urobilinogen Negative Ur Leukocyte Esterase 1+ H Urine WBC (Auto) 10-30 H Urine RBC (Auto) 10-30 H U Hyaline Cast (Auto) 1-5 U Epithel Cells (Auto) 10-20 H Urine Bacteria (Auto) 4+ H Urine Crystals Not Reportable Salicylates < 3.0 L Urine Opiates Screen Neg Ur Methadone, Qual Neg Acetaminophen < 3 L Urine Barbiturates Neg Ur Phencyclidine (PCP) Neg U Amphetamin/Meth Scrn Neg MDMA (Ecstasy) Screen Neg U Benzodiazepines Scrn Neg Ur Cocaine Metabolite Neg U Marijuana (THC) Screen Neg Ethyl Alcohol mg/dL < 10.0 SARS-CoV-2, RNA, NAAT NEGATIVE 10/05/23 15:04 WBC RBC Hgb Hct MCV MCH MCHC RDW Std Deviation RDW Coeff of Yani Plt Count MPV Immature Gran % (Auto) Neut % (Auto) Lymph % (Auto) [place] % (Auto) Eos % (Auto) Baso % (Auto) Neut # (Auto) Lymph # (Auto) [place] # (Auto) Eos # (Auto) Baso # (Auto) Immature Gran # (Auto) Sodium Potassium Chloride Carbon Dioxide Anion Gap BUN Creatinine Est Cr Clr Drug Dosing Est GFR ( Amer) Est GFR (Non-Af Amer) BUN/Creatinine Ratio Glucose Estimat Average Glucose Hemoglobin A1c Calcium Total Bilirubin AST ALT Alkaline Phosphatase Total Protein Albumin Globulin Albumin/Globulin Ratio Triglycerides Cholesterol LDL Cholesterol, Calc VLDL Cholesterol, Calc HDL Cholesterol Cholesterol/HDL Ratio TSH Urine Color Dark Yellow Urine Appearance Clear Urine pH 7.0 Ur Specific [place] 1.013 Urine Protein Negative Urine Glucose (UA) Negative Urine Ketones Negative Urine Blood Negative Urine Nitrite Negative Urine Bilirubin Negative Urine Urobilinogen Negative Ur Leukocyte Esterase Negative Urine WBC (Auto) Urine RBC (Auto) U Hyaline Cast (Auto) U Epithel Cells (Auto) Urine Bacteria (Auto) Urine Crystals Salicylates Urine Opiates Screen Ur Methadone, Qual Acetaminophen Urine Barbiturates Ur Phencyclidine (PCP) U Amphetamin/Meth Scrn MDMA (Ecstasy) Screen U Benzodiazepines Scrn Ur Cocaine Metabolite U Marijuana (THC) Screen Ethyl Alcohol mg/dL SARS-CoV-2, RNA, NAAT Hospital Course (1) Major depressive disorder, recurrent, severe with psychotic features: (2) UTI (urinary tract infection): Plan 10/06/2023: Continue current medications and treatment plan. 10/05/2023: UA, start multivitamin. Continue Cymbalta and risperidone. 10/04/23: continue current meds and tx plan. 10/03/23: continue Risperdal 0.5 mg am and 1 mg pm. If hassan recur will add afternoon 0.5 mg dose. 10/02/23: on the [facility]. Split Risperdal dosing to minimize am sedation. Plan is to have someone overseeing medications after hospitalization so given compliant here don't see immediate need for conversion to agent with an HODGES. 10/01/23: continue current meds and treatment plan as suspect not taking correctly at home and is not hallucinating here. confirming status of her waiver with office of aging as requires [facility]. 09/30/23: culture grew E Coli sensitive to all agents so continue Keflex, continue Cymbalta 30 mg as dose just increased prior to admission. Engage family. 09/29/23: The patient was [facility]) on q15 min checks (behavioral with suicide precautions) for safety. The patient will participate in group, recreational, and milieu therapies and will be offered additional individual and family sessions as clinically appropriate. Risks/benefits/alternatives reviewed re: her current medications, discussion included but was not limited to risks of TD/metabolic abnormalities. Fasting labs as indicated. will d/c trazodone as confirmed not taking at home and fall risk. MOCA when less tired. Keflex pending culture. Mental Health & Subst Abuse Tx Psychiatrist Name of Psychiatrist: [facility] Psychiatrist's Date Of Appointment With Psychiatric Provider: 10/16/23 Time of Appointment with Psychiatrist: 1:00 PM Psychiatric Appointment Comment: [address], [place] [address] Customer Solutions Architect Name of Customer Solutions Architect: [facility] Phone Number for Customer Solutions Architect: [phone] Case Management Appointment Comment: Please follow-up with any questions related to in-home services/waiver. Post Discharge Appointments Primary Care Physician Name Of Family Doctor/PCP: BHARATH Rukhsana Ileana Bhardwaj Primary [facility] Date of Future Appointment with PCP: 10/09/23 Time of Appointment with PCP: 9:20 AM Provider Appointment Comment: [address], [address], [place] [address] Discharge Plan Discharge Items Patient Disposition: Home - Self-Care Reason For Visit: MDD Discharge Diagnosis: Major Depressive Disorder with psychotic features Activity: Resume your previous activity Non-emergency contact: Primary Care Provider, Psychiatrist and Hat Forming Machine Operator Call non-emergency contact if: you have any medication questions and your symptoms worsen Follow-up/Referrals: Adrian Guillen CRNP [Primary Care Provider] - Diet: Regular Addtl Attending Provider Instructions: SPECIAL CARE INSTRUCTIONS: 1. Follow through with your scheduled aftercare appointments. If unable to keep an appointment, please call to reschedule. 2. Take your medication only as prescribed. Medication should not be changed or stopped without the approval of your doctor. In the event of worsening symptoms or concerns about side effects, contact your doctor immediately. 3. Utilize new healthy coping skills, anger management skills, and stress management skills learned during your hospitalization. Journal feelings and process them with a support person. Identify stressors or situations that may result in relapse, deterioration or inappropriate behaviors and develop a plan to deal with those issues. 4. If your coping skills are ineffective and you are in crisis, contact your outpatient providers for direction. If unable to reach your providers, please call the [facility] CRISIS LINE AT , go to the [facility] walk-in center at [address], [address], [place], or go to the closest Emergency Room. 5. Avoid alcohol and un-prescribed drugs. 6. You have been provided with the Mental Health Advance Directives Pamphlet for your review. 7. Your condition is stable for discharge to outpatient level of care, but recovery is an ongoing process. Ifthoughts to harm yourself or others return, follow the safety plan developed during your stay. Planning for a safe return home includes securing weapons. Our treatment team recommends weaponsbe removed from the home until your outpatient provider reassesses your progress. In rare cases where the items themselvescannot be removed, guns and ammunitionshould be secured separatelyand keys stored by a reliable personoutside of the home. If you were admitted on an involuntary commitment, the police or other legal authorities may be involved in this process. AFTERCARE APPOINTMENTS: * Please call your insurance company prior to your scheduled appointment to confirm your aftercare providers are covered. Take your insurance information to your appointments. WHO TO CALL AND WHEN: Medical Emergencies: For questions or emergencies related to your hospital stay, please contact the Inpatient Behavioral Health Unit at [phone]. A chief nuclear medicine technologist is on-call 17/06 for the Behavioral Health Unit for emergencies At any time you feel your situation is an emergency, you may also call 911 immediately. National Crisis Line: 198 Pending Studies at Discharge: No Stand-Alone Forms: My [facility] Medications and DC Order Prescriptions: New benztropine 0.5 mg Tablet 0.25 mg PO DAILY PRN (Reason: muscle stiffness/restlessness ) 30 Days Qty: 30 0RF risperidone 1 mg Tablet 1 mg PO HS 30 Days Qty: 30 0RF risperidone 0.5 mg Tablet 0.5 mg PO QAM 30 Days Qty: 30 0RF Cerovite Senior 0.4 mg-300 mcg- 250 mcg Tablet 1 tab PO QAM Qty: 1 0RF Continued amlodipine 5 mg tablet 5 mg PO DAILY Qty: 30 2RF atorvastatin 40 mg tablet 40 mg PO QPM Qty: 90 1RF betamethasone valerate 0.1 % lotion 1 applic topical TID PRN (Reason: skin irritation) Qty: 60 2RF famotidine [Pepcid] 20 mg tablet 20 mg PO BID PRN (Reason: gerd) Qty: 180 1RF pantoprazole 40 mg tablet,delayed release (DR/EC) 40 mg PO QPM Qty: 90 1RF polyethylene glycol 3350 [Miralax] 17 gram/dose powder 17 g PO DAILY PRN (Reason: Constipation) Patient Comments: CANELO PINEDA- Uses only when needed. levothyroxine 75 mcg tablet 75 mcg PO QAM Qty: 90 1RF cholecalciferol (vitamin D3) 1,250 mcg (50,000 unit) capsule 50,000 unit PO .weekly Qty: 12 0RF Rx Instructions: [place] [address] [place] continue with 3000 mcg (OTC) daily (patient takes on Fridays) vitamin B complex [B Complex-Vitamin B12] Tablet 1 tab PO QAM duloxetine 30 mg capsule,delayed release(DR/EC) 30 mg PO DAILY Qty: 90 2RF acetaminophen 325 mg Tablet 325 - 650 mg PO Q6H PRN (Reason: Fever Or Pain) aspirin 81 mg Tablet,Delayed Release (Dr/Ec) 81 mg PO QPM propranolol 60 mg capsule,extended release 24 hr 60 mg PO DAILY Discontinued risperidone 1 mg tablet 1 mg PO BID Rx Instructions: [facility] trazodone 50 mg tablet 50 mg PO HS Discharge Orders: Discharge Order (Routine); Ordered 10/07/23 Ordered By: Rocío Edward Admission Data Admit Date/Time: 09/28/23 22:18 Attending Provider: Opal Perez Admit Provider: Opal Perez Primary Care Provider: Adrian Guillen Other Interventions: Discharge Summary Assessment (RN) Last Done: 10/07/23 15:41 Coding Level of Care Code 88720 D/C day mgmt > 30 min Diagnoses Major depressive disorder, recurrent, severe with psychotic features F33.3 UTI (urinary tract infection) N30.01 Hematuria presence: with hematuria Urinary tract infection type: acute cystitis
== END 2023-10-07 17:15 | disposition home or self-care (01) | DRG 885 ==
LOC: ED 16:25 → 3S 22:06

== ENCOUNTER 2024-03-07 15:52 | Inpatient (IN) ==
--- NOTE | 2024-03-07 16:06 | Emergency Department Note ---
Impression & Plan Shortness of breath, Acute hypokalemia, Hypomagnesemia, Generalized weakness ED Provider Note HISTORY OF PRESENT ILLNESS: Patient is a 78-year-old female presenting with shortness of breath. Patient reports she has been feeling progressively more short of breath over the last few days. She states that today she was walking to her neighbors house when she became significantly winded and felt she could not catch her breath. Her neighbor called 911 due to her work of breathing. On EMS arrival, the patient was noted to be hypoxic to the mid 80s on room air. Patient was placed on supplemental oxygen and her saturations improved. Patient reports that she does not wear any supplemental oxygen at baseline. Denies any chest pain with the shortness of breath. Reports feeling generally weak the last few days. Denies any nausea or vomiting. Denies any recent cough or fevers. Denies any abdominal pain or diarrhea. She denies any DVT or PE history. She is on a baby aspirin daily. Denies any history of cardiac stents. ROS: as above PHYSICAL EXAM: Constitutional: Patient appears in no acute distress. HENT: Head: Normocephalic and atraumatic. Eyes: EOMI, PERRL Mouth/Throat: Mucous membranes moist. Neck: Trachea midline. Neck supple. Cardiovascular: RRR, No murmurs, rubs or gallops. Intact distal pulses. Pulmonary/Chest: No respiratory distress. Breath sounds clear and equal bilaterally. No wheezes or rales. Abdominal: Abdomen soft, no tenderness, rebound or guarding. Musculoskeletal: No edema, tenderness or deformity noted. Skin: Warm and dry. No rash, erythema, pallor or cyanosis Psychiatric: Appropriate mood and affect for situation. Neurological: Alert and keenly responsive. CN II-XII grossly intact, moving all extremities equally and fully. MDM: - Vitals signs showed tachycardia. - History obtained via patient. History as above. - Chronic conditions affecting care: GERD; hypothyroidism; anxiety/depression; HTN; tremor; Lewy Body Dementia; HLD - Differential diagnoses include, but are not limited to: Congestive heart failure; acute coronary syndrome; COPD/asthma exacerbation; pulmonary edema; pulmonary embolism; pneumonia; pneumothorax; viral syndrome - Order placed for continuous cardiac monitoring. At this time, monitor showed rate of 97 bpm with normal sinus rhythm, per my interpretation. - External medical records reviewed. Wellness visit dated 11/04/2023 was reviewed. Patient was seen in their clinic for her annual wellness examination. - EKG interpreted by myself showed normal sinus rhythm. Rate 95 bpm. QT 350. No acute ischemic changes. - Laboratory workup interpreted by myself showed normal WBC; hypokalemia (K 3.1); elevated anion gap (12); hypomagnesemia (Mg 1.6); normal troponin; normal BNP - CXR negative for pneumonia, per my interpretation - Viral respiratory panel negative - VGB showed respiratory acidosis (pH 7.32 and pCO2 62) - Multiple attempts were made to place an IV on this patient. IV team also attempted and was unsuccessful. Patient was able to have a 22-gauge placed in her wrist/hand. Oral magnesium potassium was ordered for electrolyte replacement. Patient was transition from nasal cannula to room air without any issue. However, patient is complaining of significant weakness and concern about sending her back to her facility. - Discussion was had with manager administration about patient's case and need for admission - Hospitalist consulted for admission - Patient admitted to [facility] Hospitalist service for further evaluation and management. ASSESSMENT AND PLAN: Diagnosis: shortness of breath; acute hypokalemia; hypomagnesemia; generalized weakness Plan: admit Past Med/Surg History Medical History Lewy body dementia UTI (urinary tract infection) Depression with suicidal ideation Auditory hallucinations Osteoarthritis Urinary incontinence Hiatal hernia TMJ (temporomandibular joint disorder) hx locking HTN (hypertension) Sleep apnea unable to tolerate CPAP Anxiety Tremor GERD (gastroesophageal reflux disease) Hypothyroidism Depression Surgical History History of arthroscopic knee surgery History of colonoscopy History of cholecystectomy History of total abdominal hysterectomy and bilateral salpingo-oophorectomy Status post Agatha fundoplication 05/2011 Dr. Ivey- Esophagogastric fundoplasty agatha fundoplication History of esophagogastroduodenoscopy (EGD) Family History Mother Cardiac disorder Myocardial infarction Aunt Cancer Uncle Cancer Cardiac disorder Myocardial infarction Other Family history non-contributory Denies family history of Ovarian cancer Prostate cancer Breast cancer Colorectal cancer Social History (Reviewed 01/27/24 @ 18:14 by ANGUS Lima Smoking Status: Never smoker Second Hand Exposure: No; Do You Dip or Chew Tobacco: No; Hx Alcohol Use: No Hx Substance Use: No Preferred Language: Bahamian Communication Ability: Effective Visual Impairment: No Limitations Hearing Ability: Normal Long Term Acute Care Registered Nurse Required: No Beliefs That Will Affect Care: Temple Current Living Situation: Alone and Personal Care Facility Current Living Situation Comment: [facility] current occupational status: retired How many Children do You have: 2 Feels Safe at Home: Yes Childhood Exposure to Second-Hand Smoke: Yes Diet: regular Diet Comment: regular caffeine: Yes during the past year weight has: remained stable Dental Care, Regularly: No Physical Activity Frequency: 1-2 Times per Week Seatbelt Use: always Sunscreen Use: No Gender Identity: Female Assistive Devices: Cane, Glasses and Walker Allergies Allergies Allergy/AdvReac Type Severity Reaction Status Date / Time simvastatin Allergy Unknown MUSCLE Verified 03/07/24 21:35 WEAKNESS latex AdvReac Intermediate HIVES Verified 03/07/24 21:35 Home Meds Home Medications Medication Instructions Recorded Confirmed acetaminophen 325 mg tablet 325 - 650 mg PO Q6H PRN Fever Or 12/20/18 03/07/24 Pain aspirin 81 mg tablet,delayed 81 mg PO QPM 11/03/20 03/07/24 release docusate sodium 100 mg capsule 100 mg PO DAILY PRN Constipation 10/08/23 03/07/24 (Stool Softener) cholecalciferol (vitamin D3) 50 0 mcg PO DAILY 10/31/23 03/07/24 mcg (2,000 unit) capsule atorvastatin 40 mg tablet 0 mg PO QPM 03/07/24 03/07/24 duloxetine 30 mg capsule,delayed 0 mg PO DAILY 03/07/24 03/07/24 release famotidine 20 mg tablet (Pepcid) 0 mg PO BID gerd 03/07/24 03/07/24 levothyroxine 75 mcg tablet 0 mcg PO QAM 03/07/24 03/07/24 pantoprazole 40 mg tablet,delayed 0 mg PO QPM 03/07/24 03/07/24 release propranolol 60 mg capsule,24 0 mg PO DAILY 03/07/24 03/07/24 hr,extended release Previous Rx's Medication Instructions Recorded [id number] acid 0.4 1 tab PO QAM #1 tab 10/07/23 mg-lycopene 300 mcg-lutein 250 mcg tablet (Cerovite Senior) Results & Data (ED) Vital Signs Vital Signs - 24 hr 03/07/24 16:17 03/07/24 16:17 03/07/24 16:24 Temperature 36.9 C Temperature Source Oral Pulse Rate 107 H 95 H Respiratory Rate 20 17 Blood Pressure 132/72 132/72 Blood Pressure Mean 92 92 Pulse Oximetry 100 99 100 Oxygen Delivery Method Room Air Nasal Cannula Oxygen Flow Rate 4 Sepsis Recent Fever Within 48 Hours No Sepsis New/Unexplained Change in Mental Status N/A Sepsis Action Taken by Nursing No Action Required Oxygen Flow Rate - Titration 2 Pulse Oximetry Post Tiitration 100 03/07/24 16:55 03/07/24 17:14 03/07/24 18:49 Temperature Temperature Source Pulse Rate 101 H 96 H 100 H Respiratory Rate 15 24 Blood Pressure 123/85 114/73 Blood Pressure Mean 97 86 Pulse Oximetry 97 98 Oxygen Delivery Method Oxygen Flow Rate Sepsis Recent Fever Within 48 Hours Sepsis New/Unexplained Change in Mental Status Sepsis Action Taken by Nursing Oxygen Flow Rate - Titration Pulse Oximetry Post Tiitration 03/07/24 19:00 03/07/24 19:30 03/07/24 20:00 Temperature Temperature Source Pulse Rate 99 H 107 H 97 H Respiratory Rate 10 L 10 L 10 L Blood Pressure 124/77 117/88 Blood Pressure Mean 92 97 Pulse Oximetry 98 96 97 Oxygen Delivery Method Nasal Cannula Nasal Cannula Room Air Oxygen Flow Rate 2 2 Sepsis Recent Fever Within 48 Hours Sepsis New/Unexplained Change in Mental Status Sepsis Action Taken by Nursing Oxygen Flow Rate - Titration Pulse Oximetry Post Tiitration Laboratory Data 03/07/24 18:40 03/07/24 18:40 Lab Results 03/07/24 Range/Units 18:40 WBC 9.33 (4.8-10.8) K/ul RBC 4.90 (4.20-5.40) M/uL Hgb 15.2 (12.0-16.0) g/dl Hct 45.0 (37.0-47.0) % MCV 91.8 (80.0-100.0) fL MCH 31.0 (25.0-34.0) pg MCHC 33.8 (32.0-36.0) g/dL RDW Std Deviation 48.1 H (36.4-46.3) fL RDW Coeff of Yani 14.2 (11.5-14.5) % Plt Count 269 (130-400) K/uL MPV 10.4 (9.4-12.4) fL Immature Gran % (Auto) 0.1 % Neut % (Auto) 55.4 % Lymph % (Auto) 37.7 % [place] % (Auto) 6.4 % Eos % (Auto) 0.0 % Baso % (Auto) 0.4 % Neut # (Auto) 5.16 (1.40-6.50) K/uL Lymph # (Auto) 3.52 H (1.20-3.40) K/uL [place] # (Auto) 0.60 H (0.11-0.59) K/uL Eos # (Auto) 0.00 (0.00-0.50) K/uL Baso # (Auto) 0.04 (0.00-0.20) K/uL Immature Gran # (Auto) 0.01 (0.01-0.20) K/uL PT 11.3 (9.0-12.0) Seconds INR 1.0 (0.9-1.1) VBG pH 7.32 L (7.36-7.41) VBG pCO2 62 H (38-50) mmHg VBG pO2 30 mmHg VBG HCO3 32 mmol/L VBG O2 Saturation < 60.0 % VBG Base Excess 4.0 mEq/L Sodium 138 (136-145) mmol/L Potassium 3.1 L (3.5-5.1) mmol/L Chloride 100 (98-107) mmol/L Carbon Dioxide 26 (21-32) mmol/L Anion Gap 12 H (3-11) BUN 11 (6-23) mg/dl Creatinine 0.84 (0.6-1.2) mg/dl Est Cr Clr Drug Dosing 56.4 ml/min Est GFR ( Amer) 78.2 ml/min Est GFR (Non-Af Amer) 67.5 ml/min BUN/Creatinine Ratio 13.1 (10-20) Glucose 118 H (70-99(Fasting)) mg/dl Calcium 9.4 (8.6-10.3) mg/dl Magnesium 1.6 L (1.7-2.4) mg/dl Total Bilirubin 0.9 (0.2-1.0) mg/dl AST 22 (13-39) U/L ALT 12 (7-52) U/L Alkaline Phosphatase 45 (34-104) U/L Troponin I High Sens 12.6 (0-14) pg/ml B-Natriuretic Peptide 79 (0-100) pg/ml Total Protein 6.8 (6.0-8.3) gm/dl Albumin 3.7 (3.4-5.0) gm/dl Globulin 3.1 (2.5-4.0) gm/dl Albumin/Globulin Ratio 1.2 (0.9-2) Adenovirus (PCR) Not Detected (NotDetected) B. pertussis DNA (PCR) Not Detected (NotDetected) B.parapertussis DNA PCR Not Detected (NotDetected) C. pneumoniae DNA (PCR) Not Detected (NotDetected) Coronavirus OC43 (PCR) Not Detected (NotDetected) Coronavirus HKU1 (PCR) Not Detected (NotDetected) Coronavirus 229E (PCR) Not Detected (NotDetected) SARS-CoV-2 (PCR) Not Detected (NotDetected) Coronavirus NL63 (PCR) Not Detected (NotDetected) Human Metapneumovir PCR Not Detected (NotDetected) Influenza Type A (PCR) Not Detected (NotDetected) Influenza Type B (PCR) Not Detected (NotDetected) M. pneumoniae (PCR) Not Detected (NotDetected) Parainfluenza 1 (PCR) Not Detected (NotDetected) Parainfluenza 2 (PCR) Not Detected (NotDetected) Parainfluenza 3 (PCR) Not Detected (NotDetected) Parainfluenza 4 (PCR) Not Detected (NotDetected) RSV (PCR) Not Detected (NotDetected) Entero/Rhino (PCR) Not Detected (NotDetected) Administered Medications Discontinued Medications Magnesium Sulfate/Dextrose (Magnesium Sulfate / D5w) 1 gm in 100 mls @ 100 mls/hr IV NOW STA Stop: 03/07/24 20:23 Last Admin: 03/07/24 23:27 Dose: Not Given Documented By: KLS Potassium Chloride (K Antolin / Wtr) 10 meq in 100 mls @ 100 mls/hr IV Q1H RODRIGO Stop: 03/07/24 22:59 Last Admin: 03/07/24 23:27 Dose: Not Given Documented By: Admin: 03/07/24 23:26 Dose: Not Given Documented By: OVIDIO Imaging Data Radiologist's Impression: Chest X-Ray 03/07/24 16:04 XR chest 1V portable HISTORY: 78 years-old Female Dyspnea acute shortness of breath COMPARISON: 01/27/2000 TECHNIQUE: AP view of the chest FINDINGS: Cardiac silhouette is enlarged. Atherosclerosis of the aorta. No pneumothorax, pleural effusion or pulmonary edema. Mild left basilar atelectasis. Bones appear grossly intact. IMPRESSION: No acute process. ACT 112: Negative or not required by law. The above report was generated using voice recognition software. It may contain grammatical, syntax or spelling errors. Electronically signed by: Salvador Saenz M.D. 03/07/2024 5:20 PM Discharge Plan Visit Data Chief Complaint: Shortness of Breath/Dyspnea Stated Complaint: SOB ED Provider: Mindy Ramos Discharge Problem: Shortness of breath, Acute hypokalemia, Hypomagnesemia, Generalized weakness Forms Stand Alone Forms: [facility] Physiq Prescriptions Prescriptions: No Action docusate sodium [Stool Softener] 100 mg capsule 100 mg PO DAILY PRN (Reason: Constipation) cholecalciferol (vitamin D3) 50 mcg (2,000 unit) capsule 0 mcg PO DAILY Rx Instructions: 03/07/24 UNABLE TO VERIFY DOSE acetaminophen 325 mg Tablet 325 - 650 mg PO Q6H PRN (Reason: Fever Or Pain) aspirin 81 mg Tablet,Delayed Release (Dr/Ec) 81 mg PO QPM Cerovite Senior 0.4 mg-300 mcg- 250 mcg Tablet 1 tab PO QAM Qty: 1 0RF atorvastatin 40 mg tablet 0 mg PO QPM Rx Instructions: 03/07/24 UNABLE TO VERIFY DOSE duloxetine 30 mg capsule,delayed release(DR/EC) 0 mg PO DAILY Rx Instructions: 03/07/24 UNABLE TO VERIFY DOSE famotidine [Pepcid] 20 mg tablet 0 mg PO BID Rx Instructions: 03/07/24 UNABLE TO VERIFY DOSE levothyroxine 75 mcg tablet 0 mcg PO QAM Rx Instructions: 03/07/24 UNABLE TO VERIFY DOSE pantoprazole 40 mg tablet,delayed release (DR/EC) 0 mg PO QPM Rx Instructions: 03/07/24 UNABLE TO VERIFY DOSE propranolol 60 mg capsule,extended release 24 hr 0 mg PO DAILY Rx Instructions: 03/07/24 UNABLE TO VERIFY DOSE Referrals Referrals: Adrian Guillen CRNP [Primary Care Provider] -
--- NOTE | 2024-03-07 17:21 | XRay Report ---
XR chest 1V portable HISTORY: 78 years-old Female Dyspnea acute shortness of breath COMPARISON: 01/27/2000 TECHNIQUE: AP view of the chest FINDINGS: Cardiac silhouette is enlarged. Atherosclerosis of the aorta. No pneumothorax, pleural effusion or pu lmonary edema. Mild left basilar atelectasis. Bones appear grossly intact. IMPRESSION: No acute process. ACT 112: Negative or not required by law. The above report was generated using voice recognition software. It may contain grammatical, syntax o r spelling errors. Electronically signed by: Salvador Saenz M.D. 03/07/2024 5:20 PM
[2024-03-07 19:00] LABS: Basophils # (auto) 0.04 K/uL (0.00-0.20); Basophils % (auto) 0.4 %; Hemoglobin 15.2 g/dl (12.0-16.0); Immature Granulocytes # (auto) 0.01 K/uL (0.01-0.20); Immature Granulocytes % (auto) 0.1 %; Lymphocytes # (auto) 3.52 K/uL (1.20-3.40); Lymphocytes % (auto) 37.7 %; Mean Corpuscular Hgb Conc 33.8 g/dL (32.0-36.0); Mean Corpuscular Volume 91.8 fL (80.0-100.0); Mean Platelet Volume 10.4 fL (9.4-12.4); Monocytes % (auto) 6.4 %; Neutrophils # (auto) 5.16 K/uL (1.40-6.50); Neutrophils % (auto) 55.4 %; Platelet Count 269 K/uL (130-400); RDW Coefficient of Variation 14.2 % (11.5-14.5); RDW Standard Deviation 48.1 fL (36.4-46.3); White Blood Count 9.33 K/ul (4.8-10.8)
[2024-03-07 19:20] LABS: Albumin Globulin Ratio 1.2 (0.9-2); Albumin Level 3.7 gm/dl (3.4-5.0); BUN Creatinine Ratio 13.1 (10-20); Bilirubin,Total 0.9 mg/dl (0.2-1.0); Calcium 9.4 mg/dl (8.6-10.3); Creatinine Clr Calc Pharmacy 56.4 ml/min; Est GFR (African American) 78.2 ml/min; Est GFR (Non-African American) 67.5 ml/min; Globulin 3.1 gm/dl (2.5-4.0); Magnesium 1.6 mg/dl (1.7-2.4); Potassium 3.1 mmol/L (3.5-5.1); Total Protein 6.8 gm/dl (6.0-8.3)
[2024-03-07 19:26] LABS: Prothrombin Time 11.3 Seconds (9.0-12.0); Troponin I High Sensitivity 12.6 pg/ml (0-14)
[2024-03-07 19:49] LABS: Adenovirus PCR Not Detected (NotDetected); Bordetella parapertussis PCR Not Detected (NotDetected); Bordetella pertussis PCR Not Detected (NotDetected); Chlamydia pneumoniae PCR Not Detected (NotDetected); Coronavirus 229E PCR Not Detected (NotDetected); Coronavirus CoV-2 (COVID19)PCR Not Detected (NotDetected); Coronavirus HKU1 PCR Not Detected (NotDetected); Coronavirus NL63 PCR Not Detected (NotDetected); Coronavirus OC43PCR Not Detected (NotDetected); Human Metapneumovirus PCR Not Detected (NotDetected); Influenza A PCR Not Detected (NotDetected); Influenza B PCR Not Detected (NotDetected); Mycoplasma pneumoniae PCR Not Detected (NotDetected); Parainfluenza Virus 1 PCR Not Detected (NotDetected); Parainfluenza Virus 2 PCR Not Detected (NotDetected); Parainfluenza Virus 3 PCR Not Detected (NotDetected); Parainfluenza Virus 4 PCR Not Detected (NotDetected); Respiratory Syncytial VirusPCR Not Detected (NotDetected); Rhinovirus/Enterovirus PCR Not Detected (NotDetected)
[2024-03-07 22:24] LABS: HCO3 VBG 32 mmol/L; Oxygen Saturation VBG < 60.0 %; PCO2 VBG 62 mmHg (38-50); PO2 VBG 30 mmHg; pH VBG 7.32 (7.36-7.41)
[2024-03-07] MEDS: POTASSIUM CHLORIDE / WTR 10 MEQ/100 ML PLCT IV SCH (23:26)
[2024-03-07] MEDS: MAGNESIUM SULFATE / D5W 1 GM/100 ML BAG IV STA (23:27)
[2024-03-07] MEDS: MAGNESIUM OXIDE 400 MG TAB PO STA (23:32)
[2024-03-07] MEDS: POTASSIUM CHLORIDE CRTAB 20 MEQ TABCR PO STA (23:33)
[2024-03-08 04:40] LABS: D Dimer 760 ug/L FEU (0-500)
--- NOTE | 2024-03-08 04:58 | History & Physical Report ---
Date of Service March 08, 2024 Assessment & Plan (1) Shortness of breath: Plan: SOB with hypoxia noted in the ER. Etiology unclear. Patient with severe obstructed RISHI noted in the chart, does not use CPAP, ?PH Elevated Ddimer at age-adjusted cut off. No tachycardia or evidence of DVT. Will hold off on CTA at this time -Check 2D echo -Continue O2 as needed (2) Hypomagnesemia: Plan: Mg 400mg po given in ER -Repeat in AM (3) Acute hypokalemia: Plan: Repleted -Check AM labs (4) Lewy body dementia: Plan: Patient not on any medications -Frequent orientation -Avoid potentially delirium inducing agents where possible (5) Hypothyroidism: Plan: Chronic -Continue Synthroid Admission and Anticipated Discharge Date Admission Date: March 08, 2024 History of Present Illness Chief Complaint: SOB Primary Care Provider: JENNA Flores 78yo female with Dementia, RISHI, HTN presenting with shortness of breath. Patient is unsure how long her symptoms have been ongoing. She denies cough, fever, edema. She has had some chills and nausea as well as decreased oral intake and poor appetite. Hypoxic to 85% on room air noted by ER No home O2 or CPAP use ER Course: O2 placed KCl 80mEq Mg 400mg PO Allergies Allergy/AdvReac Type Severity Reaction Status Date / Time simvastatin Allergy Unknown MUSCLE Verified 03/07/24 21:35 WEAKNESS latex AdvReac Intermediate HIVES Verified 03/07/24 21:35 Home Medications Medication Instructions Recorded Confirmed Type acetaminophen 325 mg tablet 325 - 650 mg PO Q6H PRN Fever Or 12/20/18 03/07/24 History Pain aspirin 81 mg tablet,delayed 81 mg PO QPM 11/03/20 03/07/24 History release adsyphga-zww-bkoif acid 0.4 1 tab PO QAM #1 tab 10/07/23 03/07/24 Rx mg-lycopene 300 mcg-lutein 250 mcg tablet (Cer[employer]ite Senior) docusate sodium 100 mg capsule 100 mg PO DAILY PRN Constipation 10/08/23 03/07/24 History (Stool Softener) cholecalciferol (vitamin D3) 50 0 mcg PO DAILY 10/31/23 03/07/24 History mcg (2,000 unit) capsule atorvastatin 40 mg tablet 0 mg PO QPM 03/07/24 03/07/24 History duloxetine 30 mg capsule,delayed 0 mg PO DAILY 03/07/24 03/07/24 History release famotidine 20 mg tablet (Pepcid) 0 mg PO BID gerd 03/07/24 03/07/24 History levothyroxine 75 mcg tablet 0 mcg PO QAM 03/07/24 03/07/24 History pantoprazole 40 mg tablet,delayed 0 mg PO QPM 03/07/24 03/07/24 History release propranolol 60 mg capsule,24 0 mg PO DAILY 03/07/24 03/07/24 History hr,extended release Past Med/Surg History Medical History Lewy body dementia UTI (urinary tract infection) Depression with suicidal ideation Auditory hallucinations Osteoarthritis Urinary incontinence Hiatal hernia TMJ (temporomandibular joint disorder) hx locking HTN (hypertension) Sleep apnea unable to tolerate CPAP Anxiety Tremor GERD (gastroesophageal reflux disease) Hypothyroidism Depression Surgical History History of arthroscopic knee surgery History of colonoscopy History of cholecystectomy History of total abdominal hysterectomy and bilateral salpingo-oophorectomy Status post Agatha fundoplication 05/2011 Dr. Ivey- Esophagogastric fundoplasty agatha fundoplication History of esophagogastroduodenoscopy (EGD) Family History Mother Cardiac disorder Myocardial infarction Aunt Cancer Uncle Cancer Cardiac disorder Myocardial infarction Other Family history non-contributory Denies family history of Ovarian cancer Prostate cancer Breast cancer Colorectal cancer Social History Smoking Status: Former smoker Second Hand Exposure: No; Do You Dip or Chew Tobacco: No; Hx Alcohol Use: No Hx Substance Use: No Preferred Language: [place] Communication Ability: Effective Visual Impairment: No Limitations Hearing Ability: Normal Hand Pleater Required: No Beliefs That Will Affect Care: None Current Living Situation: Alone Current Living Situation Comment: [facility] current occupational status: retired How many Children do You have: 2 Feels Safe at Home: Yes Safety Concerns: Feels Safe At This Time Childhood Exposure to Second-Hand Smoke: Yes Diet: regular Diet Comment: regular caffeine: Yes during the past year weight has: remained stable Dental Care, Regularly: No Physical Activity Frequency: 1-2 Times per Week Seatbelt Use: always Sunscreen Use: No Gender Identity: Female Assistive Devices: Cane, Glasses and Walker Review of Systems Review of Systems: All systems reviewed & are unremarkable except as noted in HPI & below Physical Exam Physical Exam: General: patient resting comfortably, NAD, non-toxic in appearance, AA&O to self Skin: warm, dry, intact, no rashes or lesions HEENT: NC/AT, PERRL, EOMI, anicteric sclera, conjunctiva without injection, external ear normal to inspection and nontender, nares patent, moist mucus membranes, dentition intact, no oropharyngeal lesions, neck supple, trachea midline, no LAD, no thyromegaly, no JVD Heart: +S1/S2, regular, no m/r/g Lungs: equal air entry bilaterally, no rales/rhonchi/wheezes Abd: +BS, soft, NT/ND, no masses/organomegaly/ascites Ext: warm, 2+ pulses in UE/LE bilaterally, no clubbing/cyanosis or edema Neuro: nonfocal, patient AA&O x 1, speech intact, no facial droop, moving all extremities on command with equal strength 5/5 Results & Data Results & Data Vital Signs (Past 12 Hours) Vital Signs Temp Pulse Pulse Pulse Resp BP BP 03/08/24 02:50 03/08/24 02:50 36.4 C L 84 18 112/77 03/08/24 02:30 120/83 03/08/24 02:30 75 12 03/08/24 02:00 112/81 03/08/24 02:00 74 11 L 03/08/24 01:30 132/82 03/08/24 01:30 87 15 03/08/24 01:00 86 17 124/82 03/08/24 01:00 87 18 124/82 03/08/24 00:45 88 03/08/24 00:30 90 12 130/85 03/08/24 00:02 77 15 03/08/24 00:02 139/88 03/08/24 00:00 18 03/07/24 23:43 03/07/24 23:43 88 20 104/88 03/07/24 23:30 94 H 17 03/07/24 23:29 104/88 03/07/24 23:29 95 H 17 03/07/24 21:00 94 H 20 03/07/24 20:45 93 H 03/07/24 20:30 94 H 18 03/07/24 20:00 97 H 10 L 03/07/24 19:30 107 H 10 L 117/88 03/07/24 19:00 99 H 10 L 124/77 03/07/24 18:49 100 H 24 114/73 03/07/24 17:14 96 H 15 123/85 03/07/24 16:55 101 H Pulse Ox O2 Del Method O2 Flow Rate 03/08/24 02:50 Room Air 03/08/24 02:50 94 Room Air 03/08/24 02:30 03/08/24 02:30 94 03/08/24 02:00 03/08/24 02:00 95 03/08/24 01:30 03/08/24 01:30 93 Room Air 03/08/24 01:00 96 Room Air 03/08/24 01:00 90 Room Air 03/08/24 00:45 03/08/24 00:30 100 Nasal Cannula 3 03/08/24 00:02 100 Nasal Cannula 3 03/08/24 00:02 03/08/24 00:00 96 Nasal Cannula 3 03/07/24 23:43 95 Room Air 03/07/24 23:43 95 Nasal Cannula 3 03/07/24 23:30 03/07/24 23:29 03/07/24 23:29 03/07/24 21:00 96 Nasal Cannula 3 03/07/24 20:45 03/07/24 20:30 96 Nasal Cannula 3 03/07/24 20:00 97 Room Air 03/07/24 19:30 96 Nasal Cannula 2 03/07/24 19:00 98 Nasal Cannula 2 03/07/24 18:49 98 03/07/24 17:14 97 03/07/24 16:55 Laboratory Results Laboratory Results WBC 9.33 K/ul (4.8-10.8) 03/07/24 18:40 RBC 4.90 M/uL (4.20-5.40) 03/07/24 18:40 Hgb 15.2 g/dl (12.0-16.0) 03/07/24 18:40 Hct 45.0 % (37.0-47.0) 03/07/24 18:40 MCV 91.8 fL (80.0-100.0) 03/07/24 18:40 MCH 31.0 pg (25.0-34.0) 03/07/24 18:40 MCHC 33.8 g/dL (32.0-36.0) 03/07/24 18:40 RDW Std Deviation 48.1 fL (36.4-46.3) H 03/07/24 18:40 RDW Coeff of Yani 14.2 % (11.5-14.5) 03/07/24 18:40 Plt Count 269 K/uL (130-400) 03/07/24 18:40 MPV 10.4 fL (9.4-12.4) 03/07/24 18:40 Immature Gran % (Auto) 0.1 % 03/07/24 18:40 Neut % (Auto) 55.4 % 03/07/24 18:40 Lymph % (Auto) 37.7 % 03/07/24 18:40 Grand % (Auto) 6.4 % 03/07/24 18:40 Eos % (Auto) 0.0 % 03/07/24 18:40 Baso % (Auto) 0.4 % 03/07/24 18:40 Neut # (Auto) 5.16 K/uL (1.40-6.50) 03/07/24 18:40 Lymph # (Auto) 3.52 K/uL (1.20-3.40) H 03/07/24 18:40 Grand # (Auto) 0.60 K/uL (0.11-0.59) H 03/07/24 18:40 Eos # (Auto) 0.00 K/uL (0.00-0.50) 03/07/24 18:40 Baso # (Auto) 0.04 K/uL (0.00-0.20) 03/07/24 18:40 Immature Gran # (Auto) 0.01 K/uL (0.01-0.20) 03/07/24 18:40 PT 11.3 Seconds (9.0-12.0) 03/07/24 18:40 INR 1.0 (0.9-1.1) 03/07/24 18:40 D-Dimer 760 ug/L FEU (0-500) H* 03/08/24 03:53 VBG pH 7.32 (7.36-7.41) L 03/07/24 18:40 VBG pCO2 62 mmHg (38-50) H 03/07/24 18:40 VBG pO2 30 mmHg 03/07/24 18:40 VBG HCO3 32 mmol/L 03/07/24 18:40 VBG O2 Saturation < 60.0 % 03/07/24 18:40 VBG Base Excess 4.0 mEq/L 03/07/24 18:40 Sodium 138 mmol/L (136-145) 03/07/24 18:40 Potassium 3.1 mmol/L (3.5-5.1) L 03/07/24 18:40 Chloride 100 mmol/L (98-107) 03/07/24 18:40 Carbon Dioxide 26 mmol/L (21-32) 03/07/24 18:40 Anion Gap 12 (3-11) H 03/07/24 18:40 BUN 11 mg/dl (6-23) 03/07/24 18:40 Creatinine 0.84 mg/dl (0.6-1.2) 03/07/24 18:40 Est Cr Clr Drug Dosing 56.4 ml/min 03/07/24 18:40 Est GFR ( Amer) 78.2 ml/min 03/07/24 18:40 Est GFR (Non-Af Amer) 67.5 ml/min 03/07/24 18:40 BUN/Creatinine Ratio 13.1 (10-20) 03/07/24 18:40 Glucose 118 mg/dl (70-99(Fasting)) H 03/07/24 18:40 Calcium 9.4 mg/dl (8.6-10.3) 03/07/24 18:40 Magnesium 1.6 mg/dl (1.7-2.4) L 03/07/24 18:40 Total Bilirubin 0.9 mg/dl (0.2-1.0) 03/07/24 18:40 AST 22 U/L (13-39) 03/07/24 18:40 ALT 12 U/L (7-52) 03/07/24 18:40 Alkaline Phosphatase 45 U/L (34-104) 03/07/24 18:40 Troponin I High Sens 12.6 pg/ml (0-14) 03/07/24 18:40 B-Natriuretic Peptide 79 pg/ml (0-100) 03/07/24 18:40 Total Protein 6.8 gm/dl (6.0-8.3) 03/07/24 18:40 Albumin 3.7 gm/dl (3.4-5.0) 03/07/24 18:40 Globulin 3.1 gm/dl (2.5-4.0) 03/07/24 18:40 Albumin/Globulin Ratio 1.2 (0.9-2) 03/07/24 18:40 Adenovirus (PCR) Not Detected (NotDetected) 03/07/24 18:40 B. pertussis DNA (PCR) Not Detected (NotDetected) 03/07/24 18:40 B.parapertussis DNA PCR Not Detected (NotDetected) 03/07/24 18:40 C. pneumoniae DNA (PCR) Not Detected (NotDetected) 03/07/24 18:40 Coronavirus OC43 (PCR) Not Detected (NotDetected) 03/07/24 18:40 Coronavirus HKU1 (PCR) Not Detected (NotDetected) 03/07/24 18:40 Coronavirus 229E (PCR) Not Detected (NotDetected) 03/07/24 18:40 SARS-CoV-2 (PCR) Not Detected (NotDetected) 03/07/24 18:40 Coronavirus NL63 (PCR) Not Detected (NotDetected) 03/07/24 18:40 Human Metapneumovir PCR Not Detected (NotDetected) 03/07/24 18:40 Influenza Type A (PCR) Not Detected (NotDetected) 03/07/24 18:40 Influenza Type B (PCR) Not Detected (NotDetected) 03/07/24 18:40 M. pneumoniae (PCR) Not Detected (NotDetected) 03/07/24 18:40 Parainfluenza 1 (PCR) Not Detected (NotDetected) 03/07/24 18:40 Parainfluenza 2 (PCR) Not Detected (NotDetected) 03/07/24 18:40 Parainfluenza 3 (PCR) Not Detected (NotDetected) 03/07/24 18:40 Parainfluenza 4 (PCR) Not Detected (NotDetected) 03/07/24 18:40 RSV (PCR) Not Detected (NotDetected) 03/07/24 18:40 Entero/Rhino (PCR) Not Detected (NotDetected) 03/07/24 18:40 Impressions Chest X-Ray 03/07/24 16:04 XR chest 1V portable HISTORY: 78 years-old Female Dyspnea acute shortness of breath COMPARISON: 01/27/2000 TECHNIQUE: AP view of the chest FINDINGS: Cardiac silhouette is enlarged. Atherosclerosis of the aorta. No pneumothorax, pleural effusion or pulmonary edema. Mild left basilar atelectasis. Bones appear grossly intact. IMPRESSION: No acute process. ACT 112: Negative or not required by law. The above report was generated using voice recognition software. It may contain grammatical, syntax or spelling errors. Electronically signed by: Salvador Saenz M.D. 03/07/2024 5:20 PM PG Care Time/CCT Total # of Minutes Spent Total Time Spent with Patient: Total time spent is greater than 50% in coordination of care (as documented) at patient's floor/unit and/or counseling patient: Coding Level of Care Code 59736 INT INP/OBS CARE 2/55MIN Diagnoses Shortness of breath R06.02 Hypomagnesemia E83.42 Acute hypokalemia E87.6 Moderate Lewy body dementia with mood disturbance G31.83; F02.B3 Dementia severity: moderate Dementia behavioral or psychological symptom: with mood disturbance Hypothyroidism E03.9 (4) Lewy body dementia Dementia severity: moderate Dementia behavioral or psychological symptom: with mood disturbance Qualified Code(s): G31.83 - Neurocognitive disorder with Lewy bodies; F02.B3 - Dementia in other diseases classified elsewhere, moderate, with mood disturbance
[2024-03-08] MEDS: LEVOTHYROXINE SODIUM 75 MCG TABLET PO SCH (05:43)
[2024-03-08] MEDS: FAMOTIDINE 20 MG TAB PO SCH (11:53)
[2024-03-08] MEDS: DULoxetine HCL 60 MG CAP PO SCH (11:53)
--- NOTE | 2024-03-08 14:06 | XCELERA ---
[id number]
--- NOTE | 2024-03-08 15:25 | Electrocardiogram Report ---
Test Reason : Blood Pressure : / mmHG Vent. Rate : 095 BPM Atrial Rate : 095 BPM P-R Int : 174 ms QRS Dur : 078 ms QT Int : 350 ms P-R-T Axes : 039 -42 034 degrees QTc Int : 439 ms Normal sinus rhythm with sinus arrhythmia Left axis deviation Low voltage QRS Possible Anterolateral infarct (cited on or before 28-SEP-2023) Abnormal ECG When compared with ECG of 27-JAN-2024 18:00, No significant change was found Confirmed by Osiel Poole ([id number] on 03/08/2024 3:25:32 PM Referred By: REFERRED SELF Confirmed By:Carlin Poole
--- NOTE | 2024-03-08 15:42 | Hospitalist Progress Note ---
Date of Service March 08, 2024 Assessment & Plan (1) Shortness of breath: Plan: Presented with shortness of breath. Now resolved. She is on room air. No evidence of CHF or pneumonia on chest x-ray. Poor historian. She has a history of RISHI but she does not use CPAP. Cardiac echo is unremarkable for age. (2) Hypomagnesemia: Plan: replacement ordered. Serial labs. (3) Acute hypokalemia: Plan: Replacement ordered. Serial labs (4) Lewy body dementia: Plan: Patient not on any medications. Stable. Supportive care (5) Hypothyroidism: Plan: Stable. Continue Synthroid replacement therapy Plan Hopeful discharge to home tomorrow, March 09 Admission and Anticipated Discharge Date Admission Date: March 08, 2024 Subjective Alert and oriented. No complaints at this time. Magnesium and potassium replacement underway. She has 94% saturation on room air. Cardiac echo was unremarkable. OT and PT assessments have been requested. Hopefully she can go home tomorrow, March 09 Review of Systems 2 Review of Systems: Constitutional-no fever or chills ENT-no blurred vision, no double vision, no epistaxis, no sore throat Respiratory-no cough, no wheezing, no shortness of breath Cardiac-no palpitations, no chest pain, no syncope GI-no nausea, vomiting, diarrhea, melena, hematochezia -no urinary retention, no urinary incontinence, no dysuria, no hematuria Musculoskeletal-no joint pain, no muscle tenderness Skin-no bruising, no rashes, no pruritus Neuro-no isolated weakness, no paresthesia, no weakness Psych-no depression, no anxiety Physical Exam 2 Physical Exam: General-alert and oriented x3, no fever, no chills HEENT-head atraumatic and normocephalic, pupils equal and reactive to light, extraocular muscles intact Neck-no lymphadenopathy or thyromegaly, trachea midline Chest-clear to auscultation. No rales, wheezing or rhonchi Cardiac-regular rate and rhythm, normal S1 and S2 Abdomen-normal bowel sounds, nontender, no hepatosplenomegaly Extremities-no cyanosis, clubbing, or edema Neuro-cranial nerves II through XII intact, motor and sensory function within normal limits, strength symmetrical, no focal deficits Psych-normal affect, normal mood Results & Data Results & Data Vital Signs (Past 12 Hours) Vital Signs Temp Pulse Resp BP Pulse Ox O2 Del Method 03/08/24 14:04 36.6 C 98 H 17 94/65 L 96 Room Air 03/08/24 07:07 36.6 C 96 H 17 120/77 94 Room Air Laboratory Results 03/07/24 18:40 03/07/24 18:40 PG Care Time/CCT Total # of Minutes Spent Total Time Spent with Patient: Total time spent is greater than 50% in coordination of care (as documented) at patient's floor/unit and/or counseling patient: Coding Level of Care Code 71089 SUB INP/OBS CARE 3/50MIN Diagnoses Shortness of breath R06.02 Hypomagnesemia E83.42 Acute hypokalemia E87.6 Moderate Lewy body dementia with mood disturbance G31.83; F02.B3 Dementia severity: moderate Dementia behavioral or psychological symptom: with mood disturbance Hypothyroidism E03.9 (4) Lewy body dementia Dementia severity: moderate Dementia behavioral or psychological symptom: w ith mood disturbance Qualified Code(s): G31.83 - Neurocognitive disorder with Lewy bodies; F02.B3 - Dementia in other diseases classified elsewhere, moderate, with mood disturbance
[2024-03-08] MEDS: PROPRANOLOL HCL 60 MG LA CAP PO SCH (21:16)
[2024-03-08] MEDS: PANTOprazole 40 MG TAB PO SCH (21:16)
[2024-03-08] MEDS: ASPIRIN 81 MG ECTAB PO SCH (21:16)
[2024-03-08] MEDS: ATORVASTATIN 40 MG TAB PO SCH (21:16)
[2024-03-09 06:57] LABS: Hematocrit (blood only) 39.4 % (37.0-47.0); Hemoglobin 12.7 g/dl (12.0-16.0); Mean Corpuscular Hemoglobin 30.5 pg (25.0-34.0); Mean Corpuscular Hgb Conc 32.2 g/dL (32.0-36.0); Mean Corpuscular Volume 94.7 fL (80.0-100.0); Mean Platelet Volume 10.3 fL (9.4-12.4); Platelet Count 254 K/uL (130-400); RDW Coefficient of Variation 14.5 % (11.5-14.5); Red Blood Count 4.16 M/uL (4.20-5.40)
[2024-03-09 07:20] LABS: BUN Creatinine Ratio 12.3 (10-20); Creatinine Clr Calc Pharmacy 64.3 ml/min; Est GFR (African American) 92.7 ml/min; Magnesium 1.7 mg/dl (1.7-2.4); Potassium 3.7 mmol/L (3.5-5.1)
--- NOTE | 2024-03-09 09:03 | Electrocardiogram Report ---
Test Reason : Blood Pressure : / mmHG Vent. Rate : 090 BPM Atrial Rate : 090 BPM P-R Int : 156 ms QRS Dur : 082 ms QT Int : 378 ms P-R-T Axes : -08 -40 025 degrees QTc Int : 462 ms Sinus rhythm with Premature supraventricular complexes Left axis deviation Poor R wave progression, consider anterior AR vs. lead placement vs. LVH Abnormal ECG When compared with ECG of 27-JAN-2024 18:00, Premature supraventricular complexes are now Present Nonspecific T wave abnormality, improved in Lateral leads Confirmed by Osiel Poole ([id number]) on 03/09/2024 9:03:04 AM Referred By: REFERRED SELF Confirmed By:Carlin Poole
[2024-03-09] MEDS: MAGNESIUM OXIDE 400 MG TAB PO SCH (11:16)
[2024-03-09] MEDS: POTASSIUM CHLORIDE 10 MEQ TABCR PO SCH (11:17)
--- NOTE | 2024-03-09 15:16 | Hospitalist Progress Note ---
Date of Service March 09, 2024 Assessment & Plan (1) Shortness of breath: Plan: Presented with shortness of breath. Now resolved. She is on room air. No evidence of CHF or pneumonia on chest x-ray. Poor historian with underlying dementia. She has a history of RISHI but she does not use CPAP. Cardiac echo is unremarkable for age. (2) Hypomagnesemia: Plan: Oral replacement ordered. Serial labs. (3) Acute hypokalemia: Plan: Oral replacement ordered. Serial labs (4) Lewy body dementia: Plan: Patient not on any medications. Stable. Supportive care. She does not have the capacity to make long-term decisions (5) Hypothyroidism: Plan: Stable. Continue Synthroid replacement therapy Plan It appears long-term care placement will be necessary. Case management aware. Admission and Anticipated Discharge Date Admission Date: March 09, 2024 Subjective Alert and oriented to name and place. She has underlying severe dementia and lives alone. Family is concerned that she is not capable and I agree. She does not appear to have capacity to make her own decisions. Placement will be necessary. Continue OT and PT while hospitalized. She is on room air. She is now on oral magnesium and oral potassium supplements daily Review of Systems 2 Review of Systems: Constitutional-no fever or chills ENT-no blurred vision, no double vision, no epistaxis, no sore throat Respiratory-no cough, no wheezing, no shortness of breath Cardiac-no palpitations, no chest pain, no syncope GI-no nausea, vomiting, diarrhea, melena, hematochezia -no urinary retention, no urinary incontinence, no dysuria, no hematuria Musculoskeletal-no joint pain, no muscle tenderness Skin-no bruising, no rashes, no pruritus Neuro-no isolated weakness, no paresthesia, no weakness Psych-no depression, no anxiety Physical Exam 2 Physical Exam: General-alert and oriented x3, no fever, no chills HEENT-head atraumatic and normocephalic, pupils equal and reactive to light, extraocular muscles intact Neck-no lymphadenopathy or thyromegaly, trachea midline Chest-clear to auscultation. No rales, wheezing or rhonchi Cardiac-regular rate and rhythm, normal S1 and S2 Abdomen-normal bowel sounds, nontender, no hepatosplenomegaly Extremities-no cyanosis, clubbing, or edema Neuro-cranial nerves II through XII intact, motor and sensory function within normal limits, strength symmetrical, no focal deficits Psych-normal affect, normal mood Results & Data Results & Data Vital Signs (Past 12 Hours) Vital Signs Temp Pulse Resp BP Pulse Ox O2 Del Method 03/09/24 14:06 36.4 C L 70 16 125/76 95 Room Air 03/09/24 08:29 36.9 C 64 18 122/72 95 Room Air 03/09/24 07:10 36.4 C L 64 16 102/68 95 Room Air Laboratory Results 03/09/24 06:09 03/09/24 06:09 PG Care Time/CCT Total # of Minutes Spent Total Time Spent with Patient: Total time spent is greater than 50% in coordination of care (as documented) at patient's floor/unit and/or counseling patient: Coding Level of Care Code 48792 SUB INP/OBS CARE 3/50MIN Diagnoses Shortness of breath R06.02 Hypomagnesemia E83.42 Acute hypokalemia E87.6 Moderate Lewy body dementia with mood disturbance G31.83; F02.B3 Dementia severity: moderate Dementia behavioral or psychological symptom: with mood disturbance Hypothyroidism E03.9 (4) Lewy body dementia Dementia severity: moderate Dementia behavioral or psychological symptom: w ith mood disturbance Qualified Code(s): G31.83 - Neurocognitive disorder with Lewy bodies; F02.B3 - Dementia in other diseases classified elsewhere, moderate, with mood disturbance
[2024-03-10] MEDS: DICLOFENAC SODIUM 75 MG TABCR PO SCH (12:30)
--- NOTE | 2024-03-10 16:45 | Hospitalist Progress Note ---
Date of Service March 10, 2024 Assessment & Plan (1) Shortness of breath: Plan: Presented with shortness of breath. Now resolved. She is on room air. No evidence of CHF or pneumonia on chest x-ray. Poor historian with underlying dementia. She has a history of RISHI but she does not use CPAP. Cardiac echo is unremarkable for age. (2) Left hip pain: Plan: Pain with movement. This appears to be arthritic in nature. She agrees to a trial of Voltaren 75 mg twice a day (3) Hypomagnesemia: Plan: Oral replacement ordered. Serial labs. (4) Acute hypokalemia: Plan: Oral replacement ordered. Serial labs (5) Lewy body dementia: Plan: Patient not on any medications. Stable. Supportive care. She does not have the capacity to make long-term decisions (6) Hypothyroidism: Plan: Stable. Continue Synthroid replacement therapy Plan It appears long-term care placement will be necessary. Case management aware. Admission and Anticipated Discharge Date Admission Date: March 09, 2024 Subjective Alert and oriented to name only. Her main complaint is left hip pain with movement that appears to be arthritic in nature. She agrees to try Voltaren. Family has requested psychiatry evaluation due to her past history and this has been ordered and pending. Placement is also pending Review of Systems 2 Review of Systems: Constitutional-no fever or chills ENT-no blurred vision, no double vision, no epistaxis, no sore throat Respiratory-no cough, no wheezing, no shortness of breath Cardiac-no palpitations, no chest pain, no syncope GI-no nausea, vomiting, diarrhea, melena, hematochezia -no urinary retention, no urinary incontinence, no dysuria, no hematuria Musculoskeletal-left hip pain with movement. No muscle tenderness Skin-no bruising, no rashes, no pruritus Neuro-no isolated weakness, no paresthesia, no weakness Psych-no depression, no anxiety Physical Exam 2 Physical Exam: General-alert and oriented x3, no fever, no chills HEENT-head atraumatic and normocephalic, pupils equal and reactive to light, extraocular muscles intact Neck-no lymphadenopathy or thyromegaly, trachea midline Chest-clear to auscultation. No rales, wheezing or rhonchi Cardiac-regular rate and rhythm, normal S1 and S2 Abdomen-normal bowel sounds, nontender, no hepatosplenomegaly Extremities-no cyanosis, clubbing, or edema Neuro-cranial nerves II through XII intact, motor and sensory function within normal limits, strength symmetrical, no focal deficits Psych-normal affect, normal mood Results & Data Results & Data Vital Signs (Past 12 Hours) Vital Signs Temp Pulse Resp BP Pulse Ox O2 Del Method 03/10/24 13:52 36.7 C 97 H 18 109/73 94 Room Air 03/10/24 07:44 36.6 C 66 16 118/75 95 Room Air Laboratory Results 03/09/24 06:09 03/09/24 06:09 PG Care Time/CCT Total # of Minutes Spent Total Time Spent with Patient: Total time spent is greater than 50% in coordination of care (as documented) at patient's floor/unit and/or counseling patient: Coding Level of Care Code 35264 SUB INP/OBS CARE 3/50MIN Diagnoses Shortness of breath R06.02 Left hip pain M25.552 Hypomagnesemia E83.42 Acute hypokalemia E87.6 Moderate Lewy body dementia with mood disturbance G31.83; F02.B3 Dementia severity: moderate Dementia behavioral or psychological symptom: with mood disturbance Hypothyroidism E03.9 (5) Lewy body dementia Dementia severity: moderate Dementia behavioral or psychological symptom: w ith mood disturbance Qualified Code(s): G31.83 - Neurocognitive disorder with Lewy bodies; F02.B3 - Dementia in other diseases classified elsewhere, moderate, with mood disturbance
--- NOTE | 2024-03-11 09:31 | XRay Report ---
LEFT HIP 2 VIEWS CLINICAL HISTORY: Left hip pain. FINDINGS: AP and frog-leg views of the left hip are correlated with pelvic CT dated 11/09/2020. The s keletal structures are osteopenic. There is no radiographic evidence of acute fracture involving the left hip or the visualized left hemipelvis. Moderate osteoarthritic change and mild joint space narro wing is seen in the left hip. There is degenerative sclerosis of the left sacroiliac joint and pubic symphysis. The overlying soft tissues are within normal limits. Phleboliths are seen in the pelvis. IMPRESSION: No acute bony abnormality is identified. Electronically signed by: Britton Gaxiola M.D. 03/11/2024 9:30 AM
--- NOTE | 2024-03-11 13:06 | Hospitalist Progress Note ---
Date of Service March 11, 2024 Assessment & Plan (1) Shortness of breath: Plan: Presented with shortness of breath. Now resolved. She is on room air. No evidence of CHF or pneumonia on chest x-ray. Poor historian with underlying dementia. She has a history of RISHI but she does not use CPAP. Cardiac echo is unremarkable for age. (2) Left hip pain: Plan: Pain with movement. X-ray confirms osteoarthritis. Continue Voltaren. (3) Hypomagnesemia: Plan: Oral replacement ordered. Serial labs. (4) Acute hypokalemia: Plan: Oral replacement ordered. Serial labs (5) Lewy body dementia: Plan: Patient not on any medications. Stable. Supportive care. She does not have the capacity to make long-term decisions (6) Hypothyroidism: Plan: Stable. Continue Synthroid replacement therapy (7) Benign essential tremor: Plan: Resting tremor involving both hands. Supportive care. (8) Depression: Plan: Depression with past history of suicide attempts. Psychiatry consultation per family request is pending. This will help with the target process. Plan It appears long-term care placement will be necessary. She is going through the target process. Psychiatry consultation pending. Admission and Anticipated Discharge Date Admission Date: March 09, 2024 Subjective Alert. No new problems. Left hip x-ray reveals moderate osteoarthritis which is likely source of her discomfort. She remains on Voltaren which has been well-tolerated so far. Cardiac echo reveals normal ejection fraction. Psychiatry consultation is pending to help with target requirement for eventual placement. Review of Systems 2 Review of Systems: Constitutional-no fever or chills ENT-no blurred vision, no double vision, no epistaxis, no sore throat Respiratory-no cough, no wheezing, no shortness of breath Cardiac-no palpitations, no chest pain, no syncope GI-no nausea, vomiting, diarrhea, melena, hematochezia -no urinary retention, no urinary incontinence, no dysuria, no hematuria Musculoskeletal-left hip pain with movement. No muscle tenderness Skin-no bruising, no rashes, no pruritus Neuro-no isolated weakness, no paresthesia. She has a benign essential tremor involving both hands Psych-no depression, no anxiety Physical Exam 2 Physical Exam: General-alert and oriented x3, no fever, no chills HEENT-head atraumatic and normocephalic, pupils equal and reactive to light, extraocular muscles intact Neck-no lymphadenopathy or thyromegaly, trachea midline Chest-clear to auscultation. No rales, wheezing or rhonchi Cardiac-regular rate and rhythm, normal S1 and S2 Abdomen-normal bowel sounds, nontender, no hepatosplenomegaly Extremities-no cyanosis, clubbing, or edema Neuro-cranial nerves II through XII intact, motor and sensory function within normal limits, strength symmetrical, no focal deficits. Benign essential tremor involving both hands Psych-normal affect, normal mood Results & Data Results & Data Laboratory Results 03/09/24 06:09 03/09/24 06:09 PG Care Time/CCT Total # of Minutes Spent Total Time Spent with Patient: Total time spent is greater than 50% in coordination of care (as documented) at patient's floor/unit and/or counseling patient: Coding Level of Care Code 86753 SUB INP/OBS CARE 2/35MIN Diagnoses Shortness of breath R06.02 Left hip pain M25.552 Hypomagnesemia E83.42 Acute hypokalemia E87.6 Moderate Lewy body dementia with mood disturbance G31.83; F02.B3 Dementia severity: moderate Dementia behavioral or psychological symptom: with mood disturbance Hypothyroidism E03.9 Benign essential tremor G25.0 Depression F32.9 (5) Lewy body dementia Dementia severity: moderate Dementia behavioral or psychological symptom: w ith mood disturbance Qualified Code(s): G31.83 - Neurocognitive disorder with Lewy bodies; F02.B3 - Dementia in other diseases classified elsewhere, moderate, with mood disturbance
--- NOTE | 2024-03-11 15:15 | Psychiatric Consultation ---
Date of Consultation March 11, 2024 Impression / Recommendations Impression 78 yo woman with lewy body dementia and history of depression, anxiety and SI. Mood appears to be stable currently. Has fluctuating periods of VH and AH consistent with LBD diagnosis. She is psychiatrically stable for transfer to a assisted facility. There is no acute indication for inpatient psychiatric hospitalization as the patient is not suicidal or homicidal; there is no evidence of psychosis nor psychiatric symptoms interfering with their ability to care for their basic needs. Psychiatric follow-up care for this patient should include ongoing management of their medications. Overall, I spent a total of 60 minutes with this case including review of chart records, review of labwork, direct evaluation of the patient at bedside, counseling the patient, discussion of the patient with the Nurse, discussion with the psychiatric liason during clinical rounds, and documentation in the electronic health record. (1) Lewy body dementia: Dementia severity: moderate Dementia behavioral or psychological symptom: with mood disturbance Qualified Code(s): G31.83 - Neurocognitive disorder with Lewy bodies; F02.B3 - Dementia in other diseases classified elsewhere, moderate, with mood disturbance Plan -Continue Cymbalta 60mg daily -Given diagnosis of lewy body dementia if an antipsychotic medication is ever required in the future only second generation and very low doses should be used (i.e. olanzapine 1.25mg) Psych History Identifying Data 78 yo woman with history of lewy body dementia, RISHI and HTN admitted for SOB. Psychiatry consulted for target evaluation and family request for patient's history of depression. Chief Complaint "Yes I get anxious about going to appointments some times". History of Present Illness Donita is known to our service from her previous admission to [facility] in September 2023 for SI. She has since been diagnosed with Lewy Body dementia. Today she denies any depression nor SI. Feels she "sometimes" has anxiety especially related to going appointments and sometimes when she is home alone. She denies any medication issues. Chart review notable for periods of visual hallucinations, including seeing a man in her room last night, which she does not seem to find distressing. Today she believes she is in a bank but recalls speaking with a doctor earlier. Knows the city, month and year. Allergies Allergy/AdvReac Type Severity Reaction Status Date / Time simvastatin Allergy Unknown MUSCLE Verified 03/07/24 21:35 WEAKNESS latex AdvReac Intermediate HIVES Verified 03/07/24 21:35 Home Medications Medication Instructions Recorded Confirmed Type acetaminophen 325 mg tablet 325 - 650 mg PO Q6H PRN Fever Or 12/20/18 03/07/24 History Pain aspirin 81 mg tablet,delayed 81 mg PO QPM 11/03/20 03/07/24 History release exbdyuja-ujg-bzbvr acid 0.4 1 tab PO QAM #1 tab 10/07/23 03/07/24 Rx mg-lycopene 300 mcg-lutein 250 mcg tablet ([employer]er[employer]ite Senior) docusate sodium 100 mg capsule 100 mg PO DAILY PRN Constipation 10/08/23 03/07/24 History (Stool Softener) cholecalciferol (vitamin D3) 50 0 mcg PO DAILY 10/31/23 03/07/24 History mcg (2,000 unit) capsule atorvastatin 40 mg tablet 0 mg PO QPM 03/07/24 03/07/24 History duloxetine 30 mg capsule,delayed 0 mg PO DAILY 03/07/24 03/07/24 History release famotidine 20 mg tablet (Pepcid) 0 mg PO BID gerd 03/07/24 03/07/24 History levothyroxine 75 mcg tablet 0 mcg PO QAM 03/07/24 03/07/24 History pantoprazole 40 mg tablet,delayed 0 mg PO QPM 03/07/24 03/07/24 History release propranolol 60 mg capsule,24 0 mg PO DAILY 03/07/24 03/07/24 History hr,extended release Patient History Medical History Lewy body dementia UTI (urinary tract infection) Depression with suicidal ideation Auditory hallucinations Osteoarthritis Urinary incontinence Hiatal hernia TMJ (temporomandibular joint disorder) hx locking HTN (hypertension) Sleep apnea unable to tolerate CPAP Anxiety Tremor GERD (gastroesophageal reflux disease) Hypothyroidism Depression Surgical History History of arthroscopic knee surgery History of colonoscopy History of cholecystectomy History of total abdominal hysterectomy and bilateral salpingo-oophorectomy Status post Agatha fundoplication 05/2011 Dr. Ivey- Esophagogastric fundoplasty agatha fundoplication History of esophagogastroduodenoscopy (EGD) Family History Mother Cardiac disorder Myocardial infarction Aunt Cancer Uncle Cancer Cardiac disorder Myocardial infarction Other Family history non-contributory Denies family history of Ovarian cancer Prostate cancer Breast cancer Colorectal cancer Social History Smoking Status: Former smoker Second Hand Exposure: No; Do You Dip or Chew Tobacco: No; Hx Alcohol Use: No Hx Substance Use: No Preferred Language: B[place] Communication Ability: Effective Visual Impairment: No Limitations Hearing Ability: Normal Kitchen Designer Required: No Beliefs That Will Affect Care: None Current Living Situation: Alone Current Living Situation Comment: [facility] current occupational status: retired How many Children do You have: 2 Feels Safe at Home: Yes Safety Concerns: Feels Safe At This Time Childhood Exposure to Second-Hand Smoke: Yes Diet: regular Diet Comment: regular caffeine: Yes during the past year weight has: remained stable Dental Care, Regularly: No Physical Activity Frequency: 1-2 Times per Week Seatbelt Use: always Sunscreen Use: No Gender Identity: Female Assistive Devices: None Physical Exam Psychiatric: Orientation: alert, oriented to person and cooperative; + not oriented to place Apperance: appropriately dressed and appropriately groomed Eye Contact: good eye contact Motor Behavior: no abnormal motor movements Speech: normal rate/rhythm/volume of speech Affect: euthymic affect Mood: no depressed mood and no anxious mood Thought Process: linear/logical thought process Thought Content: reality based without delusions Suicidal Thoughts: denies suicidal thoughts Homicidal Thoughts: denies homicidal thoughts Hallucinations: + auditory hallucinations (intermittent) and + visual hallucinations (intermittent) Cognition: remote memory grossly intact, attention grossly intact and language grossly intact; + recent memory not intact Insight: + limited insight Judgment: + limited judgement Vital Signs (Past 24 Hours): Last Vital Signs Temp 36.4 C L 03/10/24 21:24 Pulse 64 03/10/24 21:24 Resp 18 03/10/24 21:24 BP 114/75 03/10/24 21:24 Pulse Ox 96 03/10/24 21:24 O2 Del Method Room Air 03/10/24 21:24 O2 Flow Rate 3 03/08/24 00:30 Results & Data (PSY) Medications Administered Aspirin (Aspirin 81 Mg Ectab) 81 mg PO QPM RODRIGO Stop: 04/07/24 20:59 Last Admin: 03/10/24 21:27 Dose: 81 mg Documented By: Admin: 03/09/24 21:09 Dose: 81 mg Documented By: Admin: 03/08/24 21:16 Dose: 81 mg Documented By: SAL Atorvastatin Calcium (Atorvastatin 40 Mg Tab) 40 mg PO QPM RODRIGO Stop: 04/07/24 20:59 Last Admin: 03/10/24 21:29 Dose: 40 mg Documented By: Admin: 03/09/24 21:09 Dose: 40 mg Documented By: Admin: 03/08/24 21:16 Dose: 40 mg Documented By: SAL Diclofenac Sodium (Diclofenac Sodium 75 Mg Tabcr) 75 mg PO BID RODRIGO Stop: 04/09/24 11:54 Last Admin: 03/11/24 08:36 Dose: 75 mg Documented By: Admin: 03/10/24 21:29 Dose: 75 mg Documented By: Admin: 03/10/24 12:30 Dose: Not Given Documented By: ELSA Duloxetine HCl (Duloxetine Hcl 60 Mg Cap) 60 mg PO DAILY RODRIGO Stop: 04/07/24 08:59 Last Admin: 03/11/24 08:37 Dose: 60 mg Documented By: Admin: 03/10/24 09:41 Dose: 60 mg Documented By: Admin: 03/09/24 09:30 Dose: 60 mg Documented By: Admin: 03/08/24 11:53 Dose: Not Given Documented By: MAXIMUS Famotidine (Famotidine 20 Mg Tab) 20 mg PO BID RODRIGO Stop: 04/07/24 08:59 Last Admin: 03/11/24 08:37 Dose: 20 mg Documented By: Admin: 03/10/24 21:26 Dose: 20 mg Documented By: Admin: 03/10/24 09:42 Dose: 20 mg Documented By: Admin: 03/09/24 21:10 Dose: 20 mg Documented By: Admin: 03/09/24 09:30 Dose: 20 mg Documented By: Admin: 03/08/24 21:16 Dose: 20 mg Documented By: Admin: 03/08/24 11:53 Dose: Not Given Documented By: MAXIMUS Levothyroxine Sodium (Levothyroxine Sodium 75 Mcg Tablet) 75 mcg PO DAILYBB RODRIGO Stop: 04/07/24 06:29 Last Admin: 03/11/24 05:42 Dose: 75 mcg Documented By: Admin: 03/10/24 05:17 Dose: 75 mcg Documented By: Admin: 03/09/24 05:47 Dose: 75 mcg Documented By: Admin: 03/08/24 05:43 Dose: 75 mcg Documented By: FELIX Magnesium Oxide (Magnesium Oxide 400 Mg Tab) 400 mg PO BID RODRIGO Stop: 04/08/24 09:04 Last Admin: 03/11/24 08:37 Dose: 400 mg Documented By: Admin: 03/10/24 21:28 Dose: 400 mg Documented By: Admin: 03/10/24 09:42 Dose: 400 mg Documented By: Admin: 03/09/24 21:08 Dose: 400 mg Documented By: Admin: 03/09/24 11:16 Dose: 400 mg Documented By: ELSA Pantoprazole Sodium (Pantoprazole 40 Mg Tab) 40 mg PO QPM RODRIGO Stop: 04/07/24 20:59 Last Admin: 03/10/24 21:28 Dose: 40 mg Documented By: Admin: 03/09/24 21:08 Dose: 40 mg Documented By: Admin: 03/08/24 21:16 Dose: 40 mg Documented By: SAL Potassium Chloride (Potassium Chloride 10 Meq Tabcr) 10 meq PO DAILY RODRIGO Stop: 04/08/24 09:04 Last Admin: 03/11/24 08:39 Dose: 10 meq Documented By: Admin: 03/10/24 09:42 Dose: 10 meq Documented By: Admin: 03/09/24 11:17 Dose: 10 meq Documented By: ROMK Propranolol HCl (Propranolol Hcl 60 Mg [place]) 60 mg PO HS RODRIGO Stop: 04/07/24 20:59 Last Admin: 03/10/24 21:29 Dose: 60 mg Documented By: Admin: 03/09/24 21:09 Dose: 60 mg Documented By: Admin: 03/08/24 21:16 Dose: 60 mg Documented By: SAL Coding Level of Care Code 71975 IN/OBS CONSULT LVL 4,60M Diagnoses Moderate Lewy body dementia with mood disturbance G31.83; F02.B3 Dementia severity: moderate Dementia behavioral or psychological symptom: with mood disturbance
--- NOTE | 2024-03-12 14:47 | Hospitalist Progress Note ---
Date of Service March 12, 2024 Assessment & Plan (1) Shortness of breath: Plan: Presented with shortness of breath. Now resolved. She is on room air. No evidence of CHF or pneumonia on chest x-ray. Poor historian with underlying dementia. She has a history of RISHI but she does not use CPAP. Cardiac echo is unremarkable for age. (2) Left hip pain: Plan: Pain with movement. X-ray confirms osteoarthritis. Continue Voltaren. (3) Hypomagnesemia: Plan: Corrected. Oral replacement ordered. Serial labs. (4) Acute hypokalemia: Plan: Corrected oral replacement ordered. Serial labs (5) Lewy body dementia: Plan: Patient not on any medications. Stable. Supportive care. She does not have the capacity to make long-term decisions. Appreciate psychiatry consultation and recommendations (6) Hypothyroidism: Plan: Stable. Continue Synthroid replacement therapy (7) Benign essential tremor: Plan: Resting tremor involving both hands. Supportive care. (8) Depression: Plan: Depression with past history of suicide attempts. Appreciate psychiatry consultation and recommendations. Plan It appears long-term care placement will be necessary. She is going through the target process. Admission and Anticipated Discharge Date Admission Date: March 09, 2024 Subjective Alert and oriented. No new problems. Appreciate psychiatry consultation and recommendations. Will continue Cymbalta. No indication for inpatient treatment at this time. Placement remains pending Review of Systems 2 Review of Systems: Constitutional-no fever or chills ENT-no blurred vision, no double vision, no epistaxis, no sore throat Respiratory-no cough, no wheezing, no shortness of breath Cardiac-no palpitations, no chest pain, no syncope GI-no nausea, vomiting, diarrhea, melena, hematochezia -no urinary retention, no urinary incontinence, no dysuria, no hematuria Musculoskeletal-left hip pain with movement. No muscle tenderness Skin-no bruising, no rashes, no pruritus Neuro-no isolated weakness, no paresthesia. She has a benign essential tremor involving both hands Psych-no depression, no anxiety Physical Exam 2 Physical Exam: General-alert and oriented x3, no fever, no chills HEENT-head atraumatic and normocephalic, pupils equal and reactive to light, extraocular muscles intact Neck-no lymphadenopathy or thyromegaly, trachea midline Chest-clear to auscultation. No rales, wheezing or rhonchi Cardiac-regular rate and rhythm, normal S1 and S2 Abdomen-normal bowel sounds, nontender, no hepatosplenomegaly Extremities-no cyanosis, clubbing, or edema Neuro-cranial nerves II through XII intact, motor and sensory function within normal limits, strength symmetrical, no focal deficits. Benign essential tremor involving both hands Psych-normal affect, normal mood Results & Data Results & Data Vital Signs (Past 12 Hours) Vital Signs Temp Pulse Resp BP Pulse Ox O2 Del Method 03/12/24 13:53 36.5 C 78 18 132/85 99 Room Air 03/12/24 07:34 36.5 C 80 18 94/63 L 97 Room Air Laboratory Results 03/09/24 06:09 03/09/24 06:09 PG Care Time/CCT Total # of Minutes Spent Total Time Spent with Patient: Total time spent is greater than 50% in coordination of care (as documented) at patient's floor/unit and/or counseling patient: Coding Level of Care Code 39094 SUB INP/OBS CARE 2/35MIN Diagnoses Shortness of breath R06.02 Left hip pain M25.552 Hypomagnesemia E83.42 Acute hypokalemia E87.6 Moderate Lewy body dementia with mood disturbance G31.83; F02.B3 Dementia severity: moderate Dementia behavioral or psychological symptom: with mood disturbance Hypothyroidism E03.9 Benign essential tremor G25.0 Depression F32.9 (5) Lewy body dementia Dementia severity: moderate Dementia behavioral or psychological symptom: w ith mood disturbance Qualified Code(s): G31.83 - Neurocognitive disorder with Lewy bodies; F02.B3 - Dementia in other diseases classified elsewhere, moderate, with mood disturbance
[2024-03-12 16:00] LABS: Appearance Urine Turbid (Clear); Bacteria Urine Automated 4+ (None Seen); Bilirubin Urine 1+ (Negative); Blood Urine Negative (Negative); Cast Urine Automated 0-2 /lpf (0-2); Color Urine Dark Yellow; Glucose Urine UA Negative (Negative); Ketones Urine Trace (Negative); Leukocyte Esterase Urine 2+ (Negative); Nitrite Urine Positive (Negative); Protein Urine Trace (Negative); Specific Gravity Urine 1.021 (1.000-1.030); Urobilinogen Urine Negative (Negative); WBC Urine Automated >50 /hpf (0-5)
[2024-03-12 16:40] LABS: Calcium Oxalate Crystals Urine Present (None Prsent)
--- NOTE | 2024-03-13 11:47 | Hospitalist Progress Note ---
Date of Service March 13, 2024 Assessment & Plan (1) Shortness of breath: Plan: Presented with shortness of breath. Now resolved. She is on room air. No evidence of CHF or pneumonia on chest x-ray. Poor historian with underlying dementia. She has a history of RISHI but she does not use CPAP. Cardiac echo is unremarkable for age. (2) Left hip pain: Plan: Pain with movement. X-ray confirms osteoarthritis. Continue Voltaren. (3) Urinary tract infection: Plan: Now on oral cephalexin. Gram-negative's isolated in the urine. Final identification and sensitivities pending. She most recently grew Proteus and E. coli with her most recent UTI (4) Hypomagnesemia: Plan: Corrected. Oral replacement ordered. Serial labs. (5) Acute hypokalemia: Plan: Corrected oral replacement ordered. Serial labs (6) Lewy body dementia: Plan: Patient not on any medications. Stable. Supportive care. She does not have the capacity to make long-term decisions. Appreciate psychiatry consultation and recommendations (7) Hypothyroidism: Plan: Stable. Continue Synthroid replacement therapy (8) Benign essential tremor: Plan: Resting tremor involving both hands. Supportive care. (9) Depression: Plan: Depression with past history of suicide attempts. Appreciate psychiatry consultation and recommendations. Plan It appears long-term care placement will be necessary. She is going through the target process. Admission and Anticipated Discharge Date Admission Date: March 09, 2024 Subjective Alert and oriented. She has developed dysuria and urine analysis is abnormal. Urine culture reveals gram-negative's. Final identification and sensitivities pending. Most recent urine culture grew E. coli and Proteus. She has been started on oral cephalexin. Review of Systems 2 Review of Systems: Constitutional-no fever or chills ENT-no blurred vision, no double vision, no epistaxis, no sore throat Respiratory-no cough, no wheezing, no shortness of breath Cardiac-no palpitations, no chest pain, no syncope GI-no nausea, vomiting, diarrhea, melena, hematochezia -dysuria. No hematuria. Musculoskeletal-left hip pain with movement. No muscle tenderness Skin-no bruising, no rashes, no pruritus Neuro-no isolated weakness, no paresthesia. She has a benign essential tremor involving both hands Psych-no depression, no anxiety Physical Exam 2 Physical Exam: General-alert and oriented x3, no fever, no chills HEENT-head atraumatic and normocephalic, pupils equal and reactive to light, extraocular muscles intact Neck-no lymphadenopathy or thyromegaly, trachea midline Chest-clear to auscultation. No rales, wheezing or rhonchi Cardiac-regular rate and rhythm, normal S1 and S2 Abdomen-normal bowel sounds, nontender, no hepatosplenomegaly Extremities-no cyanosis, clubbing, or edema Neuro-cranial nerves II through XII intact, motor and sensory function within normal limits, strength symmetrical, no focal deficits. Benign essential tremor involving both hands Psych-normal affect, normal mood Results & Data Results & Data Vital Signs (Past 12 Hours) Vital Signs Temp Pulse Resp BP Pulse Ox O2 Del Method 03/13/24 07:01 36.5 C 81 16 94/64 L 95 Room Air Laboratory Results 03/09/24 06:09 03/09/24 06:09 PG Care Time/CCT Total # of Minutes Spent Total Time Spent with Patient: Total time spent is greater than 50% in coordination of care (as documented) at patient's floor/unit and/or counseling patient: Coding Level of Care Code 18066 SUB INP/OBS CARE 3/50MIN Diagnoses Shortness of breath R06.02 Left hip pain M25.552 Urinary tract infection N39.0 Hypomagnesemia E83.42 Acute hypokalemia E87.6 Moderate Lewy body dementia with mood disturbance G31.83; F02.B3 Dementia severity: moderate Dementia behavioral or psychological symptom: with mood disturbance Hypothyroidism E03.9 Benign essential tremor G25.0 Depression F32.9 (6) Lewy body dementia Dementia severity: moderate Dementia behavioral or psychological symptom: w ith mood disturbance Qualified Code(s): G31.83 - Neurocognitive disorder with Lewy bodies; F02.B3 - Dementia in other diseases classified elsewhere, moderate, with mood disturbance
[2024-03-13] MEDS: cephALEXin 500 MG CAP PO SCH (12:59)
--- NOTE | 2024-03-14 11:38 | Hospitalist Progress Note ---
Date of Service March 14, 2024 Assessment & Plan (1) Shortness of breath: Plan: Presented with shortness of breath. Now resolved. She is on room air. No evidence of CHF or pneumonia on chest x-ray. Poor historian with underlying dementia. She has a history of RISHI but she does not use CPAP. Cardiac echo is unremarkable for age. (2) Left hip pain: Plan: Pain with movement. X-ray confirms osteoarthritis. Continue Voltaren. (3) Urinary tract infection: Plan: Now on oral cephalexin. Gram-negative's isolated in the urine. Final identification and sensitivities pending. She most recently grew Proteus and E. coli with her most recent UTI (4) Hypomagnesemia: Plan: Corrected. Oral replacement ordered. Serial labs. (5) Acute hypokalemia: Plan: Corrected oral replacement ordered. Serial labs (6) Lewy body dementia: Plan: Patient not on any medications. Stable. Supportive care. She does not have the capacity to make long-term decisions. Appreciate psychiatry consultation and recommendations (7) Hypothyroidism: Plan: Stable. Continue Synthroid replacement therapy (8) Benign essential tremor: Plan: Resting tremor involving both hands. Supportive care. (9) Depression: Plan: Depression with past history of suicide attempts. Appreciate psychiatry consultation and recommendations. Plan It appears long-term care placement will be necessary. She is going through the target process. Admission and Anticipated Discharge Date Admission Date: March 09, 2024 Subjective Alert and oriented. No new problems. She is now on oral Keflex for the gram- negative's in the urine. Final identification and sensitivities pending. She states the left hip discomfort has improved with the Voltaren which was started on March 10. She is going through the targeting process for SNF placement. Appreciate psychiatry consultation and recommendations. Review of Systems 2 Review of Systems: Constitutional-no fever or chills ENT-no blurred vision, no double vision, no epistaxis, no sore throat Respiratory-no cough, no wheezing, no shortness of breath Cardiac-no palpitations, no chest pain, no syncope GI-no nausea, vomiting, diarrhea, melena, hematochezia -dysuria. No hematuria. Musculoskeletal-left hip pain with movement. No muscle tenderness Skin-no bruising, no rashes, no pruritus Neuro-no isolated weakness, no paresthesia. She has a benign essential tremor involving both hands Psych-no depression, no anxiety Physical Exam 2 Physical Exam: General-alert and oriented x3, no fever, no chills HEENT-head atraumatic and normocephalic, pupils equal and reactive to light, extraocular muscles intact Neck-no lymphadenopathy or thyromegaly, trachea midline Chest-clear to auscultation. No rales, wheezing or rhonchi Cardiac-regular rate and rhythm, normal S1 and S2 Abdomen-normal bowel sounds, nontender, no hepatosplenomegaly Extremities-no cyanosis, clubbing, or edema Neuro-cranial nerves II through XII intact, motor and sensory function within normal limits, strength symmetrical, no focal deficits. Benign essential tremor involving both hands Psych-normal affect, normal mood Results & Data Results & Data Vital Signs (Past 12 Hours) Vital Signs Temp Pulse Resp BP Pulse Ox O2 Del Method 03/14/24 07:34 36.4 C L 62 16 121/71 97 Room Air Laboratory Results 03/09/24 06:09 03/09/24 06:09 PG Care Time/CCT Total # of Minutes Spent Total Time Spent with Patient: Total time spent is greater than 50% in coordination of care (as documented) at patient's floor/unit and/or counseling patient: Coding Level of Care Code 06416 SUB INP/OBS CARE 2/35MIN Diagnoses Shortness of breath R06.02 Left hip pain M25.552 Urinary tract infection N39.0 Hypomagnesemia E83.42 Acute hypokalemia E87.6 Moderate Lewy body dementia with mood disturbance G31.83; F02.B3 Dementia severity: moderate Dementia behavioral or psychological symptom: with mood disturbance Hypothyroidism E03.9 Benign essential tremor G25.0 Depression F32.9 (6) Lewy body dementia Dementia severity: moderate Dementia behavioral or psychological symptom: w ith mood disturbance Qualified Code(s): G31.83 - Neurocognitive disorder with Lewy bodies; F02.B3 - Dementia in other diseases classified elsewhere, moderate, with mood disturbance
[2024-03-15] MEDS: DOCUSATE SODIUM 100 MG CAP PO PRN (05:38)
--- NOTE | 2024-03-15 15:55 | Hospitalist Progress Note ---
Date of Service March 15, 2024 Assessment & Plan (1) Shortness of breath: Plan: Presented with shortness of breath. Now resolved. She is on room air. No evidence of CHF or pneumonia on chest x-ray. Poor historian with underlying dementia. She has a history of RISHI but she does not use CPAP. Cardiac echo is unremarkable for age. (2) Left hip pain: Plan: Pain with movement. X-ray confirms osteoarthritis. Continue Voltaren. This was started this admission and seems to be helping (3) Urinary tract infection: Plan: Now on oral cephalexin, day 3. E. coli isolated in the urine. Pansensitive (4) Hypomagnesemia: Plan: Corrected. Oral replacement ordered. Serial labs. (5) Acute hypokalemia: Plan: Corrected oral replacement ordered. Serial labs (6) Lewy body dementia: Plan: Patient not on any medications. Stable. Supportive care. She does not have the capacity to make long-term decisions. Appreciate psychiatry consultation and recommendations (7) Hypothyroidism: Plan: Stable. Continue Synthroid replacement therapy (8) Benign essential tremor: Plan: Resting tremor involving both hands. Supportive care. (9) Depression: Plan: Depression with past history of suicide attempts. Appreciate psychiatry consultation and recommendations. Plan It appears long-term care placement will be necessary. She is going through the target process. Admission and Anticipated Discharge Date Admission Date: March 09, 2024 Subjective Alert. E. coli evident in the urine culture. Pansensitive. She remains on oral Keflex, day 3. Psychiatry consultation appreciated. Voltaren is new and seems to be helping the left hip arthritic pain. Awaiting completion of target process for eventual discharge to SNF long-term. Review of Systems 2 Review of Systems: Constitutional-no fever or chills ENT-no blurred vision, no double vision, no epistaxis, no sore throat Respiratory-no cough, no wheezing, no shortness of breath Cardiac-no palpitations, no chest pain, no syncope GI-no nausea, vomiting, diarrhea, melena, hematochezia -dysuria. No hematuria. Musculoskeletal-left hip pain with movement. No muscle tenderness Skin-no bruising, no rashes, no pruritus Neuro-no isolated weakness, no paresthesia. She has a benign essential tremor involving both hands Psych-no depression, no anxiety Physical Exam 2 Physical Exam: General-alert and oriented x3, no fever, no chills HEENT-head atraumatic and normocephalic, pupils equal and reactive to light, extraocular muscles intact Neck-no lymphadenopathy or thyromegaly, trachea midline Chest-clear to auscultation. No rales, wheezing or rhonchi Cardiac-regular rate and rhythm, normal S1 and S2 Abdomen-normal bowel sounds, nontender, no hepatosplenomegaly Extremities-no cyanosis, clubbing, or edema Neuro-cranial nerves II through XII intact, motor and sensory function within normal limits, strength symmetrical, no focal deficits. Benign essential tremor involving both hands Psych-normal affect, normal mood Results & Data Results & Data Vital Signs (Past 12 Hours) Vital Signs Temp Pulse Resp BP Pulse Ox O2 Del Method 03/15/24 15:28 36.8 C 77 18 133/78 96 Room Air 03/15/24 07:37 36.6 C 60 18 112/74 94 Room Air Laboratory Results 03/09/24 06:09 03/09/24 06:09 PG Care Time/CCT Total # of Minutes Spent Total Time Spent with Patient: Total time spent is greater than 50% in coordination of care (as documented) at patient's floor/unit and/or counseling patient: Coding Level of Care Code 63267 SUB INP/OBS CARE 2/35MIN Diagnoses Shortness of breath R06.02 Left hip pain M25.552 Urinary tract infection N39.0 Hypomagnesemia E83.42 Acute hypokalemia E87.6 Moderate Lewy body dementia with mood disturbance G31.83; F02.B3 Dementia severity: moderate Dementia behavioral or psychological symptom: with mood disturbance Hypothyroidism E03.9 Benign essential tremor G25.0 Depression F32.9 (6) Lewy body dementia Dementia severity: moderate Dementia behavioral or psychological symptom: w ith mood disturbance Qualified Code(s): G31.83 - Neurocognitive disorder with Lewy bodies; F02.B3 - Dementia in other diseases classified elsewhere, moderate, with mood disturbance
[2024-03-15] MEDS: ACETAMINOPHEN 325 MG TAB PO PRN (20:13)
[2024-03-16 07:17] LABS: Basophils # (auto) 0.04 K/uL (0.00-0.20); Basophils % (auto) 0.6 %; Eosinophils # (auto) 0.17 K/uL (0.00-0.50); Eosinophils % (auto) 2.4 %; Hemoglobin 12.8 g/dl (12.0-16.0); Immature Granulocytes # (auto) 0.01 K/uL (0.01-0.20); Immature Granulocytes % (auto) 0.1 %; Lymphocytes # (auto) 1.56 K/uL (1.20-3.40); Lymphocytes % (auto) 21.7 %; Mean Corpuscular Hemoglobin 31.2 pg (25.0-34.0); Mean Corpuscular Hgb Conc 34.6 g/dL (32.0-36.0); Mean Corpuscular Volume 90.2 fL (80.0-100.0); Mean Platelet Volume 10.1 fL (9.4-12.4); Monocytes # (auto) 1.09 K/uL (0.11-0.59); Monocytes % (auto) 15.2 %; Neutrophils # (auto) 4.31 K/uL (1.40-6.50); Platelet Count 271 K/uL (130-400); RDW Standard Deviation 46.2 fL (36.4-46.3); White Blood Count 7.18 K/ul (4.8-10.8)
[2024-03-16 07:35] LABS: Calcium 9.1 mg/dl (8.6-10.3); Creatinine Clr Calc Pharmacy 67.1 ml/min; Est GFR (African American) 97.5 ml/min; Est GFR (Non-African American) 84.2 ml/min; Potassium 4.4 mmol/L (3.5-5.1)
--- NOTE | 2024-03-16 17:10 | Hospitalist Progress Note ---
Date of Service March 16, 2024 Assessment & Plan (1) Shortness of breath: Plan: Presented with shortness of breath and hypoxia, possibly related to untreated RISHI. Now resolved. She is on room air. No evidence of CHF or pneumonia on chest x-ray. Poor historian with underlying dementia. She has a history of RISHI but she does not use CPAP. Cardiac echo is unremarkable for age. D-dimer mildly elevated but no other evidence of PE Viral BioFire respiratory panel negative (2) Left hip pain: Plan: Pain with movement. X-ray confirms osteoarthritis. Continue Voltaren. This was started this admission and seems to be helping Needs rehab (3) Urinary tract infection: Plan: Now on oral cephalexin-last day of treatment will be 03/19/24 E. coli isolated in the urine-Pansensitive (4) Hypomagnesemia: Plan: Corrected. Oral replacement ordered (5) Acute hypokalemia: Plan: Corrected oral replacement ordered normalized (6) Lewy body dementia: Plan: Patient not on any medications. Stable. Supportive care. She does not have the capacity to make long-term decisions. Appreciate psychiatry consultation and recommendations Has been followed by Neurology in the past (7) Hypothyroidism: Plan: Stable, TSH 0.9 in 09/2023. Continue Synthroid replacement therapy (8) Benign essential tremor: Plan: Resting tremor involving both hands. Supportive care. Continue propranolol home med (9) Depression: Plan: Depression with past history of suicide attempts. Appreciate psychiatry consultation and recommendations. continue duloxetine Plan Dispo-It appears long-term care placement will be necessary. She is going through the target process. No bed available at a facility yet DVT proph-add Lovenox Admission and Anticipated Discharge Date Admission Date: March 09, 2024 Subjective Pt reports having constipation. Otherwise no complaints except bored with the food. Physical Exam Constitutional: WD/WN, vitals as above Respiratory: normal respiratory effort, lungs clear to auscultation Cardiovascular: RRR, no murmur, no edema Gastrointestinal (Abdomen): normal bowel sounds, soft, nontender, no hepatosplenomegaly Psychiatric: Orientation: alert, oriented to person and cooperative Results & Data Results & Data Vital Signs (Past 12 Hours) Vital Signs Temp Pulse Resp BP BP Pulse Ox O2 Del Method 03/16/24 15:04 36.8 C 60 16 116/75 94 Room Air 03/16/24 07:45 36.5 C 69 16 103/62 94 Room Air Laboratory Results CBC, BMP reviewed PG Care Time/CCT Total # of Minutes Spent Total Time Spent with Patient: Total time spent is greater than 50% in coordination of care (as documented) at patient's floor/unit and/or counseling patient: Coding Level of Care Code 49623 SUB INP/OBS CARE 25MIN Diagnoses Shortness of breath R06.02 Left hip pain M25.552 Urinary tract infection N39.0 Hypomagnesemia E83.42 Acute hypokalemia E87.6 Moderate Lewy body dementia with mood disturbance G31.83; F02.B3 Dementia severity: moderate Dementia behavioral or psychological symptom: with mood disturbance Hypothyroidism E03.9 Benign essential tremor G25.0 Depression F32.9 (6) Lewy body dementia Dementia severity: moderate Dementia behavioral or psychological symptom: with mood disturbance Qualified Code(s): G31.83 - Neurocognitive disorder with Lewy bodies; F02.B3 - Dementia in other diseases classified elsewhere, moderate, with mood disturbance
[2024-03-16] MEDS: POLYETHYLENE (MIRALAX) 17 GM PACK PO SCH (18:09)
[2024-03-16] MEDS: ENOXAPARIN INJ 40 MG/0.4 ML SYR SQ SCH (18:17)
[2024-03-16] MEDS: DOCUSATE SODIUM 100 MG CAP PO SCH (21:39)
--- NOTE | 2024-03-17 12:15 | Hospitalist Progress Note ---
Date of Service March 17, 2024 Assessment & Plan (1) Shortness of breath: Plan: Presented with shortness of breath and hypoxia, possibly related to untreated RISHI. Now resolved. She is on room air. No evidence of CHF or pneumonia on chest x-ray. Poor historian with underlying dementia. She has a history of RISHI but she does not use CPAP. Cardiac echo is unremarkable for age. D-dimer mildly elevated but no other evidence of PE Viral BioFire respiratory panel negative (2) Left hip pain: Plan: Pain with movement. X-ray confirms osteoarthritis. Continue Voltaren. This was started this admission and seems to be helping Needs rehab (3) Urinary tract infection: Plan: Now on oral cephalexin-last day of treatment will be 03/19/24 E. coli isolated in the urine-Pansensitive (4) Hypomagnesemia: Plan: Corrected. Oral replacement ongoing (5) Acute hypokalemia: Plan: Corrected oral replacement ordered normalized (6) Lewy body dementia: Plan: Patient not on any medications. Stable. Supportive care. She does not have the capacity to make long-term decisions. Appreciate psychiatry consultation and recommendations Has been followed by Neurology in the past (7) Hypothyroidism: Plan: Stable, TSH 0.9 in 09/2023. Continue Synthroid replacement therapy (8) Benign essential tremor: Plan: Resting tremor involving both hands. Supportive care. Continue propranolol home med (9) Depression: Plan: Depression with past history of suicide attempts. Appreciate psychiatry consultation and recommendations.No current need for inpatient psych continue duloxetine Plan Dispo-It appears long-term care placement will be necessary. She is going throu gh the target process. No bed available at a facility yet DVT proph-Lovenox SQ Admission and Anticipated Discharge Date Admission Date: March 09, 2024 Subjective No complaints. Eating her lunch. Physical Exam Constitutional: WD/WN, vitals as above Respiratory: normal respiratory effort, lungs clear to auscultation Cardiovascular: RRR, no murmur, no edema Psychiatric: Orientation: alert, oriented to person and cooperative Results & Data Results & Data Vital Signs (Past 12 Hours) Vital Signs Temp Pulse Resp BP Pulse Ox O2 Del Method 03/17/24 09:00 Room Air 03/17/24 07:11 36.4 C L 80 16 106/69 97 Room Air Laboratory Results no labs PG Care Time/CCT Total # of Minutes Spent Total Time Spent with Patient: Total time spent is greater than 50% in coordination of care (as documented) at patient's floor/unit and/or counseling patient: Coding Level of Care Code 14232 SUB INP/OBS CARE 12/19MIN Diagnoses Shortness of breath R06.02 Left hip pain M25.552 Urinary tract infection N39.0 Hypomagnesemia E83.42 Acute hypokalemia E87.6 Moderate Lewy body dementia with mood disturbance G31.83; F02.B3 Dementia severity: moderate Dementia behavioral or psychological symptom: with mood disturbance Hypothyroidism E03.9 Benign essential tremor G25.0 Depression F32.9 (6) Lewy body dementia Dementia severity: moderate Dementia behavioral or psychological symptom: with mood disturbance Qualified Code(s): G31.83 - Neurocognitive disorder with Lewy bodies; F02.B3 - Dementia in other diseases classified elsewhere, moderate, with mood disturbance
--- NOTE | 2024-03-18 19:29 | Hospitalist Progress Note ---
Date of Service March 18, 2024 Assessment & Plan (1) Shortness of breath: Plan: Presented with shortness of breath and hypoxia, possibly related to untreated RISHI. Now resolved. She is on room air and stable for many days No evidence of CHF or pneumonia on chest x-ray. Poor historian with underlying dementia. She has a history of RISHI but she does not use CPAP. Cardiac echo is unremarkable for age. D-dimer mildly elevated but no other evidence of PE Viral BioFire respiratory panel negative (2) Left hip pain: Plan: Pain with movement. X-ray confirms osteoarthritis. Continue Voltaren. This was started this admission and seems to be helping Needs rehab (3) Urinary tract infection: Plan: Now on oral cephalexin-last day of treatment will be 03/18/24 E. coli isolated in the urine-Pansensitive (4) Hypomagnesemia: Plan: Corrected. Oral replacement ongoing (5) Acute hypokalemia: Plan: Corrected oral replacement ordered normalized (6) Lewy body dementia: Plan: Patient not on any medications. Stable. Supportive care. She does not have the capacity to make long-term decisions. Appreciate psychiatry consultation and recommendations Has been followed by Neurology in the past (7) Hypothyroidism: Plan: Stable, TSH 0.9 in 09/2023. Continue Synthroid replacement therapy (8) Benign essential tremor: Plan: Resting tremor involving both hands. Supportive care. Continue propranolol home med (9) Depression: Plan: Depression with past history of suicide attempts. Appreciate psychiatry co nsultation and recommendations.No current need for inpatient psych continue duloxetine Plan Dispo-It appears long-term care placement will be necessary. She inow approved through the Target process. There is also a bed available for her at [facility] and awaiting family to agree and fill out financial paperwork for senior living placement DVT proph-Lovenox SQ Admission and Anticipated Discharge Date Admission Date: March 09, 2024 Subjective Pt has no complaints, no acute events Physical Exam Constitutional: WD/WN, vitals as above Respiratory: normal respiratory effort, lungs clear to auscultation Cardiovascular: RRR, no murmur, no edema Gastrointestinal (Abdomen): normal bowel sounds, soft, nontender, no hepatosplenomegaly Psychiatric: Orientation: alert, oriented to person and cooperative Results & Data Results & Data Vital Signs (Past 12 Hours) Vital Signs Temp Pulse Pulse Resp BP Pulse Ox O2 Del Method 03/18/24 14:28 36.5 C 57 L 16 95/65 L 97 Room Air 03/18/24 09:06 36.4 C L 65 16 109/75 97 Room Air 03/18/24 08:00 Room Air PG Care Time/CCT Total # of Minutes Spent Total Time Spent with Patient: Total time spent is greater than 50% in coordination of care (as documented) at patient's floor/unit and/or counseling patient: Coding Level of Care Code 03064 SUB INP/OBS CARE 1/25MIN Diagnoses Shortness of breath R06.02 Left hip pain M25.552 Urinary tract infection N39.0 Hypomagnesemia E83.42 Acute hypokalemia E87.6 Moderate Lewy body dementia with mood disturbance G31.83; F02.B3 Dementia severity: moderate Dementia behavioral or psychological symptom: with mood disturbance Hypothyroidism E03.9 Benign essential tremor G25.0 Depression F32.9 (6) Lewy body dementia Dementia severity: moderate Dementia behavioral or psychological symptom: with mood disturbance Qualified Code(s): G31.83 - Neurocognitive disorder with Lewy bodies; F02.B3 - Dementia in other diseases classified elsewhere, moderate, with mood disturbance
[2024-03-19 10:02] LABS: Basophils # (auto) 0.04 K/uL (0.00-0.20); Basophils % (auto) 0.4 %; Eosinophils # (auto) 0.13 K/uL (0.00-0.50); Eosinophils % (auto) 1.4 %; Hemoglobin 12.3 g/dl (12.0-16.0); Immature Granulocytes # (auto) 0.06 K/uL (0.01-0.20); Immature Granulocytes % (auto) 0.6 %; Lymphocytes % (auto) 22.7 %; Mean Corpuscular Hemoglobin 31.2 pg (25.0-34.0); Mean Corpuscular Hgb Conc 34.2 g/dL (32.0-36.0); Mean Corpuscular Volume 91.4 fL (80.0-100.0); Mean Platelet Volume 10.3 fL (9.4-12.4); Monocytes % (auto) 14.1 %; Neutrophils # (auto) 5.62 K/uL (1.40-6.50); Neutrophils % (auto) 60.8 %; Platelet Count 263 K/uL (130-400); RDW Coefficient of Variation 13.9 % (11.5-14.5); Red Blood Count 3.94 M/uL (4.20-5.40); White Blood Count 9.25 K/ul (4.8-10.8)
[2024-03-19 10:16] LABS: BUN Creatinine Ratio 32.4 (10-20); Calcium 8.5 mg/dl (8.6-10.3); Creatinine Clr Calc Pharmacy 66.1 ml/min; Est GFR (African American) 95.9 ml/min; Est GFR (Non-African American) 82.7 ml/min; Potassium 4.1 mmol/L (3.5-5.1)
--- NOTE | 2024-03-19 17:25 | Hospitalist Progress Note ---
Date of Service March 19, 2024 Assessment & Plan (1) Shortness of breath: Plan: Presented with shortness of breath and hypoxia, possibly related to untreated RISHI. Now resolved. She is on room air and stable for many days No evidence of CHF or pneumonia on chest x-ray. Poor historian with underlying dementia. She has a history of RISHI but she does not use CPAP. Cardiac echo is unremarkable for age. D-dimer mildly elevated but no other evidence of PE Viral BioFire respiratory panel negative (2) Left hip pain: Plan: Pain with movement. X-ray confirms osteoarthritis. Continue Voltaren. This was started this admission and seems to be helping Needs rehab (3) Urinary tract infection: Plan: Now on oral cephalexin-last day of treatment 03/18/24 E. coli isolated in the urine-Pansensitive (4) Hypomagnesemia: Plan: Corrected. Oral replacement ongoing (5) Acute hypokalemia: Plan: Corrected oral replacement ordered normalized (6) Lewy body dementia: Plan: Patient not on any medications. Stable. Supportive care. She does not have the capacity to make long-term decisions. Appreciate psychiatry consultation and recommendations Has been followed by Neurology in the past (7) Hypothyroidism: Plan: Stable, TSH 0.9 in 09/2023. Continue Synthroid replacement therapy (8) Benign essential tremor: Plan: Resting tremor involving both hands. Supportive care. Continue propranolol home med (9) Depression: Plan: Depression with past history of suicide attempts. Appreciate psychiatry consultation and recommendations.No current need for inpatient psych continue duloxetine Plan Dispo-It appears long-term care placement will be necessary. She inow approved through the Target process. There is also a bed available for her at [facility] and awaiting family to agree and fill out financial paperwork for nursing home placement DVT proph-Lovenox SQ Admission and Anticipated Discharge Date Admission Date: March 09, 2024 Subjective Patient denies any new complaints. No chest pain or shortness of breath Review of Systems Review of Systems: All systems reviewed & are unremarkable except as noted in Subjective Physical Exam Physical Exam: General: Awake, conversant Heart: S1, S2/regular rate and rhythm, no murmur rubs or gallops Lungs: Clear to auscultation bilaterally. Normal effort Abdomen: Soft/nontender/nondistended. No hepatosplenomegaly Extremities: No clubbing/cyanosis. No edema Behavior: Appropriate, cooperative Results & Data Results & Data Vital Signs (Past 12 Hours) Vital Signs Temp Pulse Resp BP Pulse Ox O2 Del Method 03/19/24 15:36 36.4 C L 75 18 111/77 97 Room Air 03/19/24 11:14 Room Air 03/19/24 08:12 36.7 C 69 16 115/67 100 Room Air Laboratory Results Abnormal lab results 03/19/24 Range/Units 09:39 RBC 3.94 L (4.20-5.40) M/uL Hct 36.0 L (37.0-47.0) % RDW Std Deviation 47.0 H (36.4-46.3) fL [place] # (Auto) 1.30 H (0.11-0.59) K/uL Sodium 129 L (136-145) mmol/L Chloride 96 L (98-107) mmol/L BUN/Creatinine Ratio 32.4 H (10-20) Glucose 112 H (70-99(Fasting)) mg/dl Calcium 8.5 L (8.6-10.3) mg/dl PG Care Time/CCT Total # of Minutes Spent Total Time Spent with Patient: Total time spent is greater than 50% in coordination of care (as documented) at patient's floor/unit and/or counseling patient: Coding Level of Care Code 24644 SUB INP/OBS CARE 2/35MIN Diagnoses Shortness of breath R06.02 Left hip pain M25.552 Urinary tract infection N39.0 Hypomagnesemia E83.42 Acute hypokalemia E87.6 Moderate Lewy body dementia with mood disturbance G31.83; F02.B3 Dementia severity: moderate Dementia behavioral or psychological symptom: with mood disturbance Hypothyroidism E03.9 Benign essential tremor G25.0 Depression F32.9 (6) Lewy body dementia Dementia severity: moderate Dementia behavioral or psychological symptom: with mood disturbance Qualified Code(s): G31.83 - Neurocognitive disorder with Lewy bodies; F02.B3 - Dementia in other diseases classified elsewhere, moderate, with mood disturbance
[2024-03-19] MEDS: MELATONIN 3 MG TAB PO PRN (21:46)
--- NOTE | 2024-03-20 15:42 | Hospitalist Progress Note ---
Date of Service March 20, 2024 Assessment & Plan (1) Shortness of breath: Plan: Presented with shortness of breath and hypoxia, possibly related to untreated RISHI. Now resolved. She is on room air and stable for many days No evidence of CHF or pneumonia on chest x-ray. Poor historian with underlying dementia. She has a history of RISHI but she does not use CPAP. Cardiac echo is unremarkable for age. D-dimer mildly elevated but no other evidence of PE Viral BioFire respiratory panel negative (2) Left hip pain: Plan: Pain with movement. X-ray confirms osteoarthritis. Continue Voltaren. This was started this admission and seems to be helping Needs rehab (3) Urinary tract infection: Plan: Now on oral cephalexin-last day of treatment 03/18/24 E. coli isolated in the urine-Pansensitive (4) Hypomagnesemia: Plan: Corrected. Oral replacement ongoing (5) Acute hypokalemia: Plan: Corrected oral replacement ordered normalized (6) Lewy body dementia: Plan: Patient not on any medications. Stable. Supportive care. She does not have the capacity to make long-term decisions. Appreciate psychiatry consultation and recommendations Has been followed by Neurology in the past (7) Hypothyroidism: Plan: Stable, TSH 0.9 in 09/2023. Continue Synthroid replacement therapy (8) Benign essential tremor: Plan: Resting tremor involving both hands. Supportive care. Continue propranolol home med (9) Depression: Plan: Depression with past history of suicide attempts. Appreciate psychiatry consultation and recommendations.No current need for inpatient psych continue duloxetine Plan Dispo-It appears long-term care placement will be necessary. She is now approved through the [employer] process. Per case finisher, the patient will be here through the weekend and hopefully will transfer to [place] on Saturday. DVT proph-Lovenox SQ Admission and Anticipated Discharge Date Admission Date: March 09, 2024 Subjective Patient has no new complaints. Denies chest pain or shortness of breath Review of Systems Review of Systems: All systems reviewed & are unremarkable except as noted in Subjective Physical Exam Physical Exam: General: Awake, conversant Heart: S1, S2/regular rate and rhythm, no murmur rubs or gallops Lungs: Clear to auscultation bilaterally. Normal effort Abdomen: Soft/nontender/nondistended. No hepatosplenomegaly Extremities: No clubbing/cyanosis. No edema Behavior: Appropriate, cooperative Results & Data Results & Data Vital Signs (Past 12 Hours) Vital Signs Temp Pulse Resp BP Pulse Ox O2 Del Method 03/20/24 15:09 36.7 C 59 L 17 131/83 97 Room Air 03/20/24 11:43 Room Air 03/20/24 08:35 36.4 C L 70 14 115/76 95 Room Air PG Care Time/CCT Total # of Minutes Spent Total Time Spent with Patient: Total time spent is greater than 50% in coordination of care (as documented) at patient's floor/unit and/or counseling patient: Coding Level of Care Code 92022 SUB INP/OBS CARE 2/35MIN Diagnoses Shortness of breath R06.02 Left hip pain M25.552 Urinary tract infection N39.0 Hypomagnesemia E83.42 Acute hypokalemia E87.6 Moderate Lewy body dementia with mood disturbance G31.83; F02.B3 Dementia severity: moderate Dementia behavioral or psychological symptom: with mood disturbance Hypothyroidism E03.9 Benign essential tremor G25.0 Depression F32.9 (6) Lewy body dementia Dementia severity: moderate Dementia behavioral or psychological symptom: with mood disturbance Qualified Code(s): G31.83 - Neurocognitive disorder with Lewy bodies; F02.B3 - Dementia in other diseases classified elsewhere, moderate, with mood disturbance
--- NOTE | 2024-03-21 12:23 | Hospitalist Progress Note ---
Date of Service March 21, 2024 Assessment & Plan (1) Shortness of breath: Plan: Presented with shortness of breath and hypoxia, possibly related to untreated RISHI. Now resolved. She is on room air and stable for many days No evidence of CHF or pneumonia on chest x-ray. Poor historian with underlying dementia. She has a history of RISHI but she does not use CPAP. Cardiac echo is unremarkable for age. D-dimer mildly elevated but no other evidence of PE Viral BioFire respiratory panel negative (2) Left hip pain: Plan: Pain with movement. X-ray confirms osteoarthritis. Continue Voltaren. This was started this admission and seems to be helping Needs rehab (3) Urinary tract infection: Plan: Completed p.o. cephalexin-last day of treatment 03/18/24 E. coli isolated in the urine-Pansensitive (4) Hypomagnesemia: Plan: Corrected. Oral replacement ongoing (5) Acute hypokalemia: Plan: Corrected oral replacement ordered normalized (6) Lewy body dementia: Plan: Patient not on any medications. Stable. Supportive care. She does not have the capacity to make long-term decisions. Appreciate psychiatry consultation and recommendations Has been followed by Neurology in the past (7) Hypothyroidism: Plan: Stable, TSH 0.9 in 09/2023. Continue Synthroid replacement therapy (8) Benign essential tremor: Plan: Resting tremor involving both hands. Supportive care. Continue propranolol home med (9) Depression: Plan: Depression with past history of suicide attempts. Appreciate psychiatry consul tation and recommendations.No current need for inpatient psych continue duloxetine Plan Dispo-It appears long-term care placement will be necessary. She is now approved through the [employer] process. Per family preservation caseworker, the patient will be here through the weekend and hopefully will transfer to [place] on Saturday. DVT proph-Lovenox SQ Admission and Anticipated Discharge Date Admission Date: March 09, 2024 Subjective Patient feels well. Denies chest pain or shortness of breath. Review of Systems Review of Systems: Unobtainable due to cognitive status Physical Exam Physical Exam: General: Awake, conversant Heart: S1, S2/regular rate and rhythm, no murmur rubs or gallops Lungs: Clear to auscultation bilaterally. Normal effort Abdomen: Soft/nontender/nondistended. No hepatosplenomegaly Extremities: No clubbing/cyanosis. No edema Behavior: Appropriate, cooperative Results & Data Results & Data Vital Signs (Past 12 Hours) Vital Signs Temp Pulse Resp BP Pulse Ox O2 Del Method 03/21/24 09:00 Room Air 03/21/24 07:03 36.5 C 70 16 103/65 98 Room Air PG Care Time/CCT Total # of Minutes Spent Total Time Spent with Patient: Total time spent is greater than 50% in coordination of care (as documented) at patient's floor/unit and/or counseling patient: Coding Level of Care Code 40998 SUB INP/OBS CARE 2/35MIN Diagnoses Shortness of breath R06.02 Left hip pain M25.552 Urinary tract infection N39.0 Hypomagnesemia E83.42 Acute hypokalemia E87.6 Moderate Lewy body dementia with mood disturbance G31.83; F02.B3 Dementia severity: moderate Dementia behavioral or psychological symptom: with mood disturbance Hypothyroidism E03.9 Benign essential tremor G25.0 Depression F32.9 (6) Lewy body dementia Dementia severity: moderate Dementia behavioral or psychological symptom: with mood disturbance Qualified Code(s): G31.83 - Neurocognitive disorder with Lewy bodies; F02.B3 - Dementia in other diseases classified elsewhere, moderate, with mood disturbance
[2024-03-22 07:34] LABS: Creatinine Clr Calc Pharmacy 55.9 ml/min; Est GFR (African American) 78.2 ml/min; Est GFR (Non-African American) 67.5 ml/min
--- NOTE | 2024-03-22 13:36 | Hospitalist Progress Note ---
Date of Service March 22, 2024 Assessment & Plan (1) Shortness of breath: Plan: Presented with shortness of breath and hypoxia, possibly related to untreated RISHI. Now resolved. She is on room air and stable for many days No evidence of CHF or pneumonia on chest x-ray. Poor historian with underlying dementia. She has a history of RISHI but she does not use CPAP. Cardiac echo is unremarkable for age. D-dimer mildly elevated but no other evidence of PE Viral BioFire respiratory panel negative (2) Left hip pain: Plan: Pain with movement. X-ray confirms osteoarthritis. Continue Voltaren. This was started this admission and seems to be helping Needs rehab (3) Urinary tract infection: Plan: Completed p.o. cephalexin-last day of treatment 03/18/24 E. coli isolated in the urine-Pansensitive (4) Hypomagnesemia: Plan: Corrected. Oral replacement ongoing (5) Acute hypokalemia: Plan: Corrected oral replacement ordered normalized (6) Lewy body dementia: Plan: Patient not on any medications. Stable. Supportive care. She does not have the capacity to make long-term decisions. Appreciate psychiatry consultation and recommendations Has been followed by Neurology in the past (7) Hypothyroidism: Plan: Stable, TSH 0.9 in 09/2023. Continue Synthroid replacement therapy (8) Benign essential tremor: Plan: Resting tremor involving both hands. Supportive care. Continue propranolol home med (9) Depression: Plan: Depression with past history of suicide attempts. Appreciate psychiatry consul tation and recommendations.No current need for inpatient psych continue duloxetine Plan Dispo-It appears long-term care placement will be necessary. She is now approved through the [employer] process. Per director case management, the patient will be here through the weekend and hopefully will transfer to [place] on Saturday. DVT proph-Lovenox SQ Admission and Anticipated Discharge Date Admission Date: March 09, 2024 Subjective Patient feels well. No new complaints Review of Systems Review of Systems: All systems reviewed & are unremarkable except as noted in Subjective Physical Exam Physical Exam: General: Awake, conversant Heart: S1, S2/regular rate and rhythm, no murmur rubs or gallops Lungs: Clear to auscultation bilaterally. Normal effort Abdomen: Soft/nontender/nondistended. No hepatosplenomegaly Extremities: No clubbing/cyanosis. No edema Behavior: Appropriate, cooperative Results & Data Results & Data Vital Signs (Past 12 Hours) Vital Signs Temp Pulse Resp BP Pulse Ox O2 Del Method 03/22/24 08:00 Room Air 03/22/24 07:04 36.5 C 73 18 100/67 97 Room Air PG Care Time/CCT Total # of Minutes Spent Total Time Spent with Patient: Total time spent is greater than 50% in coordination of care (as documented) at patient's floor/unit and/or counseling patient: Coding Level of Care Code 14761 SUB INP/OBS CARE 2/35MIN Diagnoses Shortness of breath R06.02 Left hip pain M25.552 Urinary tract infection N39.0 Hypomagnesemia E83.42 Acute hypokalemia E87.6 Moderate Lewy body dementia with mood disturbance G31.83; F02.B3 Dementia severity: moderate Dementia behavioral or psychological symptom: with mood disturbance Hypothyroidism E03.9 Benign essential tremor G25.0 Depression F32.9 (6) Lewy body dementia Dementia severity: moderate Dementia behavioral or psychological symptom: with mood disturbance Qualified Code(s): G31.83 - Neurocognitive disorder with Lewy bodies; F02.B3 - Dementia in other diseases classified elsewhere, moderate, with mood disturbance
--- NOTE | 2024-03-23 16:00 | Hospitalist Progress Note ---
Date of Service March 23, 2024 Assessment & Plan (1) Shortness of breath: Plan: Presented with shortness of breath and hypoxia, possibly related to untreated RISHI. Now resolved. She is on room air and stable for many days No evidence of CHF or pneumonia on chest x-ray. Poor historian with underlying dementia. She has a history of RISHI but she does not use CPAP. Cardiac echo is unremarkable for age. D-dimer mildly elevated but no other evidence of PE Viral BioFire respiratory panel negative (2) Left hip pain: Plan: Pain with movement. X-ray confirms osteoarthritis. Continue Voltaren. This was started this admission and seems to be helping Needs rehab (3) Urinary tract infection: Plan: Completed p.o. cephalexin-last day of treatment 03/18/24 E. coli isolated in the urine-Pansensitive (4) Hypomagnesemia: Plan: Corrected. Oral replacement ongoing (5) Acute hypokalemia: Plan: Corrected oral replacement ordered normalized (6) Lewy body dementia: Plan: Patient not on any medications. Stable. Supportive care. She does not have the capacity to make long-term decisions. Appreciate psychiatry consultation and recommendations Has been followed by Neurology in the past (7) Hypothyroidism: Plan: Stable, TSH 0.9 in 09/2023. Continue Synthroid replacement therapy (8) Benign essential tremor: Plan: Resting tremor involving both hands. Supportive care. Continue propranolol home med (9) Depression: Plan: Depression with past history of suicide attempts. Appreciate psychiatry consul tation and recommendations.No current need for inpatient psych continue duloxetine Plan Dispo-It appears long-term care placement will be necessary. She is now approved through the [employer] process. Awaiting transfer to [facility] Admission and Anticipated Discharge Date Admission Date: March 09, 2024 Subjective Patient feels well. Denies chest pain or shortness of breath. No new complaints. Review of Systems Review of Systems: All systems reviewed & are unremarkable except as noted in Subjective Physical Exam Physical Exam: General: Awake, conversant Heart: S1, S2/regular rate and rhythm, no murmur rubs or gallops Lungs: Clear to auscultation bilaterally. Normal effort Abdomen: Soft/nontender/nondistended. No hepatosplenomegaly Extremities: No clubbing/cyanosis. No edema Behavior: Appropriate, cooperative Results & Data Results & Data Vital Signs (Past 12 Hours) Vital Signs Temp Pulse Resp BP Pulse Ox O2 Del Method 03/23/24 14:39 36.8 C 61 18 108/72 96 Room Air 03/23/24 07:13 36.6 C 62 18 117/75 97 Room Air PG Care Time/CCT Total # of Minutes Spent Total Time Spent with Patient: Total time spent is greater than 50% in coordination of care (as documented) at patient's floor/unit and/or counseling patient: Coding Level of Care Code 73671 SUB INP/OBS CARE 2/35MIN Diagnoses Shortness of breath R06.02 Left hip pain M25.552 Urinary tract infection N39.0 Hypomagnesemia E83.42 Acute hypokalemia E87.6 Moderate Lewy body dementia with mood disturbance G31.83; F02.B3 Dementia severity: moderate Dementia behavioral or psychological symptom: with mood disturbance Hypothyroidism E03.9 Benign essential tremor G25.0 Depression F32.9 (6) Lewy body dementia Dementia severity: moderate Dementia behavioral or psychological symptom: with mood disturbance Qualified Code(s): G31.83 - Neurocognitive disorder with Lewy bodies; F02.B3 - Dementia in other diseases classified elsewhere, moderate, with mood disturbance
--- NOTE | 2024-03-24 15:40 | Hospitalist Progress Note ---
Date of Service March 24, 2024 Assessment & Plan (1) Shortness of breath: Plan: Presented with shortness of breath and hypoxia, possibly related to untreated RISHI. Now resolved. She is on room air and stable for many days No evidence of CHF or pneumonia on chest x-ray. Poor historian with underlying dementia. She has a history of RISHI but she does not use CPAP. Cardiac echo is unremarkable for age. D-dimer mildly elevated but no other evidence of PE Viral BioFire respiratory panel negative (2) Left hip pain: Plan: Pain with movement. X-ray confirms osteoarthritis. Continue Voltaren. This was started this admission and seems to be helping Needs rehab (3) Urinary tract infection: Plan: Completed p.o. cephalexin-last day of treatment 03/18/24 E. coli isolated in the urine-Pansensitive (4) Hypomagnesemia: Plan: Corrected. Oral replacement ongoing (5) Acute hypokalemia: Plan: Corrected oral replacement ordered normalized (6) Lewy body dementia: Plan: Patient not on any medications. Stable. Supportive care. She does not have the capacity to make long-term decisions. Appreciate psychiatry consultation and recommendations Has been followed by Neurology in the past (7) Hypothyroidism: Plan: Stable, TSH 0.9 in 09/2023. Continue Synthroid replacement therapy (8) Benign essential tremor: Plan: Resting tremor involving both hands. Supportive care. Continue propranolol home med (9) Depression: Plan: Depression with past history of suicide attempts. Appreciate psychiatry consul tation and recommendations.No current need for inpatient psych continue duloxetine Plan Dispo-It appears long-term care placement will be necessary. She is now approved through the [employer] process. Awaiting transfer to [facility] Admission and Anticipated Discharge Date Admission Date: March 09, 2024 Subjective Patient has no complaints Review of Systems Review of Systems: All systems reviewed & are unremarkable except as noted in Subjective Physical Exam Physical Exam: General: Awake, conversant, smiling Heart: S1, S2/regular rate and rhythm, no murmur rubs or gallops Lungs: Clear to auscultation bilaterally. Normal effort Abdomen: Soft/nontender/nondistended. No hepatosplenomegaly Extremities: No clubbing/cyanosis. No edema Behavior: Appropriate, cooperative Results & Data Results & Data Vital Signs (Past 12 Hours) Vital Signs Temp Pulse Resp BP Pulse Ox O2 Del Method 03/24/24 07:37 36.7 C 57 L 16 106/72 97 Room Air PG Care Time/CCT Total # of Minutes Spent Total Time Spent with Patient: Total time spent is greater than 50% in coordination of care (as documented) at patient's floor/unit and/or counseling patient: Coding Level of Care Code 99220 SUB INP/OBS CARE 2/35MIN Diagnoses Shortness of breath R06.02 Left hip pain M25.552 Urinary tract infection N39.0 Hypomagnesemia E83.42 Acute hypokalemia E87.6 Moderate Lewy body dementia with mood disturbance G31.83; F02.B3 Dementia severity: moderate Dementia behavioral or psychological symptom: with mood disturbance Hypothyroidism E03.9 Benign essential tremor G25.0 Depression F32.9 (6) Lewy body dementia Dementia severity: moderate Dementia behavioral or psychological symptom: with mood disturbance Qualified Code(s): G31.83 - Neurocognitive disorder with Lewy bodies; F02.B3 - Dementia in other diseases classified elsewhere, moderate, with mood disturbance
[2024-03-25 06:55] LABS: Creatinine Clr Calc Pharmacy 65.2 ml/min; Est GFR (African American) 94.3 ml/min; Est GFR (Non-African American) 81.3 ml/min
[2024-03-25] MEDS: ONDANSETRON INJ 2 MG/ML 2 ML VIAL IV PRN (12:02)
[2024-03-25 12:35] LABS: Basophils # (auto) 0.05 K/uL (0.00-0.20); Basophils % (auto) 0.6 %; Hematocrit (blood only) 39.1 % (37.0-47.0); Hemoglobin 13.1 g/dl (12.0-16.0); Immature Granulocytes # (auto) 0.14 K/uL (0.01-0.20); Immature Granulocytes % (auto) 1.6 %; Lymphocytes # (auto) 2.84 K/uL (1.20-3.40); Lymphocytes % (auto) 31.9 %; Mean Corpuscular Hemoglobin 30.6 pg (25.0-34.0); Mean Corpuscular Hgb Conc 33.5 g/dL (32.0-36.0); Mean Corpuscular Volume 91.4 fL (80.0-100.0); Mean Platelet Volume 9.4 fL (9.4-12.4); Monocytes # (auto) 0.67 K/uL (0.11-0.59); Monocytes % (auto) 7.5 %; Neutrophils # (auto) 5.19 K/uL (1.40-6.50); Neutrophils % (auto) 58.4 %; Platelet Count 347 K/uL (130-400); RDW Standard Deviation 46.9 fL (36.4-46.3); Red Blood Count 4.28 M/uL (4.20-5.40); White Blood Count 8.89 K/ul (4.8-10.8)
[2024-03-25] MEDS: ONDANSETRON 4 MG OD TAB PO PRN (13:05)
[2024-03-25 13:45] LABS: BUN Creatinine Ratio 24.4 (10-20); Creatinine Clr Calc Pharmacy 60.2 ml/min; Est GFR (African American) 85.6 ml/min; Est GFR (Non-African American) 73.8 ml/min; Potassium 4.6 mmol/L (3.5-5.1)
--- NOTE | 2024-03-25 15:13 | Hospitalist Progress Note ---
Date of Service March 25, 2024 Assessment & Plan (1) Shortness of breath: Plan: Presented with shortness of breath and hypoxia, possibly related to untreated RISHI. Now resolved. She is on room air and stable for many days No evidence of CHF or pneumonia on chest x-ray. Poor historian with underlying dementia. She has a history of RISHI but she does not use CPAP. Cardiac echo is unremarkable for age. D-dimer mildly elevated but no other evidence of PE Viral BioFire respiratory panel negative (2) Left hip pain: Plan: Pain with movement. X-ray confirms osteoarthritis. Continue Voltaren. This was started this admission and seems to be helping Needs rehab (3) Urinary tract infection: Plan: Completed p.o. cephalexin-last day of treatment 03/18/24 E. coli isolated in the urine-Pansensitive (4) Hypomagnesemia: Plan: Corrected. Oral replacement ongoing (5) Acute hypokalemia: Plan: Corrected oral replacement ordered normalized (6) Lewy body dementia: Plan: Patient not on any medications. Stable. Supportive care. She does not have the capacity to make long-term decisions. Appreciate psychiatry consultation and recommendations Has been followed by Neurology in the past (7) Hypothyroidism: Plan: Stable, TSH 0.9 in 09/2023. Continue Synthroid replacement therapy (8) Benign essential tremor: Plan: Resting tremor involving both hands. Supportive care. Continue propranolol home med (9) Depression: Plan: Depression with past history of suicide attempts. Appreciate psychiatry consultation and recommendations.No current need for inpatient psych continue duloxetine Plan Dispo-It appears long-term care placement will be necessary. She is now approved through the [employer] process. Awaiting transfer to [facility] Admission and Anticipated Discharge Date Admission Date: March 09, 2024 Subjective Patient is complaining of nausea today. Does not have an appetite. Denies abdominal pain. Had a normal bowel movement last evening Review of Systems Review of Systems: All systems reviewed & are unremarkable except as noted in Subjective Physical Exam Physical Exam: General: Awake, conversant Heart: S1, S2/regular rate and rhythm, no murmur rubs or gallops Lungs: Clear to auscultation bilaterally. Normal effort Abdomen: Soft/nontender/nondistended. No hepatosplenomegaly Extremities: No clubbing/cyanosis. No edema Behavior: Appropriate, cooperative Results & Data Results & Data Vital Signs (Past 12 Hours) Vital Signs Temp Pulse Resp BP Pulse Ox O2 Del Method 03/25/24 07:18 36.7 C 67 17 109/73 97 Room Air Laboratory Results Abnormal lab results 03/25/24 Range/Units 12:12 RDW Std Deviation 46.9 H (36.4-46.3) fL [place] # (Auto) 0.67 H (0.11-0.59) K/uL Sodium 130 L (136-145) mmol/L BUN/Creatinine Ratio 24.4 H (10-20) PG Care Time/CCT Total # of Minutes Spent Total Time Spent with Patient: Total time spent is greater than 50% in coordination of care (as documented) at patient's floor/unit and/or counseling patient: Coding Level of Care Code 17598 SUB INP/OBS CARE 2/35MIN Diagnoses Shortness of breath R06.02 Left hip pain M25.552 Urinary tract infection N39.0 Hypomagnesemia E83.42 Acute hypokalemia E87.6 Moderate Lewy body dementia with mood disturbance G31.83; F02.B3 Dementia severity: moderate Dementia behavioral or psychological symptom: with mood disturbance Hypothyroidism E03.9 Benign essential tremor G25.0 Depression F32.9 (6) Lewy body dementia Dementia severity: moderate Dementia behavioral or psychological symptom: with mood disturbance Qualified Code(s): G31.83 - Neurocognitive disorder with Lewy bodies; F02.B3 - Dementia in other diseases classified elsewhere, moderate, with mood disturbance
--- NOTE | 2024-03-26 14:35 | Hospitalist Progress Note ---
Date of Service March 26, 2024 Assessment & Plan (1) Shortness of breath: Plan: Presented with shortness of breath and hypoxia, possibly related to untreated RISHI. Now resolved. She is on room air and stable for many days No evidence of CHF or pneumonia on chest x-ray. Poor historian with underlying dementia. She has a history of RISHI but she does not use CPAP. Cardiac echo is unremarkable for age. D-dimer mildly elevated but no other evidence of PE Viral BioFire respiratory panel negative (2) Left hip pain: Plan: Pain with movement. X-ray confirms osteoarthritis. Continue Voltaren. This was started this admission and seems to be helping Needs rehab (3) Urinary tract infection: Plan: Completed p.o. cephalexin-last day of treatment 03/18/24 E. coli isolated in the urine-Pansensitive (4) Hypomagnesemia: Plan: Corrected. Oral replacement ongoing (5) Acute hypokalemia: Plan: Corrected oral replacement ordered normalized (6) Lewy body dementia: Plan: Patient not on any medications. Stable. Supportive care. She does not have the capacity to make long-term decisions. Appreciate psychiatry consultation and recommendations Has been followed by Neurology in the past (7) Hypothyroidism: Plan: Stable, TSH 0.9 in 09/2023. Continue Synthroid replacement therapy (8) Benign essential tremor: Plan: Resting tremor involving both hands. Supportive care. Continue propranolol home med (9) Depression: Plan: Depression with past history of suicide attempts. Appreciate psychiatry consultation and recommendations.No current need for inpatient psych continue duloxetine Plan Dispo-It appears long-term care placement will be necessary. She is now approved through the [employer] process. [place] [facility] [place] and Anticipated Discharge Date Admission Date: March 09, 2024 Subjective Patient is not nauseous today. No new complaints. Review of Systems Review of Systems: All systems reviewed & are unremarkable except as noted in Subjective Physical Exam Physical Exam: General: Awake, conversant, smiling Heart: S1, S2/regular rate and rhythm, no murmur rubs or gallops Lungs: Clear to auscultation bilaterally. Normal effort Abdomen: Soft/nontender/nondistended. No hepatosplenomegaly Extremities: No clubbing/cyanosis. No edema Behavior: Appropriate, cooperative Results & Data Results & Data Vital Signs (Past 12 Hours) Vital Signs Temp Pulse Resp BP Pulse Ox O2 Del Method 03/26/24 14:26 36.7 C 63 16 105/58 L 98 Room Air 03/26/24 07:11 36.6 C 58 L 16 117/76 98 Room Air PG Care Time/CCT Total # of Minutes Spent Total Time Spent with Patient: Total time spent is greater than 50% in coordination of care (as documented) at patient's floor/unit and/or counseling patient: Coding Level of Care Code 57144 SUB INP/OBS CARE 2/35MIN Diagnoses Shortness of breath R06.02 Left hip pain M25.552 Urinary tract infection N39.0 Hypomagnesemia E83.42 Acute hypokalemia E87.6 Moderate Lewy body dementia with mood disturbance G31.83; F02.B3 Dementia severity: moderate Dementia behavioral or psychological symptom: with mood disturbance Hypothyroidism E03.9 Benign essential tremor G25.0 Depression F32.9 (6) Lewy body dementia Dementia severity: moderate Dementia behavioral or psychological symptom: with mood disturbance Qualified Code(s): G31.83 - Neurocognitive disorder with Lewy bodies; F02.B3 - Dementia in other diseases classified elsewhere, moderate, with mood disturbance
--- NOTE | 2024-03-27 15:56 | Hospitalist Progress Note ---
Date of Service March 27, 2024 Assessment & Plan (1) Shortness of breath: Plan: Presented with shortness of breath and hypoxia, possibly related to untreated RISHI. Now resolved. She is on room air and stable for many days No evidence of CHF or pneumonia on chest x-ray. Poor historian with underlying dementia. She has a history of RISHI but she does not use CPAP. Cardiac echo is unremarkable for age. D-dimer mildly elevated but no other evidence of PE Viral BioFire respiratory panel negative (2) Left hip pain: Plan: Pain with movement. X-ray confirms osteoarthritis. Continue Voltaren. This was started this admission and seems to be helping Needs rehab (3) Urinary tract infection: Plan: Completed p.o. cephalexin-last day of treatment 03/18/24 E. coli isolated in the urine-Pansensitive (4) Hypomagnesemia: Plan: Corrected. Oral replacement ongoing (5) Acute hypokalemia: Plan: Corrected oral replacement ordered normalized (6) Lewy body dementia: Plan: Patient not on any medications. Stable. Supportive care. She does not have the capacity to make long-term decisions. Appreciate psychiatry consultation and recommendations Has been followed by Neurology in the past (7) Hypothyroidism: Plan: Stable, TSH 0.9 in 09/2023. Continue Synthroid replacement therapy (8) Benign essential tremor: Plan: Resting tremor involving both hands. Supportive care. Continue propranolol home med (9) Depression: Plan: Depression with past history of suicide attempts. Appreciate psychiatry consultation and recommendations.No current need for inpatient psych continue duloxetine Plan Dispo-It appears long-term care placement will be necessary. She is now approved through the [employer] process. [place] [facility] [place]ticipated Discharge Date Admission Date: March 09, 2024 Subjective Patient feels well. Denies chest pain or shortness of breath Review of Systems Review of Systems: All systems reviewed & are unremarkable except as noted in Subjective Physical Exam Physical Exam: General: Awake, conversant, smiling Heart: S1, S2/regular rate and rhythm, no murmur rubs or gallops Lungs: Clear to auscultation bilaterally. Normal effort Abdomen: Soft/nontender/nondistended. No hepatosplenomegaly Extremities: No clubbing/cyanosis. No edema Behavior: Appropriate, cooperative Results & Data Results & Data Vital Signs (Past 12 Hours) Vital Signs Temp Pulse Pulse Resp BP BP Pulse Ox 03/27/24 15:15 36.6 C 55 L 16 122/82 92 03/27/24 07:46 36.6 C 63 18 119/77 97 O2 Del Method 03/27/24 15:15 Room Air 03/27/24 07:46 Room Air PG Care Time/CCT Total # of Minutes Spent Total Time Spent with Patient: Total time spent is greater than 50% in coordination of care (as documented) at patient's floor/unit and/or counseling patient: Coding Level of Care Code 01257 SUB INP/OBS CARE 2/35MIN Diagnoses Shortness of breath R06.02 Left hip pain M25.552 Urinary tract infection N39.0 Hypomagnesemia E83.42 Acute hypokalemia E87.6 Moderate Lewy body dementia with mood disturbance G31.83; F02.B3 Dementia severity: moderate Dementia behavioral or psychological symptom: with mood disturbance Hypothyroidism E03.9 Benign essential tremor G25.0 Depression F32.9 (6) Lewy body dementia Dementia severity: moderate Dementia behavioral or psychological symptom: with mood disturbance Qualified Code(s): G31.83 - Neurocognitive disorder with Lewy bodies; F02.B3 - Dementia in other diseases classified elsewhere, moderate, with mood disturbance
[2024-03-28 07:10] LABS: Creatinine Clr Calc Pharmacy 50.5 ml/min; Est GFR (African American) 69.2 ml/min; Est GFR (Non-African American) 59.7 ml/min
--- NOTE | 2024-03-28 09:10 | Discharge Summary ---
Date of Service March 28, 2024 Admission HPI Per Admitting Provider 78yo female with Dementia, RISHI, HTN presenting with shortness of breath. Patient is unsure how long her symptoms have been ongoing. She denies cough, fever, edema. She has had some chills and nausea as well as decreased oral intake and poor appetite. Hypoxic to 85% on room air noted by ER No home O2 or CPAP use ER Course: O2 placed KCl 80mEq Mg 400mg PO Principal Diagnosis Hypoxia, possibly related to untreated sleep apnea E. coli UTI Ambulatory dysfunction with left hip pain Discharge Exam General: Awake, conversant, smiling Heart: S1, S2/regular rate and rhythm, no murmur rubs or gallops Lungs: Clear to auscultation bilaterally. Normal effort Abdomen: Soft/nontender/nondistended. No hepatosplenomegaly Extremities: No clubbing/cyanosis. No edema Behavior: Appropriate, cooperative Discharge Data Allergies Allergy/AdvReac Type Severity Reaction Status Date / Time simvastatin Allergy Unknown MUSCLE Verified 03/07/24 21:35 WEAKNESS latex AdvReac Intermediate HIVES Verified 03/07/24 21:35 Consultations 03/07/24 23:26 ED Decision to Admit Stat Hospital Course (1) Shortness of breath: Presented with shortness of breath and hypoxia, possibly related to untreated RISHI. Now resolved. She is on room air and stable for many days No evidence of CHF or pneumonia on chest x-ray. Poor historian with underlying dementia. She has a history of RISHI but she does not use CPAP. Cardiac echo is unremarkable for age. D-dimer mildly elevated but no other evidence of PE Viral BioFire respiratory panel negative (2) Left hip pain: Pain with movement. X-ray confirms osteoarthritis. Continue Voltaren. This was started this admission and seems to be helping Needs rehab (3) Urinary tract infection: Completed p.o. cephalexin-last day of treatment 03/18/24 E. coli isolated in the urine-Pansensitive (4) Hypomagnesemia: Corrected. (5) Acute hypokalemia: Corrected oral replacement ordered normalized (6) Lewy body dementia: Patient not on any medications. Stable. Supportive care. She does not have the capacity to make long-term decisions. Appreciate psychiatry consultation and recommendations Has been followed by Neurology in the past (7) Hypothyroidism: Stable, TSH 0.9 in 09/2023. Continue Synthroid replacement therapy (8) Benign essential tremor: Resting tremor involving both hands. Supportive care. Continue propranolol home med (9) Depression: Depression with past history of suicide attempts. Appreciate psychiatry consultation and recommendations.No current need for inpatient psych continue duloxetine Plan discharged Total Time Total Time Spent Total Time Spent (In Minutes): 35 Discharge Plan Discharge Items Patient Disposition: Personal Custodial Reason For Visit: SOB, HYPOXIA Discharge Diagnosis: Hypoxia, possibly related to untreated sleep apnea E. coli UTI Ambulatory dysfunction with left hip pain Activity: As commented below Activity Comment: Per PT/OT recommendations Non-emergency contact: Primary Care Provider Call non-emergency contact if: you have any medication questions and your symptoms worsen Follow-up/Referrals: Adrian Guillen CRNP [Primary Care Provider] - Diet: Heart Healthy Addtl Attending Provider Instructions: Advised to follow-up with PCP in 1 week Pending Studies at Discharge: No Stand-Alone Forms: [employer], Smoking Cessation Skilled Items Patient informed of condition?: Yes DNR: No Discharge Level of Care: Skilled Communicable Disease: No Discharge Prognosis: Stable Lines: None Urinary Catheter: No Medications and DC Order Prescriptions: Continued docusate sodium [Stool Softener] 100 mg capsule 100 mg PO DAILY PRN (Reason: Constipation) cholecalciferol (vitamin D3) 50 mcg (2,000 unit) capsule 0 mcg PO DAILY Rx Instructions: 03/07/24 UNABLE TO VERIFY DOSE acetaminophen 325 mg Tablet 325 - 650 mg PO Q6H PRN (Reason: Fever Or Pain) aspirin 81 mg Tablet,Delayed Release (Dr/Ec) 81 mg PO QPM Cerovite Senior 0.4 mg-300 mcg- 250 mcg Tablet 1 tab PO QAM Qty: 1 0RF atorvastatin 40 mg tablet 0 mg PO QPM Rx Instructions: 03/07/24 UNABLE TO VERIFY DOSE duloxetine 30 mg capsule,delayed release(DR/EC) 0 mg PO DAILY Rx Instructions: 03/07/24 UNABLE TO VERIFY DOSE famotidine [Pepcid] 20 mg tablet 0 mg PO BID Rx Instructions: 03/07/24 UNABLE TO VERIFY DOSE levothyroxine 75 mcg tablet 0 mcg PO QAM Rx Instructions: 03/07/24 UNABLE TO VERIFY DOSE pantoprazole 40 mg tablet,delayed release (DR/EC) 0 mg PO QPM Rx Instructions: 03/07/24 UNABLE TO VERIFY DOSE propranolol 60 mg capsule,extended release 24 hr 0 mg PO DAILY Rx Instructions: 03/07/24 UNABLE TO VERIFY DOSE Discharge Orders: Discharge Order (Routine); Ordered 03/28/24 Ordered By: Rony Mackay Admission Data Admit Date/Time: 03/09/24 09:15 Attending Provider: Rony Mackay Admit Provider: Cinthia Hanna Primary Care Provider: Adrian Guillen Other Providers: Cinthia Hanna Other Interventions: Discharge Summary Assessment (RN) Last Done: 03/28/24 12:51 Coding Level of Care Code 57487 INP/OBS DISCH >30 MIN Diagnoses Shortness of breath R06.02 Left hip pain M25.552 Urinary tract infection N39.0 Hypomagnesemia E83.42 Acute hypokalemia E87.6 Moderate Lewy body dementia with mood disturbance G31.83; F02.B3 Dementia behavioral or psychological symptom: with mood disturbance Dementia severity: moderate Hypothyroidism E03.9 Benign essential tremor G25.0 Depression F32.9
== END 2024-03-28 17:51 | DRG 155 ==
LOC: 3E 15:52 → ED 15:52 → SUATTDRO 03-08 01:08 → 3E 03-08 02:42 → SUATTDRO 03-09 09:15